=== PATIENT | female | born 1965 | race American Indian/Alaskan Native ===

== ENCOUNTER 2016-06-21 14:03 | Emergency (ER) | payer MEDICARE ==
--- NOTE | 2016-06-21 17:59 | Emergency Department Report ---
Chief Complaint: Medical Clearance Stated Complaint: CHECK POTASSIUM LEVELS/DIALYSIS Time Seen by Provider: 06/21/16 17:54 - HPI History of Present Illness: Patient here reports that she was sent by dialysis clinic today emergency room to have lab work checked because she missed her dialysis yesterday. She said that transport didn't show up. And she didn't have a ride to go. She gets dialysis Tuesdays and Saturdays. She says psychiatric social worker supervisor at dialysis center arranged for her to have transport to have dialysis tomorrow so she will be going tomorrow. She denies any chest pain or shortness of breath. Denies any numbness or tingling to extremities. - ROS Review of Systems: All systems are negative unless stated in HPI above. - Exam Vital Signs: Vital Signs 06/21/16 15:23 Temperature 98.2 F Pulse Rate 102 H Respiratory 18 Rate Blood Pressure 126/69 O2 Sat by Pulse 96 Oximetry Physical Exam: General: This is a 50-year-old female well-nourished well-developed in no acute distress. CV: Tachycardia 102. S1 and S2 and regular rhythm. Dialysis access to left arm with good thrill and bruit. Extremity: No clubbing, cyanosis or edema. +2 pulses MSE screening note: Focused history and physical exam performed. Due to findings the following was ordered:see mdm ED Medical Decision Making - Medical Decision Making Medical decision making: Patient seen by provider in triage area. Appropriate protocol activated and patient to main ED to be seen by physician. ED Disposition for MSE Condition: Stable
[2016-06-21 18:22] LABS: Basophils % (Auto) 0.6 % (0.0-1.8); Eosinophils % (Auto) 2.2 % (0.0-4.3); Hematocrit 27.5 % (30.3-42.9); Hemoglobin 8.8 gm/dl (10.1-14.3); Mean Corpuscular HGB Conc 32 % (30-34); Mean Corpuscular Hemoglobin 29 pg (28-32); Mean Corpuscular Volume 92 fl (79-97); Platelet Count 331 K/mm3 (140-440); Red Cell Distribution Width 16.2 % (13.2-15.2); White Blood Count 16.5 K/mm3 (4.5-11.0)
[2016-06-21 18:34] LABS: Albumin 3.5 g/dL (3.9-5); Albumin/Globulin Ratio 0.9 %; BUN/Creatinine Ratio 3.28; Bilirubin,Total 0.3 mg/dL (0.1-1.2); Calcium 7.3 mg/dL (8.4-10.2); Chloride 93.8 mmol/L (98-107); Magnesium 2.3 mg/dL (1.7-2.3); Total Protein 7.4 g/dL (6.3-8.2)
[2016-06-21 18:42] LABS: Potassium 6.7 mmol/L (3.6-5.0)
[2016-06-21] MEDS ORDERED: SODIUM BICARBONATE IV ONE ×2 (20:58→21:00)
[2016-06-21] MEDS ORDERED: CALCIUM GLUCONATE 1,000 MG in NACL 0.9% 100 ML IV ONE (20:58)
[2016-06-21] MEDS ORDERED: D50W (25GM) IV ONE (20:58)
[2016-06-21] MEDS ORDERED: PROVENTIL IH ONE (21:01)
[2016-06-21] MEDS ORDERED: KAYEXALATE PO ONE (21:13)
--- NOTE | 2016-06-21 21:22 | Emergency Department Report ---
HPI - General Chief Complaint: Medical Clearance Time Seen by Provider: 06/21/16 17:54 - HPI HPI: Room 19 The patient is a 50-year-old female presenting with a chief complaint missed hemodialysis. Patient has a history of end-stage renal disease and usually receives dialysis every Friday and Friday. The patient states she was unable to get to dialysis yesterday. The patient states she feels "okay." Patient denies any complaints. Patient denies shortness of breath, chest pain. Location: [see above] Duration: [see above] Quality: Painless Severity: [see above] Modifying factors: [see above] Context: [see above] Mode of transportation: [not driving] ED Past Medical Hx - Past Medical History Hx Hypertension: Yes (1990 takes Amlodipine,) Hx CVA: Yes (LEFT SIDED WEAKNESS) Hx Congestive Heart Failure: Yes Hx Diabetes: Yes (diet control) Hx Renal Disease: Yes (DIALYSIS / / FRI) Hx Arthritis: Yes (hands) Hx Asthma: Yes (last attack-2014) Hx COPD: Yes Additional medical history: ANEMIA - Surgical History Additional Surgical History: TUBAL LIGATION. LEFT OVARY REMOVED. GRAFT LEFT ARM. PERMACATH RIGHT CHEST - Family History Family history: no significant - Social History Smoking Status: Never Smoker Substance Use Type: None - Medications Home Medications: Home Medications Medication Instructions Recorded Confirmed Last Taken Type Gabapentin 100 mg PO TID #90 capsule 07/30/13 04/26/16 1 Day Ago Rx amLODIPine [Norvasc] 10 mg PO QDAY #30 tablet 05/23/14 04/26/16 1 Day Ago Rx hydrALAZINE [Apresoline TAB] 25 mg PO Q8HR #90 tablet 05/23/14 04/26/16 1 Day Ago Rx hydrOXYzine HCL [Atarax] 25 mg PO Q8H PRN #20 tablet 05/23/14 04/26/16 1 Day Ago Rx Ondansetron [Zofran TAB] 4 mg PO PRN PRN 09/09/14 04/26/16 1 Day Ago History Loratadine [Claritin] 10 mg PO QDAY tablet 10/09/14 04/26/16 1 Day Ago Rx ED Review of Systems ROS: Stated complaint: CHECK POTASSIUM LEVELS/DIALYSIS Other details as noted in HPI Comment: All other systems reviewed and negative Constitutional: denies: chills, fever Eyes: denies: eye pain, eye discharge, vision change ENT: denies: ear pain, throat pain Respiratory: denies: cough, shortness of breath, wheezing Cardiovascular: denies: chest pain, palpitations Endocrine: no symptoms reported Gastrointestinal: denies: abdominal pain, nausea, diarrhea Genitourinary: denies: urgency, dysuria, discharge Musculoskeletal: denies: back pain, joint swelling, arthralgia Skin: denies: rash, lesions Neurological: denies: headache, weakness, paresthesias Psychiatric: denies: anxiety, depression Hematological/Lymphatic: denies: easy bleeding, easy bruising Physical Exam - Physical Exam Vital Signs: Vital Signs 06/21/16 15:23 Temperature 98.2 F Pulse Rate 102 H Respiratory 18 Rate Blood Pressure 126/69 O2 Sat by Pulse 96 Oximetry Physical Exam: GENERAL: The patient is well-developed well-nourished female lying on stretcher not appearing to be in acute distress. [] HEENT: Normocephalic. Atraumatic. Extraocular motions are intact. Patient has moist mucous membranes. NECK: Supple. Trachea midline CHEST/LUNGS: Clear to auscultation. There is no respiratory distress noted. HEART/CARDIOVASCULAR: Regular. There is no tachycardia. There is no gallop rub or murmur. ABDOMEN: Abdomen is soft, nontender. Patient has normal bowel sounds. There is no abdominal distention. SKIN: There is no rash. There is no diaphoresis. NEURO: The patient is awake, alert, and oriented. The patient is cooperative. The patient has normal speech MUSCULOSKELETAL: There is no evidence of acute injury. ED Course Vital Signs 06/21/16 15:23 Temperature 98.2 F Pulse Rate 102 H Respiratory 18 Rate Blood Pressure 126/69 O2 Sat by Pulse 96 Oximetry - Reevaluation(s) Reevaluation #1: 06/21/16 21:23 I discussed with patient at length my concern for her elevated potassium secondary to missing dialysis. I explained the increased risk of due to untreated hyperkalemia. I explained that it makes more sense to stay in the hospital for dialysis as there is severe was a warning in place for tomorrow. The patient states her transportation van already contacted her several minutes ago stating they would pick her up in the morning for dialysis. The patient also states she has a child at home that she cannot live alone. Patient verbalized understanding of increased morbidity and/or mortality should she leave the hospital AGAINST MEDICAL ADVICE. ED Medical Decision Making - Lab Data Result diagrams: 06/21/16 18:08 06/21/16 18:08 Laboratory Tests 06/21/16 06/21/16 18:08 18:08 WBC 16.5 H RBC 3.00 L Hgb 8.8 L Hct 27.5 L MCV 92 MCH 29 MCHC 32 RDW 16.2 H Plt Count 331 Lymph % (Auto) 5.5 L [place] % (Auto) 5.7 Eos % (Auto) 2.2 Baso % (Auto) 0.6 Lymph # 0.9 L [place] # 0.9 H Eos # 0.4 Baso # 0.1 Seg Neutrophils % 86.0 H Seg Neutrophils # 14.2 H Sodium 137 Potassium 6.7 H* Chloride 93.8 L Carbon Dioxide 17 L Anion Gap 33 BUN 64 H Creatinine 19.5 H Estimated GFR 2 BUN/Creatinine Ratio 3.28 Glucose 94 Calcium 7.3 L Magnesium 2.3 Total Bilirubin 0.3 AST 13 ALT 8 Alkaline Phosphatase 73 Total Protein 7.4 Albumin 3.5 L Albumin/Globulin Ratio 0.9 - Differential Diagnosis end-stage renal disease, hyperkalemia Critical care attestation.: If time is entered above; I have spent that time in minutes in the direct care of this critically ill patient, excluding procedure time. ED Disposition Clinical Impression: ESRD needing dialysis, Acute hyperkalemia Disposition: LEFT AGAINST MEDICAL ADVICE Is pt being admited?: No Does the pt Need Aspirin: No Condition: Serious Forms: AMA Form Time of Disposition: 21:23 (patient leaving AMA)
[2016-06-21 21:59] VITALS: BP 120/67
== END 2016-06-21 22:31 | disposition left against medical advice (07) ==
LOC: ED 14:03
DX: I13.2 Hypertensive heart and chronic kidney disease with heart failure and with stage 5 chronic kidney disease, or end stage renal disease (principal); E11.22 Type 2 diabetes mellitus with diabetic chronic kidney disease; E11.65 Type 2 diabetes mellitus with hyperglycemia; N18.6 End stage renal disease; I50.9 Heart failure, unspecified; M19.90 Unspecified osteoarthritis, unspecified site; J45.909 Unspecified asthma, uncomplicated; I63.9 Cerebral infarction, unspecified; D64.9 Anemia, unspecified; J44.9 Chronic obstructive pulmonary disease, unspecified; Z99.2 Dependence on renal dialysis
CPT/HCPCS: 36415; 80053; 82962; 83735; 85025; 94640; 96374; 96375; 99283; J0610; J1815

== ENCOUNTER 2017-02-24 20:05 | Inpatient (IN) | payer MEDICARE ==
[2017-02-24 22:10] LABS: Hematocrit 30.6 % (30.3-42.9); Hemoglobin 9.6 gm/dl (10.1-14.3); Mean Corpuscular HGB Conc 32 % (30-34); Mean Corpuscular Hemoglobin 30 pg (28-32); Mean Corpuscular Volume 97 fl (79-97); Platelet Count 201 K/mm3 (140-440); Red Blood Count 3.17 M/mm3 (3.65-5.03); White Blood Count 7.5 K/mm3 (4.5-11.0)
[2017-02-24 22:21] LABS: INR 1.04 (0.87-1.13)
[2017-02-24 22:33] LABS: Creatine Kinase MB 5.2 ng/mL (0.0-4.0)
[2017-02-24 22:34] LABS: Albumin 4.1 g/dL (3.9-5); Albumin/Globulin Ratio 1.5 %; BUN/Creatinine Ratio 5.6; Bilirubin,Total 0.3 mg/dL (0.1-1.2); Calcium 8.1 mg/dL (8.4-10.2); Chloride 98.4 mmol/L (98-107); Potassium 5.6 mmol/L (3.6-5.0); Total Protein 6.9 g/dL (6.3-8.2)
[2017-02-24 22:52] LABS: Blastocytes % (Manual) 0 %
[2017-02-24 22:53] LABS: Anisocytosis 1+; Diff Status Complete; Platelet Estimate Consistent w Auto
[2017-02-25] MEDS ORDERED: D50W (25GM) Syringe IV ONE (00:43)
[2017-02-25] MEDS ORDERED: SODIUM BICARBONATE IV ONE (00:43)
[2017-02-25] MEDS ORDERED: PROVENTIL IH ONE (00:43)
[2017-02-25] MEDS ORDERED: MORPHINE IV ONE (00:43)
[2017-02-25] MEDS ORDERED: ZOFRAN IV ONE (00:43)
[2017-02-25] MEDS ORDERED: CALCIUM GLUCONATE 1,000 MG in NACL 0.9% 100 ML IV ONE (00:43)
[2017-02-25] MEDS ORDERED: NITRO-BID 2% TP ONE (00:43)
--- NOTE | 2017-02-25 00:46 | Emergency Department Report ---
HPI - General Chief Complaint: Dyspnea/Respdistress Time Seen by Provider: 02/25/17 00:31 - HPI HPI: Room 5 The patient is a 51-year-old female presented with a chief complaint chest pain. Patient states that approximate 16:00 she developed left-sided chest pain or sharp in nature. Patient states her pain associated with nausea/ vomiting, shortness of breath and diaphoresis. The patient currently gets her pain score 5/10. The patient states she's never had a stress test or cardiac catheterization Location: Left chest Duration: Constant since 16:00 Quality: Sharp Severity: 5/10 Modifying factors: [see above] Context: [see above] Mode of transportation: Unknown ED Past Medical Hx - Past Medical History Hx Hypertension: Yes (1990 takes Amlodipine,) Hx CVA: Yes (LEFT SIDED WEAKNESS) Hx Congestive Heart Failure: Yes Hx Diabetes: Yes (diet control) Hx Renal Disease: Yes (DIALYSIS / / FRI) Hx Arthritis: Yes (hands) Hx Asthma: Yes (last attack-2014) Hx COPD: Yes Additional medical history: ANEMIA - Surgical History Past Surgical History?: Yes Additional Surgical History: TUBAL LIGATION. LEFT OVARY REMOVED. GRAFT LEFT ARM. PERMACATH RIGHT CHEST - Family History Family history: no significant - Social History Smoking Status: Never Smoker Substance Use Type: None - Medications Home Medications: Home Medications Medication Instructions Recorded Confirmed Last Taken Type Gabapentin 100 mg PO TID #90 capsule 07/30/13 04/26/16 1 Day Ago Rx amLODIPine [Norvasc] 10 mg PO QDAY #30 tablet 05/23/14 04/26/16 1 Day Ago Rx hydrALAZINE [Apresoline TAB] 25 mg PO Q8HR #90 tablet 05/23/14 04/26/16 1 Day Ago Rx hydrOXYzine HCL [Atarax] 25 mg PO Q8H PRN #20 tablet 05/23/14 04/26/16 1 Day Ago Rx Ondansetron [Zofran TAB] 4 mg PO PRN PRN 09/09/14 04/26/16 1 Day Ago History Loratadine [Claritin] 10 mg PO QDAY tablet 10/09/14 04/26/16 1 Day Ago Rx ED Review of Systems ROS: Stated complaint: DAMIÁN Other details as noted in HPI Comment: All other systems reviewed and negative Constitutional: denies: chills, fever Eyes: denies: eye pain, eye discharge, vision change ENT: denies: ear pain, throat pain Respiratory: shortness of breath Cardiovascular: chest pain Endocrine: no symptoms reported Gastrointestinal: nausea, vomiting Genitourinary: denies: urgency, dysuria, discharge Musculoskeletal: denies: back pain, joint swelling, arthralgia Skin: denies: rash, lesions Neurological: denies: headache, weakness, paresthesias Psychiatric: denies: anxiety, depression Hematological/Lymphatic: denies: easy bleeding, easy bruising Physical Exam - Physical Exam Vital Signs: Vital Signs 02/24/17 02/24/17 02/24/17 20:47 21:01 21:15 Temperature Pulse Rate 101 H 102 H Respiratory 14 11 L Rate Blood Pressure 162/77 162/77 Blood Pressure [Right] O2 Sat by Pulse 100 100 100 Oximetry 02/24/17 02/24/17 02/24/17 21:27 21:31 21:45 Temperature 98.4 F Pulse Rate 101 H 98 H 99 H Respiratory 16 13 12 Rate Blood Pressure 162/77 162/77 162/77 Blood Pressure 162/77 [Right] O2 Sat by Pulse 100 100 100 Oximetry 02/24/17 02/24/17 02/24/17 22:01 22:15 22:31 Temperature Pulse Rate 96 H 97 H 101 H Respiratory 11 L 12 17 Rate Blood Pressure 162/77 162/77 163/77 Blood Pressure [Right] O2 Sat by Pulse 100 100 100 Oximetry 02/24/17 02/24/17 02/24/17 22:45 23:01 23:15 Temperature Pulse Rate 96 H 97 H 95 H Respiratory 12 13 12 Rate Blood Pressure 163/77 163/77 163/77 Blood Pressure [Right] O2 Sat by Pulse 100 100 100 Oximetry 02/24/17 02/24/17 02/25/17 23:31 23:45 00:01 Temperature Pulse Rate 96 H 98 H 95 H Respiratory 12 12 13 Rate Blood Pressure 163/77 163/77 141/58 Blood Pressure [Right] O2 Sat by Pulse 100 100 100 Oximetry Physical Exam: GENERAL: The patient is well-developed well-nourished female sleeping on stretcher not appearing to be in acute distress. Eventually awakens after verbal and tactile stimuli HEENT: Normocephalic. Atraumatic. Extraocular motions are intact. Patient has moist mucous membranes. NECK: Supple. Trachea midline CHEST/LUNGS: Clear to auscultation. There is no respiratory distress noted. HEART/CARDIOVASCULAR: Regular. There is no tachycardia. There is no gallop rub or murmur. ABDOMEN: Abdomen is soft, nontender. Patient has normal bowel sounds. There is no abdominal distention. SKIN: There is no rash. There is no diaphoresis. NEURO: The patient is awake, alert, and oriented. The patient is cooperative. The patient has normal speech MUSCULOSKELETAL: There is no evidence of acute injury. ED Course Vital Signs 02/24/17 02/24/17 02/24/17 20:47 21:01 21:15 Temperature Pulse Rate 101 H 102 H Respiratory 14 11 L Rate Blood Pressure 162/77 162/77 Blood Pressure [Right] O2 Sat by Pulse 100 100 100 Oximetry 02/24/17 02/24/17 02/24/17 21:27 21:31 21:45 Temperature 98.4 F Pulse Rate 101 H 98 H 99 H Respiratory 16 13 12 Rate Blood Pressure 162/77 162/77 162/77 Blood Pressure 162/77 [Right] O2 Sat by Pulse 100 100 100 Oximetry 02/24/17 02/24/17 02/24/17 22:01 22:15 22:31 Temperature Pulse Rate 96 H 97 H 101 H Respiratory 11 L 12 17 Rate Blood Pressure 162/77 162/77 163/77 Blood Pressure [Right] O2 Sat by Pulse 100 100 100 Oximetry 02/24/17 02/24/17 02/24/17 22:45 23:01 23:15 Temperature Pulse Rate 96 H 97 H 95 H Respiratory 12 13 12 Rate Blood Pressure 163/77 163/77 163/77 Blood Pressure [Right] O2 Sat by Pulse 100 100 100 Oximetry 02/24/17 02/24/17 02/25/17 23:31 23:45 00:01 Temperature Pulse Rate 96 H 98 H 95 H Respiratory 12 12 13 Rate Blood Pressure 163/77 163/77 141/58 Blood Pressure [Right] O2 Sat by Pulse 100 100 100 Oximetry ED Medical Decision Making - Lab Data Result diagrams: 02/24/17 21:48 02/24/17 21:48 Laboratory Tests 02/24/17 02/24/17 02/24/17 21:48 21:48 21:48 WBC 7.5 RBC 3.17 L Hgb 9.6 L Hct 30.6 MCV 97 MCH 30 MCHC 32 RDW 17.0 H Plt Count 201 Eos % (Auto) Emergency Dispatch Operator Add Manual Diff Complete Total Counted 100 Seg Neuts % (Manual) 57.0 Band Neutrophils % 4.0 Lymphocytes % (Manual) 19.0 Reactive Lymphs % (Man) 0 Monocytes % (Manual) 3.0 Eosinophils % (Manual) 16.0 H Basophils % (Manual) 1.0 Metamyelocytes % 0 Myelocytes % 0 Promyelocytes % 0 Blast Cells % 0 Nucleated RBC % Not Reportable Seg Neutrophils # Man 4.3 Band Neutrophils # 0.3 Lymphocytes # (Manual) 1.4 Abs React Lymphs (Man) 0.0 Monocytes # (Manual) 0.2 Eosinophils # (Manual) 1.2 H Basophils # (Manual) 0.1 Metamyelocytes # 0.0 Myelocytes # 0.0 Promyelocytes # 0.0 Blast Cells # 0.0 WBC Morphology Not Reportable Hypersegmented Neuts Not Reportable Hyposegmented Neuts Not Reportable Hypogranular Neuts Not Reportable Smudge Cells Not Reportable Toxic Granulation Not Reportable Toxic Vacuolation Not Reportable Dohle Bodies Not Reportable Pelger-Huet Anomaly Not Reportable Toney Rods Not Reportable Platelet Estimate Consistent w auto Clumped Platelets Not Reportable Plt Clumps, EDTA Not Reportable Large Platelets Not Reportable Giant Platelets Not Reportable Platelet Satelliting Not Reportable Plt Morphology Comment Not Reportable RBC Morphology Not Reportable Dimorphic RBCs Not Reportable Polychromasia Not Reportable Hypochromasia Not Reportable Poikilocytosis Not Reportable Anisocytosis 1+ Microcytosis Not Reportable Macrocytosis Not Reportable Spherocytes Not Reportable Pappenheimer Bodies Not Reportable Sickle Cells Not Reportable Target Cells Not Reportable Tear Drop Cells Not Reportable Ovalocytes Not Reportable Helmet Cells Not Reportable Blunt-[place] Bodies Not Reportable [place] Rings Not Reportable [place] Cells Not Reportable Bite Cells Not Reportable Crenated Cell Not Reportable Elliptocytes Not Reportable Acanthocytes (Spur) Not Reportable Rouleaux Not Reportable Hemoglobin C Crystals Not Reportable Schistocytes Not Reportable Malaria parasites Not Reportable Obi Bodies Not Reportable Hem Pathologist Commnt No PT 13.5 INR 1.04 APTT 29.0 D-Dimer 638.24 H Sodium 140 Potassium 5.6 H Chloride 98.4 Carbon Dioxide 21 L Anion Gap 26 BUN 65 H Creatinine 11.6 H Estimated GFR 4 BUN/Creatinine Ratio 5.60 Glucose 131 H Calcium 8.1 L Total Bilirubin 0.30 AST 13 ALT 13 Alkaline Phosphatase 79 Total Creatine Kinase 137 H CK-MB (CK-2) 5.2 H CK-MB (CK-2) Rel Index 3.7 Troponin T 0.143 H* Total Protein 6.9 Albumin 4.1 Albumin/Globulin Ratio 1.5 - EKG Data -: EKG Interpreted by Me EKG shows normal: sinus rhythm Rate: tachycardia (101 bpm) - EKG Data When compared to previous EKG there are: previous EKG unavailable - Radiology Data Radiology results: image reviewed (chest x-ray) interpreted by me: Chest [id number] haziness of the right lung zone. No definite infiltrates , no pneumothorax - Differential Diagnosis ACS, GERD, pericarditis Critical care attestation.: If time is entered above; I have spent that time in minutes in the direct care of this critically ill patient, excluding procedure time. ED Disposition Clinical Impression: Chest pain Disposition: OP ADMIT IP TO THIS HOSP Is pt being admited?: Yes Does the pt Need Aspirin: Yes Condition: Fair Instructions: Chest Pain (ED) Referrals: PRIMARY CARE, [Primary Care Provider] - 3-5 Days Time of Disposition: 00:47 (hospitalist paged)
[2017-02-25] MEDS ORDERED: ASPIRIN PO ONE (00:48)
[2017-02-25] MEDS ORDERED: NACL ONE (01:41)
--- NOTE | 2017-02-25 02:15 | Cat Scan Report ---
FINAL REPORT PROCEDURE: CT ANGIO CHEST TECHNIQUE: Computerized tomographic angiography of the chest was performed after the IV injection of iodinated nonionic contrast including image processing. The image data was postprocessed using 2-dimensional multiplanar reformatted (MPR) and 3-dimensional (MIP and/or volume rendered) techniques. HISTORY: chest pain, shortness of breath COMPARISON: No prior studies are available for comparison. FINDINGS: Heart and pericardium: Normal. Thoracic aorta: Normal. Pulmonary vasculature: Normal. Lymph nodes: No enlarged thoracic lymph nodes. Lungs: Mild atelectasis bilateral lower lungs. Slight pleural thickening. Mild vascular congestion. No acute infiltrate, effusion or pneumothorax. The central airway is patent.. Pleural space: Mild pleural thickening bilateral lower lungs.. Musculoskeletal structures: No significant abnormality. Upper abdominal structures: No significant abnormality. IMPRESSION: There is no evidence of pulmonary arterial emboli. Mild atelectasis bilateral lower lungs. Slight pleural thickening. Mild vascular congestion. No effusion or pneumothorax.
--- NOTE | 2017-02-25 03:30 | History and Physical Report ---
CHIEF COMPLAINT: Chest pain. HISTORY OF PRESENT ILLNESS: A 51-year-old woman with history of hypertension, coronary artery disease, diabetes, end-stage renal disease on dialysis, CVA, comes to the Emergency Room with complaints of chest pain located in the left substernal area which she describes as sharp pain, constant, intensity 8/10, no radiation, she cannot identify exacerbating or relieving factors. She use her albuterol at home without any relief, admits to shortness of breath, no nausea, vomiting, diaphoresis, or palpitations. Last stress test was in 2011. REVIEW OF SYSTEMS: CARDIAC: No palpitations. PULMONARY: No cough, wheezing. GASTROINTESTINAL: No abdominal pain, hematochezia. GENITOURINARY: No urinary frequency, dysuria. SKIN: No rash or pruritus. NEUROLOGICAL: No paraesthesia. Speech is fluent. CONSTITUTIONAL: No fever or chills. EARS: No earache or tinnitus. MUSCULOSKELETAL: No joint pain, myalgia. HEME: No easy bruising, petechia, or ecchymosis. ENDOCRINE: No hot or cold intolerance, polydipsia, or polyuria. PAST MEDICAL HISTORY: End-stage renal disease, on dialysis, hypertension, diabetes, coronary artery disease, and history of CVA. PAST SURGICAL HISTORY: AV fistula. SOCIAL HISTORY: Denies alcohol, tobacco, drugs. MEDICATIONS: Reviewed. FAMILY HISTORY: Significant for hypertension. ALLERGIES TO MEDICINES: Reviewed. PHYSICAL EXAMINATION: VITAL SIGNS: Blood pressure is 170/90, pulse 80, respirations 16, temperature 97. GENERAL APPEARANCE: The patient lying in bed in no acute distress. HEENT: Normocephalic, atraumatic. Pupils equally round and reactive to light. Extraocular movement is intact. No scleral icterus or JVD. No thyromegaly or nodules. NECK: Supple, no carotid bruit. Mucous membranes moist. No exudate or erythema. HEART: S1, S2. Regular rate and rhythm. LUNGS: Clear to auscultation bilaterally, breathing comfortable. ABDOMEN: Soft, bowel sounds nontender, nondistended, no organomegaly. EXTREMITIES: No edema, cyanosis, or clubbing. SKIN: No rash, warm and dry. NEUROLOGICAL: Oriented x3. Cranial nerves 2 through 12 intact. Speech is fluent. DIAGNOSTIC DATA: 1. Labs reviewed 1. EKG reviewed. 2. CAT scan of the chest is pending. ASSESSMENT: 1. Unstable angina. 2. Coronary artery disease. 3. End-stage renal disease, on dialysis. 4. Hypertension. 5. Diabetes. 6. History of cerebrovascular accident. 7. Admit to Medicine. 8. Check cardiac enzymes, consult Cardiology. 9. Followup CAT scan. 10. Start aspirin, IV morphine, consult Renal for dialysis. 11. Check fingersticks, initiate insulin sliding scale. 12. Continue appropriate outpatient medications. 13. Start deep venous thromboses prophylaxis. JOB# [id number] AES/NTS
[2017-02-25] MEDS ORDERED: APRESOLINE IV PRN (08:00)
--- NOTE | 2017-02-25 08:03 | XRay Report ---
AP CHEST: HISTORY: Dyspnea Mild cardiomegaly and central pulmonary venous congestion are unchanged since 04/25/16. The lungs remain generally clear. No consolidation, pleural effusion or pneumothorax. Left axillary/brachial vascular stent is noted. IMPRESSION: Mild cardiomegaly and central pulmonary venous congestion but no CHF.
--- NOTE | 2017-02-25 10:24 | Consultation ---
History of Present Illness - Reason for Consult Consult date: 02/25/17 end stage renal disease, hyperkalemia - History of Present Illness The patient is a 51-year-old AAF with medical history significant for Dm type 2 , Hypertension, Asthma, CHF and ESRD on hemodialysis (TTS) who presented to the ER with complaint of chest pain. Patient reports the pain as sharp in nature, not radiating and fairly constant. Associated symptoms include nausea, vomiting , shortness of breath and wheezing. Patient is followed by and was last dialyzed on 02/22/17. Past History Past Medical History: anemia, dialysis, ESRD, heart failure, hypertension Medications and Allergies Allergies Allergy/AdvReac Type Severity Reaction Status Date / Time No Known Allergies Allergy Verified 06/21/16 15:23 Home Medications Medication Instructions Recorded Confirmed Last Taken Type hydrALAZINE [Apresoline TAB] 25 mg PO Q8HR #90 tablet 05/23/14 02/25/17 1 Day Ago Rx hydrOXYzine HCL [Atarax] 25 mg PO Q8H PRN #20 tablet 05/23/14 02/25/17 1 Day Ago Rx Ondansetron [Zofran TAB] 4 mg PO PRN PRN 09/09/14 02/25/17 1 Day Ago History Gabapentin 300 mg PO TID 02/25/17 02/25/17 Unknown History Loratadine [Claritin] 10 mg PO QDAY PRN 02/25/17 02/25/17 Unknown History amLODIPine [Norvasc] 5 mg PO QDAY 02/25/17 02/25/17 Unknown History Active Meds: Active Medications Aspirin (Baby Aspirin) 81 mg PO QDAY [facility] Hydralazine HCl (Apresoline) 5 mg IV Q6H PRN PRN Reason: Blood Pressure Sodium Chloride (Nacl 0.9%) 100 mls @ 999 mls/hr IV JAYNE PRN PRN Reason: Hypotension Insulin Aspart (Novolog) 0 units SUB-Q ACHS [facility] PRN Reason: Protocol Morphine Sulfate (Morphine) 2 mg IV Q4H PRN PRN Reason: Pain, Moderate (4-6) Review of Systems Constitutional: no weight loss, no weight gain, no fever, no chills, no anorexia , no weakness Ears, nose, mouth and throat: no sinus pressure, no sinus pain, no epistaxis, no headache Breasts: deferred Cardiovascular: chest pain, shortness of breath, dyspnea on exertion, high blood pressure, no orthopnea, no palpitations, no rapid/irregular heart beat, no edema, no syncope, no lightheadedness, no leg edema Respiratory: shortness of breath, dyspnea on exertion, no cough, no hemoptysis Gastrointestinal: nausea, vomiting, no abdominal pain, no diarrhea, no melena Genitourinary Female: no dysuria, no hematuria Rectal: no bleeding Musculoskeletal: no neck stiffness, no neck pain Integumentary: no rash, no wounds, no jaundice Neurological: no paralysis, no weakness, no syncope, no vertigo, no headaches Psychiatric: no disorientation, no confusion Endocrine: no weight change Hematologic/Lymphatic: no easy bleeding Exam - Vital Signs Vital signs: Vital Signs Pulse Ox 100 02/24/17 20:47 - General Appearance General appearance: well-developed, well-nourished, appears stated age, obese, other (no distress) EENT: ATNC, PERRL, mucous membranes moist, hearing intact, vision intact Neck: Present: neck supple, trachea midline Respiratory: Clear to Ascultation Heart: regular, S1S2, no murmurs Gastrointestinal: Present: normoactive bowel sounds, obese. Absent: tenderness , distended Integumentary: no rash Neurologic: no focal deficit, no asterixis, alert and oriented x3, CN 3-12 intact Musculoskeletal: Present: other (no edema, left arm AVF) Psychiatric: mood/affect appropriate, cooperative Results - Lab Results 02/25/17 03:48 02/24/17 21:48 Most recent lab results Calcium 8.1 mg/dL (8.4-10.2) L 02/24/17 21:48 Assessment and Plan - Patient Problems (1) ESRD (end stage renal disease) on dialysis Current Visit: No Status: Chronic Plan to address problem: Continue hemodialysis TTS schedule. (2) Hyperkalemia Current Visit: No Status: Acute Plan to address problem: Hyperkalemia in the setting of ESRD. Hemodialysis today. Low potassium diet. (3) Anemia in chronic kidney disease Current Visit: No Status: Chronic Qualifiers: Chronic kidney disease stage: C Plan to address problem: Epogen. (4) Chest pain Current Visit: Yes Status: Acute Qualifiers: Chest pain type: C Ischemic chest pain type: I
[2017-02-25] MEDS ORDERED: NACL 0.9% 100 ML IV PRN (10:30)
[2017-02-25] MEDS ORDERED: PROCRIT SUB-Q NR (11:00)
--- NOTE | 2017-02-25 11:38 | Admit Criteria Form ---
Admission Criteria Documentation: CARDIOLOGY GRG Clinical Indications for Admission to Inpatient Care ([place]/check or initial the applicable condition/criteria) Hospital admission is needed for appropriate care of the patient because of ANY ONE of the following: [ ] I. Hemodynamic instability as indicated by ALL of the following (1)(2)(3) (4)(5)(6)(7)(8)(9)(10) [ ]a) Vital sign abnormality not readily corrected by appropriate treatment with 12-24 hours for ANY ONE: [ ]i) Hypotension that persists despite appropriate treatment (eg, volume repletion) [ ]ii) Tachycardiathat persists despite appropriate tx ( e.g., analgesia, fluids, sedation as indicated [ ]iii) Orthostatic vital sign changes that persists despite appropriate treatment (eg, volume repletion) [ ]b) Vital sign abnormailty that is severe indicated by ANY ONE of the following: [ ]i) Inadequate perfusion indicated by ANY ONE of the following: [ ] 1) Lactic acidosis (> 2 mmol/L) [ ] 2) New abnormal capillary refill (> 3 seconds) [ ] 3) Reduced urine output [ ] 4) New altered mental status [ ] 5) Myocardial Ischemia [ ] 6) Other metabolic acidosis (arterial pH <7.35 ) not otherwise explained. [ ]ii) Mean arterial pressure[A] less than 60 mm Hg [ ]iii) Mean arterial pressure[A] less than 70 mm Hg after 30 minutes of appropriate treatment (eg, fluid resuscitation) [ ]iv) Sustained heart rate greater than 120 beats per minute in adult or child 6 years or older[B] [ ]v) IV inotropic or vasopressor medication required to maintain adequate blood pressure or perfusion [ ] II. Severe heart failure as indicated by ANY ONE of the following(17)(18) [ ]a) Respiratory distress [ ]b) Hypotension [ ]c) Debilitating anasarca refractory to therapy (eg, tissue breakdown with infection)[C](19) [ ]d) Cardiac arrhythmias of immediate concern [ ]e) Myocardial ischemia [ ] III. Cardiac arrhythmias or findings of immediate concern indicated by ANY ONE of the following (21)(22): [ ] a) Heart rhythms that are inherently dangerous or unstable indicated by ANY ONE of the following (23)(24)(25): [ ] i) Resuscitated ventricular fibrillation or cardiac arrest [ ] ii) Ventricular escape rhythm [ ] iii) Sustained ventricular tachycardia (30 seconds or more of ventricular rhythm at greater than 100 beats per minute) [ ] iv) Nonsustained ventricular tachycardia and ANY ONE of the following: [ ] 1) Suspected cardiac ischemia as cause or consequence of ventricular tachycardia [ ] 2) Acute myocarditis [ ] b) Unstable cardiac conduction defects indicated by ANY ONE of the following(25)(26)(27) [ ] i) Type II second-degree atrioventricular block [ ]ii) Third-degree atrioventricular block [ ]iii) New-onset left bundle branch block with suspected myocardial ischemia [ ]c) Any heart rhythm and ANY ONE of the following (23)(24)(28)(29) (30) [ ] i) Continuous long-term ECG monitoring needed (e.g., initiation of drug requiring monitoring for more than 24 hours) [ ] ii) Patient has automatic implanted cardioverter defibrillator that is repeatedly firing, malfunctioning, or in need of immediate adjustment of settings beyond the scope of ambulatory or observation care [ ]d) Heart rhythms of concern due to ANY ONE of the following: [ ] i) Hypotension [ ] ii) Respiratory distress [ ] iii) Association with other significant symptoms (e.g., bradycardia with syncope or ongoing dizziness, supraventricular tachycardia with chest pain (28)(29)(31) [ ] IV. Monitoring for cardiac contusion beyond the scope of observation care needed [A](32)(33)(34) [ ] V. Surgical or device complication (e.g., valve replacement complication , ICD disfunction or pacemaker dysfunction) (49)(50)(51)(52)(53)(54) [ ] . Inpatient palliative care needed. [F](51)(52) Also use Inpatient Palliative Care Criteria [ ] VII. Nonbacterial thrombotic (marantic) endocarditis(43)(44)(55)(56)(57) [X] VIII. Cardiology condition, symptom, or finding for which emergency and observation care has failed or are not considered appropriate. [ ] IX. Acute valvular disease requiring inpatient as indicated by ANY ONE of the following (40)(41) [ ]a) Acute valvular regurgitation (42) [ ]b) Noninfectious valvulitis (43)(44) [ ]c) Obstructive valve thrombosis (45)(46) [ ]d) Paravalvular leak(47)(48) [ ]e) Other significant valvular disorder remaining after emergency or observation level of care (as appropriate) [ ]X. Pericardial disease requiring inpatient treatment as indicated by ANY ONE of the following (35)(36)(37)(38) [ ]a) Suspected tamponade [ ]b) Hemopericardium [ ]c) Other significant pericardial disorder remaining after emergency or observation level of care (as appropriate)(39) [ ] XI. Cardiac ischemia beyond scope of emergency and observation care. [ ] XII. Cyanotic heart disease requiring inpatient care as indicated by 1 or more of the following(58)(59)(60): [ ]a) Acute onset of hypoxemia [ ]b) Exacerbation [ ] XIII. Hypertension requiring inpatient treatment as indicated by ANYONE of the following(11)(12)(13)(14): [ ]a) Severe hypertension (SBP greater than 180 mm Hg or DBP greater than 110 mm Hg, or greater than the 95th percentile for age, gender, and height in pediatric patients) that cannot be controlled (eg, to SBP less than 160 mm Hg and DBP less than 100 mm Hg) by emergency department or observation care treatment(15) [ ]b) Acute end organ damage secondary to hypertension (SBP greater than 140 mm Hg or DBP greater than 90 mm Hg) as indicated by ANYONE of the following: [ ] i) Hypertensive encephalopathy (eg, Altered mental status)(16) [ ] ii) Cerebral infarction [ ] iii) Intracranial hemorrhage [ ] iv) Myocardial ischemia or infarction [ ] v) Heart failure (eg, pulmonary edema) [ ] vi) Aortic dissection [ ] vii) Increased creatinine (new) with reduction of more than 50% in estimated glomerular filtration rate from baseline [ ] viii) Papilledema [ ] ix) Retinal hemorrhage [ ] x) Microangiopathic hemolytic anemia [ ] xi) Seizure [ ] xii) Other significant finding secondary to hypertension [ ] XIV. Complications of transplanted heart indicated by ANY ONE of the following(61): [ ]a) Acute graft rejection requiring inpatient management (eg, intravenous imunosuppression)(62)(63) [ ]b) Acute graft heart failure indicated by ANY ONE of the following(64): [ ] i) Hemodynamic instability [ ] ii) Cardiac arrhythmias of immediate concern [ ] iii) Pulmonary edema that is very severe (eg, mechanical ventilation needed, imminent or likely, need for 100% oxygen to keep oxygen saturation above 90%) [ ] iv) Pulmonary edema that is persistent as indicated by ALL of the following: [ ] 1) New need for oxygen therapy to keep oxygen saturation above 90 % (or increased FiO2 need from baseline) [ ] 2) Has not improved sufficiently with emergency department or observation care IV diuretics or other heart failure treatments[E]. [ ] iv) Altered mental status that is severe or persistent [ ] iv) Increased creatinine (new on laboratory test) with reduction of more than 50% in estimated glomerular filtration rate from baseline [ ] iv) Progressively (ongoing) rising creatinine (known from past laboratory test) with reduction of more than 25% in estimated glomerular filtration rate from baseline [ ] iv) Acute renal failure [ ] iv) Acute peripheral ischemia (eg, examination shows pulseless, cool, mottled, or cyanotic extremity) [ ] iv) Pulmonary artery catheter monitoring needed [ ] iv) Other sign or symptom of heart failure requiring inpatient treatment (ie, too severe or not responsive to outpatient and observation care treatment) [ ]c) Infection requiring inpatient management (eg, Hemodynamic instability, need for intravenous antimicrobial treatment)(66)(67)(68)(69)(70) [ ]d) Cardiac allograft vasculopathy requiring inpatient management (eg evidence of cardiacischemia)(71) [ ]e) Other complication of transplanted heart (eg, stroke, severe pulmonary hypertension, severe valvular dysfunction) requiring inpatient management(72) The original [employer] content created by [employer] has been revised. The portions of the content which have been revised are identified through the use of italic text or in bold, and [facility] has neither reviewed nor approved the modified material. All other unmodified content is copyright [facility] [facility]. Please see references footnoted in the original [facility] [facility] edition 2017 Admission Criteria Met: Yes
[2017-02-25] MEDS ORDERED: NACL 0.9 (PRIMING MACHINE ONLY DIALYSIS) MC ONE (12:15)
[2017-02-25 13:26] LABS: Hematocrit 27.3 % (30.3-42.9); Hemoglobin 8.6 gm/dl (10.1-14.3); Mean Corpuscular HGB Conc 32 % (30-34); Mean Corpuscular Hemoglobin 31 pg (28-32); Mean Corpuscular Volume 98 fl (79-97); Platelet Count 203 K/mm3 (140-440); Red Blood Count 2.78 M/mm3 (3.65-5.03); Red Cell Distribution Width 17.3 % (13.2-15.2); White Blood Count 8.9 K/mm3 (4.5-11.0)
[2017-02-25 13:27] LABS: Basophils % (Auto) 0.7 % (0.0-1.8); Eosinophils % (Auto) 11.3 % (0.0-4.3)
[2017-02-25] MEDS ORDERED: CLEOCIN PO SCH (14:00)
--- NOTE | 2017-02-25 17:28 | Consultation ---
History of Present Illness Consult date: 02/25/17 Consult reason: chest pain, shortness of breath History of present illness: Patient is a 51-year-old woman with end-stage renal disease on hemodialysis. She presented to the emergency room with complaints of shortness of breath, nausea and vomiting, 2 days duration. There was no report of missed dialysis sessions. On presentation, EKG was mild sinus tachycardia 101, otherwise normal ECG. Laboratory exam shows a mild isolated rise in troponin levels, in the setting of end-stage renal disease. Chest x-ray reported no evidence of heart failure, and a CT scan of the chest reported no evidence of pulmonary embolism She is a poor history and, unable to articulate details of any significant past cardiac history or workup. An echocardiogram in the hospital records from April 2014 reported normal left ventricular systolic function, ejection fraction 60-65%. No cardiac ischemic workup is evident in the prior hospital records. Past History Past Medical History: anemia, dialysis, ESRD, hypertension Medications and Allergies Allergies Allergy/AdvReac Type Severity Reaction Status Date / Time No Known Allergies Allergy Verified 06/21/16 15:23 Home Medications Medication Instructions Recorded Confirmed Last Taken Type hydrALAZINE [Apresoline TAB] 25 mg PO Q8HR #90 tablet 05/23/14 02/25/17 1 Day Ago Rx hydrOXYzine HCL [Atarax] 25 mg PO Q8H PRN #20 tablet 05/23/14 02/25/17 1 Day Ago Rx Ondansetron [Zofran TAB] 4 mg PO PRN PRN 09/09/14 02/25/17 1 Day Ago History Gabapentin 300 mg PO TID 02/25/17 02/25/17 Unknown History Loratadine [Claritin] 10 mg PO QDAY PRN 02/25/17 02/25/17 Unknown History amLODIPine [Norvasc] 5 mg PO QDAY 02/25/17 02/25/17 Unknown History Active Meds: Active Medications Aspirin (Baby Aspirin) 81 mg PO QDAY [facility] Epoetin Sylvain (Procrit) 10,000 unit SUB-Q ONCE NR Stop: 02/25/17 20:00 Hydralazine HCl (Apresoline) 5 mg IV Q6H PRN PRN Reason: Blood Pressure Sodium Chloride (Nacl 0.9%) 100 mls @ 999 mls/hr IV JAYNE PRN PRN Reason: Hypotension Insulin Aspart (Novolog) 0 units SUB-Q ACHS LANDON PRN Reason: Protocol Morphine Sulfate (Morphine) 2 mg IV Q4H PRN PRN Reason: Pain, Moderate (4-6) Review of Systems Cardiovascular: chest pain, shortness of breath, no orthopnea, no palpitations, no rapid/irregular heart beat, no edema, no syncope, no lightheadedness Physical Examination Vital Signs Pulse Ox 100 02/24/17 20:47 General appearance: no acute distress HEENT: Positive: PERRL Neck: Positive: neck supple Cardiac: Positive: Reg Rate and Rhythm Lungs: Positive: Decreased Breath Sounds Neuro: Positive: Grossly Intact Abdomen: Positive: Soft Female genitourinary: deferred Skin: Positive: Clear Extremities: Absent: edema Results 02/25/17 03:48 02/24/17 21:48 Cardiac Enzymes 02/24/17 Range/Units 21:48 AST 13 (5-40) units/L CK-MB (CK-2) 5.2 H (0.0-4.0) ng/mL Coagulation 02/24/17 Range/Units 21:48 PT 13.5 (12.2-14.9) Sec. INR 1.04 (0.87-1.13) APTT 29.0 (24.2-36.6) Sec. Lipids 02/24/17 Range/Units 21:48 Triglycerides 152 H (2-149) mg/dL Cholesterol 179 (50-199) mg/dL HDL Cholesterol 36 L (40-59) mg/dL Cholesterol/HDL Ratio 4.97 % CBC 02/24/17 02/25/17 Range/Units 21:48 03:48 WBC 7.5 8.9 (4.5-11.0) K/mm3 RBC 3.17 L 2.78 L (3.65-5.03) M/mm3 Hgb 9.6 L 8.6 L (10.1-14.3) gm/dl Hct 30.6 27.3 L (30.3-42.9) % Plt Count 201 203 (140-440) K/mm3 Lymph # 1.7 (1.2-5.4) K/mm3 [place] # 0.7 (0.0-0.8) K/mm3 Eos # 1.0 H (0.0-0.4) K/mm3 Baso # 0.1 (0.0-0.1) K/mm3 Comprehensive Metabolic Panel 02/24/17 Range/Units 21:48 Sodium 140 (137-145) mmol/L Potassium 5.6 H (3.6-5.0) mmol/L Chloride 98.4 (98-107) mmol/L Carbon Dioxide 21 L (22-30) mmol/L BUN 65 H (7-17) mg/dL Creatinine 11.6 H (0.7-1.2) mg/dL Glucose 131 H (65-100) mg/dL Calcium 8.1 L (8.4-10.2) mg/dL AST 13 (5-40) units/L ALT 13 (7-56) units/L Alkaline Phosphatase 79 (35-129) units/L Total Protein 6.9 (6.3-8.2) g/dL Albumin 4.1 (3.9-5) g/dL EKG interpretations - Telemetry EKG Rhythm: Sinus Tachycardia Assessment and Plan - Patient Problems (1) Shortness of breath Current Visit: Yes Status: Acute Plan to address problem: Patient presents with shortness of breath and chest pain, essentially normal ECG and nonspecific isolated rise in troponin in the setting of end-stage on disease. We will schedule echocardiogram and Persantine thallium stress test for further cardiac assessment of chest pain and shortness of breath.
[2017-02-25] MEDS: NOVOLOG SUB-Q SCH ×3 (17:39→22:27)
--- NOTE | 2017-02-25 17:43 | Progress Note ---
Assessment and Plan Assessment and plan: Chest pain Shortness of breath Endstage renal disease on hemodialysis Elevated troponin on ESRD Hypertension History of CVA Diabetes mellitus type 2 - Pain control, breathing treatment, oxygen support - Hemodialysis - Sliding scale insulin, Accu-Cheks - Cardiology and nephrology consult noted - Patient will have stress test and echo tomorrow DVT prophylaxis - On heparin Disposition - Continue inpatient care History Interval history: Patient was seen and evaluated while she was on dialysis, patient's chest pain is getting better. Hospitalist Physical - Physical exam Narrative exam: Not in cardiopulmonary distress. The patient is obese. Vital signs as documented. Head exam is unremarkable. No scleral icterus . Neck is without jugular venous distension, thyromegaly, or carotid bruits. Lungs are clear to auscultation. Cardiac exam reveals regular rate and Rhythm. First and second heart sounds normal. No murmurs, rubs or gallops. Abdominal exam reveals normal bowel sounds, no masses, no organomegaly and no aortic enlargement. Extremities are nonedematous and both femoral and pedal pulses are normal. MAP COLORER: Alert and oriented 3. No focal weakness. - Constitutional Vitals: Temp Pulse Resp BP Pulse Ox 96.0 F L 96 H 18 146/70 96 02/25/17 15:15 02/25/17 15:15 02/25/17 15:15 02/25/17 15:15 02/25/17 11:31 General appearance: Present: no acute distress Results - Labs CBC & Chem 7: 02/25/17 03:48 02/24/17 21:48 Labs: Laboratory Last Values WBC 8.9 K/mm3 (4.5-11.0) 02/25/17 03:48 RBC 2.78 M/mm3 (3.65-5.03) L 02/25/17 03:48 Hgb 8.6 gm/dl (10.1-14.3) L 02/25/17 03:48 Hct 27.3 % (30.3-42.9) L 02/25/17 03:48 MCV 98 fl (79-97) H 02/25/17 03:48 MCH 31 pg (28-32) 02/25/17 03:48 MCHC 32 % (30-34) 02/25/17 03:48 RDW 17.3 % (13.2-15.2) H 02/25/17 03:48 Plt Count 203 K/mm3 (140-440) 02/25/17 03:48 Lymph % (Auto) 18.7 % (13.4-35.0) 02/25/17 03:48 [place] % (Auto) 8.3 % (0.0-7.3) H 02/25/17 03:48 Eos % (Auto) 11.3 % (0.0-4.3) H 02/25/17 03:48 Baso % (Auto) 0.7 % (0.0-1.8) 02/25/17 03:48 Lymph # 1.7 K/mm3 (1.2-5.4) 02/25/17 03:48 [place] # 0.7 K/mm3 (0.0-0.8) 02/25/17 03:48 Eos # 1.0 K/mm3 (0.0-0.4) H 02/25/17 03:48 Baso # 0.1 K/mm3 (0.0-0.1) 02/25/17 03:48 Add Manual Diff Complete 02/24/17 21:48 Total Counted 100 02/24/17 21:48 Seg Neutrophils % 61.0 % (40.0-70.0) 02/25/17 03:48 Seg Neuts % (Manual) 57.0 % (40.0-70.0) 02/24/17 21:48 Band Neutrophils % 4.0 % 02/24/17 21:48 Lymphocytes % (Manual) 19.0 % (13.4-35.0) 02/24/17 21:48 Reactive Lymphs % (Man) 0 % 02/24/17 21:48 Monocytes % (Manual) 3.0 % (0.0-7.3) 02/24/17 21:48 Eosinophils % (Manual) 16.0 % (0.0-4.3) H 02/24/17 21:48 Basophils % (Manual) 1.0 % (0.0-1.8) 02/24/17 21:48 Metamyelocytes % 0 % 02/24/17 21:48 Myelocytes % 0 % 02/24/17 21:48 Promyelocytes % 0 % 02/24/17 21:48 Blast Cells % 0 % 02/24/17 21:48 Nucleated RBC % Not Reportable 02/24/17 21:48 Seg Neutrophils # 5.4 K/mm3 (1.8-7.7) 02/25/17 03:48 Seg Neutrophils # Man 4.3 K/mm3 (1.8-7.7) 02/24/17 21:48 Band Neutrophils # 0.3 K/mm3 02/24/17 21:48 Lymphocytes # (Manual) 1.4 K/mm3 (1.2-5.4) 02/24/17 21:48 Abs React Lymphs (Man) 0.0 K/mm3 02/24/17 21:48 Monocytes # (Manual) 0.2 K/mm3 (0.0-0.8) 02/24/17 21:48 Eosinophils # (Manual) 1.2 K/mm3 (0.0-0.4) H 02/24/17 21:48 Basophils # (Manual) 0.1 K/mm3 (0.0-0.1) 02/24/17 21:48 Metamyelocytes # 0.0 K/mm3 02/24/17 21:48 Myelocytes # 0.0 K/mm3 02/24/17 21:48 Promyelocytes # 0.0 K/mm3 02/24/17 21:48 Blast Cells # 0.0 K/mm3 02/24/17 21:48 WBC Morphology Not Reportable 02/24/17 21:48 Hypersegmented Neuts Not Reportable 02/24/17 21:48 Hyposegmented Neuts Not Reportable 02/24/17 21:48 Hypogranular Neuts Not Reportable 02/24/17 21:48 Smudge Cells Not Reportable 02/24/17 21:48 Toxic Granulation Not Reportable 02/24/17 21:48 Toxic Vacuolation Not Reportable 02/24/17 21:48 Dohle Bodies Not Reportable 02/24/17 21:48 Pelger-Huet Anomaly Not Reportable 02/24/17 21:48 Toney Rods Not Reportable 02/24/17 21:48 Platelet Estimate Consistent w auto 02/24/17 21:48 Clumped Platelets Not Reportable 02/24/17 21:48 Plt Clumps, EDTA Not Reportable 02/24/17 21:48 Large Platelets Not Reportable 02/24/17 21:48 Giant Platelets Not Reportable 02/24/17 21:48 Platelet Satelliting Not Reportable 02/24/17 21:48 Plt Morphology Comment Not Reportable 02/24/17 21:48 RBC Morphology Not Reportable 02/24/17 21:48 Dimorphic RBCs Not Reportable 02/24/17 21:48 Polychromasia Not Reportable 02/24/17 21:48 Hypochromasia Not Reportable 02/24/17 21:48 Poikilocytosis Not Reportable 02/24/17 21:48 Anisocytosis 1+ 02/24/17 21:48 Microcytosis Not Reportable 02/24/17 21:48 Macrocytosis Not Reportable 02/24/17 21:48 Spherocytes Not Reportable 02/24/17 21:48 Pappenheimer Bodies Not Reportable 02/24/17 21:48 Sickle Cells Not Reportable 02/24/17 21:48 Target Cells Not Reportable 02/24/17 21:48 Tear Drop Cells Not Reportable 02/24/17 21:48 Ovalocytes Not Reportable 02/24/17 21:48 Helmet Cells Not Reportable 02/24/17 21:48 Blunt[place] Bodies Not Reportable 02/24/17 21:48 [place] Rings Not Reportable 02/24/17 21:48 Kezia Cells Not Reportable 02/24/17 21:48 Bite Cells Not Reportable 02/24/17 21:48 Crenated Cell Not Reportable 02/24/17 21:48 Elliptocytes Not Reportable 02/24/17 21:48 Acanthocytes (Spur) Not Reportable 02/24/17 21:48 Rouleaux Not Reportable 02/24/17 21:48 Hemoglobin C Crystals Not Reportable 02/24/17 21:48 Schistocytes Not Reportable 02/24/17 21:48 Malaria parasites Not Reportable 02/24/17 21:48 Obi Bodies Not Reportable 02/24/17 21:48 Hem Pathologist Commnt No 02/24/17 21:48 PT 13.5 Sec. (12.2-14.9) 02/24/17 21:48 INR 1.04 (0.87-1.13) 02/24/17 21:48 APTT 29.0 Sec. (24.2-36.6) 02/24/17 21:48 D-Dimer 638.24 ng/mlDDU (0-234) H 02/24/17 21:48 Sodium 140 mmol/L (137-145) 02/24/17 21:48 Potassium 5.6 mmol/L (3.6-5.0) H 02/24/17 21:48 Chloride 98.4 mmol/L (98-107) 02/24/17 21:48 Carbon Dioxide 21 mmol/L (22-30) L 02/24/17 21:48 Anion Gap 26 mmol/L 02/24/17 21:48 BUN 65 mg/dL (7-17) H 02/24/17 21:48 Creatinine 11.6 mg/dL (0.7-1.2) H 02/24/17 21:48 Estimated GFR 4 ml/min 02/24/17 21:48 BUN/Creatinine Ratio 5.60 % 02/24/17 21:48 Glucose 131 mg/dL (65-100) H 02/24/17 21:48 POC Glucose 106 (70-105) H 02/25/17 03:00 Calcium 8.1 mg/dL (8.4-10.2) L 02/24/17 21:48 Total Bilirubin 0.30 mg/dL (0.1-1.2) 02/24/17 21:48 AST 13 units/L (5-40) 02/24/17 21:48 ALT 13 units/L (7-56) 02/24/17 21:48 Alkaline Phosphatase 79 units/L (35-129) 02/24/17 21:48 Total Creatine Kinase 137 units/L (30-135) H 02/24/17 21:48 CK-MB (CK-2) 5.2 ng/mL (0.0-4.0) H 02/24/17 21:48 CK-MB (CK-2) Rel Index 3.7 (0-4) 02/24/17 21:48 Troponin T 0.143 ng/mL (0.00-0.029) H* 02/24/17 21:48 Total Protein 6.9 g/dL (6.3-8.2) 02/24/17 21:48 Albumin 4.1 g/dL (3.9-5) 02/24/17 21:48 Albumin/Globulin Ratio 1.5 % 02/24/17 21:48 Triglycerides 152 mg/dL (2-149) H 02/24/17 21:48 Cholesterol 179 mg/dL (50-199) 02/24/17 21:48 LDL Cholesterol Direct 113 mg/dL (50-130) 02/24/17 21:48 HDL Cholesterol 36 mg/dL (40-59) L 02/24/17 21:48 Cholesterol/HDL Ratio 4.97 % 02/24/17 21:48
[2017-02-26 05:45] LABS: Basophils % (Auto) 0.8 % (0.0-1.8); Eosinophils % (Auto) 10.7 % (0.0-4.3); Hematocrit 26.1 % (30.3-42.9); Hemoglobin 8.8 gm/dl (10.1-14.3); Mean Corpuscular HGB Conc 34 % (30-34); Mean Corpuscular Hemoglobin 32 pg (28-32); Mean Corpuscular Volume 95 fl (79-97); Platelet Count 188 K/mm3 (140-440); Red Blood Count 2.74 M/mm3 (3.65-5.03); Red Cell Distribution Width 17.3 % (13.2-15.2); White Blood Count 7.7 K/mm3 (4.5-11.0)
[2017-02-26 05:53] LABS: BUN/Creatinine Ratio 5.26; Calcium 7.9 mg/dL (8.4-10.2); Chloride 98.7 mmol/L (98-107)
[2017-02-26 06:56] LABS: Creatine Kinase MB 4.5 ng/mL (0.0-4.0)
[2017-02-26] MEDS: NOVOLOG SUB-Q SCH ×4 (07:57→22:49)
--- NOTE | 2017-02-26 09:01 | Progress Note ---
Assessment and Plan - Patient Problems (1) ESRD (end stage renal disease) on dialysis Status: Chronic Plan to address problem: Continue hemodialysis TTS schedule. (2) Hyperkalemia Status: Acute Plan to address problem: Hyperkalemia in the setting of ESRD. Kayexalate ordered. Low potassium diet. (3) Anemia in chronic kidney disease Status: Chronic Qualifiers: Chronic kidney disease stage: C Plan to address problem: Epogen. (4) Chest pain Status: Acute Qualifiers: Chest pain type: C Ischemic chest pain type: I Subjective Date of service: 02/26/17 Interval history: Symptoms are better. Objective - Vital Signs Vital signs: Vital Signs - 12hr 02/25/17 02/25/17 02/25/17 22:33 22:41 22:51 Temperature Pulse Rate Respiratory Rate Blood Pressure 149/75 149/68 O2 Sat by Pulse 98 98 100 Oximetry 02/25/17 02/25/17 02/25/17 23:00 23:11 23:21 Temperature Pulse Rate Respiratory Rate Blood Pressure 129/69 129/69 129/69 O2 Sat by Pulse 98 98 99 Oximetry 02/25/17 02/26/17 02/26/17 23:30 01:15 01:43 Temperature 98.5 F Pulse Rate 95 H Respiratory 21 Rate Blood Pressure 128/69 103/48 180/112 O2 Sat by Pulse 97 96 Oximetry 02/26/17 02/26/17 02:25 05:39 Temperature 99.2 F Pulse Rate 95 H Respiratory 20 Rate Blood Pressure 190/101 115/53 O2 Sat by Pulse 100 Oximetry - General Appearance General appearance: well-developed, well-nourished, appears stated age, obese, other (no distress) EENT: ATNC, PERRL, hearing intact, vision intact Neck: no JVD, supple Respiratory: Present: Clear to Ascultation Cardiology: regular, S1S2, no murmurs Gastrointestinal: normoactive bowel sounds Integumentary: no rash Neurologic: no focal deficit, no asterixis, alert and oriented x3, CN 3-12 intact Musculoskeletal: other (no edema) Psychiatric: mood/affect appropriate, cooperative - Lab 02/27/17 05:22 02/27/17 05:22 Most recent lab results Calcium 7.9 mg/dL (8.4-10.2) L 02/26/17 05:22
[2017-02-26] MEDS ORDERED: LEXISCAN IV ONE ×2 (09:35→09:38)
[2017-02-26] MEDS: BABY ASPIRIN PO SCH (10:00)
[2017-02-26] MEDS ORDERED: KIONEX PR NR (10:30)
--- NOTE | 2017-02-26 16:25 | Progress Note ---
Assessment and Plan Assessment and plan: Chest pain Shortness of breath Endstage renal disease on hemodialysis Elevated troponin on ESRD Hypertension History of CVA Diabetes mellitus type 2 - Pain control, breathing treatment, oxygen support - Hemodialysis - Sliding scale insulin, Accu-Cheks - Cardiology and nephrology consult noted - Patient had stress test and echo done this morning pending results DVT prophylaxis - On heparin Disposition - Continue inpatient care, possible discharge tomorrow if the results of negative History Interval history: Patient was seen and evaluated this morning, patient's chest pain is getting better. Hospitalist Physical - Physical exam Narrative exam: Not in cardiopulmonary distress. The patient is obese. Vital signs as documented. Head exam is unremarkable. No scleral icterus . Neck is without jugular venous distension, thyromegaly, or carotid bruits. Lungs are clear to auscultation. Cardiac exam reveals regular rate and Rhythm. First and second heart sounds normal. No murmurs, rubs or gallops. Abdominal exam reveals normal bowel sounds, no masses, no organomegaly and no aortic enlargement. Extremities are nonedematous and both femoral and pedal pulses are normal. 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 No focal weakness. - Constitutional Vitals: Temp Pulse Resp BP Pulse Ox 99.0 F 94 H 18 111/51 98 02/26/17 15:58 02/26/17 15:58 02/26/17 15:58 02/26/17 15:58 02/26/17 15:58 General appearance: Present: no acute distress Results - Labs CBC & Chem 7: 02/26/17 05:22 02/26/17 05:22 Labs: Laboratory Last Values WBC 7.7 K/mm3 (4.5-11.0) 02/26/17 05:22 RBC 2.74 M/mm3 (3.65-5.03) L 02/26/17 05:22 Hgb 8.8 gm/dl (10.1-14.3) L 02/26/17 05:22 Hct 26.1 % (30.3-42.9) L 02/26/17 05:22 MCV 95 fl (79-97) 02/26/17 05:22 MCH 32 pg (28-32) 02/26/17 05:22 MCHC 34 % (30-34) 02/26/17 05:22 RDW 17.3 % (13.2-15.2) H 02/26/17 05:22 Plt Count 188 K/mm3 (140-440) 02/26/17 05:22 Lymph % (Auto) 13.3 % (13.4-35.0) L 02/26/17 05:22 [place] % (Auto) 7.0 % (0.0-7.3) 02/26/17 05:22 Eos % (Auto) 10.7 % (0.0-4.3) H 02/26/17 05:22 Baso % (Auto) 0.8 % (0.0-1.8) 02/26/17 05:22 Lymph # 1.0 K/mm3 (1.2-5.4) L 02/26/17 05:22 [place] # 0.5 K/mm3 (0.0-0.8) 02/26/17 05:22 Eos # 0.8 K/mm3 (0.0-0.4) H 02/26/17 05:22 Baso # 0.1 K/mm3 (0.0-0.1) 02/26/17 05:22 Add Manual Diff Complete 02/24/17 21:48 Total Counted 100 02/24/17 21:48 Seg Neutrophils % 68.2 % (40.0-70.0) 02/26/17 05:22 Seg Neuts % (Manual) 57.0 % (40.0-70.0) 02/24/17 21:48 Band Neutrophils % 4.0 % 02/24/17 21:48 Lymphocytes % (Manual) 19.0 % (13.4-35.0) 02/24/17 21:48 Reactive Lymphs % (Man) 0 % 02/24/17 21:48 Monocytes % (Manual) 3.0 % (0.0-7.3) 02/24/17 21:48 Eosinophils % (Manual) 16.0 % (0.0-4.3) H 02/24/17 21:48 Basophils % (Manual) 1.0 % (0.0-1.8) 02/24/17 21:48 Metamyelocytes % 0 % 02/24/17 21:48 Myelocytes % 0 % 02/24/17 21:48 Promyelocytes % 0 % 02/24/17 21:48 Blast Cells % 0 % 02/24/17 21:48 Nucleated RBC % Not Reportable 02/24/17 21:48 Seg Neutrophils # 5.3 K/mm3 (1.8-7.7) 02/26/17 05:22 Seg Neutrophils # Man 4.3 K/mm3 (1.8-7.7) 02/24/17 21:48 Band Neutrophils # 0.3 K/mm3 02/24/17 21:48 Lymphocytes # (Manual) 1.4 K/mm3 (1.2-5.4) 02/24/17 21:48 Abs React Lymphs (Man) 0.0 K/mm3 02/24/17 21:48 Monocytes # (Manual) 0.2 K/mm3 (0.0-0.8) 02/24/17 21:48 Eosinophils # (Manual) 1.2 K/mm3 (0.0-0.4) H 02/24/17 21:48 Basophils # (Manual) 0.1 K/mm3 (0.0-0.1) 02/24/17 21:48 Metamyelocytes # 0.0 K/mm3 02/24/17 21:48 Myelocytes # 0.0 K/mm3 02/24/17 21:48 Promyelocytes # 0.0 K/mm3 02/24/17 21:48 Blast Cells # 0.0 K/mm3 02/24/17 21:48 WBC Morphology Not Reportable 02/24/17 21:48 Hypersegmented Neuts Not Reportable 02/24/17 21:48 Hyposegmented Neuts Not Reportable 02/24/17 21:48 Hypogranular Neuts Not Reportable 02/24/17 21:48 Smudge Cells Not Reportable 02/24/17 21:48 Toxic Granulation Not Reportable 02/24/17 21:48 Toxic Vacuolation Not Reportable 02/24/17 21:48 Dohle Bodies Not Reportable 02/24/17 21:48 Pelger-Huet Anomaly Not Reportable 02/24/17 21:48 Toney Rods Not Reportable 02/24/17 21:48 Platelet Estimate Consistent w auto 02/24/17 21:48 Clumped Platelets Not Reportable 02/24/17 21:48 Plt Clumps, EDTA Not Reportable 02/24/17 21:48 Large Platelets Not Reportable 02/24/17 21:48 Giant Platelets Not Reportable 02/24/17 21:48 Platelet Satelliting Not Reportable 02/24/17 21:48 Plt Morphology Comment Not Reportable 02/24/17 21:48 RBC Morphology Not Reportable 02/24/17 21:48 Dimorphic RBCs Not Reportable 02/24/17 21:48 Polychromasia Not Reportable 02/24/17 21:48 Hypochromasia Not Reportable 02/24/17 21:48 Poikilocytosis Not Reportable 02/24/17 21:48 Anisocytosis 1+ 02/24/17 21:48 Microcytosis Not Reportable 02/24/17 21:48 Macrocytosis Not Reportable 02/24/17 21:48 Spherocytes Not Reportable 02/24/17 21:48 Pappenheimer Bodies Not Reportable 02/24/17 21:48 Sickle Cells Not Reportable 02/24/17 21:48 Target Cells Not Reportable 02/24/17 21:48 Tear Drop Cells Not Reportable 02/24/17 21:48 Ovalocytes Not Reportable 02/24/17 21:48 Helmet Cells Not Reportable 02/24/17 21:48 Blunt-Kountze Bodies Not Reportable 02/24/17 21:48 [place] Rings Not Reportable 02/24/17 21:48 Kezia Cells Not Reportable 02/24/17 21:48 Bite Cells Not Reportable 02/24/17 21:48 Crenated Cell Not Reportable 02/24/17 21:48 Elliptocytes Not Reportable 02/24/17 21:48 Acanthocytes (Spur) Not Reportable 02/24/17 21:48 Rouleaux Not Reportable 02/24/17 21:48 Hemoglobin C Crystals Not Reportable 02/24/17 21:48 Schistocytes Not Reportable 02/24/17 21:48 Malaria parasites Not Reportable 02/24/17 21:48 Obi Bodies Not Reportable 02/24/17 21:48 Hem Pathologist Commnt No 02/24/17 21:48 PT 13.5 Sec. (12.2-14.9) 02/24/17 21:48 INR 1.04 (0.87-1.13) 02/24/17 21:48 APTT 29.0 Sec. (24.2-36.6) 02/24/17 21:48 D-Dimer 638.24 ng/mlDDU (0-234) H 02/24/17 21:48 Sodium 141 mmol/L (137-145) 02/26/17 05:22 Potassium 5.0 mmol/L (3.6-5.0) 02/26/17 05:22 Chloride 98.7 mmol/L (98-107) 02/26/17 05:22 Carbon Dioxide 28 mmol/L (22-30) D 02/26/17 05:22 Anion Gap 19 mmol/L 02/26/17 05:22 BUN 40 mg/dL (7-17) H 02/26/17 05:22 Creatinine 7.6 mg/dL (0.7-1.2) H 02/26/17 05:22 Estimated GFR 7 ml/min 02/26/17 05:22 BUN/Creatinine Ratio 5.26 % 02/26/17 05:22 Glucose 101 mg/dL (65-100) H 02/26/17 05:22 POC Glucose 138 (70-105) H 02/25/17 21:11 Calcium 7.9 mg/dL (8.4-10.2) L 02/26/17 05:22 Total Bilirubin 0.30 mg/dL (0.1-1.2) 02/24/17 21:48 AST 13 units/L (5-40) 02/24/17 21:48 ALT 13 units/L (7-56) 02/24/17 21:48 Alkaline Phosphatase 79 units/L (35-129) 02/24/17 21:48 Total Creatine Kinase 210 units/L (30-135) H 02/26/17 05:22 CK-MB (CK-2) 4.5 ng/mL (0.0-4.0) H 02/26/17 05:22 CK-MB (CK-2) Rel Index 2.1 (0-4) 02/26/17 05:22 Troponin T 0.184 ng/mL (0.00-0.029) H* D 02/26/17 05:22 Total Protein 6.9 g/dL (6.3-8.2) 02/24/17 21:48 Albumin 4.1 g/dL (3.9-5) 02/24/17 21:48 Albumin/Globulin Ratio 1.5 % 02/24/17 21:48 Triglycerides 152 mg/dL (2-149) H 02/24/17 21:48 Cholesterol 179 mg/dL (50-199) 02/24/17 21:48 LDL Cholesterol Direct 113 mg/dL (50-130) 02/24/17 21:48 HDL Cholesterol 36 mg/dL (40-59) L 02/24/17 21:48 Cholesterol/HDL Ratio 4.97 % 02/24/17 21:48
--- NOTE | 2017-02-26 21:08 | Progress Note ---
Assessment and Plan Shortness of breath Non-specific troponin abnormality No ischemia by MPI ESRD on HD Poor historian Recommendations: Echo is still pending If normal, may go home from a cardiac standpoint Subjective Date of service: 02/26/17 Principal diagnosis: Shortness of breath Interval history: Patient had a lexiscan stress test today - no complications Objective Vital Signs Temp Pulse Resp BP BP Pulse Ox 02/26/17 20:20 98.9 F 94 H 22 110/52 98 02/26/17 17:00 99.0 F 94 H 18 111/51 98 02/26/17 15:58 99.0 F 94 H 18 111/51 98 02/26/17 11:51 98.5 F 94 H 18 117/60 100 02/26/17 10:14 98 H 109/59 02/26/17 10:13 98 H 112/57 02/26/17 10:12 99 H 104/57 02/26/17 10:11 99 H 102/53 02/26/17 10:10 90 141/73 02/26/17 09:47 90 141/74 02/26/17 05:39 99.2 F 95 H 20 115/53 100 02/26/17 02:25 190/101 02/26/17 01:43 180/112 02/26/17 01:15 98.5 F 95 H 21 103/48 96 02/25/17 23:30 128/69 97 02/25/17 23:21 129/69 99 02/25/17 23:11 129/69 98 02/25/17 23:00 129/69 98 02/25/17 22:51 149/68 100 02/25/17 22:41 149/75 98 02/25/17 22:33 98 - Physical Examination HEENT: Positive: PERRL Neck: Positive: neck supple Cardiac: Positive: Reg Rate and Rhythm Lungs: Positive: Decreased Breath Sounds Neuro: Positive: Grossly Intact Abdomen: Positive: Soft Skin: Positive: Clear Extremities: Absent: edema - Labs and Meds Cardiac Enzymes 02/26/17 Range/Units 05:22 CK-MB (CK-2) 4.5 H (0.0-4.0) ng/mL CBC 02/26/17 Range/Units 05:22 WBC 7.7 (4.5-11.0) K/mm3 RBC 2.74 L (3.65-5.03) M/mm3 Hgb 8.8 L (10.1-14.3) gm/dl Hct 26.1 L (30.3-42.9) % Plt Count 188 (140-440) K/mm3 Lymph # 1.0 L (1.2-5.4) K/mm3 [place] # 0.5 (0.0-0.8) K/mm3 Eos # 0.8 H (0.0-0.4) K/mm3 Baso # 0.1 (0.0-0.1) K/mm3 Comprehensive Metabolic Panel 02/26/17 Range/Units 05:22 Sodium 141 (137-145) mmol/L Potassium 5.0 (3.6-5.0) mmol/L Chloride 98.7 (98-107) mmol/L Carbon Dioxide 28 D (22-30) mmol/L BUN 40 H (7-17) mg/dL Creatinine 7.6 H (0.7-1.2) mg/dL Glucose 101 H (65-100) mg/dL Calcium 7.9 L (8.4-10.2) mg/dL
[2017-02-26] MEDS: PROVENTIL IH SCH (22:35)
[2017-02-26] MEDS: MORPHINE IV PRN (23:31)
--- NOTE | 2017-02-27 01:39 | Treadmill Report ---
INDICATION: Shortness of breath. ORDERING PHYSICIAN: Brittny Joseph MD FINDINGS: There is no scintigraphic evidence of myocardial ischemia. There is evidence of a moderate size predominately fixed apical wall defect. The left ventricle is normal in size. The left ventricular ejection fraction is measured at 49% with normal wall motion and wall thickening observed. CONCLUSION: 1. No scintigraphic evidence of myocardial ischemia. 2. Moderate-sized fixed apical wall defect. 3. Normal left ventricular size and systolic function, ejection fraction measured at 49%. JOB# [id number] DENNISE/PARTH
[2017-02-27 06:10] LABS: Basophils % (Auto) 0.9 % (0.0-1.8); Eosinophils % (Auto) 13.3 % (0.0-4.3); Hematocrit 26.9 % (30.3-42.9); Hemoglobin 8.9 gm/dl (10.1-14.3); Mean Corpuscular HGB Conc 33 % (30-34); Mean Corpuscular Hemoglobin 32 pg (28-32); Mean Corpuscular Volume 97 fl (79-97); Platelet Count 210 K/mm3 (140-440); Red Blood Count 2.78 M/mm3 (3.65-5.03); Red Cell Distribution Width 17.2 % (13.2-15.2); White Blood Count 6.7 K/mm3 (4.5-11.0)
[2017-02-27 06:26] LABS: BUN/Creatinine Ratio 4.7; Calcium 7.6 mg/dL (8.4-10.2); Chloride 99.8 mmol/L (98-107); Potassium 5.1 mmol/L (3.6-5.0)
[2017-02-27] MEDS: PROVENTIL IH SCH ×4 (07:52→15:46)
--- NOTE | 2017-02-27 08:47 | Query- Chest Pain ---
Dee Jung____Paras Date: 02/27/17 Propagation Worker/CDS:___[employer] Phone#:____[phone] Exercise your independent professional judgment when responding to query. Questions asked do not imply a particular answer is desired or expected. We greatly appreciate your clarification on this issue. Clinical Documentation States: 51 year old female was admitted on 02/24/17. The hospiatlist progress note (Dr. Crain 02/26/17) states " Assessment and plan: Chest pain Shortness of breath Patient was seen and evaluated this morning, patient's chest pain is getting better. " The Cardiology progress note (Dr. Rodríguez 02/26/17) states " Assessment and Plan Shortness of breath Non-specific troponin abnormality No ischemia by MPI Patient had a lexiscan stress test today - no complications " Clinical Findings Show: Exercise stress test: No scintigraphic evidence of myocardial ischemia, Normal left ventricular size, and systolic function, ejection fraction measured at 49% Please document the etiology of Chest Pain: [ ] Myocardial Infarction [ ] Pneumonia [ ] Mediastinitis [ ] Costochondritis [ ] Pulmonary Embolism [ x] Coronary Artery Disease [ ] GERD [ ] Other: [ ] Comment/Explanation: Present on Admission: [x] Yes (Y) [ ] Clinically undeterminable (W) [ ] No(N) Please document response in your Progress Notes and/or Discharge Summary and indicate if the condition was present on admission. NATALIED
--- NOTE | 2017-02-27 10:17 | Progress Note ---
Assessment and Plan - Patient Problems (1) ESRD (end stage renal disease) on dialysis Status: Chronic Plan to address problem: Continue hemodialysis TTS schedule. (2) Hyperkalemia Status: Acute Plan to address problem: Hyperkalemia in the setting of ESRD. Hemodialysis today. Low potassium diet. (3) Anemia in chronic kidney disease Status: Chronic Qualifiers: Chronic kidney disease stage: C Plan to address problem: Epogen. (4) Chest pain Status: Acute Qualifiers: Chest pain type: C Ischemic chest pain type: I Subjective Date of service: 02/27/17 Principal diagnosis: Shortness of breath Interval history: Patient is feeling better. Objective - Vital Signs Vital signs: Vital Signs - 12hr 02/26/17 02/26/17 02/27/17 22:27 22:37 00:53 Temperature 98.1 F Pulse Rate 89 Pulse Rate [ 88 87 Anterior Bilateral Throughout] Respiratory 20 Rate Respiratory 20 20 Rate [Anterior Bilateral Throughout] Blood Pressure 101/49 O2 Sat by Pulse 98 Oximetry 02/27/17 02/27/17 02/27/17 04:42 06:25 07:52 Temperature 98.4 F Pulse Rate 86 95 H Pulse Rate [ 85 Anterior Bilateral Throughout] Respiratory 20 Rate Respiratory 18 Rate [Anterior Bilateral Throughout] Blood Pressure 121/58 O2 Sat by Pulse 99 Oximetry 02/27/17 02/27/17 02/27/17 08:10 08:12 08:28 Temperature 98.6 F Pulse Rate Pulse Rate [ 82 Anterior Bilateral Throughout] Respiratory 22 Rate Respiratory 18 Rate [Anterior Bilateral Throughout] Blood Pressure 157/84 O2 Sat by Pulse 99 Oximetry - General Appearance General appearance: well-developed, well-nourished, appears stated age, obese, other (no distress) EENT: ATNC, PERRL, mucous membranes moist, hearing intact, vision intact Neck: supple Respiratory: Present: Clear to Ascultation Cardiology: regular, S1S2, no murmurs Gastrointestinal: normoactive bowel sounds Integumentary: no rash Neurologic: no focal deficit, no asterixis, alert and oriented x3 Musculoskeletal: other (no edema) Psychiatric: mood/affect appropriate, cooperative - Lab 02/27/17 05:22 02/27/17 05:22 Most recent lab results Calcium 7.6 mg/dL (8.4-10.2) L 02/27/17 05:22
--- NOTE | 2017-02-27 10:19 | Discharge Summary ---
Providers - Providers Date of Admission: 02/24/17 20:06 Date of discharge: 02/27/17 Attending physician: AIYANA EDMOND MD 02/25/17 02:29 Consult to Physician [CONS] Urgent Consulting Provider: TAVO GARAY I Reason For Exam: end-stage renal disease, hyperkalemia Place consult to:: Dr. Garay Notified:: Answering Service Phone number called:: [phone] Was contact made?: Yes If yes, spoke with:: Dr. Garay Time called:: 01:29 Comment:: Dr. St (er dr) spoke with Dr. Garay 02/25/17 04:01 Consult to Physician [CONS] Routine Consulting Provider: ANGEL CLEMENT Reason For Exam: unstable angina Place consult to:: answering service Notified:: yes Phone number called:: [phone] Was contact made?: Yes If yes, spoke with:: Martha Time called:: 08:13 Primary care physician: CIRCUS PERFORMER Hospitalization Reason for admission: Chest pain Condition: Fair Pertinent studies: Stress test ECHO Disposition: TO HOME OR SELFCARE Time spent for discharge: 31 minutes - Discharge Diagnoses (1) Chest pain Status: Acute Qualifiers: Chest pain type: C Ischemic chest pain type: I (2) Shortness of breath Status: Acute (3) ESRD (end stage renal disease) on dialysis Status: Chronic (4) Essential hypertension Status: Chronic (5) Type II diabetes mellitus Status: Chronic Qualifiers: Diabetes mellitus complication status: D Diabetes mellitus complication detail: D Diabetic retinopathy severity: D Proliferative retinopathy type: P Diabetes mellitus macular edema: D Diabetes mellitus senior care insulin use : D Laterality: L Chronic kidney disease stage: C Core Measure Documentation - Palliative Care Palliative Care/ Comfort Measures: Not Applicable Exam - Physical Exam Narrative exam: Not in cardiopulmonary distress. The patient is obese. Vital signs as documented. Head exam is unremarkable. No scleral icterus . Neck is without jugular venous distension, thyromegaly, or carotid bruits. Lungs are clear to auscultation. Cardiac exam reveals regular rate and Rhythm. First and second heart sounds normal. No murmurs, rubs or gallops. Abdominal exam reveals normal bowel sounds, no masses, no organomegaly and no aortic enlargement. Extremities are nonedematous and both femoral and pedal pulses are normal. 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 No focal weakness. - Constitutional Vitals: Temp Pulse Resp BP Pulse Ox 98.6 F 82 22 157/84 99 02/27/17 08:28 02/27/17 08:10 02/27/17 08:28 02/27/17 08:28 02/27/17 08:12 Plan Activity: no restrictions Weight Bearing Status: Full Weight Bearing Diet: low cholesterol, low salt, diabetic Follow up with: PRIMARY CARE, [Primary Care Provider] - 3-5 Days Prescriptions: amLODIPine [Norvasc] 5 mg PO QDAY #30 tablet Aspirin [Aspirin BABY CHEW TAB] 81 mg PO QDAY #30 tab.chew hydrALAZINE [Apresoline TAB] 25 mg PO Q8HR #90 tablet hydrOXYzine HCL [Atarax] 25 mg PO Q8H PRN #20 tablet PRN Reason: Itching ALBUTEROL NEB's [Proventil 0.083% NEBS] 2.5 mg IH QIDRT #60 nebu
[2017-02-27] MEDS ORDERED: NACL 0.9% 100 ML IV PRN (10:30)
[2017-02-27] MEDS: BABY ASPIRIN PO SCH (10:48)
[2017-02-27] MEDS: NOVOLOG SUB-Q SCH ×2 (10:48→16:00)
[2017-02-27] MEDS ORDERED: HYDROCORTISONE CR TP PRN (11:00)
--- NOTE | 2017-02-27 12:09 | Progress Note ---
Assessment and Plan Shortness of breath Non-specific troponin abnormality No ischemia by MPI ESRD on HD Hypertension Echo reports pending. Subjective Date of service: 02/27/17 Principal diagnosis: Shortness of breath Interval history: No cardiac events overnight. Objective Vital Signs Temp Pulse Pulse Resp Resp BP BP 02/27/17 08:28 98.6 F 22 157/84 02/27/17 08:12 02/27/17 08:10 82 18 02/27/17 07:52 85 18 02/27/17 06:25 95 H 02/27/17 04:42 98.4 F 86 20 121/58 02/27/17 00:53 98.1 F 89 20 101/49 02/26/17 22:37 87 20 02/26/17 22:27 88 20 02/26/17 22:00 18 02/26/17 20:20 98.9 F 94 H 22 110/52 02/26/17 17:00 99.0 F 94 H 18 111/51 02/26/17 15:58 99.0 F 94 H 18 111/51 Pulse Ox 02/27/17 08:28 02/27/17 08:12 99 02/27/17 08:10 02/27/17 07:52 02/27/17 06:25 02/27/17 04:42 99 02/27/17 00:53 98 02/26/17 22:37 02/26/17 22:27 02/26/17 22:00 02/26/17 20:20 98 02/26/17 17:00 98 02/26/17 15:58 98 - Physical Examination General: No Apparent Distress HEENT: Positive: PERRL Cardiac: Positive: Reg Rate and Rhythm Extremities: Absent: edema - Labs and Meds CBC 02/27/17 Range/Units 05:22 WBC 6.7 (4.5-11.0) K/mm3 RBC 2.78 L (3.65-5.03) M/mm3 Hgb 8.9 L (10.1-14.3) gm/dl Hct 26.9 L (30.3-42.9) % Plt Count 210 (140-440) K/mm3 Lymph # 1.5 (1.2-5.4) K/mm3 [place] # 0.5 (0.0-0.8) K/mm3 Eos # 0.9 H (0.0-0.4) K/mm3 Baso # 0.1 (0.0-0.1) K/mm3 Comprehensive Metabolic Panel 02/27/17 Range/Units 05:22 Sodium 143 (137-145) mmol/L Potassium 5.1 H (3.6-5.0) mmol/L Chloride 99.8 (98-107) mmol/L Carbon Dioxide 24 (22-30) mmol/L BUN 48 H (7-17) mg/dL Creatinine 10.2 H (0.7-1.2) mg/dL Glucose 117 H (65-100) mg/dL Calcium 7.6 L (8.4-10.2) mg/dL
[2017-02-27] MEDS ORDERED: NACL 0.9 (PRIMING MACHINE ONLY DIALYSIS) MC ONE (14:03)
[2017-02-27] MEDS: MORPHINE IV PRN (15:58)
[2017-02-27 16:26] VITALS: BP 140/80
== END 2017-02-27 18:47 | disposition home or self-care (01) | DRG 302 ==
LOC: ED 20:05 → 4A 20:06
PROVIDERS: ADMIT Internal Medicine; ATTEND Internal Medicine
PROC: 5A1D60Z (ICD-10-PCS; principal; 2017-02-25)
DX: I25.110 Atherosclerotic heart disease of native coronary artery with unstable angina pectoris (principal); N18.6 End stage renal disease; I13.2 Hypertensive heart and chronic kidney disease with heart failure and with stage 5 chronic kidney disease, or end stage renal disease; E11.22 Type 2 diabetes mellitus with diabetic chronic kidney disease; E87.5 Hyperkalemia; I50.9 Heart failure, unspecified; D63.1 Anemia in chronic kidney disease; M19.90 Unspecified osteoarthritis, unspecified site; J44.9 Chronic obstructive pulmonary disease, unspecified; Z98.51 Tubal ligation status; Z79.899 Other long term (current) drug therapy; Z86.73 Personal history of transient ischemic attack (TIA), and cerebral infarction without residual deficits; Z82.49 Family history of ischemic heart disease and other diseases of the circulatory system
CPT/HCPCS: 36415; 71010; 71275; 78452; 80048; 80053; 80061; 82550; 82553; 82962; 84484; 85007; 85025; 85379; 85610; 85730; 93005; 93010; 93017; 93306; 94640; 94644; A6250; A9502; J0610; J0885; J1815; J2270; J2405; J2785; J7030; Q9967

== ENCOUNTER 2018-12-19 12:13 | Emergency (ER) | payer MEDICARE ==
--- NOTE | 2018-12-19 12:48 | Emergency Department Report ---
ED General Adult HPI - General Chief complaint: Medical Clearance Stated complaint: NEEDS DIALYSIS Time Seen by Provider: 12/19/18 12:20 Source: patient, EMS (ems notes not available at time of chart dictation), RN notes reviewed, old records reviewed Mode of arrival: Stretcher Limitations: No Limitations - History of Present Illness Initial comments: This is a pleasant 53-year-old female. The patient is not known to this provider previously. Her past medical history includes end-stage renal disease, on dialysis, Friday, , Friday, hypertension, type 2 diabetes. Nephrology doctor is Dr. Pedersen Patient sent to the ER for medical clearance. The patient missed 3 dialysis sessions, because of family and personal obligations. The patient has no complaints at this time. The patient denies all complaints at this time. She is sleeping comfortably in a stretcher. Improves with: none Worsens with: none Associated Symptoms: denies other symptoms - Related Data Home Medications Medication Instructions Recorded Confirmed Last Taken Ondansetron [Zofran TAB] 4 mg PO PRN PRN 09/09/14 02/25/17 1 Day Ago ~04/25/16 Gabapentin 300 mg PO TID 02/25/17 02/25/17 Unknown Loratadine [Claritin] 10 mg PO QDAY PRN 02/25/17 02/25/17 Unknown Previous Rx's Medication Instructions Recorded Last Taken Type ALBUTEROL NEB's [Proventil 0.083% 2.5 mg IH QIDRT #60 nebu 02/27/17 Unknown Rx NEBS] Aspirin [Aspirin BABY CHEW TAB] 81 mg PO QDAY #30 tab.chew 02/27/17 Unknown Rx amLODIPine [Norvasc] 5 mg PO QDAY #30 tablet 02/27/17 Unknown Rx hydrALAZINE [Apresoline TAB] 25 mg PO Q8HR #90 tablet 02/27/17 Unknown Rx hydrOXYzine HCL [Atarax] 25 mg PO Q8H PRN #20 tablet 02/27/17 Unknown Rx Allergies Allergy/AdvReac Type Severity Reaction Status Date / Time No Known Allergies Allergy Verified 06/21/16 15:23 ED Review of Systems ROS: Stated complaint: NEEDS DIALYSIS Other details as noted in HPI Comment: All other systems reviewed and negative ED Past Medical Hx - Past Medical History Hx Hypertension: Yes Hx CVA: Yes (LEFT SIDED WEAKNESS) Hx Congestive Heart Failure: Yes Hx Diabetes: Yes Hx Renal Disease: Yes (DIALYSIS / / FRI) Hx Arthritis: Yes (hands) Hx Asthma: Yes Hx COPD: Yes Additional medical history: ANEMIA - Surgical History Additional Surgical History: TUBAL LIGATION. LEFT OVARY REMOVED. GRAFT LEFT ARM. PERMACATH RIGHT CHEST - Social History Smoking Status: Never Smoker - Medications Home Medications: Home Medications Medication Instructions Recorded Confirmed Last Taken Type Ondansetron [Zofran TAB] 4 mg PO PRN PRN 09/09/14 02/25/17 1 Day Ago History ~04/25/16 Gabapentin 300 mg PO TID 02/25/17 02/25/17 Unknown History Loratadine [Claritin] 10 mg PO QDAY PRN 02/25/17 02/25/17 Unknown History ALBUTEROL NEB's [Proventil 0.083% 2.5 mg IH QIDRT #60 nebu 02/27/17 Unknown Rx NEBS] Aspirin [Aspirin BABY CHEW TAB] 81 mg PO QDAY #30 tab.chew 02/27/17 Unknown Rx amLODIPine [Norvasc] 5 mg PO QDAY #30 tablet 02/27/17 Unknown Rx hydrALAZINE [Apresoline TAB] 25 mg PO Q8HR #90 tablet 02/27/17 Unknown Rx hydrOXYzine HCL [Atarax] 25 mg PO Q8H PRN #20 tablet 02/27/17 Unknown Rx ED Physical Exam - General Limitations: No Limitations General appearance: alert, in no apparent distress - Head Head exam: Present: atraumatic, normocephalic - Eye Eye exam: Present: normal appearance, EOMI. Absent: nystagmus - ENT ENT exam: Present: normal exam, normal orophraynx, mucous membranes moist, normal external ear exam - Neck Neck exam: Present: normal inspection, full ROM. Absent: tenderness, meningismus - Respiratory Respiratory exam: Present: normal lung sounds bilaterally. Absent: respiratory distress - Cardiovascular Cardiovascular Exam: Present: regular rate, normal rhythm, normal heart sounds. Absent: bradycardia, tachycardia, irregular rhythm, systolic murmur, diastolic murmur, rubs, gallop - GI/Abdominal GI/Abdominal exam: Present: soft. Absent: distended, tenderness, guarding, rebound, rigid, pulsatile mass - Extremities Exam Extremities exam: Present: normal inspection (there is a left upper extremity fistula, with no redness, pus or streaking), full ROM, pedal edema, other (2+ pulses noted in the bilateral upper, lower extremities. Compartments soft. No long bony tenderness. The pelvis is stable.). Absent: calf tenderness - Back Exam Back exam: Present: normal inspection, full ROM. Absent: tenderness, CVA tenderness (R), CVA tenderness (L), paraspinal tenderness, vertebral tenderness - Neurological Exam Neurological exam: Present: alert, oriented X3, normal gait, other (Extraocular movements intact. Tongue midline. No facial droop. Facial sensation intact to light touch in the V1, V2, V3 distribution bilaterally. 5 and 5 strength in 4 extremities.. Sensation is intact to light touch in 4 extremities.). Absent: motor sensory deficit - Psychiatric Psychiatric exam: Present: normal affect, normal mood - Skin Skin exam: Present: warm ED Course Vital Signs 12/19/18 12/19/18 12/19/18 12:25 13:10 13:27 Temperature 98.1 F Pulse Rate 98 H 100 H Respiratory 20 Rate Blood Pressure 144/67 134/65 [Right] O2 Sat by Pulse 98 Oximetry - Reevaluation(s) Reevaluation #1: 12/19/18 14:04 Differential diagnosis, including not limited to: Hyperkalemia, azotemia, uremia, medical clearance Assessment and plan: 53-year-old female with no complaints sent to the ER for medical clearance after missing dialysis sessions for 3 episodes in a row. The patient is afebrile with reassuring vital signs. She is not especially hypertensive. She does not have crackles or rales. The patient is sleeping comfortably, in no acute distress, potassium not elevated, she is not nauseous, she is not vomiting, and she is not clinically encephalopathic. Discussed with nephrology on-call, Dr. Rossana Valdez At this point in time, based off of the history and physical, the patient does not meet criteria for emergency dialysis. She has no additional complaints at this time. The patient will be instructed to return tomorrow for repeat checkup/evaluation. Dr. Valdez agrees with this plan. 12/19/18 14:07 ED Medical Decision Making - Lab Data Result diagrams: 12/19/18 12:52 12/19/18 12:52 Vital Signs 12/19/18 12/19/18 12/19/18 12:25 13:10 13:27 Temperature 98.1 F Pulse Rate 98 H 100 H Respiratory 20 Rate Blood Pressure 144/67 134/65 [Right] O2 Sat by Pulse 98 Oximetry Lab Results 12/19/18 12/19/18 Range/Units 12:52 12:52 WBC 8.7 (4.5-11.0) K/mm3 RBC 3.48 L (3.65-5.03) M/mm3 Hgb 10.7 (10.1-14.3) gm/dl Hct 32.1 (30.3-42.9) % MCV 92 (79-97) fl MCH 31 (28-32) pg MCHC 34 (30-34) % RDW 16.6 H (13.2-15.2) % Plt Count 241 (140-440) K/mm3 Sodium 144 (137-145) mmol/L Potassium 4.2 (3.6-5.0) mmol/L Chloride 96.1 L (98-107) mmol/L Carbon Dioxide 20 L (22-30) mmol/L Anion Gap 32 mmol/L BUN 88 H (7-17) mg/dL Creatinine 21.4 H (0.7-1.2) mg/dL Estimated GFR 2 ml/min BUN/Creatinine Ratio 4 % Glucose 88 (65-100) mg/dL Calcium 8.8 (8.4-10.2) mg/dL - EKG Data -: EKG Interpreted by Fl EKG shows normal: sinus rhythm Rate: normal - EKG Data 12/19/18 14:18 This is a normal sinus rhythm, 97 bpm, normal axis, QTC prolonged, low voltage, poor R wave progression, abnormal EKG, no endorsement of chest pain, not consistent with ST elevation myocardial infarction. - Radiology Data Radiology results: report reviewed, image reviewed X-ray of the chest is negative for acute disease. Critical care attestation.: If time is entered above; I have spent that time in minutes in the direct care of this critically ill patient, excluding procedure time. ED Disposition Clinical Impression: ESRD (end stage renal disease) on dialysis, Noncompliance Disposition: - TO HOME OR SELFCARE Is pt being admited?: No Does the pt Need Aspirin: No Condition: Stable Additional Instructions: Please continue current outpatient medications. Please follow up tomorrow for repeat checkup/evaluation, and to have basic metabolic panel repeated. Return to the emergency room right away or projectile vomiting, change in mental status, confusion, inability to tolerate liquid feeds, new, worsening or di fferent symptoms not present on the initial emergency room evaluation. It is very important that the patient remain compliant with outpatient dialysis therapy, as noncompliance with dialysis therapy may results and high potassium levels, which can cause , disability, paralysis, loss of quality of life. Follow up with your primary care doctor or it project coordinator within the next 3-5 days for repeat checkup/evaluation. Referrals: PRIMARY CARE, [Primary Care Provider] - 3-5 Days CARLINE VALDEZ DO [Staff Physician] - 3-5 Days GUZMAN HAYES MD [Staff Physician] - 3-5 Days
[2018-12-19 13:26] LABS: Hematocrit 32.1 % (30.3-42.9); Hemoglobin 10.7 gm/dl (10.1-14.3); Mean Corpuscular HGB Conc 34 % (30-34); Mean Corpuscular Volume 92 fl (79-97); Platelet Count 241 K/mm3 (140-440); Red Blood Count 3.48 M/mm3 (3.65-5.03); Red Cell Distribution Width 16.6 % (13.2-15.2)
[2018-12-19 13:45] LABS: Calcium 8.8 mg/dL (8.4-10.2)
--- NOTE | 2018-12-19 13:46 | XRay Report ---
CHEST 1 VIEW 1:18 PM INDICATION / CLINICAL INFORMATION: Hypertension and end-stage renal disease. COMPARISON: 02/24/2017. FINDINGS: SUPPORT DEVICES: None. HEART / MEDIASTINUM: The heart size and pulmonary vasculature are normal. The aorta is normal in mar[place]. LUNGS / PLEURA: No significant pulmonary or pleural abnormality. Mild congestive heart failure has re solved since the prior study. No pneumothorax. ADDITIONAL FINDINGS: There is a vascular stent in the left axilla. IMPRESSION: No acute findings. Signer Name: Kaushal Alva MD Signed: 12/19/2018 1:42 PM Workstation Name: [id number]
[2018-12-19 15:02] VITALS: BP 136/75
== END 2018-12-19 15:03 | disposition home or self-care (01) ==
LOC: ED 12:13
DX: I13.2 Hypertensive heart and chronic kidney disease with heart failure and with stage 5 chronic kidney disease, or end stage renal disease (principal); E11.22 Type 2 diabetes mellitus with diabetic chronic kidney disease; N18.6 End stage renal disease; I50.9 Heart failure, unspecified; M19.90 Unspecified osteoarthritis, unspecified site; J44.9 Chronic obstructive pulmonary disease, unspecified; Z99.2 Dependence on renal dialysis; Z91.15 Patient's noncompliance with renal dialysis; Z79.4 Long term (current) use of insulin; Z86.73 Personal history of transient ischemic attack (TIA), and cerebral infarction without residual deficits; Z98.51 Tubal ligation status; Z90.710 Acquired absence of both cervix and uterus; Z79.82 Long term (current) use of aspirin; Z79.899 Other long term (current) drug therapy
CPT/HCPCS: 36415; 71046; 80048; 85027; 93005; 93010; 99284

== ENCOUNTER 2019-03-02 11:22 | Emergency (ER) | payer MEDICARE ==
--- NOTE | 2019-03-02 12:19 | Emergency Department Report ---
ED General Adult HPI - General Chief complaint: Recheck/Abnormal Lab/Rx Stated complaint: DIALYSIS Time Seen by Provider: 03/02/19 11:44 Source: patient, EMS (ems notes not available at time of chart dictation), RN notes reviewed, old records reviewed Mode of arrival: Stretcher Limitations: No Limitations - History of Present Illness Initial comments: This is a 53-year-old female. I have evaluated this patient in the past. Past medical history includes end-stage renal disease, on dialysis, Friday, , Friday, hypertension, type 2 diabetes, noncompliance. 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 The patient presents to the ER today with a request for medical clearance. Apparently, she was found to have low hemoglobin through outpatient laboratory studies, and missed her last 2 dialysis sessions. The patient to me also complains of nontraumatic left-sided toe pain, present for the past 2-3 days. She denies hematemesis, bright red blood per rectum, chest pain, abdominal pain, new or different shortness of breath, denies other new or different symptoms. Left toe pain and throbbing and aching, does not radiate anywhere, and apparently does not have exacerbating or relieving factors. -: Gradual, days(s) Location: left, lower extremity Severity scale (0 -10): 9 Quality: aching Consistency: other Improves with: other Worsens with: other - Related Data Home Medications Medication Instructions Recorded Confirmed Last Taken Ondansetron [Zofran TAB] 4 mg PO PRN PRN 09/09/14 02/25/17 1 Day Ago ~04/25/16 Gabapentin 300 mg PO TID 02/25/17 02/25/17 Unknown Loratadine [Claritin] 10 mg PO QDAY PRN 02/25/17 02/25/17 Unknown Previous Rx's Medication Instructions Recorded Last Taken Type ALBUTEROL NEB's [Proventil 0.083% 2.5 mg IH QIDRT #60 nebu 02/27/17 Unknown Rx NEBS] Aspirin [Aspirin BABY CHEW TAB] 81 mg PO QDAY #30 tab.chew 02/27/17 Unknown Rx amLODIPine [Norvasc] 5 mg PO QDAY #30 tablet 02/27/17 Unknown Rx hydrALAZINE [Apresoline TAB] 25 mg PO Q8HR #90 tablet 02/27/17 Unknown Rx hydrOXYzine HCL [Atarax] 25 mg PO Q8H PRN #20 tablet 02/27/17 Unknown Rx Clindamycin [Clindamycin CAP] 300 mg PO Q6H #40 capsule 03/02/19 Unknown Rx Allergies Allergy/AdvReac Type Severity Reaction Status Date / Time No Known Allergies Allergy Verified 06/21/16 15:23 ED Review of Systems ROS: Stated complaint: DIALYSIS Other details as noted in HPI Constitutional: denies: fever Eyes: denies: eye discharge ENT: denies: epistaxis Respiratory: denies: cough, shortness of breath Cardiovascular: denies: chest pain Gastrointestinal: denies: abdominal pain, nausea, vomiting, hematemesis, melena, hematochezia Genitourinary: other (patient reports she does not make urine). denies: urgency, dysuria Musculoskeletal: arthralgia, myalgia Skin: change in color Neurological: denies: weakness, paresthesias, confusion ED Past Medical Hx - Past Medical History Previous Medical History?: Yes Hx Hypertension: Yes Hx CVA: Yes (LEFT SIDED WEAKNESS) Hx Congestive Heart Failure: Yes Hx Diabetes: Yes Hx Renal Disease: Yes (DIALYSIS / / FRI) Hx Arthritis: Yes (hands) Hx Asthma: Yes Hx COPD: Yes Additional medical history: ANEMIA - Surgical History Past Surgical History?: Yes Additional Surgical History: TUBAL LIGATION. LEFT OVARY REMOVED. GRAFT LEFT ARM. PERMACATH RIGHT CHEST - Social History Smoking Status: Never Smoker Substance Use Type: None - Medications Home Medications: Home Medications Medication Instructions Recorded Confirmed Last Taken Type Ondansetron [Zofran TAB] 4 mg PO PRN PRN 09/09/14 02/25/17 1 Day Ago History ~04/25/16 Gabapentin 300 mg PO TID 02/25/17 02/25/17 Unknown History Loratadine [Claritin] 10 mg PO QDAY PRN 02/25/17 02/25/17 Unknown History ALBUTEROL NEB's [Proventil 0.083% 2.5 mg IH QIDRT #60 nebu 02/27/17 Unknown Rx NEBS] Aspirin [Aspirin BABY CHEW TAB] 81 mg PO QDAY #30 tab.chew 02/27/17 Unknown Rx amLODIPine [Norvasc] 5 mg PO QDAY #30 tablet 02/27/17 Unknown Rx hydrALAZINE [Apresoline TAB] 25 mg PO Q8HR #90 tablet 02/27/17 Unknown Rx hydrOXYzine HCL [Atarax] 25 mg PO Q8H PRN #20 tablet 02/27/17 Unknown Rx Clindamycin [Clindamycin CAP] 300 mg PO Q6H #40 capsule 03/02/19 Unknown Rx ED Physical Exam - General Limitations: No Limitations General appearance: alert, in no apparent distress - Head Head exam: Present: atraumatic, normocephalic - Eye Eye exam: Present: normal appearance, EOMI. Absent: nystagmus - ENT ENT exam: Present: normal exam, normal orophraynx, mucous membranes moist, normal external ear exam - Neck Neck exam: Present: normal inspection, full ROM. Absent: tenderness, meningismus - Respiratory Respiratory exam: Present: normal lung sounds bilaterally. Absent: respiratory distress - Cardiovascular Cardiovascular Exam: Present: regular rate, normal rhythm, systolic murmur (2/6 systolic murmur, heard best at the right and left second intercostal spaces). Absent: bradycardia, irregular rhythm, diastolic murmur, rubs, gallop - GI/Abdominal GI/Abdominal exam: Present: soft. Absent: distended, tenderness, guarding, rebound, rigid, pulsatile mass - Extremities Exam Extremities exam: Present: full ROM (there is a left upper extremity graft, with no redness, pus or streaking), other (2+ pulses noted in the bilateral upper, lo wer extremities. Compartments soft. No long bony tenderness. The pelvis is stable.). Absent: normal inspection (left great toe is swollen, discolored, and has a large-sized ulcer, with purulent discharge. Crepitus is appreciated.), calf tenderness - Back Exam Back exam: Present: normal inspection, full ROM. Absent: tenderness, CVA tenderness (R), CVA tenderness (L), paraspinal tenderness, vertebral tenderness - Neurological Exam Neurological exam: Present: alert, oriented X3, other (Extraocular movements intact. Tongue midline. No facial droop. Facial sensation intact to light touch in the V1, V2, V3 distribution bilaterally. 5 and 5 strength in 4 extremities.. Sensation is intact to light touch in 4 extremities.). Absent: motor sensory deficit - Psychiatric Psychiatric exam: Present: normal affect, normal mood - Skin Skin exam: Present: warm ED Course Vital Signs 03/02/19 03/02/19 11:29 11:55 Temperature 99.2 F Pulse Rate 90 91 H Respiratory 14 12 Rate Blood Pressure 141/64 [Left] O2 Sat by Pulse 100 Oximetry - Reevaluation(s) Reevaluation #1: 03/02/19 14:12 Differential diagnosis, including not limited to: Left great toe cellulitis, vasculitis, myositis, dialysis noncompliance, laboratory error, electrolyte derangement Assessment and plan: 53-year-old female sent to the ER for asymptomatic abnormal outpatient laboratory studies, found to have evidence of left great toe infection. Recommended admission to the medical service for IV antibiotics, debridement, and nephrology consultation. Patient is declining these interventions at this time. The patient states that she wants to go home. The patient is going to sign out AGAINST MEDICAL ADVICE. The patient is alert and oriented 3, clinically sober, and free from distracting injury. The risks of leaving AGAINST MEDICAL ADVICE discussed with the patient, including , disability, paralysis, permanent loss of quality of life. Patient able to discuss this in her own words. This conversation was witnessed by nurse Joseph Maynard Patient will be started on antibiotics, referred to outpatient surgery/wound care clinic, and she is counseled that she may return to the emergency room right away if and when she changes her mind. Does not require packed red blood cell transfusion at this time ED Medical Decision Making - Lab Data Result diagrams: 03/02/19 12:31 03/02/19 11:49 Vital Signs 03/02/19 03/02/19 11:29 11:55 Temperature 99.2 F Pulse Rate 90 91 H Respiratory 14 12 Rate Blood Pressure 141/64 [Left] O2 Sat by Pulse 100 Oximetry Lab Results 03/02/19 03/02/19 03/02/19 Range/Units 11:49 12:31 12:31 WBC 13.6 H (4.5-11.0) K/mm3 RBC 2.42 L (3.65-5.03) M/mm3 Hgb 7.0 L (10.1-14.3) gm/dl Hct 21.4 L (30.3-42.9) % MCV 89 (79-97) fl MCH 29 (28-32) pg MCHC 33 (30-34) % RDW 17.6 H (13.2-15.2) % Plt Count 415 (140-440) K/mm3 Lymph % (Auto) Calender Inspector Osborne % (Auto) Calender Inspector Eos % (Auto) Calender Inspector Baso % (Auto) Calender Inspector Lymph # Calender Inspector Osborne # Calender Inspector Eos # Calender Inspector Baso # Calender Inspector Seg Neutrophils % Calender Inspector Seg Neutrophils # Calender Inspector ESR > 140.0 (0-20) mm/Hr Sodium 140 (137-145) mmol/L Potassium 4.9 (3.6-5.0) mmol/L Chloride 97.7 L (98-107) mmol/L Carbon Dioxide 20 L (22-30) mmol/L Anion Gap 27 mmol/L BUN 76 H (7-17) mg/dL Creatinine 15.5 H (0.7-1.2) mg/dL Estimated GFR 3 ml/min BUN/Creatinine Ratio 5 % Glucose 185 H (65-100) mg/dL Calcium 8.4 (8.4-10.2) mg/dL Magnesium (1.7-2.3) mg/dL Total Creatine Kinase (30-135) units/L C-Reactive Protein (0.00-1.30) mg/dL Blood Type Antibody Screen 03/02/19 03/02/19 Range/Units 12:31 12:42 WBC (4.5-11.0) K/mm3 RBC (3.65-5.03) M/mm3 Hgb (10.1-14.3) gm/dl Hct (30.3-42.9) % MCV (79-97) fl MCH (28-32) pg MCHC (30-34) % RDW (13.2-15.2) % Plt Count (140-440) K/mm3 Lymph % (Auto) Osborne % (Auto) Eos % (Auto) Baso % (Auto) Lymph # Osborne # Eos # Baso # Seg Neutrophils % Seg Neutrophils # ESR (0-20) mm/Hr Sodium (137-145) mmol/L Potassium (3.6-5.0) mmol/L Chloride (98-107) mmol/L Carbon Dioxide (22-30) mmol/L Anion Gap mmol/L BUN (7-17) mg/dL Creatinine (0.7-1.2) mg/dL Estimated GFR ml/min BUN/Creatinine Ratio % Glucose (65-100) mg/dL Calcium (8.4-10.2) mg/dL Magnesium 2.40 H (1.7-2.3) mg/dL Total Creatine Kinase 43 (30-135) units/L C-Reactive Protein 11.10 H (0.00-1.30) mg/dL Blood Type B POSITIVE Antibody Screen Negative - EKG Data 03/02/19 14:14 This EKG has motion artifact but is in normal sinus rhythm, 87 bpm, normal axis, QTC is prolonged, there is low voltage in the inferior leads, there is motion artifact, there is no endorsement of chest pain, the EKG is abnormal, the EKG is not consistent with ST elevation myocardial infarction. - Radiology Data Radiology results: report reviewed, image reviewed Print Report Referring Physician: DARIO LOPEZ Patient Name: CANDIDA FRIEND Date of : 1965 Sex: Female Report Date: 2019-03-02 Report Status: Finalized Findings [address] [address] XRay Report Signed Patient: CANDIDA FRIEND MR#: [id number] : 1965 Acct:[id number] Age/Sex: 53 / F ADM Date: 03/02/19 Loc: ED Attending Dr: Ordering Physician: DARIO LOPEZ MD Date of Service: 03/02/19 Procedure(s): XR foot 3+V LT Accession Number(s): [id number] cc: DARIO LOPEZ MD Fluoro Time In Minutes: LEFT FOOT 3 VIEWS INDICATION / CLINICAL INFORMATION: left foot pain ulcer swelling crepitus. COMPARISON: None available. FINDINGS: Destruction of the distal phalanx of the great toe. Diffuse vascular calcification is present. No other significant abnormality. Signer Name: Carlos Manuel Hernandez MD FACR Signed: 03/02/2019 12:56 PM Workstation Name: [id number] Transcribed By: MS Dictated By: Carlos Manuel Hernandez MD Electronically Authenticated By: Carlos Manuel Hernandez MD Signed Date/Time: 03/02/19 1256 DD/ 1255 TD/TT: Critical care attestation.: If time is entered above; I have spent that time in minutes in the direct care o f this critically ill patient, excluding procedure time. ED Disposition Clinical Impression: ESRD (end stage renal disease) on dialysis, Open wound of left great toe, Noncompliance Disposition: [id number] LEFT AGAINST MED ADVICE Is pt being admited?: No Does the pt Need Aspirin: No Condition: Undetermined Additional Instructions: As we discussed, you have left the hospital/emergency room AGAINST MEDICAL ADVICE. By leaving, you risked , disability, paralysis, permanent loss of quality of life. The ER is open 24 hours a day, 7 days a week. It never closes. Please return to the emergency room right away if and when you change your mind. If you decide not to return to the emergency room, please follow-up with the listed physician referrals as soon as possible. Referrals: [facility] [Provider Group] - 3-5 Days (primary care) KASIA VELASCO MD [Staff Physician] - 3-5 Days (primary care) [facility] [Outside] - 3-5 Days (wound clinic for left foot wound) ISAAC LADD MD [Staff Physician] - 3-5 Days (left foot wound)
[2019-03-02 12:50] LABS: Calcium 8.4 mg/dL (8.4-10.2)
--- NOTE | 2019-03-02 13:01 | XRay Report ---
LEFT FOOT 3 VIEWS INDICATION / CLINICAL INFORMATION: left foot pain ulcer swelling crepitus. COMPARISON: None available. FINDINGS: Destruction of the distal phalanx of the great toe. Diffuse vascular calcification is present. No oth er significant abnormality. Signer Name: Carlos Manuel Hernandez MD FACYossi Signed: 03/02/2019 12:56 PM Workstation Name: [id number]
[2019-03-02 13:16] LABS: Hematocrit 21.4 % (30.3-42.9); Mean Corpuscular HGB Conc 33 % (30-34); Mean Corpuscular Volume 89 fl (79-97); Platelet Count 415 K/mm3 (140-440); Red Blood Count 2.42 M/mm3 (3.65-5.03); Red Cell Distribution Width 17.6 % (13.2-15.2)
[2019-03-02 13:33] LABS: C-Reactive Protein 11.1 mg/dL (0.00-1.30)
[2019-03-02] MEDS ORDERED: CLEOCIN PO ONE (14:07)
[2019-03-02 15:03] VITALS: BP 145/68
== END 2019-03-02 15:05 | disposition left against medical advice (07) ==
LOC: ED 11:22
DX: S91.102A Unspecified open wound of left great toe without damage to nail, initial encounter (principal); M19.90 Unspecified osteoarthritis, unspecified site; J44.9 Chronic obstructive pulmonary disease, unspecified; D64.9 Anemia, unspecified; I12.0 Hypertensive chronic kidney disease with stage 5 chronic kidney disease or end stage renal disease; E11.22 Type 2 diabetes mellitus with diabetic chronic kidney disease; N18.6 End stage renal disease; Z99.2 Dependence on renal dialysis; Z86.73 Personal history of transient ischemic attack (TIA), and cerebral infarction without residual deficits; Z91.14 Patient's other noncompliance with medication regimen; Z98.51 Tubal ligation status; Z98.890 Other specified postprocedural states; Z79.899 Other long term (current) drug therapy; Z90.89 Acquired absence of other organs; X58.XXXA Exposure to other specified factors, initial encounter; Y93.89 Activity, other specified; Y92.89 Other specified places as the place of occurrence of the external cause; Y99.8 Other external cause status
CPT/HCPCS: 36415; 80048; 82550; 83735; 85025; 85652; 86140; 86850; 86900; 86901; 87076; 87116; 87186; 93005; 93010

== ENCOUNTER 2019-03-20 13:11 | Emergency (ER) | payer MEDICARE ==
--- NOTE | 2019-03-20 14:58 | Emergency Department Report ---
ED General Adult HPI - General Chief complaint: Medical Clearance Stated complaint: MISSED DIALYSIS Time Seen by Provider: 03/20/19 14:48 Source: patient, EMS Mode of arrival: Stretcher Limitations: No Limitations - History of Present Illness Initial comments: Patient is 53 years old female with history of end-stage renal disease on hemodialysis. Patient presented to the ER today stating that she went to [facility] today and asked To come to the ER. Patient stated that she missed 2 dialysis and so far. Patient is currently denying any shortness of breath, chest pain, abdominal pain, weakness numbness or tingling sensation. - Related Data Home Medications Medication Instructions Recorded Confirmed Last Taken Ondansetron [Zofran TAB] 4 mg PO PRN PRN 09/09/14 02/25/17 1 Day Ago ~04/25/16 Gabapentin 300 mg PO TID 02/25/17 02/25/17 Unknown Loratadine [Claritin] 10 mg PO QDAY PRN 02/25/17 02/25/17 Unknown Previous Rx's Medication Instructions Recorded Last Taken Type ALBUTEROL NEB's [Proventil 0.083% 2.5 mg IH QIDRT #60 nebu 02/27/17 Unknown Rx NEBS] Aspirin [Aspirin BABY CHEW TAB] 81 mg PO QDAY #30 tab.chew 02/27/17 Unknown Rx amLODIPine [Norvasc] 5 mg PO QDAY #30 tablet 02/27/17 Unknown Rx hydrALAZINE [Apresoline TAB] 25 mg PO Q8HR #90 tablet 02/27/17 Unknown Rx hydrOXYzine HCL [Atarax] 25 mg PO Q8H PRN #20 tablet 02/27/17 Unknown Rx Clindamycin [Clindamycin CAP] 300 mg PO Q6H #40 capsule 03/02/19 Unknown Rx Allergies Allergy/AdvReac Type Severity Reaction Status Date / Time No Known Allergies Allergy Verified 06/21/16 15:23 ED Review of Systems ROS: Stated complaint: MISSED DIALYSIS Other details as noted in HPI Comment: All other systems reviewed and negative Constitutional: denies: chills, fever Respiratory: denies: cough, shortness of breath, SOB with exertion Cardiovascular: denies: chest pain, palpitations Gastrointestinal: denies: abdominal pain, nausea, vomiting Musculoskeletal: denies: back pain Neurological: denies: headache, weakness ED Past Medical Hx - Past Medical History Previous Medical History?: Yes Hx Hypertension: Yes Hx CVA: Yes (right weakness) Hx Congestive Heart Failure: Yes Hx Diabetes: Yes Hx Renal Disease: Yes (DIALYSIS / / FRI) Hx Arthritis: Yes (hands) Hx Asthma: Yes Hx COPD: Yes Additional medical history: ANEMIA - Surgical History Additional Surgical History: TUBAL LIGATION. LEFT OVARY REMOVED. GRAFT LEFT ARM. PERMACATH RIGHT CHEST - Social History Smoking Status: Never Smoker Substance Use Type: None - Medications Home Medications: Home Medications Medication Instructions Recorded Confirmed Last Taken Type Ondansetron [Zofran TAB] 4 mg PO PRN PRN 09/09/14 02/25/17 1 Day Ago History ~04/25/16 Gabapentin 300 mg PO TID 02/25/17 02/25/17 Unknown History Loratadine [Claritin] 10 mg PO QDAY PRN 02/25/17 02/25/17 Unknown History ALBUTEROL NEB's [Proventil 0.083% 2.5 mg IH QIDRT #60 nebu 02/27/17 Unknown Rx NEBS] Aspirin [Aspirin BABY CHEW TAB] 81 mg PO QDAY #30 tab.chew 02/27/17 Unknown Rx amLODIPine [Norvasc] 5 mg PO QDAY #30 tablet 02/27/17 Unknown Rx hydrALAZINE [Apresoline TAB] 25 mg PO Q8HR #90 tablet 02/27/17 Unknown Rx hydrOXYzine HCL [Atarax] 25 mg PO Q8H PRN #20 tablet 02/27/17 Unknown Rx Clindamycin [Clindamycin CAP] 300 mg PO Q6H #40 capsule 03/02/19 Unknown Rx ED Physical Exam - General Limitations: No Limitations General appearance: alert, in no apparent distress - Head Head exam: Present: atraumatic, normocephalic, normal inspection - Eye Eye exam: Present: normal appearance, PERRL - ENT ENT exam: Present: normal exam, normal orophraynx, mucous membranes moist - Neck Neck exam: Present: normal inspection, full ROM. Absent: tenderness, meningismus, lymphadenopathy, thyromegaly - Respiratory Respiratory exam: Present: normal lung sounds bilaterally - Cardiovascular Cardiovascular Exam: Present: regular rate, normal rhythm, normal heart sounds - GI/Abdominal GI/Abdominal exam: Present: soft, normal bowel sounds. Absent: distended, tenderness, guarding, rebound, rigid, organomegaly, mass, bruit, pulsatile mass, hernia - Extremities Exam Extremities exam: Present: full ROM, normal capillary refill - Back Exam Back exam: Present: normal inspection, full ROM. Absent: CVA tenderness (R), CVA tenderness (L), muscle spasm, paraspinal tenderness, vertebral tenderness, rash noted - Neurological Exam Neurological exam: Present: alert, oriented X3, CN II-XII intact, normal gait, reflexes normal - Psychiatric Psychiatric exam: Present: normal mood - Skin Skin exam: Present: warm ED Course Vital Signs 03/20/19 03/20/19 03/20/19 13:47 15:40 16:09 Temperature 99.0 F Pulse Rate 99 H 95 H 92 H Respiratory 20 20 19 Rate Blood Pressure 192/92 Blood Pressure 183/92 162/81 [Right] O2 Sat by Pulse 95 96 100 Oximetry O2 Sat by Pulse Oximetry [ Anterior Bilateral] 03/20/19 03/20/19 03/20/19 19:15 19:45 19:49 Temperature 97.9 F Pulse Rate 95 H 102 H 100 H Respiratory 20 17 Rate Blood Pressure 206/98 206/98 Blood Pressure 183/92 [Right] O2 Sat by Pulse 100 96 Oximetry O2 Sat by Pulse Oximetry [ Anterior Bilateral] 03/20/19 03/20/19 03/20/19 20:00 20:01 20:15 Temperature 97.9 F Pulse Rate 94 H 100 H 91 H Respiratory 18 18 12 Rate Blood Pressure 190/90 138/106 152/77 Blood Pressure [Right] O2 Sat by Pulse 95 100 Oximetry O2 Sat by Pulse 99 Oximetry [ Anterior Bilateral] 03/20/19 03/20/19 03/20/19 20:30 20:45 21:00 Temperature Pulse Rate 93 H 94 H 96 H Respiratory Rate Blood Pressure 146/80 139/74 148/80 Blood Pressure [Right] O2 Sat by Pulse Oximetry O2 Sat by Pulse Oximetry [ Anterior Bilateral] 03/20/19 03/20/19 03/20/19 21:15 21:30 21:45 Temperature Pulse Rate 95 H 94 H 93 H Respiratory Rate Blood Pressure 140/76 135/72 124/65 Blood Pressure [Right] O2 Sat by Pulse Oximetry O2 Sat by Pulse Oximetry [ Anterior Bilateral] 10/11/0103/20/19 03/20/19 22:00 22:15 22:30 Temperature Pulse Rate 92 H 92 H 97 H Respiratory Rate Blood Pressure 124/72 115/63 105/66 Blood Pressure [Right] O2 Sat by Pulse Oximetry O2 Sat by Pulse Oximetry [ Anterior Bilateral] 03/20/19 03/20/19 03/20/19 22:45 23:00 23:15 Temperature Pulse Rate 98 H 96 H 94 H Respiratory Rate Blood Pressure 126/63 136/79 152/78 Blood Pressure [Right] O2 Sat by Pulse Oximetry O2 Sat by Pulse Oximetry [ Anterior Bilateral] 03/20/19 23:30 Temperature 97.9 F Pulse Rate 94 H Respiratory 18 Rate Blood Pressure 152/75 Blood Pressure [Right] O2 Sat by Pulse Oximetry O2 Sat by Pulse 99 Oximetry [ Anterior Bilateral] ED Medical Decision Making - Lab Data Result diagrams: 03/20/19 15:05 03/20/19 15:05 - EKG Data -: EKG Interpreted by Tn EKG shows normal: sinus rhythm Rate: normal - EKG Data Interpretation: no acute changes - Radiology Data Radiology results: report reviewed - Medical Decision Making Patient is 53 years old female with history of end-stage renal disease on hemodialysis. Patient presented to the ER today stating that [facility] and asked To come to the ER. Patient stated that she missed 2 dialysis and so far. Patient is currently denying any shortness of breath, chest pain, abdominal pain, weakness numbness or tingling sensation. I discussed the patient was Dr. Murphy, medical researcher. He advised that patient can be dialyzed and discharged home. After patient started dialysis, learnt from the dialysis nurse that patient needed to be admitted to the hospital for dialysis. I spoke to again and he agreed to admit the patient for dialysis. Critical care attestation.: If time is entered above; I have spent that time in minutes in the direct care of this critically ill patient, excluding procedure time. ED Disposition Clinical Impression: ESRD (end stage renal disease) on dialysis, Volume overload Disposition: DC-07 LEFT AGAINST MED ADVICE Is pt being admited?: Yes Condition: Stable Referrals: SHAKEEL ALMANZA MD [Primary Care Provider] - 3-5 Days Forms: AMA Form
--- NOTE | 2019-03-20 15:37 | XRay Report ---
CHEST 1 VIEW INDICATION / CLINICAL INFORMATION: missed dialysis, sob. COMPARISON: 12/19/2018 FINDINGS: SUPPORT DEVICES: Dual lumen right central venous catheter is in appropriate position. HEART / MEDIASTINUM: Cardiac size is borderline enlarged. LUNGS / PLEURA: Both lungs are well-expanded and are clear. No interstitial pulmonary edema or visibl e pleural effusion. No pneumothorax. ADDITIONAL FINDINGS: No significant additional findings. IMPRESSION: 1. No evidence for pulmonary edema or pleural effusion. No acute finding. Signer Name: Vivian Mondragon MD Signed: 03/20/2019 3:32 PM Workstation Name: [id number]
[2019-03-20 15:43] LABS: Mean Corpuscular HGB Conc 32 % (30-34); Mean Corpuscular Volume 94 fl (79-97); Platelet Count 340 K/mm3 (140-440); Red Blood Count 2.34 M/mm3 (3.65-5.03)
[2019-03-20 15:44] LABS: Red Cell Distribution Width 21.4 % (13.2-15.2)
[2019-03-20 15:49] LABS: Calcium 8.2 mg/dL (8.4-10.2)
[2019-03-20 16:46] LABS: Anisocytosis 1+; Hypochromasia 1+; Total Cells Counted 100
[2019-03-20 16:47] LABS: Platelet Estimate Consistent w Auto
[2019-03-20] MEDS ORDERED: SODIUM CHLORIDE 0.9% 100 ML IV PRN (18:28)
[2019-03-20] MEDS ORDERED: EPOETIN ALFA 20,000 UNIT/1 ML INJ SUB-Q PRN (18:28)
[2019-03-20] MEDS ORDERED: cloNIDine 0.1 MG TAB PO ONE (19:46)
[2019-03-20 20:00] LABS: Hepatitis C Virus Antibody Non-Reactive (NonReactive)
[2019-03-20 20:14] LABS: Hepatitis B Surface Antigen Non-Reactive (Negative)
[2019-03-20 23:41] VITALS: BP 152/75
== END 2019-03-20 23:30 | disposition left against medical advice (07) ==
LOC: ED 13:11 → UNDOADMIN 23:42 → 4A 23:42
DX: E87.70 Fluid overload, unspecified (principal); N18.6 End stage renal disease; E11.22 Type 2 diabetes mellitus with diabetic chronic kidney disease; I13.2 Hypertensive heart and chronic kidney disease with heart failure and with stage 5 chronic kidney disease, or end stage renal disease; I50.9 Heart failure, unspecified; Z99.2 Dependence on renal dialysis; M19.90 Unspecified osteoarthritis, unspecified site; J44.9 Chronic obstructive pulmonary disease, unspecified; Z98.51 Tubal ligation status
CPT/HCPCS: 36415; 71045; 80048; 80074; 85007; 85025; 93005; 93010; 96372; 99284; J0885; G0257

== ENCOUNTER 2019-04-24 01:07 | Inpatient (IN) | payer MEDICARE ==
--- NOTE | 2019-04-24 01:57 | Emergency Department Report ---
ED General Adult HPI - General Chief complaint: Extremity Injury, Lower Stated complaint: NEEDS IALYSIS Time Seen by Provider: 04/24/19 01:31 Source: patient, family, EMS ( EMS documentation not available at time of chart dictation ), RN notes reviewed Mode of arrival: Stretcher Limitations: Physical Limitation - History of Present Illness Initial comments: This is a 53-year-old female. I have evaluated this patient in the past. 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 Bryant Pedersen, And in the past, she has followed at [facility] hemodialysis. She has a history of medication noncompliance, hypertension, obesity, stroke. She also has known chronic wound in her left great toe. She is brought to the hospital by emergency medical service today. Her family member/daughter is at the bedside, and she reportedly contacted 911. Apparently, the patient has not had dialysis since April 01. She has a complaint of generalized weakness, nausea, vomiting, malaise and fatigue. She denies physical pain, and endorses a chronic wound in her left great toe. Ap parently, the patient had outpatient blood work done, which maybe indicated anemia and/or low blood counts, and reportedly, the nurse who conveyed these abnormal results to the family was concerned about the possible need for blood transfusion. The patient makes no complaint of chest pain, headache, neck pain, hematemesis, or bright red blood per rectum. -: Gradual, week(s), month(s) Location: right, lower extremity Severity scale (0 -10): 0 Consistency: constant Improves with: none Worsens with: none - Related Data Home Medications Medication Instructions Recorded Confirmed Last Taken Ondansetron [Zofran TAB] 4 mg PO PRN PRN 09/09/14 02/25/17 1 Day Ago ~04/25/16 Gabapentin 300 mg PO TID 02/25/17 02/25/17 Unknown Loratadine [Claritin] 10 mg PO QDAY PRN 02/25/17 02/25/17 Unknown Previous Rx's Medication Instructions Recorded Last Taken Type ALBUTEROL NEB's [Proventil 0.083% 2.5 mg IH QIDRT #60 nebu 02/27/17 Unknown Rx NEBS] Aspirin [Aspirin BABY CHEW TAB] 81 mg PO QDAY #30 tab.chew 02/27/17 Unknown Rx amLODIPine 5 mg PO QDAY #30 tablet 02/27/17 Unknown Rx hydrALAZINE [Apresoline TAB] 25 mg PO Q8HR #90 tablet 02/27/17 Unknown Rx hydrOXYzine HCL [Atarax] 25 mg PO Q8H PRN #20 tablet 02/27/17 Unknown Rx Clindamycin [Clindamycin CAP] 300 mg PO Q6H #40 capsule 03/02/19 Unknown Rx Allergies Allergy/AdvReac Type Severity Reaction Status Date / Time No Known Allergies Allergy Verified 06/21/16 15:23 ED Review of Systems ROS: Stated complaint: NEEDS IALYSIS Other details as noted in HPI Constitutional: malaise, weakness Eyes: denies: eye discharge Respiratory: denies: wheezing Cardiovascular: denies: syncope Gastrointestinal: nausea, vomiting. denies: abdominal pain Genitourinary: denies: dysuria Musculoskeletal: arthralgia, myalgia Skin: lesions Neurological: weakness Hematological/Lymphatic: denies: easy bleeding ED Past Medical Hx - Past Medical History Previous Medical History?: Yes Hx Hypertension: Yes Hx CVA: Yes (right weakness) Hx Congestive Heart Failure: Yes Hx Diabetes: Yes Hx Renal Disease: Yes (DIALYSIS TU/ TH/ SAT) Hx Arthritis: Yes (hands) Hx Asthma: Yes Hx COPD: Yes Additional medical history: ANEMIA - Surgical History Past Surgical History?: Yes Additional Surgical History: TUBAL LIGATION. LEFT OVARY REMOVED. GRAFT LEFT ARM. PERMACATH RIGHT CHEST - Social History Smoking Status: Current Every Day Smoker - Medications Home Medications: Home Medications Medication Instructions Recorded Confirmed Last Taken Type Ondansetron [Zofran TAB] 4 mg PO PRN PRN 09/09/14 02/25/17 1 Day Ago History ~04/25/16 Gabapentin 300 mg PO TID 02/25/17 02/25/17 Unknown History Loratadine [Claritin] 10 mg PO QDAY PRN 02/25/17 02/25/17 Unknown History ALBUTEROL NEB's [Proventil 0.083% 2.5 mg IH QIDRT #60 nebu 02/27/17 Unknown Rx NEBS] Aspirin [Aspirin BABY CHEW TAB] 81 mg PO QDAY #30 tab.chew 02/27/17 Unknown Rx amLODIPine 5 mg PO QDAY #30 tablet 02/27/17 Unknown Rx hydrALAZINE [Apresoline TAB] 25 mg PO Q8HR #90 tablet 02/27/17 Unknown Rx hydrOXYzine HCL [Atarax] 25 mg PO Q8H PRN #20 tablet 02/27/17 Unknown Rx Clindamycin [Clindamycin CAP] 300 mg PO Q6H #40 capsule 03/02/19 Unknown Rx ED Physical Exam - General Limitations: Physical Limitation General appearance: alert, in no apparent distress, other (the patient is listless, but arousable.) - Head Head exam: Present: atraumatic, normocephalic - Eye Eye exam: Present: normal appearance, EOMI. Absent: nystagmus - ENT ENT exam: Present: normal exam, normal orophraynx, mucous membranes moist, normal external ear exam - Neck Neck exam: Present: normal inspection, full ROM. Absent: tenderness, meningismus - Respiratory Respiratory exam: Present: normal lung sounds bilaterally, other (there is a right-sided vas cath noted in the anterior thoracic wall, with no redness, pus or streaking.). Absent: respiratory distress, chest wall tenderness - Cardiovascular Cardiovascular Exam: Present: regular rate, normal rhythm, normal heart sounds. Absent: bradycardia, tachycardia, irregular rhythm, systolic murmur, diastolic murmur, rubs, gallop - GI/Abdominal GI/Abdominal exam: Present: soft. Absent: distended, tenderness, guarding, rebound, rigid, pulsatile mass - Extremities Exam Extremities exam: Present: full ROM, other (2+ pulses noted in the bilateral upper, lower extremities. There is no long bone tenderness. Musculoskeletal compartments are soft. The pelvis is stable.). Absent: normal inspection (patient has necrotic tissue with some purulent discharge noted to the left medial great toe. There is chronic venous stasis hyperpigmentation noted in the bilateral lower extremities. There is a nonfunctioning left upper extremity hemodialysis graft.), tenderness - Back Exam Back exam: Present: normal inspection. Absent: CVA tenderness (R), CVA tenderness (L) - Neurological Exam Neurological exam: Present: alert, oriented X3, other (there is no facial droop. The tongue is midline. Extraocular movements are intact bilaterally. Patient speaking in full complete sentences. Shoulder shrug is intact bilaterally. Hearing is grossly intact bilaterally. Visual acuity intact to finger counting and color perception at a close distance. 5/5 strength 4 extremities. Sensation intact to light touch in 4 extremities.) - Psychiatric Psychiatric exam: Present: flat affect - Skin Skin exam: Present: warm ED Course Vital Signs 04/24/19 04/24/19 01:16 01:31 Temperature 98.2 F 97.6 F Pulse Rate 78 91 H Respiratory 18 12 Rate Blood Pressure 126/79 Blood Pressure 150/76 [Right] O2 Sat by Pulse 98 96 Oximetry - Reevaluation(s) Reevaluation #1: 04/24/19 01:56 Differential diagnosis, including but not limited to: Noncompliance, anemia of chronic disease, left great toe infection, azotemia, uremia, electrolyte derangement Assessment and plan: 53-year-old female with multiple complaints Complaints #1, left great toe wound. There appears to be some localized necrotic tissue, and the patient has some discharge. She does not appear to be systemically infected. This wound has been present for months. We will check x-ray, screening laboratory studies, including sedimentation rate, and CRP. Complaint #2, nausea, vomiting, hemodialysis noncompliance. We will treat the patient's nausea, obtain EKG, x-ray the chest, appropriate screening laboratory studies. We will reassess after her data points have resulted. Of note, during the history and physical, a crawling winged insect was noted to be moving on the patient and her linens, therefore, our insect contact isolation protocol has been ordered, and this is discussed with the nursing team. Reevaluation #2: 04/24/19 03:42 X-ray of the left great toe suggests osteomyelitis. Laboratory studies suggest anemia ( likely of chronic disease related to esrd), hyperkalemia, azotemia, uremia, and metabolic acidosis. Antibiotics ordered, wound cultures ordered, blood cultures ordered, although do not suspect bacteremia at this time. Packed red blood cells ordered, hyperkalemia cocktail ordered. Hospital physician, Dr. Casiano, has accepted the patient to the medical service. Nephrology on- call is paged to arrange for dialysis. 04/24/19 03:43 - Consultations Consultation #1: 04/24/19 03:52 Discussed with nephrology, Dr. Sanders, who will arrange for emergent dialysis. ED Medical Decision Making - Lab Data Result diagrams: 04/24/19 02:47 04/24/19 02:47 Vital Signs 04/24/19 04/24/19 01:16 01:31 Temperature 98.2 F 97.6 F Pulse Rate 78 91 H Respiratory 18 12 Rate Blood Pressure 126/79 Blood Pressure 150/76 [Right] O2 Sat by Pulse 98 96 Oximetry - EKG Data -: EKG Interpreted by Sd EKG shows normal: sinus rhythm Rate: normal - EKG Data 04/24/19 02:40 The EKG today shows a sinus rhythm, 94 beats for minute, normal axis, the SD intervals prolonged, the QTC is prolonged, rates 94 beats for minute, there is nonspecific intraventricular conduction delay, there is low voltage in the lateral leads, the EKG is abnormal, it is grossly unchanged from prior EKG from March 2019. The EKG is not consistent with ST elevation myocardial infarction. - Radiology Data Radiology results: pending, report reviewed, image reviewed Print Report Referring Physician: DARIO LOPEZ Patient Name: CANDIDA FRIEND Date of : 1965 Sex: Female Report Date: 2019-04-24 Report Status: [place] [address] XRay Report Signed Patient: CANDIDA FRIEND MR#: [id number] : 1965 Acct:[id number] Age/Sex: 53 / F ADM Date: 04/24/19 Loc: ED Attending Dr: Ordering Physician: DARIO LOPEZ MD Date of Service: 04/24/19 Procedure(s): XR chest 1V ap Accession Number(s): [id number] cc: DARIO LOPEZ MD Fluoro Time In Minutes: CHEST 1 VIEW INDICATION / CLINICAL INFORMATION: INFECTION. COMPARISON: 03/20/2019 FINDINGS: SUPPORT DEVICES: Dual lumen central venous catheter is stable in position. HEART / MEDIASTINUM: Cardiac silhouette is mildly enlarged but stable. LUNGS / PLEURA: There is borderline interstitial pulmonary edema. The lungs are otherwise grossly clear. No pleural effusion.. No pneumothorax. ADDITIONAL FINDINGS: No significant additional findings. IMPRESSION: 1. Borderline interstitial pulmonary edema. Mild cardiomegaly. Signer Name: Vivian Mondragon MD Signed: 04/24/2019 2:57 AM Workstation Name: [id number] Transcribed By: JR Dictated By: Vivian Mondragon MD Electronically Authenticated By: Vivian Mondragon MD Signed Date/Time: 04/24/19256 DD/ 5 TD/TT: Print Report Referring Physician: DARIO LOPEZ Patient Name: CANDIDA FRIEND Date of : 1965 Sex: Female Report Date: 2019-04-24 Report Status: Finalized Findings [facility] [address] [place] [address] XRay Report Signed Patient: CANDIDA FRIEND MR#: [id number] : 1965 Acct:[id number] Age/Sex: 53 / F ADM Date: 04/24/19 Loc: ED Attending Dr: Ordering Physician: DARIO LOPEZ MD Date of Service: 04/24/19 Procedure(s): XR toe(s) 2+V LT Accession Number(s): [id number] cc: DARIO LOPEZ MD Fluoro Time In Minutes: LEFT TOES, 3 VIEWS INDICATION / CLINICAL INFORMATION: left great toe wound. COMPARISON: 03/02/2019 FINDINGS: There continues to be abnormal appearance of the great. There is marked modeling/lucency throughout the proximal phalanx of the great toe. There is diffuse cortical irregularity. The appearance is certainly very worrisome for osteomyelitis. Additionally there has been fracture through the distal medial portion of the proximal phalanx which is a new finding compared to the prior exam. The area fracture corresponds to an obvious soft tissue ulceration along the medial aspect of the great 10 oh. There continues to be some diffuse soft tissue edema. IMPRESSION: 1.Markedly abnormal appearance of the great toe, primarily affecting the proximal phalanx. The appearance is certainly very suggestive for osteomyelitis. 2. Additionally there has been interval avulsion fracture from the distal medial portion of the proximal phalanx of the great toe. 3. Diffuse soft tissue edema and obvious soft tissue ulceration affecting the great toe, as described above. Signer Name: Vivian Mondragon MD Signed: 04/24/2019 3:10 AM Workstation Name: [email or web address] Transcribed By: JR Dictated By: Vivian Mondragon MD Electronically Authentic ated By: Vivian Mondragon MD Signed Date/Time: 04/24/19309 DD/ 0302 Critical Care Time: Yes Critical care time in (mins) excluding proc time.: 35 Critical care attestation.: If time is entered above; I have spent that time in minutes in the direct care of this critically ill patient, excluding procedure time. ED Disposition Clinical Impression: ESRD (end stage renal disease) on dialysis, Noncompliance, Hyperkalemia, diminished renal excretion, Azotemia, Uremia Anemia Qualifiers: Anemia type: due to chronic kidney disease Chronic kidney disease stage: on chronic dialysis Qualified Code(s): N18.6 - End stage renal disease Osteomyelitis Qualifiers: Osteomyelitis type: unspecified type Osteomyelitis location: foot Laterality: left Qualified Code(s): M86.9 - Osteomyelitis, unspecified Disposition: OP ADMIT IP TO THIS HOSP Is pt being admited?: Yes Condition: Fair Referrals: PRIMARY CARE, [Primary Care Provider] - 3-5 Days
--- NOTE | 2019-04-24 03:02 | XRay Report ---
CHEST 1 VIEW INDICATION / CLINICAL INFORMATION: INFECTION. COMPARISON: 03/20/2019 FINDINGS: SUPPORT DEVICES: Dual lumen central venous catheter is stable in position. HEART / MEDIASTINUM: Cardiac silhouette is mildly enlarged but stable. LUNGS / PLEURA: There is borderline interstitial pulmonary edema. The lungs are otherwise grossly ofelia ar. No pleural effusion.. No pneumothorax. ADDITIONAL FINDINGS: No significant additional findings. IMPRESSION: 1. Borderline interstitial pulmonary edema. Mild cardiomegaly. Signer Name: Vivian Mondragon MD Signed: 04/24/2019 2:57 AM Workstation Name: [email or web address]
[2019-04-24 03:12] LABS: Mean Corpuscular HGB Conc 31 % (30-34); Mean Corpuscular Volume 92 fl (79-97); Platelet Count 481 K/mm3 (140-440); Red Blood Count 1.92 M/mm3 (3.65-5.03); Red Cell Distribution Width 19.8 % (13.2-15.2)
--- NOTE | 2019-04-24 03:14 | XRay Report ---
LEFT TOES, 3 VIEWS INDICATION / CLINICAL INFORMATION: left great toe wound. COMPARISON: 03/02/2019 FINDINGS: There continues to be abnormal appearance of the great. There is marked modeling/lucency throughout t he proximal phalanx of the great toe. There is diffuse cortical irregularity. The appearance is certa inly very worrisome for osteomyelitis. Additionally there has been fracture through the distal medial portion of the proximal phalanx which is a new finding compared to the prior exam. The area fracture corresponds to an obvious soft tissue ulceration along the medial aspect of the great 10 oh. There c ontinues to be some diffuse soft tissue edema. IMPRESSION: 1.Markedly abnormal appearance of the great toe, primarily affecting the proximal phalanx. The appear ance is certainly very suggestive for osteomyelitis. 2. Additionally there has been interval avulsion fracture from the distal medial portion of the proxi mal phalanx of the great toe. 3. Diffuse soft tissue edema and obvious soft tissue ulceration affecting the great toe, as described above. Signer Name: Vivian Mondragon MD Signed: 04/24/2019 3:10 AM Workstation Name: [email or web address]
[2019-04-24 03:19] LABS: INR 1.67 (0.87-1.13)
[2019-04-24 03:25] LABS: Hematocrit 17.6 % (30.3-42.9); Hemoglobin 5.5 gm/dl (10.1-14.3)
[2019-04-24 03:26] LABS: Calcium 7.4 mg/dL (8.4-10.2)
[2019-04-24] MEDS ORDERED: SODIUM CHLORIDE 0.9% 500 ML 500 ML IV ONE (03:31)
[2019-04-24] MEDS ORDERED: cefTRIAXone/NS 1 GM/50 ML 1 GM/50 ML BAG IV STA (03:34)
[2019-04-24] MEDS ORDERED: VANCOMYCIN 2,000 MG in SODIUM CHLORIDE 0.9% 500 ML 500 ML IV ONE (03:34)
[2019-04-24 03:35] LABS: Erythrocyte Sedimentation Rate > 140.0 mm/Hr (0-20)
[2019-04-24] MEDS ORDERED: CALCIUM GLUCONATE 1,000 MG in SODIUM CHLORIDE 0.9% 100 ML IV ONE (03:39)
[2019-04-24] MEDS ORDERED: DEXTROSE 50% IN WATER (25GM) 50 ML SYRINGE IV ONE (03:39)
[2019-04-24] MEDS ORDERED: SODIUM BICARB 8.4% 50 MEQ/50 ML SYRINGE IV ONE (03:39)
[2019-04-24] MEDS ORDERED: ALBUTEROL 2.5 MG/3 ML NEBU IH ONE (03:39)
[2019-04-24] MEDS ORDERED: INSULIN REGULAR, HUMAN 100 UNITS/1 ML IV ONE (03:42)
[2019-04-24] MEDS ORDERED: SODIUM POLYSTYRENE 15 GM/60 ML ORAL LIQD PO ONE (03:51)
[2019-04-24 04:07] LABS: C-Reactive Protein 11.5 mg/dL (0.00-1.30)
--- NOTE | 2019-04-24 04:26 | History and Physical Report ---
<MANOLO BRYANT - Last Filed: 04/24/19 06:32> History of Present Illness Date of examination: 04/24/19 Date of admission: 04/24/19 Chief complaint: Weakness History of present illness: Patient is a 53-year-old AA female presents to the ED after family called an ambulance. Family says she's been nauseous and vomiting today, and incoherent over past few days. Patient also exhibiting weakness and fatigue. Patient has a history of hypertension, diabetes, ESRD with, obesity, CVA. Patient has history of medical noncompliance with dialysis. Has been seen several times this year for missed dialysis appointments. On friday, , friday schedule. Reports having last dialysis on . Daughter at bedside unsure if patient has been taking medications. Says patient lives with her sister. Patient currently lethargic and unable to provide much information. Responds to questions but immediately falls back asleep. Patient has small, dime-sized wound on left greater toe, draining purulent fluid. Says it's been there several weeks and does report drainage at home. She also has a soiled dialysis access site in right chest. Daughter says it was placed several weeks ago outpatient because patient's AV fistula was clotted. Provider had attempted to unclot it in the office but was unable to after several attempts. Patient was supposed to follow up to have it declotted inpatient but did not follow up with appointment. P atient had outpatient blood work done showing anemia. Nurse expressed concern that patient may need blood transfusion to family so they called EMS. Past History Past Medical History: anemia, arthritis, CAD, COPD, diabetes, dialysis, ESRD, heart failure (tubal ligation, left ovary removed, left AV graft, right chest permcath ), hypertension, renal failure, stroke, other (asthma ) Medications and Allergies Allergies Allergy/AdvReac Type Severity Reaction Status Date / Time No Known Allergies Allergy Verified 06/21/16 15:23 Home Medications Medication Instructions Recorded Confirmed Last Taken Type Ondansetron [Zofran TAB] 4 mg PO PRN PRN 09/09/14 02/25/17 1 Day Ago History ~04/25/16 Gabapentin 300 mg PO TID 02/25/17 02/25/17 Unknown History Loratadine [Claritin] 10 mg PO QDAY PRN 02/25/17 02/25/17 Unknown History ALBUTEROL NEB's [Proventil 0.083% 2.5 mg IH QIDRT #60 nebu 02/27/17 Unknown Rx NEBS] Aspirin [Aspirin BABY CHEW TAB] 81 mg PO QDAY #30 tab.chew 02/27/17 Unknown Rx amLODIPine 5 mg PO QDAY #30 tablet 02/27/17 Unknown Rx hydrALAZINE [Apresoline TAB] 25 mg PO Q8HR #90 tablet 02/27/17 Unknown Rx hydrOXYzine HCL [Atarax] 25 mg PO Q8H PRN #20 tablet 02/27/17 Unknown Rx Clindamycin [Clindamycin CAP] 300 mg PO Q6H #40 capsule 03/02/19 Unknown Rx Active Meds: Active Medications Vancomycin HCl 2,000 mg/ (Sodium Chloride) 540 mls @ 333 mls/hr IV ONCE ONE; Protocol Stop: 04/24/19 05:11 Last Admin: 04/24/19 04:23 Dose: 333 mls/hr Documented by: Ondansetron HCl (Zofran Odt) 4 mg PO Q6HR PRN PRN Reason: Nausea Review of Systems Constitutional: fatigue, weakness, lethargy, no fever, no chills Cardiovascular: shortness of breath, no chest pain Respiratory: no shortness of breath Gastrointestinal: nausea, vomiting Rectal: no bleeding Musculoskeletal: muscle weakness Integumentary: wounds (small wound on left great toe, necrotic area with small amount of yellow purulent drainage ), dryness Neurological: weakness Exam - Constitutional Vitals: Temp Pulse Resp BP Pulse Ox 97.6 F 89 13 148/75 100 04/24/19 01:31 04/24/19 04:00 04/24/19 04:00 04/24/19 04:00 04/24/19 04:00 General appearance: Present: no acute distress, obese, disheveled - EENT Eyes: Present: EOM intact - Respiratory Respiratory effort: normal Respiratory: bilateral: diminished - Cardiovascular Rhythm: regular Heart Sounds: Present: S1 & S2 - Extremities Extremity abnormal: edema (pedal ), pulses diminished (BLE pedal) - Peripheral pulses dorsalis pedis Pulse Strength: 1+ (Doppler) - Abdominal General gastrointestinal: Present: soft, non-tender - Integumentary Integumentary: Present: warm, dry - Musculoskeletal Musculoskeletal: generalized weakness - Neurologic Neurologic: other (lethargic, oriented x4) Results - Labs CBC & Chem 7: 04/24/19 02:47 04/24/19 02:47 Labs: Laboratory Last Values WBC 13.4 K/mm3 (4.5-11.0) H 04/24/19 02:47 RBC 1.92 M/mm3 (3.65-5.03) L 04/24/19 02:47 Hgb 5.5 gm/dl (10.1-14.3) L* 04/24/19 02:47 Hct 17.6 % (30.3-42.9) L* 04/24/19 02:47 MCV 92 fl (79-97) 04/24/19 02:47 MCH 29 pg (28-32) 04/24/19 02:47 MCHC 31 % (30-34) 04/24/19 02:47 RDW 19.8 % (13.2-15.2) H 04/24/19 02:47 Plt Count 481 K/mm3 (140-440) H 04/24/19 02:47 ESR > 140.0 mm/Hr (0-20) 04/24/19 02:47 PT 19.4 Sec. (12.2-14.9) H 04/24/19 02:47 INR 1.67 (0.87-1.13) H 04/24/19 02:47 Sodium 136 mmol/L (137-145) L 04/24/19 02:47 Potassium 7.9 mmol/L (3.6-5.0) H* 04/24/19 02:47 Chloride 86.9 mmol/L (98-107) L 04/24/19 02:47 Carbon Dioxide 10 mmol/L (22-30) L 04/24/19 02:47 Anion Gap 47 mmol/L 04/24/19 02:47 BUN 190 mg/dL (7-17) H 04/24/19 02:47 Creatinine 30.6 mg/dL (0.7-1.2) H 04/24/19 02:47 Estimated GFR 1 ml/min 04/24/19 02:47 BUN/Creatinine Ratio 6 % 04/24/19 02:47 Glucose 143 mg/dL (65-100) H 04/24/19 02:47 Calcium 7.4 mg/dL (8.4-10.2) L 04/24/19 02:47 Magnesium 3.40 mg/dL (1.7-2.3) H 04/24/19 02:47 Total Creatine Kinase 450 units/L (30-135) H 04/24/19 02:47 C-Reactive Protein 11.50 mg/dL (0.00-1.30) H 04/24/19 02:47 Blood Type B POSITIVE 04/24/19 02:47 Antibody Screen Negative 04/24/19 02:47 Crossmatch See Detail 04/24/19 02:47 Assessment and Plan Assessment and plan: ESRD -creatinine 30.6 -BUN 190 -last dialysis on 04/01 -nephrology consulted for HD Anemia -HGB 5.5 -1 unit PRBC ordered in ED - will recheck CBC Hyperkalemia -K+ 7.9 -8 units regular insulin given with 1 amp D50 -will recheck level Leukocytosis -WBC 13.4 -blood cultures ordered -given ceftriaxone and vancomycin in ED - will continue vanc and start on cefepime left great toe Wound infection -dime sized wound on tissue with necrotic tissue, draining small amount yellow purulent drainage -consult wound nurse -wound culture ordered HTN -will restart home meds -currently SBP in 140's, will continue to monitor DM -A1c ordered -ACHS accucheck -humalog sliding scale bug infestation -ER team noticed small bug crawling on patient -washed down and disinfected in ED, will place on contact precautions DVT prophylaxis -heparin subQ <CLINTON BEARD - Last Filed: 04/24/19 06:52> Medications and Allergies Active Meds: Active Medications Acetaminophen (Tylenol) 650 mg PO Q4H PRN PRN Reason: Pain, Mild (1-3); fever>100.5 Albuterol (Proventil) 2.5 mg IH Q4HRT PRN PRN Reason: Shortness Of Breath Amlodipine Besylate (Amlodipine) 5 mg PO QDAY [facility] Aspirin (Baby Aspirin) 81 mg PO QDAY [facility] Dextrose (D50w (25gm) Syringe) 50 ml IV Q30MIN PRN; Protocol PRN Reason: Hypoglycemia Diphenhydramine HCl (Benadryl) 25 mg IV Q6H PRN PRN Reason: Itching Docusate Sodium (Colace) 100 mg PO BID [facility] Gabapentin (Gabapentin) 300 mg PO TID [facility] Heparin Sodium (Porcine) (Heparin) 5,000 unit SUB-Q Q12HR [facility] Hydralazine HCl (Apresoline) 25 mg PO Q8HR [facility] Cefepime HCl (Cefepime/Ns 1 Gm/100 Ml) 1 gm in 100 mls @ 200 mls/hr IV Q24H [facility]; Protocol Insulin Human Lispro (Humalog) 0 unit SUB-Q ACHS [facility]; Protocol Nicotine (Habitrol) 14 mg TD QDAY [facility] Ondansetron HCl (Zofran Odt) 4 mg PO Q6HR PRN PRN Reason: Nausea Sodium Chloride (Sodium Chloride Flush Syringe 10 Ml) 10 ml IV BID [facility] Sodium Chloride (Sodium Chloride Flush Syringe 10 Ml) 10 ml IV PRN PRN PRN Reason: LINE FLUSH Exam - Constitutional Vitals: Temp Pulse Resp BP Pulse Ox 97.6 F 98 H 17 150/76 100 04/24/19 01:31 04/24/19 05:06 04/24/19 05:06 04/24/19 05:06 04/24/19 05:06 Results - Labs CBC & Chem 7: 04/24/19 02:47 04/24/19 02:47 Labs: Laboratory Last Values WBC 13.4 K/mm3 (4.5-11.0) H 04/24/19 02:47 RBC 1.92 M/mm3 (3.65-5.03) L 04/24/19 02:47 Hgb 5.5 gm/dl (10.1-14.3) L* 04/24/19 02:47 Hct 17.6 % (30.3-42.9) L* 04/24/19 02:47 MCV 92 fl (79-97) 04/24/19 02:47 MCH 29 pg (28-32) 04/24/19 02:47 MCHC 31 % (30-34) 04/24/19 02:47 RDW 19.8 % (13.2-15.2) H 04/24/19 02:47 Plt Count 481 K/mm3 (140-440) H 04/24/19 02:47 ESR > 140.0 mm/Hr (0-20) 04/24/19 02:47 PT 19.4 Sec. (12.2-14.9) H 04/24/19 02:47 INR 1.67 (0.87-1.13) H 04/24/19 02:47 Sodium 136 mmol/L (137-145) L 04/24/19 02:47 Potassium 7.9 mmol/L (3.6-5.0) H* 04/24/19 02:47 Chloride 86.9 mmol/L (98-107) L 04/24/19 02:47 Carbon Dioxide 10 mmol/L (22-30) L 04/24/19 02:47 Anion Gap 47 mmol/L 04/24/19 02:47 BUN 190 mg/dL (7-17) H 04/24/19 02:47 Creatinine 30.6 mg/dL (0.7-1.2) H 04/24/19 02:47 Estimated GFR 1 ml/min 04/24/19 02:47 BUN/Creatinine Ratio 6 % 04/24/19 02:47 Glucose 143 mg/dL (65-100) H 04/24/19 02:47 Calcium 7.4 mg/dL (8.4-10.2) L 04/24/19 02:47 Magnesium 3.40 mg/dL (1.7-2.3) H 04/24/19 02:47 Total Creatine Kinase 450 units/L (30-135) H 04/24/19 02:47 C-Reactive Protein 11.50 mg/dL (0.00-1.30) H 04/24/19 02:47 Blood Type B POSITIVE 04/24/19 02:47 Antibody Screen Negative 04/24/19 02:47 Crossmatch See Detail 04/24/19 02:47 Assessment and Plan Assessment and plan: Left great toe osteomyelitis -on IV antibiotic -ID consulted Acute on chronic anemia -for blood transf -will monitor H/H DM2 -stable -on SSI I personally discussed the pt with the [employer]ODUCTION [facility]. I agree with the above documentations by the PRODUCTION [facility]
[2019-04-24] MEDS ORDERED: ALBUTEROL 2.5 MG/3 ML NEBU IH PRN (04:38)
[2019-04-24] MEDS ORDERED: diphenhydrAMINE 50 MG/ML VIAL IV PRN (04:40)
[2019-04-24] MEDS ORDERED: DEXTROSE 50% IN WATER (25GM) 50 ML SYRINGE IV PRN (04:42)
[2019-04-24] MEDS ORDERED: VANCOMYCIN PHARMACY TO DOSE IV SCH (05:00)
[2019-04-24] MEDS ORDERED: AMPICILLIN/SULBACTA 1.5GM/50ML 1.5 GM/50 ML BAG IV SCH (06:00)
[2019-04-24] MEDS ORDERED: CEFEPIME/NS 1 GM/100 ML 1 GM/100 ML BAG IV SCH (06:00)
[2019-04-24 07:13] LABS: Hepatitis C Virus Antibody Non-Reactive (NonReactive)
[2019-04-24] MEDS: INSULIN LISPRO 100 UNIT/ML SUB-Q SCH ×4 (07:30→22:00)
[2019-04-24 12:59] LABS: Hepatitis B Surface Antigen Non-Reactive (Negative)
[2019-04-24] MEDS: amLODIPine 10 MG TAB PO SCH (14:18)
[2019-04-24] MEDS: ASPIRIN 81 MG TAB CHEW PO SCH (14:18)
[2019-04-24] MEDS: DOCUSATE SODIUM 100 MG CAP PO SCH ×2 (14:27→22:00)
[2019-04-24] MEDS: HEPARIN 5,000 UNIT/1 ML VIAL SUB-Q SCH ×2 (14:27→21:48)
[2019-04-24] MEDS: GABAPENTIN 300 MG CAP PO SCH ×2 (14:29→20:10)
[2019-04-24] MEDS: hydrALAZINE 25 MG TAB PO SCH ×3 (14:30→21:40)
[2019-04-24] MEDS: NICOTINE 14 MG/24 HR PATCH TD SCH (14:32)
--- NOTE | 2019-04-24 15:32 | Consultation ---
History of Present Illness - Reason for Consult Consult date: 04/24/19 end stage renal disease, hyperkalemia - History of Present Illness History of obtained from medical records and daughter. Patient w/ AMS Patient was brought to the ED via EMS today due to change in mental status. Daughter reports that her last dialysis treatment was on Apr 01. Past History Past Medical History: anemia, arthritis, CAD, COPD, diabetes, dialysis, ESRD, heart failure (tubal ligation, left ovary removed, left AV graft, right chest permcath ), hypertension, renal failure, stroke, other (asthma ) Medications and Allergies Allergies Allergy/AdvReac Type Severity Reaction Status Date / Time No Known Allergies Allergy Verified 06/21/16 15:23 Home Medications Medication Instructions Recorded Confirmed Last Taken Type Ondansetron [Zofran TAB] 4 mg PO PRN PRN 09/09/14 02/25/17 1 Day Ago History ~04/25/16 Gabapentin 300 mg PO TID 02/25/17 02/25/17 Unknown History Loratadine [Claritin] 10 mg PO QDAY PRN 02/25/17 02/25/17 Unknown History ALBUTEROL NEB's [Proventil 0.083% 2.5 mg IH QIDRT #60 nebu 02/27/17 Unknown Rx NEBS] Aspirin [Aspirin BABY CHEW TAB] 81 mg PO QDAY #30 tab.chew 02/27/17 Unknown Rx amLODIPine 5 mg PO QDAY #30 tablet 02/27/17 Unknown Rx hydrALAZINE [Apresoline TAB] 25 mg PO Q8HR #90 tablet 02/27/17 Unknown Rx hydrOXYzine HCL [Atarax] 25 mg PO Q8H PRN #20 tablet 02/27/17 Unknown Rx Clindamycin [Clindamycin CAP] 300 mg PO Q6H #40 capsule 03/02/19 Unknown Rx Active Meds: Active Medications Acetaminophen (Tylenol) 650 mg PO Q4H PRN PRN Reason: Pain, Mild (1-3); fever>100.5 Albuterol (Proventil) 2.5 mg IH Q4HRT PRN PRN Reason: Shortness Of Breath Amlodipine Besylate (Amlodipine) 5 mg PO QDAY [facility] Last Admin: 04/24/19 14:18 Dose: 5 mg Documented by: Aspirin (Baby Aspirin) 81 mg PO QDAY [facility] Last Admin: 04/24/19 14:18 Dose: 81 mg Documented by: Dextrose (D50w (25gm) Syringe) 50 ml IV Q30MIN PRN; Protocol PRN Reason: Hypoglycemia Diphenhydramine HCl (Benadryl) 25 mg IV Q6H PRN PRN Reason: Itching Docusate Sodium (Colace) 100 mg PO BID [facility] Last Admin: 04/24/19 14:27 Dose: Not Given Documented by: Gabapentin (Gabapentin) 300 mg PO TID [facility] Last Admin: 04/24/19 14:29 Dose: Not Given Documented by: Heparin Sodium (Porcine) (Heparin) 5,000 unit SUB-Q Q12HR [facility] Last Admin: 04/24/19 14:27 Dose: 5,000 unit Documented by: Hydralazine HCl (Apresoline) 25 mg PO Q8HR [facility] Last Admin: 04/24/19 14:31 Dose: 25 mg Documented by: Cefepime HCl (Cefepime/Ns 1 Gm/100 Ml) 1 gm in 100 mls @ 200 mls/hr IV Q24H [facility]; Protocol Insulin Human Lispro (Humalog) 0 unit SUB-Q ACHS [facility]; Protocol Last Admin: 04/24/19 12:00 Dose: Not Given Documented by: Nicotine (Habitrol) 14 mg TD QDAY [facility] Last Admin: 04/24/19 14:32 Dose: Not Given Documented by: Ondansetron HCl (Zofran Odt) 4 mg PO Q6HR PRN PRN Reason: Nausea Sodium Chloride (Sodium Chloride Flush Syringe 10 Ml) 10 ml IV BID [facility] Last Admin: 04/24/19 14:27 Dose: 10 ml Documented by: Sodium Chloride (Sodium Chloride Flush Syringe 10 Ml) 10 ml IV PRN PRN PRN Reason: LINE FLUSH Review of Systems ROS unobtainable: due to mental status Exam - Vital Signs Vital signs: Vital Signs Temp Pulse Resp BP Pulse Ox 98.2 F 78 18 126/79 98 04/24/19 01:16 04/24/19 01:16 04/24/19 01:16 04/24/19 01:16 04/24/19 01:16 - General Appearance General appearance: well-developed, well-nourished EENT: ATNC Respiratory: Clear to Ascultation Heart: regular, S1S2 Gastrointestinal: Absent: tenderness, distended Neurologic: confused Psychiatric: cooperative Results - Lab Results 04/24/19 02:47 04/24/19 04:50 Most recent lab results Calcium 7.4 mg/dL (8.4-10.2) L 04/24/19 02:47 Magnesium 3.40 mg/dL (1.7-2.3) H 04/24/19 02:47 Assessment and Plan Impression: * End stage renal disease on hemodialysis via RIJ permcath * Hyperkalemia, severe * Uremia - BUN 190 at admission --Last HD treatment on Apr 01 * Left great toe wound w/?osteomyelitis * Metabolic acidosis * Anemia secondary to ESRD vs other * Secondary hyperparathyroidism * Medical noncomplaince Plan: * STAT HD ordered; patient is s/p treatment * Will plan for daily HD x 3 days - HD tomorrow * Transfusion pRBC per primary team * Abx per primary team - blood cx pending * Dose medications for renal function * Epogen TIW prn
[2019-04-24] MEDS ORDERED: SODIUM CHLORIDE 0.9% 100 ML IV PRN (15:57)
[2019-04-24] MEDS: ACETAMINOPHEN 325 MG TAB PO PRN (15:58)
--- NOTE | 2019-04-24 16:22 | Consultation ---
History of Present Illness - Reason for Consult Consult date: 04/24/19 - History of Present Illness 53 yo F PMHxESRD on HD, Dm2, HTN, obesity who was admitted with complaints of N/V and confusion. her family also notes associated weakness and fatigue. She is frequently non-compliant with dialysis. he notes a wound on her L great toe which began a couple of weeks ago and drains pus at home. She was previously getting HD through an AV fistula, however that clotted and she received a tunnelled line instead, however that appeared soiled on admission. Outpatient blood work showed significant anemia, and as such it was recommended she present to hospital. Afebrile with a Tmax of 100.3. Tachycardia and leukocytosis. Blood cultures negative thus far. Currently receiving vancomycin and cefepime. . Imaging personally reviewed: CXR: interstitial pulmonary edema L toe XR: Probably osteomyelitis of the distal phalanx. Review of Systems: Bold if positive, otherwise negative General: fevers, chills, rigors HEENT: visual disturbance, diplopia, eye pain Respiratory: cough, sputum, hemoptysis, shortness of breath Cardiovascular: chest pain, syncope Gastrointestinal: nausea, vomiting, diarrhea, abdominal pain Genitourinary: dysuria, hematuria, flank pain Musculoskeletal: neck pain, back pain, joint pain, edema Neurologic: headaches, seizures Hematologic: easy bruising or bleeding Endocrine: night sweats, acute weight loss Skin: rash, jaundice, redness Psychiatric: suicidal, homicidal ideation Past History Past Medical History: anemia, arthritis, CAD, COPD, diabetes, dialysis, ESRD, heart failure (tubal ligation, left ovary removed, left AV graft, right chest permcath ), hypertension, renal failure, stroke, other (asthma ) Past Surgical History: Other (AV fistula placement.) Social history: lives with family Family history: diabetes Medications and Allergies Allergies Allergy/AdvReac Type Severity Reaction Status Date / Time No Known Allergies Allergy Verified 06/21/16 15:23 Home Medications Medication Instructions Recorded Confirmed Last Taken Type Ondansetron [Zofran TAB] 4 mg PO PRN PRN 09/09/14 02/25/17 1 Day Ago History ~04/25/16 Gabapentin 300 mg PO TID 02/25/17 02/25/17 Unknown History Loratadine [Claritin] 10 mg PO QDAY PRN 02/25/17 02/25/17 Unknown History ALBUTEROL NEB's [Proventil 0.083% 2.5 mg IH QIDRT #60 nebu 02/27/17 Unknown Rx NEBS] Aspirin [Aspirin BABY CHEW TAB] 81 mg PO QDAY #30 tab.chew 02/27/17 Unknown Rx amLODIPine 5 mg PO QDAY #30 tablet 02/27/17 Unknown Rx hydrALAZINE [Apresoline TAB] 25 mg PO Q8HR #90 tablet 02/27/17 Unknown Rx hydrOXYzine HCL [Atarax] 25 mg PO Q8H PRN #20 tablet 02/27/17 Unknown Rx Clindamycin [Clindamycin CAP] 300 mg PO Q6H #40 capsule 03/02/19 Unknown Rx Active Meds: Active Medications Acetaminophen (Tylenol) 650 mg PO Q4H PRN PRN Reason: Pain, Mild (1-3); fever>100.5 Last Admin: 04/24/19 15:58 Dose: 650 mg Documented by: Albuterol (Proventil) 2.5 mg IH Q4HRT PRN PRN Reason: Shortness Of Breath Amlodipine Besylate (Amlodipine) 5 mg PO QDAY [facility] Last Admin: 04/24/19 14:18 Dose: 5 mg Documented by: Aspirin (Baby Aspirin) 81 mg PO QDAY [facility] Last Admin: 04/24/19 14:18 Dose: 81 mg Documented by: Dextrose (D50w (25gm) Syringe) 50 ml IV Q30MIN PRN; Protocol PRN Reason: Hypoglycemia Diphenhydramine HCl (Benadryl) 25 mg IV Q6H PRN PRN Reason: Itching Docusate Sodium (Colace) 100 mg PO BID [facility] Last Admin: 04/24/19 14:27 Dose: Not Given Documented by: Gabapentin (Gabapentin) 300 mg PO TID [facility] Last Admin: 04/24/19 14:29 Dose: Not Given Documented by: Heparin Sodium (Porcine) (Heparin) 5,000 unit SUB-Q Q12HR [facility] Last Admin: 04/24/19 14:27 Dose: 5,000 unit Documented by: Hydralazine HCl (Apresoline) 25 mg PO Q8HR [facility] Last Admin: 04/24/19 14:31 Dose: 25 mg Documented by: Cefepime HCl (Cefepime/Ns 1 Gm/100 Ml) 1 gm in 100 mls @ 200 mls/hr IV Q24H [facility]; Protocol Sodium Chloride (Nacl 0.9%) 100 mls @ 999 mls/hr IV [facility] PRN PRN Reason: Hypotension Insulin Human Lispro (Humalog) 0 unit SUB-Q ACHS [facility]; Protocol Last Admin: 04/24/19 12:00 Dose: Not Given Documented by: Nicotine (Habitrol) 14 mg TD QDAY [facility] Last Admin: 04/24/19 14:32 Dose: Not Given Documented by: Ondansetron HCl (Zofran Odt) 4 mg PO Q6HR PRN PRN Reason: Nausea Sodium Chloride (Sodium Chloride Flush Syringe 10 Ml) 10 ml IV BID [facility] Last Admin: 04/24/19 14:27 Dose: 10 ml Documented by: Sodium Chloride (Sodium Chloride Flush Syringe 10 Ml) 10 ml IV PRN PRN PRN Reason: LINE FLUSH Physical Examination - Physical Exam Narrative exam: Constitutional: Drowsy, co-operative Head, Ears, Nose: Normocephalic, atraumatic. External ears, nose normal Eyes: Conjunctivae/corneas clear. No icterus. No ptosis. Neck: Supple, no meningeal signs Oral: dentition fair, no thrush Cardiovascular: S1, S2 normal. Respiratory: Good air entry, clear to auscultation bilaterally GI: Soft, non-tender; bowel sounds normal. No peritoneal signs. Musculoskeletal: No pedal edema, no cyanosis. L great toe wound, small, dry. Surrounding black skin Skin: No rash or abscess Hem/Lymphatic: No palpable cervical or supraclavicular nodes. No lymphangitis Psych: Mood ok. Affect normal Neurological: Awake, alert, oriented. No gross abnormality - Constitutional Vitals: Vital Signs Temp Pulse Resp BP Pulse Ox 100.3 F H 110 H 18 148/70 99 04/24/19 16:00 04/24/19 16:00 04/24/19 16:00 04/24/19 16:00 04/24/19 16:00 Temperature -Last 24 Hours Temperature 100.3 F Temperature 98.5 F Temperature 98.7 F Temperature 97.5 F Temperature 97.6 F Temperature 98.2 F Results - Labs CBC & Chem 7: 04/24/19 02:47 04/24/19 04:50 Labs: Abnormal lab results 04/24/19 04/24/19 04/24/19 Range/Units 02:47 02:47 02:47 WBC 13.4 H (4.5-11.0) K/mm3 RBC 1.92 L (3.65-5.03) M/mm3 Hgb 5.5 L* (10.1-14.3) gm/dl Hct 17.6 L* (30.3-42.9) % RDW 19.8 H (13.2-15.2) % Plt Count 481 H (140-440) K/mm3 PT 19.4 H (12.2-14.9) Sec. INR 1.67 H (0.87-1.13) Sodium 136 L (137-145) mmol/L Potassium 7.9 H* (3.6-5.0) mmol/L Chloride 86.9 L (98-107) mmol/L Carbon Dioxide 10 L (22-30) mmol/L BUN 190 H (7-17) mg/dL Creatinine 30.6 H (0.7-1.2) mg/dL Glucose 143 H (65-100) mg/dL POC Glucose (70-105) Hemoglobin A1c (4-6) % Calcium 7.4 L (8.4-10.2) mg/dL Magnesium 3.40 H (1.7-2.3) mg/dL Total Creatine Kinase 450 H (30-135) units/L C-Reactive Protein 11.50 H (0.00-1.30) mg/dL Crossmatch 04/24/19 04/24/19 04/24/19 Range/Units 02:47 04:50 06:45 WBC (4.5-11.0) K/mm3 RBC (3.65-5.03) M/mm3 Hgb (10.1-14.3) gm/dl Hct (30.3-42.9) % RDW (13.2-15.2) % Plt Count (140-440) K/mm3 PT (12.2-14.9) Sec. INR (0.87-1.13) Sodium (137-145) mmol/L Potassium 6.9 H* (3.6-5.0) mmol/L Chloride (98-107) mmol/L Carbon Dioxide (22-30) mmol/L BUN (7-17) mg/dL Creatinine (0.7-1.2) mg/dL Glucose (65-100) mg/dL POC Glucose (70-105) Hemoglobin A1c < 4.0 L (4-6) % Calcium (8.4-10.2) mg/dL Magnesium (1.7-2.3) mg/dL Total Creatine Kinase (30-135) units/L C-Reactive Protein (0.00-1.30) mg/dL Crossmatch See Detail 04/24/19 Range/Units 10:32 WBC (4.5-11.0) K/mm3 RBC (3.65-5.03) M/mm3 Hgb (10.1-14.3) gm/dl Hct (30.3-42.9) % RDW (13.2-15.2) % Plt Count (140-440) K/mm3 PT (12.2-14.9) Sec. INR (0.87-1.13) Sodium (137-145) mmol/L Potassium (3.6-5.0) mmol/L Chloride (98-107) mmol/L Carbon Dioxide (22-30) mmol/L BUN (7-17) mg/dL Creatinine (0.7-1.2) mg/dL Glucose (65-100) mg/dL POC Glucose 123 H (70-105) Hemoglobin A1c (4-6) % Calcium (8.4-10.2) mg/dL Magnesium (1.7-2.3) mg/dL Total Creatine Kinase (30-135) units/L C-Reactive Protein (0.00-1.30) mg/dL Crossmatch Assessment and Plan Cultures: 04/24 blood culture - NGTD A/P: 53 yo F PMHxESRD on HD, Dm2, HTN, obesity admitted with altered mental status secondary to dialysis noncompliance and found to be septic with toe osteomyelitis. 1. Acute sepsis - present with tachycardia and leukocytosis. Secondary to toe osteomyelitis. Follow up blood cultures 2. L great toe osteomyelitis - risk of limb loss. Follow up surgical recs. Continue vancomycin and cefepime for now. If surgery performed please obtain cultures as well as proximal margin for pathology in order to assess for surgical cure. Wound was dry on my examination as such I was unable to obtain a drainage culture. Surround necrotic tissue of wound, expect non-viable. 3. DM2 - tight glycemic control for improved wound healing 4. ESRD on HD - renally dose antibiotics as appropriate. Recs: - continue vancomycin dosed per pharmacy, goal trough 15-20 - continue cefepime 2g q24h - follow up blood cultures - follow up surgical recs - if surgery performed please obtain cultures as well as proximal margin pathology. Thank you for the consult, we will continue to follow. Rosie Cortez MD [facility] ([facility] M: [phone] O: [phone] F: [phone]
[2019-04-24 17:29] LABS: Calcium 7.4 mg/dL (8.4-10.2)
[2019-04-24] MEDS: CEFEPIME/NS 1 GM/100 ML 1 GM/100 ML BAG IV SCH (20:09)
--- NOTE | 2019-04-24 21:15 | Event Note ---
Date: 04/24/19 Patient with ESRD on HD, T2 DM, admitted for post MRI disease of the left great toe and severe anemia with hemoglobin of 5.5. Was dialyzed today. Heart blood transfusion during hemodialysis. Follow-up with transfusion H&H and trend BUN and creatinine. More a lot. On IV antibiotics for osteomyelitis. ID consulted and following.
[2019-04-24] MEDS ORDERED: hydrOXYzine HCL 25 MG TAB PO PRN (21:27)
[2019-04-25] MEDS: ONDANSETRON 4 MG ODT TAB PO PRN (01:17)
[2019-04-25] MEDS: ACETAMINOPHEN 325 MG TAB PO PRN (01:17)
[2019-04-25] MEDS: hydrALAZINE 25 MG TAB PO SCH ×3 (05:02→21:07)
[2019-04-25] MEDS: CEFEPIME/NS 1 GM/100 ML 1 GM/100 ML BAG IV SCH (05:02)
[2019-04-25 07:45] LABS: Basophils % (Auto) 0.3 % (0.0-1.8); Eosinophils # (Auto) 0.3 K/mm3 (0.0-0.4); Eosinophils % (Auto) 2.7 % (0.0-4.3); Hemoglobin 6.6 gm/dl (10.1-14.3); Lymphocytes # (Auto) 0.8 K/mm3 (1.2-5.4); Lymphocytes % (Auto) 6.5 % (13.4-35.0); Mean Corpuscular HGB Conc 33 % (30-34); Mean Corpuscular Volume 89 fl (79-97); Monocytes % (Auto) 7.7 % (0.0-7.3); Platelet Count 299 K/mm3 (140-440); Red Blood Count 2.25 M/mm3 (3.65-5.03); Red Cell Distribution Width 18.1 % (13.2-15.2)
[2019-04-25 08:09] LABS: Albumin 2.9 g/dL (3.9-5); Calcium 6.8 mg/dL (8.4-10.2)
[2019-04-25] MEDS: INSULIN LISPRO 100 UNIT/ML SUB-Q SCH ×4 (08:12→21:09)
[2019-04-25] MEDS ORDERED: SODIUM CHLORIDE 0.9% 500 ML 500 ML IV ONE (09:03)
[2019-04-25] MEDS: ALBUTEROL 2.5 MG/3 ML NEBU IH SCH ×4 (09:11→21:19)
[2019-04-25] MEDS: HEPARIN 5,000 UNIT/1 ML VIAL SUB-Q SCH ×2 (10:00→21:07)
[2019-04-25] MEDS: ASPIRIN 81 MG TAB CHEW PO SCH (10:00)
[2019-04-25] MEDS: amLODIPine 10 MG TAB PO SCH (10:00)
[2019-04-25] MEDS: DOCUSATE SODIUM 100 MG CAP PO SCH ×2 (10:00→21:07)
[2019-04-25] MEDS ORDERED: SODIUM CHLORIDE*PRIMING MACHINE ONLY FOR DIALYSIS MC ONE (11:23)
[2019-04-25 15:09] LABS: Hematocrit 25.1 % (30.3-42.9); Hemoglobin 8.3 gm/dl (10.1-14.3)
--- NOTE | 2019-04-25 15:41 | Progress Note ---
Assessment and Plan Impression: * End stage renal disease on hemodialysis via [facility] permcat * Hyperkalemia, severe * Uremia - BUN 190 at admission --Last HD treatment on Apr 01 * Left great toe wound w/osteomyelitis * Acute encephalopathy secondary to uremia * Metabolic acidosis * Anemia secondary to ESRD vs other * Secondary hyperparathyroidism * Medical noncomplaince Plan: * Patient is s/p STAT HD yesterday * Continue daily HD - treatment 2 of 3 today * Hemodialysis tomorrow and continue MWF schedule thereafter * Transfusion pRBC per primary team - she is s/p 1 unit yesterday and received an additional unit today during HD * Abx per ID - blood cx NGTD (Apr 24) * Surgery consult pending * Continue to hold Gabapentin * Dose medications for renal function * Epogen TIW prn Subjective Date of service: 04/25/19 Interval history: No acute events overnight Objective - Vital Signs Vital signs: Vital Signs - 12hr 04/25/19 04/25/19 04/25/19 04:20 05:02 08:26 Temperature 98.5 F 98.4 F Pulse Rate 98 H 98 H 107 H Pulse Rate [ Anterior Bilateral] Respiratory 18 18 Rate Respiratory Rate [Anterior Bilateral] Blood Pressure 138/71 138/71 149/80 O2 Sat by Pulse 100 100 Oximetry 04/25/19 04/25/19 04/25/19 09:15 09:55 10:00 Temperature 97.2 F L Pulse Rate 110 H 108 H Pulse Rate [ 106 H Anterior Bilateral] Respiratory 18 Rate Respiratory 18 Rate [Anterior Bilateral] Blood Pressure 143/77 142/78 O2 Sat by Pulse Oximetry 04/25/19 04/25/19 04/25/19 10:15 10:30 10:45 Temperature Pulse Rate 107 H 108 H 105 H Pulse Rate [ Anterior Bilateral] Respiratory Rate Respiratory Rate [Anterior Bilateral] Blood Pressure 143/79 152/74 155/84 O2 Sat by Pulse Oximetry 04/25/19 04/25/19 04/25/19 11:00 11:15 11:30 Temperature Pulse Rate 102 H 104 H 100 H Pulse Rate [ Anterior Bilateral] Respiratory Rate Respiratory Rate [Anterior Bilateral] Blood Pressure 151/75 136/71 123/62 O2 Sat by Pulse Oximetry 04/25/19 04/25/19 11:45 12:00 Temperature Pulse Rate 98 H 100 H Pulse Rate [ Anterior Bilateral] Respiratory Rate Respiratory Rate [Anterior Bilateral] Blood Pressure 128/55 129/64 O2 Sat by Pulse Oximetry - General Appearance General appearance: well-developed, well-nourished EENT: ATNC Respiratory: Present: Clear to Ascultation Cardiology: regular, S1S2 Gastrointestinal: normal, no tenderness, no distended Neurologic: other (more alert today but slow to respond to questions, involun tary movements/tremor improved but not resolved) Psychiatric: cooperative - Lab 04/25/19 14:25 04/25/19 06:32 Most recent lab results Calcium 6.8 mg/dL (8.4-10.2) L 04/25/19 06:32 Magnesium 3.40 mg/dL (1.7-2.3) H 04/24/19 02:47 Medications & Allergies - Medications Allergies/Adverse Reactions: Allergies No Known Allergies Allergy (Verified 06/21/16 15:23) Home Medications: Home Medications Medication Instructions Recorded Confirmed Last Taken Type Ondansetron [Zofran TAB] 4 mg PO PRN PRN 09/09/14 02/25/17 1 Day Ago History ~04/25/16 Gabapentin 300 mg PO TID 02/25/17 02/25/17 Unknown History Loratadine [Claritin] 10 mg PO QDAY PRN 02/25/17 02/25/17 Unknown History ALBUTEROL NEB's [Proventil 0.083% 2.5 mg IH QIDRT #60 nebu 02/27/17 Unknown Rx NEBS] Aspirin [Aspirin BABY CHEW TAB] 81 mg PO QDAY #30 tab.chew 02/27/17 Unknown Rx amLODIPine 5 mg PO QDAY #30 tablet 02/27/17 Unknown Rx hydrALAZINE [Apresoline TAB] 25 mg PO Q8HR #90 tablet 02/27/17 Unknown Rx hydrOXYzine HCL [Atarax] 25 mg PO Q8H PRN #20 tablet 02/27/17 Unknown Rx Clindamycin [Clindamycin CAP] 300 mg PO Q6H #40 capsule 03/02/19 Unknown Rx Active Medications: Generic Name Dose Route Start Last Admin Trade Name Freq PRN Reason Stop Dose Admin Acetaminophen 650 mg 04/24/19 04:41 04/25/19 01:17 Tylenol PO 650 mg Q4H PRN Administration Pain, Mild (1-3); fever>100.5 Albuterol 2.5 mg 04/24/19 04:38 Proventil IH Q4HRT PRN Shortness Of Breath Albuterol 2.5 mg 04/25/19 08:00 04/25/19 09:11 Proventil IH 2.5 mg QIDRT LANDON Administration Amlodipine Besylate 5 mg 04/24/19 10:00 04/24/19 14:18 Amlodipine PO 5 mg QDAY LANDON Administration Aspirin 81 mg 04/24/19 10:00 04/24/19 14:18 Baby Aspirin PO 81 mg QDAY LANDON Administration Dextrose 50 ml 04/24/19 04:42 D50w (25gm) Syringe IV Q30MIN PRN Hypoglycemia Protocol Diphenhydramine HCl 25 mg 04/24/19 04:40 Benadryl IV Q6H PRN Itching Docusate Sodium 100 mg 04/24/19 10:00 04/24/19 22:00 Colace PO Not Given BID LANDON Heparin Sodium (Porcine) 5,000 unit 04/24/19 10:00 04/24/19 21:48 Heparin SUB-Q 5,000 unit Q12HR LANDON Administration Hydralazine HCl 25 mg 04/24/19 06:00 04/25/19 05:02 Apresoline PO 25 mg Q8HR LANDON Administration Hydroxyzine HCl 25 mg 04/24/19 21:27 Atarax PO Q8H PRN Itching Cefepime HCl 1 gm in 100 mls @ 200 mls/hr 04/24/19 06:00 04/25/19 05:02 Cefepime/Ns 1 Gm/100 Ml IV 200 mls/hr Q24H LANDON Administration Protocol Sodium Chloride 100 mls @ 999 mls/hr 04/24/19 15:57 Nacl 0.9% IV JAYNE PRN Hypotension Insulin Human Lispro 0 unit 04/24/19 07:30 04/25/19 08:12 Humalog SUB-Q Not Given ACHS [facility] Protocol Nicotine 14 mg 04/24/19 10:00 04/24/19 14:32 Habitrol TD Not Given QDAY LANDON Ondansetron HCl 4 mg 04/24/19 01:43 04/25/19 01:17 Zofran Odt PO 4 mg Q6HR PRN Administration Nausea Oxycodone/Acetaminophen 1 tab 04/25/19 06:13 Percocet 5/325 PO Q6H PRN Pain, Moderate (4-6) Sodium Chloride 10 ml 04/24/19 10:00 04/24/19 21:41 Sodium Chloride Flush Syringe 10 Ml IV 10 ml BID LANDON Administration Sodium Chloride 10 ml 04/24/19 04:42 Sodium Chloride Flush Syringe 10 Ml IV PRN PRN LINE FLUSH
[2019-04-25] MEDS: NICOTINE 14 MG/24 HR PATCH TD SCH (15:53)
[2019-04-25] MEDS ORDERED: SODIUM CHLORIDE 0.9% 1000 ML 1,000 ML IV PRN (16:44)
[2019-04-25] MEDS ORDERED: SODIUM CHLORIDE 0.9% 100 ML IV PRN (16:44)
--- NOTE | 2019-04-25 18:56 | Progress Note ---
Assessment and Plan Patient is a 53-year-old AA female presents to the ED after family called an ambulance. Family says she's been nauseous and vomiting today, and incoherent over past few days. Patient also exhibiting weakness and fatigue. Patient has a history of hypertension, diabetes, ESRD with, obesity, CVA. Patient has history of medical noncompliance with dialysis. Has been seen several times this year for missed dialysis appointments. On friday, , friday schedule. Reports having last dialysis on . Daughter at bedside unsure if patient has been taking medications. Says patient lives with her sister. Patient currently lethargic and unable to provide much information. Responds to questions but immediately falls back asleep. Patient has small, dime-sized wound on left greater toe, draining purulent fluid. Says it's been there several weeks and does report drainage at home. She also has a soiled dialysis access site in right chest. Daughter says it was placed several weeks ago outpatient because patient's AV fistula was clotted. Provider had attempted to unclot it in the office but was unable to after several attempts. Patient was supposed to follow up to have it declotted inpatient but did not follow up with appointment. Patient had outpatient blood work done showing anemia. Nurse expressed concern that patient may need blood transfusion to family so they called EMS. - Acute sepsis - POA Had tachycardia and leukocytosis on admission. Secondary to toe osteomyelitis. Blood culture yielded no growth so far Continue with IV cefepime and vancomycin per infectious disease specialist - L great toe osteomyelitis - risk of limb loss. Follow up surgical recs. Continue vancomycin and cefepime for now. Surgical consult - DM2 Sliding-scale insulin Obtain A1c Consistent carbohydrate diet - ESRD on HD Continue with hemodialysis on Tuesdays positive and Saturdays Motorcycle Assembler consulted on following Nephrotoxic medications renally dose antibiotics - Severe anemia with hemoglobin of 5.5 on admission Blood transfusion with hemodialysis ordered. Hemoglobin improved to 8.3 after 2 units - None compliance Insulin noncompliance was done - Developed prophylaxis with heparin GI Pepcid - CODE STATUS: Patient is ". Subjective Date of service: 04/25/19 Principal diagnosis: osteomyelitis left big toe, ESRD on HD, T2 DM, severe a nemia Interval history: Denies any chest pain or shortness of breath. Scheduled for dialysis Objective - Exam Narrative Exam: Constitutional: Well-nourished well-developed. In no distress Head: Normocephalic atraumatic Eyes: Pupils are equal round and reactive to light Nose: No enlarged turbinates, no septal deviation. Mouth: Moist mucous membranes. Neck: Supple no thyromegaly. No bruit. No JVD Heart: Regular rate and rhythm, S1-S2 normal. No rubs murmurs or gallop Lungs: Clear to auscultation bilaterally. no rales or rhonchi Abdomen: Soft, nontender. Bowel sound are present. Extremities: No edema, no cyanosis, no clubbing. Neuro: Alert oriented Oriented x3. No focal sensory or motor deficit. Skin: Left big toe wound Musculoskeletal system: No joint pain or swelling Hematological: No petechia or subcutanous hemorrhages. Immunological: No multiple septic spots on the skin Lymphatic: No generalized lymphadenopathy Psychiatry: Euthymic. Calm. - Constitutional Vitals: Vital Signs - 12hr 04/25/19 04/25/19 04/25/19 08:26 09:15 09:55 Temperature 98.4 F 97.2 F L Pulse Rate 107 H 110 H Pulse Rate [ 106 H Anterior Bilateral] Pulse Rate [ From Monitor] Respiratory 18 18 Rate Respiratory 18 Rate [Anterior Bilateral] Blood Pressure 149/80 143/77 O2 Sat by Pulse 100 Oximetry 04/25/19 04/25/19 04/25/19 10:00 10:15 10:30 Temperature Pulse Rate 108 H 107 H 108 H Pulse Rate [ Anterior Bilateral] Pulse Rate [ 107 H From Monitor] Respiratory 18 Rate Respiratory Rate [Anterior Bilateral] Blood Pressure 142/78 143/79 152/74 O2 Sat by Pulse 95 Oximetry 04/25/19 04/25/19 04/25/19 10:45 11:00 11:15 Temperature Pulse Rate 105 H 102 H 104 H Pulse Rate [ Anterior Bilateral] Pulse Rate [ From Monitor] Respiratory Rate Respiratory Rate [Anterior Bilateral] Blood Pressure 155/84 151/75 136/71 O2 Sat by Pulse Oximetry 04/25/19 04/25/19 04/25/19 11:30 11:45 12:00 Temperature Pulse Rate 100 H 98 H 100 H Pulse Rate [ Anterior Bilateral] Pulse Rate [ From Monitor] Respiratory Rate Respiratory Rate [Anterior Bilateral] Blood Pressure 123/62 128/55 129/64 O2 Sat by Pulse Oximetry 04/25/19 04/25/19 04/25/19 12:15 12:30 12:45 Temperature Pulse Rate 101 H 106 H 100 H Pulse Rate [ Anterior Bilateral] Pulse Rate [ From Monitor] Respiratory Rate Respiratory Rate [Anterior Bilateral] Blood Pressure 146/72 168/85 141/70 O2 Sat by Pulse Oximetry 04/25/19 04/25/19 04/25/19 13:00 13:15 13:30 Temperature Pulse Rate 103 H 100 H 102 H Pulse Rate [ Anterior Bilateral] Pulse Rate [ From Monitor] Respiratory Rate Respiratory Rate [Anterior Bilateral] Blood Pressure 133/70 134/67 151/60 O2 Sat by Pulse Oximetry 04/25/19 04/25/19 13:45 16:57 Temperature 98.8 F 99.0 F Pulse Rate 104 H 107 H Pulse Rate [ Anterior Bilateral] Pulse Rate [ From Monitor] Respiratory 18 18 Rate Respiratory Rate [Anterior Bilateral] Blood Pressure 146/80 151/70 O2 Sat by Pulse 95 Oximetry - Labs CBC & Chem 7: 04/25/19 14:25 04/25/19 06:32 Labs: Abnormal lab results 04/24/19 04/24/19 04/25/19 Range/Units 02:47 21:14 06:32 WBC 12.6 H (4.5-11.0) K/mm3 RBC 2.25 L (3.65-5.03) M/mm3 Hgb 6.6 L (10.1-14.3) gm/dl Hct 20.0 L (30.3-42.9) % RDW 18.1 H (13.2-15.2) % Lymph % (Auto) 6.5 L (13.4-35.0) % Forest % (Auto) 7.7 H (0.0-7.3) % Lymph # 0.8 L (1.2-5.4) K/mm3 Forest # 1.0 H (0.0-0.8) K/mm3 Seg Neutrophils % 82.8 H (40.0-70.0) % Seg Neutrophils # 10.5 H (1.8-7.7) K/mm3 Chloride (98-107) mmol/L Carbon Dioxide (22-30) mmol/L BUN (7-17) mg/dL Creatinine (0.7-1.2) mg/dL Glucose (65-100) mg/dL POC Glucose 131 H (70-105) Calcium (8.4-10.2) mg/dL Albumin (3.9-5) g/dL Crossmatch See Detail 04/25/19 04/25/19 04/25/19 Range/Units 06:32 14:25 16:35 WBC (4.5-11.0) K/mm3 RBC (3.65-5.03) M/mm3 Hgb 8.3 L (10.1-14.3) gm/dl Hct 25.1 L (30.3-42.9) % RDW (13.2-15.2) % Lymph % (Auto) (13.4-35.0) % Forest % (Auto) (0.0-7.3) % Lymph # (1.2-5.4) K/mm3 [place] # (0.0-0.8) K/mm3 Seg Neutrophils % (40.0-70.0) % Seg Neutrophils # (1.8-7.7) K/mm3 Chloride 97.5 L (98-107) mmol/L Carbon Dioxide 19 L (22-30) mmol/L BUN 73 H (7-17) mg/dL Creatinine 13.4 H (0.7-1.2) mg/dL Glucose 143 H (65-100) mg/dL POC Glucose 116 H (70-105) Calcium 6.8 L (8.4-10.2) mg/dL Albumin 2.9 L (3.9-5) g/dL Crossmatch
[2019-04-26] MEDS: ONDANSETRON 4 MG ODT TAB PO PRN (02:48)
[2019-04-26] MEDS: CEFEPIME/NS 1 GM/100 ML 1 GM/100 ML BAG IV SCH (06:38)
[2019-04-26] MEDS: hydrALAZINE 25 MG TAB PO SCH ×3 (06:38→22:05)
[2019-04-26 07:41] LABS: Hematocrit 28.9 % (30.3-42.9); Hemoglobin 9.5 gm/dl (10.1-14.3); Mean Corpuscular HGB Conc 33 % (30-34); Mean Corpuscular Volume 89 fl (79-97); Platelet Count 329 K/mm3 (140-440); Red Blood Count 3.24 M/mm3 (3.65-5.03)
[2019-04-26 08:09] LABS: Albumin 3.2 g/dL (3.9-5); Calcium 7.8 mg/dL (8.4-10.2)
[2019-04-26] MEDS: INSULIN LISPRO 100 UNIT/ML SUB-Q SCH ×4 (08:22→22:41)
[2019-04-26] MEDS: DOCUSATE SODIUM 100 MG CAP PO SCH ×2 (09:49→22:06)
[2019-04-26] MEDS ORDERED: VANCOMYCIN/NS 1 GM/250 ML 1 GM/250 ML BAG IV ONE (10:00)
--- NOTE | 2019-04-26 10:06 | Progress Note ---
Assessment and Plan Impression: * End stage renal disease on hemodialysis via [facility] permcath * Hyperkalemia, severe- resolved * Uremia - BUN 190 at admission, improved --Last HD treatment on Apr 01 * Left great toe wound w/osteomyelitis * Acute encephalopathy possibly secondary to uremia, improved but remains altered * Metabolic acidosis * Anemia secondary to ESRD vs other * Secondary hyperparathyroidism * Medical noncompliance Plan: * Patient is s/p STAT HD on 04/23/19 and 04/24/19 * Continue MWF schedule for HD, due today * Abx per ID - blood cx NGTD (Apr 24); appreciate recommendations * Surgery consult pending * Continue to hold Gabapentin * Dose medications for renal function * Epogen TIW prn Thank you for this consult; we will continue to follow closely. Subjective Date of service: 04/26/19 Principal diagnosis: osteomyelitis left big toe, ESRD on HD, T2 DM, severe anemia Interval history: No acute events noted overnight. Patient without new concerns this AM. Objective - Exam Narrative Exam: General appearance: well-developed, well-nourished EENT: ATNC Respiratory: Clear to Auscultation Cardiology: regular, S1S2 Gastrointestinal: normal, no tenderness, not distended Neurologic: alert this AM; drowsy but arousable Psychiatric: cooperative - Vital Signs Vital signs: Vital Signs - 12hr 04/26/19 04/26/19 04/26/19 00:25 03:24 06:38 Temperature 99.7 F H 97.5 F L Pulse Rate 118 H 112 H 112 H Pulse Rate [ Apical] Respiratory 20 20 Rate Blood Pressure 146/73 149/73 149/73 O2 Sat by Pulse 98 95 Oximetry 04/26/19 04/26/19 08:06 08:16 Temperature 98.9 F Pulse Rate 112 H Pulse Rate [ 106 H Apical] Respiratory 18 18 Rate Blood Pressure 137/72 O2 Sat by Pulse 96 96 Oximetry - Lab 04/26/19 06:37 04/26/19 06:37 Most recent lab results Calcium 7.8 mg/dL (8.4-10.2) L 04/26/19 06:37 Magnesium 3.40 mg/dL (1.7-2.3) H 04/24/19 02:47 Medications & Allergies - Medications Allergies/Adverse Reactions: Allergies No Known Allergies Allergy (Verified 06/21/16 15:23) Home Medications: Home Medications Medication Instructions Recorded Confirmed Last Taken Type Ondansetron [Zofran TAB] 4 mg PO PRN PRN 09/09/14 02/25/17 1 Day Ago History ~04/25/16 Gabapentin 300 mg PO TID 02/25/17 02/25/17 Unknown History Loratadine [Claritin] 10 mg PO QDAY PRN 02/25/17 02/25/17 Unknown History ALBUTEROL NEB's [Proventil 0.083% 2.5 mg IH QIDRT #60 nebu 02/27/17 Unknown Rx NEBS] Aspirin [Aspirin BABY CHEW TAB] 81 mg PO QDAY #30 tab.chew 02/27/17 Unknown Rx amLODIPine 5 mg PO QDAY #30 tablet 02/27/17 Unknown Rx hydrALAZINE [Apresoline TAB] 25 mg PO Q8HR #90 tablet 02/27/17 Unknown Rx hydrOXYzine HCL [Atarax] 25 mg PO Q8H PRN #20 tablet 02/27/17 Unknown Rx Clindamycin [Clindamycin CAP] 300 mg PO Q6H #40 capsule 03/02/19 Unknown Rx Active Medications: Generic Name Dose Route Start Last Admin Trade Name Freq PRN Reason Stop Dose Admin Acetaminophen 650 mg 04/24/19 04:41 04/25/19 01:17 Tylenol PO 650 mg Q4H PRN Administration Pain, Mild (1-3); fever>100.5 Albuterol 2.5 mg 04/24/19 04:38 Proventil IH Q4HRT PRN Shortness Of Breath Albuterol 2.5 mg 04/25/19 08:00 04/25/19 21:19 Proventil IH 2.5 mg QIDRT LANDON Administration Amlodipine Besylate 5 mg 04/24/19 10:00 04/25/19 10:00 Amlodipine PO Not Given QDAY L[facility]ON Aspirin 81 mg 04/24/19 10:00 04/25/19 10:00 Baby Aspirin PO Not Given QDAY LANDON Dextrose 50 ml 04/24/19 04:42 D50w (25gm) Syringe IV Q30MIN PRN Hypoglycemia Protocol Diphenhydramine HCl 25 mg 04/24/19 04:40 Benadryl IV Q6H PRN Itching Docusate Sodium 100 mg 04/24/19 10:00 04/26/19 09:49 Colace PO Not Given BID [facility] Epoetin Sylvain 20,000 unit 04/25/19 16:44 Procrit IV JAYNE PRN hemodialysis Heparin Sodium (Porcine) 5,000 unit 04/24/19 10:00 04/25/19 21:07 Heparin SUB-Q 5,000 unit Q12HR LANDON Administration Heparin Sodium (Porcine) 5,000 unit 04/25/19 16:44 Heparin IV JAYNE PRN hemodialysis Hydralazine HCl 25 mg 04/24/19 06:00 04/26/19 06:38 Apresoline PO 25 mg Q8HR L[facility]ON Administration Hydroxyzine HCl 25 mg 04/24/19 21:27 04/26/19 02:48 Atarax PO 25 mg Q8H PRN Administration Itching Cefepime HCl 1 gm in 100 mls @ 200 mls/hr 04/24/19 06:00 04/26/19 06:38 Cefepime/Ns 1 Gm/100 Ml IV 200 mls/hr Q24H [facility] Administration Protocol Sodium Chloride 100 mls @ 999 mls/hr 04/25/19 16:44 Nacl 0.9% IV JAYNE PRN Hypotension Sodium Chloride 1,000 mls @ 100 mls/hr 04/25/19 16:44 Nacl 0.9% 1000 Ml IV JAYNE PRN FOR MUSCLE CRAMPS DURING HEMO Vancomycin HCl 1 gm in 250 mls @ 167.007 mls/hr 04/26/19 10:00 Vancomycin/Ns 1 Gm/250 Ml IV 04/26/19 11:29 ONCE ONE Insulin Human Lispro 0 unit 04/24/19 07:30 04/26/19 08:22 Humalog SUB-Q Not Given ACHS [facility] Protocol Nicotine 14 mg 04/24/19 10:00 04/25/19 15:53 Habitrol TD Not Given QDAY [facility] Ondansetron HCl 4 mg 04/24/19 01:43 04/26/19 02:48 Zofran Odt PO 4 mg Q6HR PRN Administration Nausea Oxycodone/Acetaminophen 1 tab 04/25/19 06:13 Percocet 5/325 PO Q6H PRN Pain, Moderate (4-6) Sodium Chloride 10 ml 04/24/19 10:00 04/25/19 21:07 Sodium Chloride Flush Syringe 10 Ml IV 10 ml BID LANDON Administration Sodium Chloride 10 ml 04/24/19 04:42 Sodium Chloride Flush Syringe 10 Ml IV PRN PRN LINE FLUSH
[2019-04-26] MEDS: HEPARIN 5,000 UNIT/1 ML VIAL SUB-Q SCH ×2 (10:44→22:05)
[2019-04-26] MEDS: ASPIRIN 81 MG TAB CHEW PO SCH ×2 (10:44→10:54)
[2019-04-26] MEDS: amLODIPine 10 MG TAB PO SCH ×2 (10:44→10:55)
[2019-04-26] MEDS: NICOTINE 14 MG/24 HR PATCH TD SCH (10:44)
[2019-04-26] MEDS: ALBUTEROL 2.5 MG/3 ML NEBU IH SCH ×4 (10:59→20:52)
--- NOTE | 2019-04-26 13:02 | Progress Note ---
Assessment and Plan Patient is a 53-year-old AA female presents to the ED after family called an ambulance. Family says she's been nauseous and vomiting today, and incoherent over past few days. Patient also exhibiting weakness and fatigue. Patient has a history of hypertension, diabetes, ESRD with, obesity, CVA. Patient has history of medical noncompliance with dialysis. Has been seen several times this year for missed dialysis appointments. On friday, , friday schedule. Reports having last dialysis on . Daughter at bedside unsure if patient has been taking medications. Says patient lives with her sister. Patient currently lethargic and unable to provide much information. Responds to questions but immediately falls back asleep. Patient has small, dime-sized wound on left greater toe, draining purulent fluid. Says it's been there several weeks and does report drainage at home. She also has a soiled dialysis access site in right chest. Daughter says it was placed several weeks ago outpatient because patient's AV fistula was clotted. Provider had attempted to unclot it in the office but was unable to after several attempts. Patient was supposed to follow up to have it declotted inpatient but did not follow up with appointment. Patient had outpatient blood work done showing anemia. Nurse expressed concern that patient may need blood transfusion to family so they called EMS. - Acute sepsis - POA Had tachycardia and leukocytosis on admission. Secondary to toe osteomyelitis. Blood culture yielded no growth so far Continue with IV cefepime and vancomycin per infectious disease specialist - L great toe osteomyelitis - risk of limb loss. wound cx . Continue vancomycin and cefepime for now. Surgery consulted, - DM2 Sliding-scale insulin Obtain A1c Consistent carbohydrate diet - ESRD on HD on MWF Continue with hemodialysis on Tuesdays positive and Saturdays [employer] Clerk consulted on following Nephrotoxic medications renally dose antibiotics - Severe anemia with hemoglobin of 5.5 on admission Blood transfusion with hemodialysis ordered. Hemoglobin improved to 8.3 after 2 units - None compliance Insulin noncompliance was done - Developed prophylaxis with heparin GI Pepcid - CODE STATUS: Patient is ". Subjective Date of service: 04/26/19 Principal diagnosis: osteomyelitis left big toe, ESRD on HD, T2 DM, severe anemia Interval history: Denies any chest pain or shortness of breath. No fever. Objective - Exam Narrative Exam: Constitutional: Well-nourished well-developed. In no distress Head: Normocephalic atraumatic Eyes: Pupils are equal round and reactive to light Nose: No enlarged turbinates, no septal deviation. Mouth: Moist mucous membranes. Neck: Supple no thyromegaly. No bruit. No JVD Heart: Regular rate and rhythm, S1-S2 normal. No rubs murmurs or gallop Lungs: Clear to auscultation bilaterally. no rales or rhonchi Abdomen: Soft, nontender. Bowel sound are present. Extremities: No edema, no cyanosis, no clubbing. Neuro: Alert oriented Oriented x3. No focal sensory or motor deficit. Skin: Left big toe wound Musculoskeletal system: No joint pain or swelling Hematological: No petechia or subcutanous hemorrhages. Immunological: No multiple septic spots on the skin Lymphatic: No generalized lymphadenopathy Psychiatry: Euthymic. Calm. - Constitutional Vitals: Vital Signs - 12hr 04/26/19 04/26/19 04/26/19 03:24 06:38 08:06 Temperature 97.5 F L Pulse Rate 112 H 112 H Pulse Rate [ 106 H Apical] Respiratory 20 18 Rate Blood Pressure 149/73 149/73 O2 Sat by Pulse 95 96 Oximetry 04/26/19 04/26/19 08:16 11:43 Temperature 98.9 F 99.0 F Pulse Rate 112 H 107 H Pulse Rate [ Apical] Respiratory 18 18 Rate Blood Pressure 137/72 141/71 O2 Sat by Pulse 96 96 Oximetry - Labs CBC & Chem 7: 04/26/19 06:37 04/26/19 06:37 Labs: Abnormal lab results 04/25/19 04/25/19 04/25/19 Range/Units 14:25 16:35 21:18 WBC (4.5-11.0) K/mm3 RBC (3.65-5.03) M/mm3 Hgb 8.3 L (10.1-14.3) gm/dl Hct 25.1 L (30.3-42.9) % RDW (13.2-15.2) % BUN (7-17) mg/dL Creatinine (0.7-1.2) mg/dL Glucose (65-100) mg/dL POC Glucose 116 H 128 H (70-105) Calcium (8.4-10.2) mg/dL Albumin (3.9-5) g/dL 04/26/19 04/26/19 04/26/19 Range/Units 06:37 06:37 08:23 WBC 12.7 H (4.5-11.0) K/mm3 RBC 3.24 L (3.65-5.03) M/mm3 Hgb 9.5 L (10.1-14.3) gm/dl Hct 28.9 L (30.3-42.9) % RDW 18.0 H (13.2-15.2) % BUN 36 H (7-17) mg/dL Creatinine 8.5 H (0.7-1.2) mg/dL Glucose 118 H (65-100) mg/dL POC Glucose 120 H (70-105) Calcium 7.8 L (8.4-10.2) mg/dL Albumin 3.2 L (3.9-5) g/dL 04/26/19 Range/Units 12:35 WBC (4.5-11.0) K/mm3 RBC (3.65-5.03) M/mm3 Hgb (10.1-14.3) gm/dl Hct (30.3-42.9) % RDW (13.2-15.2) % BUN (7-17) mg/dL Creatinine (0.7-1.2) mg/dL Glucose (65-100) mg/dL POC Glucose 131 H (70-105) Calcium (8.4-10.2) mg/dL Albumin (3.9-5) g/dL
--- NOTE | 2019-04-26 14:29 | Progress Note ---
Assessment and Plan Cultures: 04/24 blood culture - NGTD A/P: 53 yo F with ESRD on HD, DM2, HTN, obesity admitted with altered mental status secondary to dialysis noncompliance and found to be septic with toe osteomyelitis. 1. Acute sepsis: present with tachycardia and leukocytosis. Secondary to toe osteomyelitis. 2. L great toe osteomyelitis involving the proximal phalanx per xray: risk of limb loss. Follow up surgical recs. Continue vancomycin and cefepime for now. If surgery performed please obtain cultures as well as proximal margin for pathology in order to assess for surgical cure. Wound was dry on my examination as such I was unable to obtain a drainage culture. Surround necrotic tissue of wound, expect non-viable. 3. DM2: tight glycemic control for improved wound healing 4. ESRD on HD: renally dose antibiotics as appropriate. 5. Acute encephalopathy: improving. Recs: - continue vancomycin dosed per pharmacy, goal trough 15-20 - continue cefepime 1g q24h - follow up blood cultures - awaiting surgical everett Gamble MD, FACP [facility] ([facility] M: [phone] O: [phone] F: [phone] Subjective Date of service: 04/26/19 Principal diagnosis: osteomyelitis left big toe, ESRD on HD, T2 DM, severe anemia Interval history: Seen at dialysis. Denies any complaints. no nausea, vomiting. No rash. Tolerating abx well. Objective - Exam Narrative Exam: Constitutional: awake, alert, no distress Head, Ears, Nose: Normocephalic, atraumatic. External ears, nose normal Eyes: Conjunctivae/corneas clear. No icterus. No ptosis. Neck: Supple, no meningeal signs Oral: no thrush Cardiovascular: S1, S2 normal. Respiratory: Good air entry, clear to auscultation bilaterally GI: Soft, non-tender; bowel sounds normal. No peritoneal signs. Musculoskeletal: No pedal edema, no cyanosis. L great toe wound, small, dry. Surrounding black skin. R upper chest HD cath + Skin: No rash or abscess Hem/Lymphatic: No palpable cervical or supraclavicular nodes. No lymphangitis Psych: no agitation Neurological: awake, alert, oriented, answering questions. - Constitutional Vitals: Vital Signs Temp Pulse Resp BP Pulse Ox 99.0 F 107 H 18 141/71 96 04/26/19 11:43 04/26/19 11:43 04/26/19 11:43 04/26/19 11:43 04/26/19 11:43 Temperature -Last 24 Hours Temperature 99.0 F Temperature 98.9 F Temperature 97.5 F Temperature 99.7 F Temperature 98.8 F Temperature 99.0 F - Labs CBC & Chem 7: 04/26/19 06:37 04/26/19 06:37 Labs: Abnormal lab results 04/25/19 04/25/19 04/25/19 Range/Units 14:25 16:35 21:18 WBC (4.5-11.0) K/mm3 RBC (3.65-5.03) M/mm3 Hgb 8.3 L (10.1-14.3) gm/dl Hct 25.1 L (30.3-42.9) % RDW (13.2-15.2) % BUN (7-17) mg/dL Creatinine (0.7-1.2) mg/dL Glucose (65-100) mg/dL POC Glucose 116 H 128 H (70-105) Calcium (8.4-10.2) mg/dL Albumin (3.9-5) g/dL 04/26/19 04/26/19 04/26/19 Range/Units 06:37 06:37 08:23 WBC 12.7 H (4.5-11.0) K/mm3 RBC 3.24 L (3.65-5.03) M/mm3 Hgb 9.5 L (10.1-14.3) gm/dl Hct 28.9 L (30.3-42.9) % RDW 18.0 H (13.2-15.2) % BUN 36 H (7-17) mg/dL Creatinine 8.5 H (0.7-1.2) mg/dL Glucose 118 H (65-100) mg/dL POC Glucose 120 H (70-105) Calcium 7.8 L (8.4-10.2) mg/dL Albumin 3.2 L (3.9-5) g/dL 04/26/19 Range/Units 12:35 WBC (4.5-11.0) K/mm3 RBC (3.65-5.03) M/mm3 Hgb (10.1-14.3) gm/dl Hct (30.3-42.9) % RDW (13.2-15.2) % BUN (7-17) mg/dL Creatinine (0.7-1.2) mg/dL Glucose (65-100) mg/dL POC Glucose 131 H (70-105) Calcium (8.4-10.2) mg/dL Albumin (3.9-5) g/dL
[2019-04-26] MEDS ORDERED: SODIUM CHLORIDE*PRIMING MACHINE ONLY FOR DIALYSIS MC ONE ×2 (15:53→16:25)
[2019-04-26] MEDS: EPOETIN ALFA 20,000 UNIT/1 ML INJ IV PRN (16:58)
[2019-04-26] MEDS: HEPARIN 10,000 UNIT/1 ML VIAL IV PRN (17:05)
[2019-04-27] MEDS: oxyCODONE /ACETAMINOPHEN 5-325MG TAB PO PRN (00:57)
[2019-04-27] MEDS: ONDANSETRON 4 MG ODT TAB PO PRN (00:58)
[2019-04-27] MEDS: hydrALAZINE 25 MG TAB PO SCH ×3 (05:20→21:31)
[2019-04-27] MEDS: CEFEPIME/NS 1 GM/100 ML 1 GM/100 ML BAG IV SCH (05:21)
[2019-04-27 07:07] LABS: Albumin 2.4 g/dL (3.9-5); Calcium 6.1 mg/dL (8.4-10.2)
[2019-04-27] MEDS: INSULIN LISPRO 100 UNIT/ML SUB-Q SCH ×4 (07:33→21:32)
[2019-04-27] MEDS: HEPARIN 5,000 UNIT/1 ML VIAL SUB-Q SCH ×2 (09:17→21:31)
[2019-04-27] MEDS: NICOTINE 14 MG/24 HR PATCH TD SCH (09:17)
[2019-04-27] MEDS: amLODIPine 10 MG TAB PO SCH (09:18)
[2019-04-27] MEDS: ASPIRIN 81 MG TAB CHEW PO SCH (09:18)
[2019-04-27] MEDS: DOCUSATE SODIUM 100 MG CAP PO SCH ×2 (09:18→21:30)
[2019-04-27] MEDS: ALBUTEROL 2.5 MG/3 ML NEBU IH SCH ×4 (09:47→21:20)
[2019-04-27] MEDS ORDERED: POTASSIUM CHLORIDE ER 20 MEQ TAB PO ONE (10:00)
[2019-04-27] MEDS ORDERED: POTASSIUM CHLORIDE ER 20 MEQ TAB PO NR (10:00)
--- NOTE | 2019-04-27 10:19 | Progress Note ---
Assessment and Plan Impression: * End stage renal disease on hemodialysis via RIJ permcath * Hyperkalemia, severe- resolved; now hypokalemic on 2K bath * Uremia - BUN 190 at admission, improved --Last HD treatment on Apr 01 * Left great toe wound w/osteomyelitis * Acute encephalopathy possibly secondary to uremia, improved but remains altered * Metabolic acidosis * Anemia secondary to ESRD vs other * Secondary hyperparathyroidism/hypocalcemia * Medical noncompliance Plan: * Patient is s/p STAT HD on 04/23/19 and 04/24/19 * Continue MWF schedule for HD, due tomorrow * Abx per ID - blood cx NGTD (Apr 24); appreciate recommendations * Surgery consult pending * 3K, 3Ca bath given electrolytes. Ok to replete K today * Will start calcitriol or available vitamin D analog given hypocalcemia * Continue to hold Gabapentin * Dose medications for renal function * Epogen TIW prn Thank you for this consult; we will continue to follow closely. Subjective Date of service: 04/27/19 Principal diagnosis: osteomyelitis left big toe, ESRD on HD, T2 DM, severe anemia Interval history: No acute events noted overnight. Patient without new concerns this AM. Tolerated HD well yesterday. Objective - Exam Narrative Exam: General appearance: well-developed, well-nourished EENT: ATNC Respiratory: Clear to Auscultation Cardiology: regular, S1S2 Gastrointestinal: normal, no tenderness, not distended Neurologic: alert this AM Psychiatric: cooperative - Vital Signs Vital signs: Vital Signs - 12hr 04/26/19 04/26/19 04/27/19 23:40 23:41 04:19 Temperature 99.6 F 97.8 F Pulse Rate 113 H 101 H Respiratory 18 18 18 Rate Blood Pressure 118/76 132/68 O2 Sat by Pulse 95 100 Oximetry 04/27/19 04/27/19 07:19 08:39 Temperature 98.3 F Pulse Rate Respiratory 18 18 Rate Blood Pressure 108/67 O2 Sat by Pulse Oximetry - Lab 04/26/19 06:37 04/27/19 05:30 Most recent lab results Calcium 6.1 mg/dL (8.4-10.2) L D 04/27/19 05:30 Magnesium 3.40 mg/dL (1.7-2.3) H 04/24/19 02:47 Medications & Allergies - Medications Allergies/Adverse Reactions: Allergies No Known Allergies Allergy (Verified 06/21/16 15:23) Home Medications: Home Medications Medication Instructions Recorded Confirmed Last Taken Type Ondansetron [Zofran TAB] 4 mg PO PRN PRN 09/09/14 02/25/17 1 Day Ago History ~04/25/16 Gabapentin 300 mg PO TID 02/25/17 02/25/17 Unknown History Loratadine [Claritin] 10 mg PO QDAY PRN 02/25/17 02/25/17 Unknown History ALBUTEROL NEB's [Proventil 0.083% 2.5 mg IH QIDRT #60 nebu 02/27/17 Unknown Rx NEBS] Aspirin [Aspirin BABY CHEW TAB] 81 mg PO QDAY #30 tab.chew 02/27/17 Unknown Rx amLODIPine 5 mg PO QDAY #30 tablet 02/27/17 Unknown Rx hydrALAZINE [Apresoline TAB] 25 mg PO Q8HR #90 tablet 02/27/17 Unknown Rx hydrOXYzine HCL [Atarax] 25 mg PO Q8H PRN #20 tablet 02/27/17 Unknown Rx Clindamycin [Clindamycin CAP] 300 mg PO Q6H #40 capsule 03/02/19 Unknown Rx Active Medications: Generic Name Dose Route Start Last Admin Trade Name Freq PRN Reason Stop Dose Admin Acetaminophen 650 mg 04/24/19 04:41 04/25/19 01:17 Tylenol PO 650 mg Q4H PRN Administration Pain, Mild (1-3); fever>100.5 Albuterol 2.5 mg 04/24/19 04:38 Proventil IH Q4HRT PRN Shortness Of Breath Albuterol 2.5 mg 04/25/19 08:00 04/27/19 09:47 Proventil IH 2.5 mg QIDRT LANDON Administration Amlodipine Besylate 5 mg 04/24/19 10:00 04/27/19 09:18 Amlodipine PO Not Given QDAY L[facility]ON Aspirin 81 mg 04/24/19 10:00 04/27/19 09:18 Baby Aspirin PO Not Given QDAY L[facility]ON Dextrose 50 ml 04/24/19 04:42 D50w (25gm) Syringe IV Q30MIN PRN Hypoglycemia Protocol Diphenhydramine HCl 25 mg 04/24/19 04:40 Benadryl IV Q6H PRN Itching Docusate Sodium 100 mg 04/24/19 10:00 04/27/19 09:18 Colace PO Not Given BID [facility] Epoetin Sylvain 20,000 unit 04/25/19 16:44 04/26/19 16:58 Procrit IV 20,000 unit JAYNE PRN Administration hemodialysis Heparin Sodium (Porcine) 5,000 unit 04/24/19 10:00 04/27/19 09:17 Heparin SUB-Q 5,000 unit Q12HR L[facility]ON Administration Heparin Sodium (Porcine) 5,000 unit 04/25/19 16:44 04/26/19 17:05 Heparin IV 5,000 unit JAYNE PRN Administration hemodialysis Hydralazine HCl 25 mg 04/24/19 06:00 04/27/19 05:20 Apresoline PO 25 mg Q8HR L[facility]ON Administration Hydroxyzine HCl 25 mg 04/24/19 21:27 04/26/19 02:48 Atarax PO 25 mg Q8H PRN Administration Itching Cefepime HCl 1 gm in 100 mls @ 200 mls/hr 04/24/19 06:00 04/27/19 07:15 Cefepime/Ns 1 Gm/100 Ml IV Infused Q24H [facility] Infusion Protocol Sodium Chloride 100 mls @ 999 mls/hr 04/25/19 16:44 Nacl 0.9% IV JAYNE PRN Hypotension Sodium Chloride 1,000 mls @ 100 mls/hr 04/25/19 16:44 Nacl 0.9% 1000 Ml IV JAYNE PRN FOR MUSCLE CRAMPS DURING HEMO Insulin Human Lispro 0 unit 04/24/19 07:30 04/27/19 07:33 Humalog SUB-Q Not Given ACHS [facility] Protocol Nicotine 14 mg 04/24/19 10:00 04/27/19 09:17 Habitrol TD 14 mg QDAY [facility] Administration Ondansetron HCl 4 mg 04/24/19 01:43 04/27/19 00:58 Zofran Odt PO 4 mg Q6HR PRN Administration Nausea Oxycodone/Acetaminophen 1 tab 04/25/19 06:13 04/27/19 00:57 Percocet 5/325 PO 1 tab Q6H PRN Administration Pain, Moderate (4-6) Sodium Chloride 10 ml 04/24/19 10:00 04/27/19 09:19 Sodium Chloride Flush Syringe 10 Ml IV 10 ml BID LANDON Administration Sodium Chloride 10 ml 04/24/19 04:42 Sodium Chloride Flush Syringe 10 Ml IV PRN PRN LINE FLUSH
--- NOTE | 2019-04-27 12:06 | Progress Note ---
Hospitalist Physical - Constitutional Vitals: Temp Pulse Resp BP Pulse Ox 98.3 F 112 H 18 108/67 100 04/27/19 07:19 04/27/19 10:00 04/27/19 08:39 04/27/19 07:19 04/27/19 04:19 General appearance: Present: no acute distress, obese, disheveled Results - Labs CBC & Chem 7: 04/26/19 06:37 04/27/19 05:30 Labs: Laboratory Last Values WBC 12.7 K/mm3 (4.5-11.0) H 04/26/19 06:37 RBC 3.24 M/mm3 (3.65-5.03) L 04/26/19 06:37 Hgb 9.5 gm/dl (10.1-14.3) L 04/26/19 06:37 Hct 28.9 % (30.3-42.9) L 04/26/19 06:37 MCV 89 fl (79-97) 04/26/19 06:37 MCH 29 pg (28-32) 04/26/19 06:37 MCHC 33 % (30-34) 04/26/19 06:37 RDW 18.0 % (13.2-15.2) H 04/26/19 06:37 Plt Count 329 K/mm3 (140-440) 04/26/19 06:37 Lymph % (Auto) 6.5 % (13.4-35.0) L 04/25/19 06:32 [place] % (Auto) 7.7 % (0.0-7.3) H 04/25/19 06:32 Eos % (Auto) 2.7 % (0.0-4.3) 04/25/19 06:32 Baso % (Auto) 0.3 % (0.0-1.8) 04/25/19 06:32 Lymph # 0.8 K/mm3 (1.2-5.4) L 04/25/19 06:32 [place] # 1.0 K/mm3 (0.0-0.8) H 04/25/19 06:32 Eos # 0.3 K/mm3 (0.0-0.4) 04/25/19 06:32 Baso # 0.0 K/mm3 (0.0-0.1) 04/25/19 06:32 Seg Neutrophils % 82.8 % (40.0-70.0) H 04/25/19 06:32 Seg Neutrophils # 10.5 K/mm3 (1.8-7.7) H 04/25/19 06:32 ESR > 140.0 mm/Hr (0-20) 04/24/19 02:47 PT 19.4 Sec. (12.2-14.9) H 04/24/19 02:47 INR 1.67 (0.87-1.13) H 04/24/19 02:47 Sodium 137 mmol/L (137-145) 04/27/19 05:30 Potassium 2.9 mmol/L (3.6-5.0) L* D 04/27/19 05:30 Potassium 3.4 mmol/L (3.6-5.0) L 04/27/19 05:30 Chloride 108.2 mmol/L (98-107) H 04/27/19 05:30 Carbon Dioxide 21 mmol/L (22-30) L 04/27/19 05:30 Anion Gap 11 mmol/L 04/27/19 05:30 BUN 14 mg/dL (7-17) 04/27/19 05:30 Creatinine 4.9 mg/dL (0.7-1.2) H 04/27/19 05:30 Estimated GFR 11 ml/min 04/27/19 05:30 BUN/Creatinine Ratio 3 % 04/27/19 05:30 Glucose 88 mg/dL (65-100) 04/27/19 05:30 POC Glucose 146 (70-105) H 04/27/19 11:26 Hemoglobin A1c < 4.0 % (4-6) L 04/24/19 06:45 Calcium 6.1 mg/dL (8.4-10.2) L D 04/27/19 05:30 Magnesium 1.60 mg/dL (1.7-2.3) L 04/27/19 05:30 Total Bilirubin 0.40 mg/dL (0.1-1.2) 04/27/19 05:30 AST 12 units/L (5-40) 04/27/19 05:30 ALT 8 units/L (7-56) 04/27/19 05:30 Alkaline Phosphatase 66 units/L (35-129) 04/27/19 05:30 Total Creatine Kinase 450 units/L (30-135) H 04/24/19 02:47 C-Reactive Protein 11.50 mg/dL (0.00-1.30) H 04/24/19 02:47 Total Protein 5.8 g/dL (6.3-8.2) L D 04/27/19 05:30 Albumin 2.4 g/dL (3.9-5) L 04/27/19 05:30 Albumin/Globulin Ratio 0.7 % 04/27/19 05:30 Random Vancomycin 12.7 ug/mL (0-40.0) 04/26/19 06:09 Hepatitis A IgM Ab Non-reactive (NonReactive) 04/24/19 06:28 Hep Bs Antigen Non-reactive (Negative) 04/24/19 06:28 Hep B Core IgM Ab Non-reactive (NonReactive) 04/24/19 06:28 Hepatitis C Antibody Non-reactive (NonReactive) 04/24/19 06:28 Blood Type B POSITIVE 04/24/19 02:47 Antibody Screen Negative 04/24/19 02:47 Crossmatch See Detail 04/24/19 02:47 Active Medications - Current Medications Current Medications: Generic Name Dose Route Start Last Admin Trade Name Freq PRN Reason Stop Dose Admin Acetaminophen 650 mg 04/24/19 04:41 04/25/19 01:17 Tylenol PO 650 mg Q4H PRN Administration Pain, Mild (1-3); fever>100.5 Albuterol 2.5 mg 04/24/19 04:38 Proventil IH Q4HRT PRN Shortness Of Breath Albuterol 2.5 mg 04/25/19 08:00 04/27/19 09:47 Proventil IH 2.5 mg QIDRT [facility]ON Administration Amlodipine Besylate 5 mg 04/24/19 10:00 04/27/19 09:18 Amlodipine PO Not Given QDAY [facility] Aspirin 81 mg 04/24/19 10:00 04/27/19 09:18 Baby Aspirin PO Not Given QDAY [facility] Calcitriol 0.25 mcg 04/27/19 11:00 Rocaltrol PO QDAY [facility] Dextrose 50 ml 04/24/19 04:42 D50w (25gm) Syringe IV Q30MIN PRN Hypoglycemia Protocol Diphenhydramine HCl 25 mg 04/24/19 04:40 Benadryl IV Q6H PRN Itching Docusate Sodium 100 mg 04/24/19 10:00 04/27/19 09:18 Colace PO Not Given BID [facility] Epoetin Sylvain 20,000 unit 04/25/19 16:44 04/26/19 16:58 Procrit IV 20,000 unit JAYNE PRN Administration hemodialysis Heparin Sodium (Porcine) 5,000 unit 04/24/19 10:00 04/27/19 09:17 Heparin SUB-Q 5,000 unit Q12HR [facility] Administration Heparin Sodium (Porcine) 5,000 unit 04/25/19 16:44 04/26/19 17:05 Heparin IV 5,000 unit JAYNE PRN Administration hemodialysis Hydralazine HCl 25 mg 04/24/19 06:00 04/27/19 05:20 Apresoline PO 25 mg Q8HR [facility] Administration Hydroxyzine HCl 25 mg 04/24/19 21:27 04/26/19 02:48 Atarax PO 25 mg Q8H PRN Administration Itching Cefepime HCl 1 gm in 100 mls @ 200 mls/hr 04/24/19 06:00 04/27/19 07:15 Cefepime/Ns 1 Gm/100 Ml IV Infused Q24H [facility] Infusion Protocol Sodium Chloride 100 mls @ 999 mls/hr 04/25/19 16:44 Nacl 0.9% IV JAYNE PRN Hypotension Sodium Chloride 1,000 mls @ 100 mls/hr 04/25/19 16:44 Nacl 0.9% 1000 Ml IV JAYNE PRN FOR MUSCLE CRAMPS DURING HEMO Insulin Human Lispro 0 unit 04/24/19 07:30 04/27/19 11:37 Humalog SUB-Q Not Given ACHS [facility] Protocol Nicotine 14 mg 04/24/19 10:00 04/27/19 09:17 Habitrol TD 14 mg QDAY [facility] Administration Ondansetron HCl 4 mg 04/24/19 01:43 04/27/19 00:58 Zofran Odt PO 4 mg Q6HR PRN Administration Nausea Oxycodone/Acetaminophen 1 tab 04/25/19 06:13 04/27/19 00:57 Percocet 5/325 PO 1 tab Q6H PRN Administration Pain, Moderate (4-6) Sodium Chloride 10 ml 04/24/19 10:00 04/27/19 09:19 Sodium Chloride Flush Syringe 10 Ml IV 10 ml BID [facility]ON Administration Sodium Chloride 10 ml 04/24/19 04:42 Sodium Chloride Flush Syringe 10 Ml IV PRN PRN LINE FLUSH
[2019-04-27] MEDS ORDERED: POTASSIUM CHLORIDE ER 10 MEQ TAB PO ONE (13:00)
[2019-04-27] MEDS: CALCITRIOL 0.25 MCG CAP PO SCH (13:25)
--- NOTE | 2019-04-27 14:32 | Consultation ---
History of Present Illness Consult date: 04/27/19 - History of present illness History of present illness: 53 yo female with left great toe ulcer. No h/o DM or tobacco use. No h/o trauma to great toe. No h/o claudication or other ulcer. Past History Past Medical History: anemia, arthritis, CAD, COPD, diabetes, dialysis, ESRD, heart failure (tubal ligation, left ovary removed, left AV graft, right chest permcath ), hypertension, renal failure, stroke, other (asthma ) Past Surgical History: Other (AV fistula placement.) Social history: lives with family Family history: diabetes Medications and Allergies Allergies Allergy/AdvReac Type Severity Reaction Status Date / Time No Known Allergies Allergy Verified 06/21/16 15:23 Home Medications Medication Instructions Recorded Confirmed Last Taken Type Ondansetron [Zofran TAB] 4 mg PO PRN PRN 09/09/14 02/25/17 1 Day Ago History ~04/25/16 Gabapentin 300 mg PO TID 02/25/17 02/25/17 Unknown History Loratadine [Claritin] 10 mg PO QDAY PRN 02/25/17 02/25/17 Unknown History ALBUTEROL NEB's [Proventil 0.083% 2.5 mg IH QIDRT #60 nebu 02/27/17 Unknown Rx NEBS] Aspirin [Aspirin BABY CHEW TAB] 81 mg PO QDAY #30 tab.chew 02/27/17 Unknown Rx amLODIPine 5 mg PO QDAY #30 tablet 02/27/17 Unknown Rx hydrALAZINE [Apresoline TAB] 25 mg PO Q8HR #90 tablet 02/27/17 Unknown Rx hydrOXYzine HCL [Atarax] 25 mg PO Q8H PRN #20 tablet 02/27/17 Unknown Rx Clindamycin [Clindamycin CAP] 300 mg PO Q6H #40 capsule 03/02/19 Unknown Rx Active Meds: Active Medications Acetaminophen (Tylenol) 650 mg PO Q4H PRN PRN Reason: Pain, Mild (1-3); fever>100.5 Last Admin: 04/25/19 01:17 Dose: 650 mg Documented by: Albuterol (Proventil) 2.5 mg IH Q4HRT PRN PRN Reason: Shortness Of Breath Albuterol (Proventil) 2.5 mg IH QIDRT [facility] Last Admin: 04/27/19 09:47 Dose: 2.5 mg Documented by: Amlodipine Besylate (Amlodipine) 5 mg PO QDAY [facility] Last Admin: 04/27/19 09:18 Dose: Not Given Documented by: Aspirin (Baby Aspirin) 81 mg PO QDAY [facility] Last Admin: 04/27/19 09:18 Dose: Not Given Documented by: Calcitriol (Rocaltrol) 0.25 mcg PO QDAY [facility] Last Admin: 04/27/19 13:25 Dose: 0.25 mcg Documented by: Dextrose (D50w (25gm) Syringe) 50 ml IV Q30MIN PRN; Protocol PRN Reason: Hypoglycemia Diphenhydramine HCl (Benadryl) 25 mg IV Q6H PRN PRN Reason: Itching Docusate Sodium (Colace) 100 mg PO BID [facility] Last Admin: 04/27/19 09:18 Dose: Not Given Documented by: Epoetin Sylvain (Procrit) 20,000 unit IV JAYNE PRN PRN Reason: hemodialysis Last Admin: 04/26/19 16:58 Dose: 20,000 unit Documented by: Heparin Sodium (Porcine) (Heparin) 5,000 unit SUB-Q Q12HR [facility] Last Admin: 04/27/19 09:17 Dose: 5,000 unit Documented by: Heparin Sodium (Porcine) (Heparin) 5,000 unit IV JAYNE PRN PRN Reason: hemodialysis Last Admin: 04/26/19 17:05 Dose: 5,000 unit Documented by: Hydralazine HCl (Apresoline) 25 mg PO Q8HR [facility] Last Admin: 04/27/19 13:25 Dose: 25 mg Documented by: Hydroxyzine HCl (Atarax) 25 mg PO Q8H PRN PRN Reason: Itching Last Admin: 04/26/19 02:48 Dose: 25 mg Documented by: Cefepime HCl (Cefepime/Ns 1 Gm/100 Ml) 1 gm in 100 mls @ 200 mls/hr IV Q24H [facility]; Protocol Last Infusion: 04/27/19 07:15 Dose: Infused Documented by: Sodium Chloride (Nacl 0.9%) 100 mls @ 999 mls/hr IV JAYNE PRN PRN Reason: Hypotension Sodium Chloride (Nacl 0.9% 1000 Ml) 1,000 mls @ 100 mls/hr IV JAYNE PRN PRN Reason: FOR MUSCLE CRAMPS DURING HEMO Insulin Human Lispro (Humalog) 0 unit SUB-Q ACHS [facility]; Protocol Last Admin: 04/27/19 11:37 Dose: Not Given Documented by: Nicotine (Habitrol) 14 mg TD QDAY [facility] Last Admin: 04/27/19 09:17 Dose: 14 mg Documented by: Ondansetron HCl (Zofran Odt) 4 mg PO Q6HR PRN PRN Reason: Nausea Last Admin: 04/27/19 00:58 Dose: 4 mg Documented by: Oxycodone/Acetaminophen (Percocet 5/325) 1 tab PO Q6H PRN PRN Reason: Pain, Moderate (4-6) Last Admin: 04/27/19 00:57 Dose: 1 tab Documented by: Sodium Chloride (Sodium Chloride Flush Syringe 10 Ml) 10 ml IV BID [facility] Last Admin: 04/27/19 09:19 Dose: 10 ml Documented by: Sodium Chloride (Sodium Chloride Flush Syringe 10 Ml) 10 ml IV PRN PRN PRN Reason: LINE FLUSH Review of Systems All systems: negative (none) Exam Vital Signs Temp Pulse Resp BP Pulse Ox 98.2 F 78 18 126/79 98 04/24/19 01:16 04/24/19 01:16 04/24/19 01:16 04/24/19 01:16 04/24/19 01:16 - General physical appearance Positive: well developed, well nourished, no distress - Eyes Positive: PERRL, normal occular movement - ENT Positive: normal pinna, normal nares, normal mucosa, no hearing loss, no congestion - Neck Positive: no masses, no bruits, trachea midline, no venous distension - Respiratory Positive: normal expansion, normal respiratory effort, clear to auscultation - Cardiovascular Rhythm: regular Heart Sounds: Present: S1 & S2. Absent: rub, click - Extremities Extremities: no ischemia, pulses symmetrical, No edema Peripheral Pulses: abnormal (I cannot palpate the left DP or PT pulses.) - Breasts Breasts: deferred - Abdomen Abdomen: Present: soft, bowel sounds normal. Absent: tender, distended Hernia: none - Genitourinary Female Genitourinary: deferred - Integumentary other (There is a deep 1.7 X 1.8 X 1.5 cm ulcer over the medial left great toe with necrotic SQ tissue within the wound. There is no associated cellulitis or evidence of abscess.) - Neurologic Neurologic: alert and oriented to time, place and person, motor strength and sensation are grossly intact - Musculoskeletal normal gait, normal posture - Psychiatric Psychiatric: appropriate mood/affect, intact judgment & insight Results - Labs 04/26/19 06:37 04/27/19 05:30 Abnormal lab results 04/26/19 04/26/19 04/27/19 Range/Units 17:49 21:25 05:30 Potassium 2.9 L* D (3.6-5.0) mmol/L Chloride 108.2 H (98-107) mmol/L Carbon Dioxide 21 L (22-30) mmol/L Creatinine 4.9 H (0.7-1.2) mg/dL POC Glucose 128 H 188 H (70-105) Calcium 6.1 L D (8.4-10.2) mg/dL Magnesium (1.7-2.3) mg/dL Total Protein 5.8 L D (6.3-8.2) g/dL Albumin 2.4 L (3.9-5) g/dL 04/27/19 04/27/19 04/27/19 Range/Units 05:30 07:27 11:26 Potassium 3.4 L (3.6-5.0) mmol/L Chloride (98-107) mmol/L Carbon Dioxide (22-30) mmol/L Creatinine (0.7-1.2) mg/dL POC Glucose 125 H 146 H (70-105) Calcium (8.4-10.2) mg/dL Magnesium 1.60 L (1.7-2.3) mg/dL Total Protein (6.3-8.2) g/dL Albumin (3.9-5) g/dL Diabetes panel 04/27/19 04/27/19 Range/Units 05:30 05:30 Sodium 137 (137-145) mmol/L Potassium 2.9 L* D 3.4 L (3.6-5.0) mmol/L Chloride 108.2 H (98-107) mmol/L Carbon Dioxide 21 L (22-30) mmol/L BUN 14 (7-17) mg/dL Creatinine 4.9 H (0.7-1.2) mg/dL Glucose 88 (65-100) mg/dL Calcium 6.1 L D (8.4-10.2) mg/dL AST 12 (5-40) units/L ALT 8 (7-56) units/L Alkaline Phosphatase 66 (35-129) units/L Total Protein 5.8 L D (6.3-8.2) g/dL Albumin 2.4 L (3.9-5) g/dL Calcium panel 04/27/19 Range/Units 05:30 Calcium 6.1 L D (8.4-10.2) mg/dL Albumin 2.4 L (3.9-5) g/dL Pituitary panel 04/27/19 04/27/19 Range/Units 05:30 05:30 Sodium 137 (137-145) mmol/L Potassium 2.9 L* D 3.4 L (3.6-5.0) mmol/L Chloride 108.2 H (98-107) mmol/L Carbon Dioxide 21 L (22-30) mmol/L BUN 14 (7-17) mg/dL Creatinine 4.9 H (0.7-1.2) mg/dL Glucose 88 (65-100) mg/dL Calcium 6.1 L D (8.4-10.2) mg/dL Adrenal panel 04/27/19 04/27/19 Range/Units 05:30 05:30 Sodium 137 (137-145) mmol/L Potassium 2.9 L* D 3.4 L (3.6-5.0) mmol/L Chloride 108.2 H (98-107) mmol/L Carbon Dioxide 21 L (22-30) mmol/L BUN 14 (7-17) mg/dL Creatinine 4.9 H (0.7-1.2) mg/dL Glucose 88 (65-100) mg/dL Calcium 6.1 L D (8.4-10.2) mg/dL Total Bilirubin 0.40 (0.1-1.2) mg/dL AST 12 (5-40) units/L ALT 8 (7-56) units/L Alkaline Phosphatase 66 (35-129) units/L Total Protein 5.8 L D (6.3-8.2) g/dL Albumin 2.4 L (3.9-5) g/dL - Imaging Additional studies: A1c on 04/24/19 was < 4.0 X-ray of left foot on 04/24/19 was c/w osteomyelitis of the proximal phalanx of the great toe. Assessment and Plan - Patient Problems (1) Osteomyelitis Current Visit: Yes Status: Acute Qualifiers: Osteomyelitis type: unspecified type Osteomyelitis location: foot Laterality: left Qualified Code(s): M86.9 - Osteomyelitis, unspecified Plan to address problem: 1) MRI of left foot without contrast (ESRD) 2) LLE arterial dopplers 3) Wound care nurse consult 4) Eventual f/u in the [facility] 5) Debridement of left great toe today
--- NOTE | 2019-04-27 14:52 | Procedure Note ---
Date of procedure: 04/27/19 Pre-op diagnosis: Left great toe wound Post-op diagnosis: same Procedure: Debridement of left great toe wound Description of procedure: Pt was supine in her bed. The left foot was prepped and draped. Necrotic SQ tissue and fascia were then surgically excisionally debrided with forceps and scissors. Bleeding was minimal and was controlled with pressure. Excised tissue was discarded. Wound was then dressed by the Wound Care nurse. Pt tolerated the procedure well. Final wound measurements were: 1.7 X 1.6 X 1.3 cm Anesthesia: none Surgeon: ACL ORTIZ Estimated blood loss: minimal Pathology: none Specimen disposition: discarded Condition: stable Disposition: no change
[2019-04-27] MEDS ORDERED: cefTRIAXone/NS 1 GM/50 ML 1 GM/50 ML BAG IV SCH (15:00)
--- NOTE | 2019-04-27 15:00 | Progress Note ---
Assessment and Plan Cultures: 04/24 blood culture - NGTD 04/25 wound culture: Proteus A/P: 53 yo F with ESRD on HD, DM2, HTN, obesity admitted with altered mental status secondary to dialysis noncompliance and found to be septic with toe osteomyelitis. 1. Acute sepsis: present with tachycardia and leukocytosis. Secondary to toe osteomyelitis. 2. L great toe osteomyelitis involving the proximal phalanx per xray: risk of limb loss. Follow up surgical recs. Continue empiric abx. If surgery performed please obtain cultures as well as proximal margin for pathology in order to assess for surgical cure. 3. DM2: tight glycemic control for improved wound healing 4. ESRD on HD: renally dose antibiotics as appropriate. 5. Acute encephalopathy: improving. Recs: - continue vancomycin dosed per pharmacy, goal trough 15-20 - de-escalated Cefepime to Ceftriaxone - follow up MRI (ordered by Dr. Trent) - arterial duplexes ordered by me Agnes Gamble MD, FACP [facility] ([facility] M: [phone] O: [phone] F: [phone] Subjective Date of service: 04/27/19 Principal diagnosis: osteomyelitis left big toe, ESRD on HD, T2 DM, severe anemia Interval history: No fever. Had bedside debridement by Dr. Trent today. Denies any complaints. No nausea, vomiting. No rash. Objective - Exam Narrative Exam: Constitutional: awake, alert, no distress Head, Ears, Nose: Normocephalic, atraumatic. External ears, nose normal Eyes: Conjunctivae/corneas clear. No icterus. No ptosis. Neck: Supple, no meningeal signs Oral: no thrush Cardiovascular: S1, S2 normal. Respiratory: Good air entry, clear to auscultation bilaterally GI: Soft, non-tender; bowel sounds normal. No peritoneal signs. Musculoskeletal: No pedal edema, no cyanosis. L great toe wound with dressing. R upper chest HD cath + Skin: No rash or abscess Hem/Lymphatic: No palpable cervical or supraclavicular nodes. No lymphangitis Psych: no agitation Neurological: awake, alert, oriented, answering questions. - Constitutional Vitals: Vital Signs Temp Pulse Resp BP Pulse Ox 98.3 F 112 H 18 125/63 100 04/27/19 07:19 04/27/19 13:25 04/27/19 08:39 04/27/19 13:25 04/27/19 04:19 Temperature -Last 24 Hours Temperature 98.3 F Temperature 97.8 F Temperature 99.6 F Temperature 99.3 F Temperature 98 F - Labs CBC & Chem 7: 04/26/19 06:37 04/27/19 05:30 Labs: Abnormal lab results 04/26/19 04/26/19 04/27/19 Range/Units 17:49 21:25 05:30 Potassium 2.9 L* D (3.6-5.0) mmol/L Chloride 108.2 H (98-107) mmol/L Carbon Dioxide 21 L (22-30) mmol/L Creatinine 4.9 H (0.7-1.2) mg/dL POC Glucose 128 H 188 H (70-105) Calcium 6.1 L D (8.4-10.2) mg/dL Magnesium (1.7-2.3) mg/dL Total Protein 5.8 L D (6.3-8.2) g/dL Albumin 2.4 L (3.9-5) g/dL 04/27/19 04/27/19 04/27/19 Range/Units 05:30 07:27 11:26 Potassium 3.4 L (3.6-5.0) mmol/L Chloride (98-107) mmol/L Carbon Dioxide (22-30) mmol/L Creatinine (0.7-1.2) mg/dL POC Glucose 125 H 146 H (70-105) Calcium (8.4-10.2) mg/dL Magnesium 1.60 L (1.7-2.3) mg/dL Total Protein (6.3-8.2) g/dL Albumin (3.9-5) g/dL
--- NOTE | 2019-04-27 15:39 | Progress Note ---
Assessment and Plan Assessment and plan: 53-year-old woman who presented to the hospital with chronic wounds to left big toe. She had also missed dialysis. Sepsis/osteomyelitis of left big toe Bedside debridement done by Dr. Trent 04/27, MRI of foot is pending, antibiotics per ID. 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 protection specialist anemia of CD sp 2 units of prbc improved nonadherence Preventative health counseling performed for 17 minutes DVT prophylaxis; heparin subcu History Interval history: Denies pain to lower extremities, denies fevers, denies chills Review of systems Constitutional: No fevers, no malaise, no joint pains CVS: No chest pain, no orthopnea, no pedal edema GI: No abdominal pain, no diarrhea, no vomiting, no constipation Respiratory: No shortness of breath, no wheezing, no coughing Hospitalist Physical - Physical exam Narrative exam: General.: Appears well, no distress, nontoxic HEENT: Moist mucous membranes, extraocular muscles intact, no lymphadenopathy Neck: supple Cardiac: S1-S2 heard Lungs: clear to auscultation bilaterally Abdomen: soft , nontender, nondistended, bowel sounds positive Extremities: no edema clubbing or cyanosis, left great toe dressing was not removed. Skin: no rash or lesions Neurologic: no gross focal deficits Psych: calm, and cooperative - Constitutional Vitals: Temp Pulse Resp BP Pulse Ox 98.3 F 112 H 18 125/63 100 04/27/19 07:19 04/27/19 13:25 04/27/19 08:39 04/27/19 13:25 04/27/19 04:19 General appearance: Present: no acute distress, obese, disheveled Results - Labs CBC & Chem 7: 04/26/19 06:37 04/27/19 05:30 Labs: Laboratory Last Values WBC 12.7 K/mm3 (4.5-11.0) H 04/26/19 06:37 RBC 3.24 M/mm3 (3.65-5.03) L 04/26/19 06:37 Hgb 9.5 gm/dl (10.1-14.3) L 04/26/19 06:37 Hct 28.9 % (30.3-42.9) L 04/26/19 06:37 MCV 89 fl (79-97) 04/26/19 06:37 MCH 29 pg (28-32) 04/26/19 06:37 MCHC 33 % (30-34) 04/26/19 06:37 RDW 18.0 % (13.2-15.2) H 04/26/19 06:37 Plt Count 329 K/mm3 (140-440) 04/26/19 06:37 Lymph % (Auto) 6.5 % (13.4-35.0) L 04/25/19 06:32 [place] % (Auto) 7.7 % (0.0-7.3) H 04/25/19 06:32 Eos % (Auto) 2.7 % (0.0-4.3) 04/25/19 06:32 Baso % (Auto) 0.3 % (0.0-1.8) 04/25/19 06:32 Lymph # 0.8 K/mm3 (1.2-5.4) L 04/25/19 06:32 [place] # 1.0 K/mm3 (0.0-0.8) H 04/25/19 06:32 Eos # 0.3 K/mm3 (0.0-0.4) 04/25/19 06:32 Baso # 0.0 K/mm3 (0.0-0.1) 04/25/19 06:32 Seg Neutrophils % 82.8 % (40.0-70.0) H 04/25/19 06:32 Seg Neutrophils # 10.5 K/mm3 (1.8-7.7) H 04/25/19 06:32 ESR > 140.0 mm/Hr (0-20) 04/24/19 02:47 PT 19.4 Sec. (12.2-14.9) H 04/24/19 02:47 INR 1.67 (0.87-1.13) H 04/24/19 02:47 Sodium 137 mmol/L (137-145) 04/27/19 05:30 Potassium 2.9 mmol/L (3.6-5.0) L* D 04/27/19 05:30 Potassium 3.4 mmol/L (3.6-5.0) L 04/27/19 05:30 Chloride 108.2 mmol/L (98-107) H 04/27/19 05:30 Carbon Dioxide 21 mmol/L (22-30) L 04/27/19 05:30 Anion Gap 11 mmol/L 04/27/19 05:30 BUN 14 mg/dL (7-17) 04/27/19 05:30 Creatinine 4.9 mg/dL (0.7-1.2) H 04/27/19 05:30 Estimated GFR 11 ml/min 04/27/19 05:30 BUN/Creatinine Ratio 3 % 04/27/19 05:30 Glucose 88 mg/dL (65-100) 04/27/19 05:30 POC Glucose 146 (70-105) H 04/27/19 11:26 Hemoglobin A1c < 4.0 % (4-6) L 04/24/19 06:45 Calcium 6.1 mg/dL (8.4-10.2) L D 04/27/19 05:30 Magnesium 1.60 mg/dL (1.7-2.3) L 04/27/19 05:30 Total Bilirubin 0.40 mg/dL (0.1-1.2) 04/27/19 05:30 AST 12 units/L (5-40) 04/27/19 05:30 ALT 8 units/L (7-56) 04/27/19 05:30 Alkaline Phosphatase 66 units/L (35-129) 04/27/19 05:30 Total Creatine Kinase 450 units/L (30-135) H 04/24/19 02:47 C-Reactive Protein 11.50 mg/dL (0.00-1.30) H 04/24/19 02:47 Total Protein 5.8 g/dL (6.3-8.2) L D 04/27/19 05:30 Albumin 2.4 g/dL (3.9-5) L 04/27/19 05:30 Albumin/Globulin Ratio 0.7 % 04/27/19 05:30 Random Vancomycin 12.7 ug/mL (0-40.0) 04/26/19 06:09 Hepatitis A IgM Ab Non-reactive (NonReactive) 04/24/19 06:28 Hep Bs Antigen Non-reactive (Negative) 04/24/19 06:28 Hep B Core IgM Ab Non-reactive (NonReactive) 04/24/19 06:28 Hepatitis C Antibody Non-reactive (NonReactive) 04/24/19 06:28 Blood Type B POSITIVE 04/24/19 02:47 Antibody Screen Negative 04/24/19 02:47 Crossmatch See Detail 04/24/19 02:47 Active Medications - Current Medications Current Medications: Generic Name Dose Route Start Last Admin Trade Name Freq PRN Reason Stop Dose Admin Acetaminophen 650 mg 04/24/19 04:41 04/25/19 01:17 Tylenol PO 650 mg Q4H PRN Administration Pain, Mild (1-3); fever>100.5 Albuterol 2.5 mg 04/24/19 04:38 Proventil IH Q4HRT PRN Shortness Of Breath Albuterol 2.5 mg 04/25/19 08:00 04/27/19 09:47 Proventil IH 2.5 mg QIDRT LANDON Administration Amlodipine Besylate 5 mg 04/24/19 10:00 04/27/19 09:18 Amlodipine PO Not Given QDAY LANDON Aspirin 81 mg 04/24/19 10:00 04/27/19 09:18 Baby Aspirin PO Not Given QDAY LANDON Calcitriol 0.25 mcg 04/27/19 11:00 04/27/19 13:25 Rocaltrol PO 0.25 mcg QDAY LANDON Administration Dextrose 50 ml 04/24/19 04:42 D50w (25gm) Syringe IV Q30MIN PRN Hypoglycemia Protocol Diphenhydramine HCl 25 mg 04/24/19 04:40 Benadryl IV Q6H PRN Itching Docusate Sodium 100 mg 04/24/19 10:00 04/27/19 09:18 Colace PO Not Given BID LANDON Epoetin Sylvain 20,000 unit 04/25/19 16:44 04/26/19 16:58 Procrit IV 20,000 unit JAYNE PRN Administration hemodialysis Heparin Sodium (Porcine) 5,000 unit 04/24/19 10:00 04/27/19 09:17 Heparin SUB-Q 5,000 unit Q12HR LANDON Administration Heparin Sodium (Porcine) 5,000 unit 04/25/19 16:44 04/26/19 17:05 Heparin IV 5,000 unit JAYNE PRN Administration hemodialysis Hydralazine HCl 25 mg 04/24/19 06:00 04/27/19 13:25 Apresoline PO 25 mg Q8HR LANDON Administration Hydroxyzine HCl 25 mg 04/24/19 21:27 04/26/19 02:48 Atarax PO 25 mg Q8H PRN Administration Itching Sodium Chloride 100 mls @ 999 mls/hr 04/25/19 16:44 Nacl 0.9% IV JAYNE PRN Hypotension Sodium Chloride 1,000 mls @ 100 mls/hr 04/25/19 16:44 Nacl 0.9% 1000 Ml IV JAYNE PRN FOR MUSCLE CRAMPS DURING HEMO Ceftriaxone Sodium 1 gm in 50 mls @ 100 mls/hr 04/27/19 15:00 Rocephin/Ns 1 Gm/50 Ml IV Q24HR [facility] Protocol Insulin Human Lispro 0 unit 04/24/19 07:30 04/27/19 11:37 Humalog SUB-Q Not Given ACHS [facility] Protocol Nicotine 14 mg 04/24/19 10:00 04/27/19 09:17 Habitrol TD 14 mg QDAY LANDON Administration Ondansetron HCl 4 mg 04/24/19 01:43 04/27/19 00:58 Zofran Odt PO 4 mg Q6HR PRN Administration Nausea Oxycodone/Acetaminophen 1 tab 04/25/19 06:13 04/27/19 00:57 Percocet 5/325 PO 1 tab Q6H PRN Administration Pain, Moderate (4-6) Sodium Chloride 10 ml 04/24/19 10:00 04/27/19 09:19 Sodium Chloride Flush Syringe 10 Ml IV 10 ml BID LANDON Administration Sodium Chloride 10 ml 04/24/19 04:42 Sodium Chloride Flush Syringe 10 Ml IV PRN PRN LINE FLUSH
[2019-04-27] MEDS ORDERED: LORazepam 2 MG/ML VIAL IV NR ×2 (16:30→17:00)
--- NOTE | 2019-04-27 17:26 | Vascular Lab Report ---
DUPLEX DOPPLER LOWER EXTREMITY ARTERIAL, BILATERAL INDICATION: osteomyelitis; ulcer. TECHNIQUE: Arterial duplex examination of both lower extremities performed using B-mode, color flow and spectral Doppler assessment. FINDINGS: Scattered plaque is noted bilaterally RIGHT: Common Femoral Artery: PSV 89 cm/sec. Triphasic waveform. Proximal SFA: PSV 122 cm/sec. Triphasic waveform. Mid SFA: PSV 64 cm/sec. Triphasic waveform. Distal SFA: PSV 64 cm/sec. Monophasic waveform. Popliteal artery: PSV 76 cm/sec. Monophasic waveform. Posterior tibial artery: PSV 55 cm/sec. Monophasic waveform. Dorsalis Pedis Artery: PSV 65 cm/sec. Monophasic waveform. LEFT: Common Femoral Artery: PSV 109 cm/sec. Triphasic waveform. Proximal SFA: PSV 155 cm/sec. Triphasic waveform. Mid SFA: PSV 98 cm/sec. Triphasic waveform. Distal SFA: PSV 89 cm/sec. Triphasic waveform. Popliteal artery: PSV 87 cm/sec. Monophasic waveform. Posterior tibial artery: PSV 86 cm/sec. Monophasic waveform. Dorsalis Pedis Artery: PSV 75 cm/sec. Monophasic waveform. IMPRESSION: 1. Monophasic flow is noted in the lower legs bilaterally from the level of the distal superficial fe moral artery on the right and the popliteal artery on the left this transition is abnormal and sugges t hemodynamically significant disease the level the distal SFA on the right and popliteal artery on t he left. There is velocity elevation in the proximal superficial femoral artery on the left but no other areas of significant velocity elevation is seen. * Doppler Waveform: * Triphasic is normal. * Biphasic is abnormal if clear transition from triphasic signal along vascular tree. * Monophasic is abnormal. Signer Name: Bird Chadwick MD Signed: 04/27/2019 5:22 PM Workstation Name: [id number]
[2019-04-28] MEDS: hydrALAZINE 25 MG TAB PO SCH ×3 (05:18→21:08)
[2019-04-28] MEDS: INSULIN LISPRO 100 UNIT/ML SUB-Q SCH ×4 (08:50→21:10)
[2019-04-28] MEDS: ALBUTEROL 2.5 MG/3 ML NEBU IH SCH ×3 (08:57→20:44)
[2019-04-28 08:58] LABS: Calcium 7.7 mg/dL (8.4-10.2)
--- NOTE | 2019-04-28 10:15 | Progress Note ---
Assessment and Plan - Patient Problems (1) Osteomyelitis Current Visit: Yes Status: Acute Qualifiers: Osteomyelitis type: unspecified type Osteomyelitis location: foot Laterality: left Qualified Code(s): M86.9 - Osteomyelitis, unspecified Plan to address problem: 1) CT of left foot 2) Vascular consult - Dr. Darby notified 3) Follow ID recs 4) Strict DM control 5) Local wound care 6) Eventuall f/u in [facility] Subjective Date of service: 04/28/19 Patient Reports: Positive: no new complaints (Refused MRI.) Objective Vital Signs - 12hr 04/27/19 04/28/19 04/28/19 22:54 03:53 05:18 Temperature 98.3 F 98.1 F Pulse Rate 112 H 110 H 112 H Pulse Rate [ Anterior Bilateral] Pulse Rate [ Posterior Bilateral Throughout] Respiratory 18 18 Rate Respiratory Rate [Anterior Bilateral] Respiratory Rate [Posterior Bilateral Throughout] Blood Pressure 140/64 114/65 114/65 O2 Sat by Pulse 100 87 Oximetry 04/28/19 04/28/19 09:21 10:02 Temperature 98.0 F Pulse Rate 115 H Pulse Rate [ 104 H Anterior Bilateral] Pulse Rate [ 102 H Posterior Bilateral Throughout] Respiratory 18 Rate Respiratory 20 Rate [Anterior Bilateral] Respiratory 20 Rate [Posterior Bilateral Throughout] Blood Pressure 142/75 O2 Sat by Pulse 96 Oximetry - Integumentary other (No change in left great toe ulcer.) - Labs 04/26/19 06:37 04/28/19 07:35 Diabetes panel 04/27/19 04/28/19 Range/Units 05:30 07:35 Sodium 137 (137-145) mmol/L Potassium 3.4 L 3.8 (3.6-5.0) mmol/L Chloride 96.6 L (98-107) mmol/L Carbon Dioxide 20 L (22-30) mmol/L BUN 22 H (7-17) mg/dL Creatinine 7.9 H D (0.7-1.2) mg/dL Glucose 100 (65-100) mg/dL Calcium 7.7 L D (8.4-10.2) mg/dL AST 12 (5-40) units/L ALT 8 (7-56) units/L Alkaline Phosphatase 79 (35-129) units/L Total Protein 6.9 (6.3-8.2) g/dL Albumin 3.0 L (3.9-5) g/dL Calcium panel 04/28/19 Range/Units 07:35 Calcium 7.7 L D (8.4-10.2) mg/dL Albumin 3.0 L (3.9-5) g/dL Pituitary panel 04/27/19 04/28/19 Range/Units 05:30 07:35 Sodium 137 (137-145) mmol/L Potassium 3.4 L 3.8 (3.6-5.0) mmol/L Chloride 96.6 L (98-107) mmol/L Carbon Dioxide 20 L (22-30) mmol/L BUN 22 H (7-17) mg/dL Creatinine 7.9 H D (0.7-1.2) mg/dL Glucose 100 (65-100) mg/dL Calcium 7.7 L D (8.4-10.2) mg/dL Adrenal panel 04/27/19 04/28/19 Range/Units 05:30 07:35 Sodium 137 (137-145) mmol/L Potassium 3.4 L 3.8 (3.6-5.0) mmol/L Chloride 96.6 L (98-107) mmol/L Carbon Dioxide 20 L (22-30) mmol/L BUN 22 H (7-17) mg/dL Creatinine 7.9 H D (0.7-1.2) mg/dL Glucose 100 (65-100) mg/dL Calcium 7.7 L D (8.4-10.2) mg/dL Total Bilirubin 0.40 (0.1-1.2) mg/dL AST 12 (5-40) units/L ALT 8 (7-56) units/L Alkaline Phosphatase 79 (35-129) units/L Total Protein 6.9 (6.3-8.2) g/dL Albumin 3.0 L (3.9-5) g/dL - Imaging Additional Studies: Arterial dopplers c/w flow limiting bilateral SFA/popliteal stenoses.
[2019-04-28] MEDS: oxyCODONE /ACETAMINOPHEN 5-325MG TAB PO PRN (11:35)
[2019-04-28] MEDS: EPOETIN ALFA 20,000 UNIT/1 ML INJ IV PRN (11:37)
--- NOTE | 2019-04-28 12:25 | Progress Note ---
Assessment and Plan Assessment and plan: 53-year-old woman who presented to the hospital with chronic wounds to left big toe. She had also missed dialysis. Sepsis/osteomyelitis of left big toe Bedside debridement done by Dr. Trent 04/27, she refused MRI of her foot and this was despite being given IV Ativan, and even her daughter was unable to convince her to get it. She states that she is afraid to have her leg in a machine.. CT is pending, antibiotics per ID. PAD of LE Arterial duplex abnormal, Vasc sx/IR consult appreciated. Discussed with Precious, patient will be seen as an outpatient. 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 anemia of CD sp 2 units of prbc improved nonadherence Preventative health counseling performed for 17 minutes DVT prophylaxis; heparin subcu History Interval history: Denies pain to lower extremities, denies fevers, denies chills Review of systems Constitutional: No fevers, no malaise, no joint pains CVS: No chest pain, no orthopnea, no pedal edema GI: No abdominal pain, no diarrhea, no vomiting, no constipation Respiratory: No shortness of breath, no wheezing, no coughing Hospitalist Physical - Physical exam Narrative exam: General.: Appears well, no distress, nontoxic HEENT: Moist mucous membranes, extraocular muscles intact, no lymphadenopathy Neck: supple Cardiac: S1-S2 heard Lungs: clear to auscultation bilaterally Abdomen: soft , nontender, nondistended, bowel sounds positive Extremities: no edema clubbing or cyanosis, left great toe dressing was not removed. Skin: no rash or lesions Neurologic: no gross focal deficits Psych: calm, and cooperative - Constitutional Vitals: Temp Pulse Resp BP Pulse Ox 98.0 F 115 H 18 142/75 96 04/28/19 10:02 04/28/19 10:02 04/28/19 11:35 04/28/19 10:02 04/28/19 10:02 General appearance: Present: no acute distress, obese, disheveled Results - Labs CBC & Chem 7: 04/26/19 06:37 04/28/19 07:35 Labs: Laboratory Last Values WBC 12.7 K/mm3 (4.5-11.0) H 04/26/19 06:37 RBC 3.24 M/mm3 (3.65-5.03) L 04/26/19 06:37 Hgb 9.5 gm/dl (10.1-14.3) L 04/26/19 06:37 Hct 28.9 % (30.3-42.9) L 04/26/19 06:37 MCV 89 fl (79-97) 04/26/19 06:37 MCH 29 pg (28-32) 04/26/19 06:37 MCHC 33 % (30-34) 04/26/19 06:37 RDW 18.0 % (13.2-15.2) H 04/26/19 06:37 Plt Count 329 K/mm3 (140-440) 04/26/19 06:37 Lymph % (Auto) 6.5 % (13.4-35.0) L 04/25/19 06:32 [place] % (Auto) 7.7 % (0.0-7.3) H 04/25/19 06:32 Eos % (Auto) 2.7 % (0.0-4.3) 04/25/19 06:32 Baso % (Auto) 0.3 % (0.0-1.8) 04/25/19 06:32 Lymph # 0.8 K/mm3 (1.2-5.4) L 04/25/19 06:32 [place] # 1.0 K/mm3 (0.0-0.8) H 04/25/19 06:32 Eos # 0.3 K/mm3 (0.0-0.4) 04/25/19 06:32 Baso # 0.0 K/mm3 (0.0-0.1) 04/25/19 06:32 Seg Neutrophils % 82.8 % (40.0-70.0) H 04/25/19 06:32 Seg Neutrophils # 10.5 K/mm3 (1.8-7.7) H 04/25/19 06:32 ESR > 140.0 mm/Hr (0-20) 04/24/19 02:47 PT 19.4 Sec. (12.2-14.9) H 04/24/19 02:47 INR 1.67 (0.87-1.13) H 04/24/19 02:47 Sodium 137 mmol/L (137-145) 04/28/19 07:35 Potassium 3.8 mmol/L (3.6-5.0) 04/28/19 07:35 Chloride 96.6 mmol/L (98-107) L 04/28/19 07:35 Carbon Dioxide 20 mmol/L (22-30) L 04/28/19 07:35 Anion Gap 24 mmol/L 04/28/19 07:35 BUN 22 mg/dL (7-17) H 04/28/19 07:35 Creatinine 7.9 mg/dL (0.7-1.2) H D 04/28/19 07:35 Estimated GFR 6 ml/min 04/28/19 07:35 BUN/Creatinine Ratio 3 % 04/28/19 07:35 Glucose 100 mg/dL (65-100) 04/28/19 07:35 POC Glucose 122 (70-105) H 04/28/19 08:32 Hemoglobin A1c < 4.0 % (4-6) L 04/24/19 06:45 Calcium 7.7 mg/dL (8.4-10.2) L D 04/28/19 07:35 Magnesium 1.60 mg/dL (1.7-2.3) L 04/27/19 05:30 Total Bilirubin 0.40 mg/dL (0.1-1.2) 04/28/19 07:35 AST 12 units/L (5-40) 04/28/19 07:35 ALT 8 units/L (7-56) 04/28/19 07:35 Alkaline Phosphatase 79 units/L (35-129) 04/28/19 07:35 Total Creatine Kinase 450 units/L (30-135) H 04/24/19 02:47 C-Reactive Protein 11.50 mg/dL (0.00-1.30) H 04/24/19 02:47 Total Protein 6.9 g/dL (6.3-8.2) 04/28/19 07:35 Albumin 3.0 g/dL (3.9-5) L 04/28/19 07:35 Albumin/Globulin Ratio 0.8 % 04/28/19 07:35 Random Vancomycin 22.0 ug/mL (0-40.0) 04/28/19 07:35 Hepatitis A IgM Ab Non-reactive (NonReactive) 04/24/19 06:28 Hep Bs Antigen Non-reactive (Negative) 04/24/19 06:28 Hep B Core IgM Ab Non-reactive (NonReactive) 04/24/19 06:28 Hepatitis C Antibody Non-reactive (NonReactive) 04/24/19 06:28 Blood Type B POSITIVE 04/24/19 02:47 Antibody Screen Negative 04/24/19 02:47 Crossmatch See Detail 04/24/19 02:47 Active Medications - Current Medications Current Medications: Generic Name Dose Route Start Last Admin Trade Name Freq PRN Reason Stop Dose Admin Acetaminophen 650 mg 04/24/19 04:41 04/25/19 01:17 Tylenol PO 650 mg Q4H PRN Administration Pain, Mild (1-3); fever>100.5 Albuterol 2.5 mg 04/24/19 04:38 Proventil IH Q4HRT PRN Shortness Of Breath Albuterol 2.5 mg 04/28/19 08:00 04/28/19 08:57 Proventil IH 2.5 mg TIDRT LANDON Administration Amlodipine Besylate 5 mg 04/24/19 10:00 04/27/19 09:18 Amlodipine PO Not Given QDAY LANDON Aspirin 81 mg 04/24/19 10:00 04/27/19 09:18 Baby Aspirin PO Not Given QDAY LANDON Calcitriol 0.25 mcg 04/27/19 11:00 04/27/19 13:25 Rocaltrol PO 0.25 mcg QDAY LANDON Administration Dextrose 50 ml 04/24/19 04:42 D50w (25gm) Syringe IV Q30MIN PRN Hypoglycemia Protocol Diphenhydramine HCl 25 mg 04/24/19 04:40 Benadryl IV Q6H PRN Itching Docusate Sodium 100 mg 04/24/19 10:00 04/27/19 21:30 Colace PO 100 mg BID LANDON Administration Epoetin Sylvain 20,000 unit 04/25/19 16:44 04/28/19 11:37 Procrit IV 20,000 unit JAYNE PRN Administration hemodialysis Heparin Sodium (Porcine) 5,000 unit 04/24/19 10:00 04/27/19 21:31 Heparin SUB-Q 5,000 unit Q12HR LANDON Administration Heparin Sodium (Porcine) 5,000 unit 04/25/19 16:44 04/26/19 17:05 Heparin IV 5,000 unit JAYNE PRN Administration hemodialysis Hydralazine HCl 25 mg 04/24/19 06:00 04/28/19 05:18 Apresoline PO 25 mg Q8HR LANDON Administration Hydroxyzine HCl 25 mg 04/24/19 21:27 04/26/19 02:48 Atarax PO 25 mg Q8H PRN Administration Itching Sodium Chloride 100 mls @ 999 mls/hr 04/25/19 16:44 Nacl 0.9% IV JAYNE PRN Hypotension Sodium Chloride 1,000 mls @ 100 mls/hr 04/25/19 16:44 Nacl 0.9% 1000 Ml IV JAYNE PRN FOR MUSCLE CRAMPS DURING HEMO Ceftriaxone Sodium 1 gm in 50 mls @ 100 mls/hr 04/27/19 15:00 04/27/19 18:06 Rocephin/Ns 1 Gm/50 Ml IV 100 mls/hr Q24HR LANDON Administration Protocol Insulin Human Lispro 0 unit 04/24/19 07:30 04/28/19 08:50 Humalog SUB-Q Not Given ACHS [facility] Protocol Nicotine 14 mg 04/24/19 10:00 04/27/19 09:17 Habitrol TD 14 mg QDAY LANDON Administration Ondansetron HCl 4 mg 04/24/19 01:43 04/27/19 00:58 Zofran Odt PO 4 mg Q6HR PRN Administration Nausea Oxycodone/Acetaminophen 1 tab 04/25/19 06:13 04/28/19 11:35 Percocet 5/325 PO 1 tab Q6H PRN Administration Pain, Moderate (4-6) Sodium Chloride 10 ml 04/24/19 10:00 04/27/19 21:32 Sodium Chloride Flush Syringe 10 Ml IV 10 ml BID LANDON Administration Sodium Chloride 10 ml 04/24/19 04:42 Sodium Chloride Flush Syringe 10 Ml IV PRN PRN LINE FLUSH
--- NOTE | 2019-04-28 12:30 | Progress Note ---
Assessment and Plan Impression: * End stage renal disease on hemodialysis via RIJ permcath * Hyperkalemia, severe- resolved; now hypokalemic on 2K bath * Uremia - BUN 190 at admission, improved --Last HD treatment on Apr 01 * Left great toe wound w/osteomyelitis * Acute encephalopathy possibly secondary to uremia, improved but remains altered * Metabolic acidosis * Anemia secondary to ESRD vs other * Secondary hyperparathyroidism/hypocalcemia * Medical noncompliance Plan: * Patient is s/p STAT HD on 04/23/19 and 04/24/19 * Continue MWF schedule for HD, seen on HD today * Abx per ID - blood cx NGTD (Apr 24); appreciate recommendations * Surgery consult appreciated * 3K, 3Ca bath given electrolytes * Continue calcitriol or available vitamin D analog with HD given hypocalcemia * Continue to hold Gabapentin * Dose medications for renal function * Epogen TIW prn Thank you for this consult; we will continue to follow closely. Subjective Date of service: 04/28/19 Principal diagnosis: osteomyelitis left big toe, ESRD on HD, T2 DM, severe anemia Interval history: No acute events noted overnight. Patient without new concerns this AM. Seen on HD, tolerating well. Objective - Exam Narrative Exam: General appearance: well-developed, well-nourished EENT: ATNC Respiratory: Clear to Auscultation Cardiology: regular, S1S2 Gastrointestinal: normal, no tenderness, not distended Neurologic: alert this AM Psychiatric: cooperative - Vital Signs Vital signs: Vital Signs - 12hr 04/28/19 04/28/19 04/28/19 03:53 05:18 09:21 Temperature 98.1 F Pulse Rate 110 H 112 H Pulse Rate [ 104 H Anterior Bilateral] Pulse Rate [ Apical] Pulse Rate [ 102 H Posterior Bilateral Throughout] Respiratory 18 Rate Respiratory 20 Rate [Anterior Bilateral] Respiratory 20 Rate [Posterior Bilateral Throughout] Blood Pressure 114/65 114/65 O2 Sat by Pulse 87 Oximetry 04/28/19 04/28/19 04/28/19 10:00 10:02 11:35 Temperature 98.0 F Pulse Rate 107 H 115 H Pulse Rate [ Anterior Bilateral] Pulse Rate [ 107 H Apical] Pulse Rate [ Posterior Bilateral Throughout] Respiratory 18 18 Rate Respiratory Rate [Anterior Bilateral] Respiratory Rate [Posterior Bilateral Throughout] Blood Pressure 142/75 O2 Sat by Pulse 96 Oximetry CVC Qb 350ml/min - Lab 04/26/19 06:37 04/28/19 07:35 Most recent lab results Calcium 7.7 mg/dL (8.4-10.2) L D 04/28/19 07:35 Magnesium 1.60 mg/dL (1.7-2.3) L 04/27/19 05:30 Medications & Allergies - Medications Allergies/Adverse Reactions: Allergies No Known Allergies Allergy (Verified 06/21/16 15:23) Home Medications: Home Medications Medication Instructions Recorded Confirmed Last Taken Type Ondansetron [Zofran TAB] 4 mg PO PRN PRN 09/09/14 02/25/17 1 Day Ago History ~04/25/16 Gabapentin 300 mg PO TID 02/25/17 02/25/17 Unknown History Loratadine [Claritin] 10 mg PO QDAY PRN 02/25/17 02/25/17 Unknown History ALBUTEROL NEB's [Proventil 0.083% 2.5 mg IH QIDRT #60 nebu 02/27/17 Unknown Rx NEBS] Aspirin [Aspirin BABY CHEW TAB] 81 mg PO QDAY #30 tab.chew 02/27/17 Unknown Rx amLODIPine 5 mg PO QDAY #30 tablet 02/27/17 Unknown Rx hydrALAZINE [Apresoline TAB] 25 mg PO Q8HR #90 tablet 02/27/17 Unknown Rx hydrOXYzine HCL [Atarax] 25 mg PO Q8H PRN #20 tablet 02/27/17 Unknown Rx Clindamycin [Clindamycin CAP] 300 mg PO Q6H #40 capsule 03/02/19 Unknown Rx Active Medications: Generic Name Dose Route Start Last Admin Trade Name Freq PRN Reason Stop Dose Admin Acetaminophen 650 mg 04/24/19 04:41 04/25/19 01:17 Tylenol PO 650 mg Q4H PRN Administration Pain, Mild (1-3); fever>100.5 Albuterol 2.5 mg 04/24/19 04:38 Proventil IH Q4HRT PRN Shortness Of Breath Albuterol 2.5 mg 04/28/19 08:00 04/28/19 08:57 Proventil IH 2.5 mg TIDRT LANDON Administration Amlodipine Besylate 5 mg 04/24/19 10:00 04/27/19 09:18 Amlodipine PO Not Given QDAY LANDON Aspirin 81 mg 04/24/19 10:00 04/27/19 09:18 Baby Aspirin PO Not Given QDAY LANDON Calcitriol 0.25 mcg 04/27/19 11:00 04/27/19 13:25 Rocaltrol PO 0.25 mcg QDAY L[facility]ON Administration Dextrose 50 ml 04/24/19 04:42 D50w (25gm) Syringe IV Q30MIN PRN Hypoglycemia Protocol Diphenhydramine HCl 25 mg 04/24/19 04:40 Benadryl IV Q6H PRN Itching Docusate Sodium 100 mg 04/24/19 10:00 04/27/19 21:30 Colace PO 100 mg BID LANDON Administration Epoetin Sylvain 20,000 unit 04/25/19 16:44 04/28/19 11:37 Procrit IV 20,000 unit JAYNE PRN Administration hemodialysis Heparin Sodium (Porcine) 5,000 unit 04/24/19 10:00 04/27/19 21:31 Heparin SUB-Q 5,000 unit Q12HR L[facility]ON Administration Heparin Sodium (Porcine) 5,000 unit 04/25/19 16:44 04/26/19 17:05 Heparin IV 5,000 unit JAYNE PRN Administration hemodialysis Hydralazine HCl 25 mg 04/24/19 06:00 04/28/19 05:18 Apresoline PO 25 mg Q8HR L[facility]ON Administration Hydroxyzine HCl 25 mg 04/24/19 21:27 04/26/19 02:48 Atarax PO 25 mg Q8H PRN Administration Itching Sodium Chloride 100 mls @ 999 mls/hr 04/25/19 16:44 Nacl 0.9% IV JAYNE PRN Hypotension Sodium Chloride 1,000 mls @ 100 mls/hr 04/25/19 16:44 Nacl 0.9% 1000 Ml IV JAYNE PRN FOR MUSCLE CRAMPS DURING HEMO Ceftriaxone Sodium 1 gm in 50 mls @ 100 mls/hr 04/27/19 15:00 04/27/19 18:06 Rocephin/Ns 1 Gm/50 Ml IV 100 mls/hr Q24HR L[facility]ON Administration Protocol Insulin Human Lispro 0 unit 04/24/19 07:30 04/28/19 08:50 Humalog SUB-Q Not Given ACHS [facility] Protocol Nicotine 14 mg 04/24/19 10:00 04/27/19 09:17 Habitrol TD 14 mg QDAY LANDON Administration Ondansetron HCl 4 mg 04/24/19 01:43 04/27/19 00:58 Zofran Odt PO 4 mg Q6HR PRN Administration Nausea Oxycodone/Acetaminophen 1 tab 04/25/19 06:13 04/28/19 11:35 Percocet 5/325 PO 1 tab Q6H PRN Administration Pain, Moderate (4-6) Sodium Chloride 10 ml 04/24/19 10:00 04/27/19 21:32 Sodium Chloride Flush Syringe 10 Ml IV 10 ml BID LANDON Administration Sodium Chloride 10 ml 04/24/19 04:42 Sodium Chloride Flush Syringe 10 Ml IV PRN PRN LINE FLUSH
--- NOTE | 2019-04-28 12:31 | Progress Note ---
Assessment and Plan Cultures: 04/24 blood culture - NGTD 04/25 wound culture: Proteus, Group B Strep, ESBL E.coli A/P: 53 yo F with ESRD on HD, DM2, HTN, obesity admitted with altered mental status secondary to dialysis noncompliance and found to be septic with toe osteomyelitis. 1. Acute sepsis: present with tachycardia and leukocytosis. Secondary to toe osteomyelitis. 2. L great toe osteomyelitis involving the proximal phalanx per xray: at risk of amputation. Follow up surgical recs. Continue abx. Arterial duplex with evidence of PAD. If surgery performed please obtain cultures as well as proximal margin for pathology in order to assess for surgical cure. 3. DM2: tight glycemic control for improved wound healing 4. ESRD on HD: renally dose antibiotics as appropriate. 5. Acute encephalopathy: resolved. 6. PAD: vascular consulted. Recs: - follow up CT results - awaiting vascular surgery eval - discontinued Ceftriaxone and Vancomycin - started IV Meropenem renally adjusted - duration of abx will depend on whether she requires toe amputation d/w pharmacy. Agnes Gamble MD, FACP [facility] ([facility] M: [phone] O: [phone] F: [phone] Subjective Date of service: 04/28/19 Principal diagnosis: osteomyelitis left big toe, ESRD on HD, T2 DM, severe anemia Interval history: Seen at dialysis. Denies any new complaints. No fever. Declining MRI, so now planned for CT. Vascular also consulted due to PAD. Objective - Exam Narrative Exam: Constitutional: awake, alert, no distress Head, Ears, Nose: Normocephalic, atraumatic. External ears, nose normal Eyes: Conjunctivae/corneas clear. No icterus. No ptosis. Neck: Supple, no meningeal signs Oral: no thrush Cardiovascular: S1, S2 normal. Respiratory: Good air entry, clear to auscultation bilaterally GI: Soft, non-tender; bowel sounds normal. No peritoneal signs. Musculoskeletal: No pedal edema, no cyanosis. L great toe wound with dressing. R upper chest HD cath + Skin: No rash or abscess Hem/Lymphatic: No palpable cervical or supraclavicular nodes. No lymphangitis Psych: no agitation Neurological: awake, alert, oriented, answering questions. - Constitutional Vitals: Vital Signs Temp Pulse Resp BP Pulse Ox 98.0 F 115 H 18 142/75 96 04/28/19 10:02 04/28/19 10:02 04/28/19 11:35 04/28/19 10:02 04/28/19 10:02 Temperature -Last 24 Hours Temperature 98.0 F Temperature 98.1 F Temperature 98.3 F Temperature 98.1 F - Labs CBC & Chem 7: 04/26/19 06:37 04/28/19 07:35 Labs: Abnormal lab results 04/27/19 04/27/19 04/28/19 Range/Units 18: 20:46 07:35 Chloride 96.6 L (98-107) mmol/L Carbon Dioxide 20 L (22-30) mmol/L BUN 22 H (7-17) mg/dL Creatinine 7.9 H D (0.7-1.2) mg/dL POC Glucose 176 H 285 H (70-105) Calcium 7.7 L D (8.4-10.2) mg/dL Albumin 3.0 L (3.9-5) g/dL 04/28/19 Range/Units 08:32 Chloride (98-107) mmol/L Carbon Dioxide (22-30) mmol/L BUN (7-17) mg/dL Creatinine (0.7-1.2) mg/dL POC Glucose 122 H (70-105) Calcium (8.4-10.2) mg/dL Albumin (3.9-5) g/dL
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
[2019-04-28] MEDS: amLODIPine 10 MG TAB PO SCH (15:06)
[2019-04-28] MEDS: CALCITRIOL 0.25 MCG CAP PO SCH (15:07)
[2019-04-28] MEDS: ASPIRIN 81 MG TAB CHEW PO SCH (15:07)
[2019-04-28] MEDS: DOCUSATE SODIUM 100 MG CAP PO SCH ×2 (15:07→21:08)
[2019-04-28] MEDS: HEPARIN 5,000 UNIT/1 ML VIAL SUB-Q SCH ×2 (15:07→21:08)
[2019-04-28] MEDS: NICOTINE 14 MG/24 HR PATCH TD SCH (17:48)
[2019-04-28] MEDS: MEROPENEM/NS 1 GRAM/100 ML 1 GRAM/100 ML BAG IV SCH (17:48)
[2019-04-28] MEDS: ONDANSETRON 4 MG ODT TAB PO PRN (22:44)
[2019-04-29] MEDS: hydrALAZINE 25 MG TAB PO SCH ×3 (06:42→22:00)
[2019-04-29] MEDS: DOCUSATE SODIUM 100 MG CAP PO SCH ×2 (09:27→22:00)
[2019-04-29] MEDS: CALCITRIOL 0.25 MCG CAP PO SCH (09:28)
[2019-04-29] MEDS: INSULIN LISPRO 100 UNIT/ML SUB-Q SCH ×4 (09:28→22:00)
[2019-04-29] MEDS: amLODIPine 10 MG TAB PO SCH (09:31)
[2019-04-29] MEDS: NICOTINE 14 MG/24 HR PATCH TD SCH (09:32)
[2019-04-29] MEDS: ASPIRIN 81 MG TAB CHEW PO SCH (09:32)
[2019-04-29] MEDS: ALBUTEROL 2.5 MG/3 ML NEBU IH SCH ×3 (10:04→21:00)
--- NOTE | 2019-04-29 10:58 | Progress Note ---
Assessment and Plan Assessment and plan: 53-year-old woman who presented to the hospital with chronic wounds to left big toe. She had also missed dialysis. Sepsis/osteomyelitis of left big toe Bedside debridement done by Dr. Trent 04/27, she refused MRI of her foot and this was despite being given IV Ativan, and even her daughter was unable to convince her to get it. She states that she is afraid to have her leg in a machine.. CT is pending, antibiotics per ID. wound cx grew ESBL ecoli, on meropenam PAD of LE Arterial duplex abnormal, Vasc sx/IR consult appreciated. Discussed with Precious, patient will be seen as an outpatient. 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 was repleted by transportation broker anemia of CD sp 2 units of prbc improved nonadherence Preventative health counseling performed for 17 minutes DVT prophylaxis; heparin subcu History Interval history: Denies pain to lower extremities, denies fevers, denies chills Review of systems Constitutional: No fevers, no malaise, no joint pains CVS: No chest pain, no orthopnea, no pedal edema GI: No abdominal pain, no diarrhea, no vomiting, no constipation Respiratory: No shortness of breath, no wheezing, no coughing Hospitalist Physical - Physical exam Narrative exam: General.: Appears well, no distress, nontoxic HEENT: Moist mucous membranes, extraocular muscles intact, no lymphadenopathy Neck: supple Cardiac: S1-S2 heard Lungs: clear to auscultation bilaterally Abdomen: soft , nontender, nondistended, bowel sounds positive Extremities: no edema clubbing or cyanosis, left great toe dressing was not removed. Skin: no rash or lesions Neurologic: no gross focal deficits Psych: calm, and cooperative - Constitutional Vitals: Temp Pulse Resp BP Pulse Ox 99.5 F 106 H 18 134/66 96 04/29/19 07:41 04/29/19 09:31 04/29/19 08:00 04/29/19 09:31 04/29/19 07:41 General appearance: Present: no acute distress, obese, disheveled Results - Labs CBC & Chem 7: 04/26/19 06:37 04/28/19 07:35 Labs: Laboratory Last Values WBC 12.7 K/mm3 (4.5-11.0) H 04/26/19 06:37 RBC 3.24 M/mm3 (3.65-5.03) L 04/26/19 06:37 Hgb 9.5 gm/dl (10.1-14.3) L 04/26/19 06:37 Hct 28.9 % (30.3-42.9) L 04/26/19 06:37 MCV 89 fl (79-97) 04/26/19 06:37 MCH 29 pg (28-32) 04/26/19 06:37 MCHC 33 % (30-34) 04/26/19 06:37 RDW 18.0 % (13.2-15.2) H 04/26/19 06:37 Plt Count 329 K/mm3 (140-440) 04/26/19 06:37 Lymph % (Auto) 6.5 % (13.4-35.0) L 04/25/19 06:32 Mcminn % (Auto) 7.7 % (0.0-7.3) H 04/25/19 06:32 Eos % (Auto) 2.7 % (0.0-4.3) 04/25/19 06:32 Baso % (Auto) 0.3 % (0.0-1.8) 04/25/19 06:32 Lymph # 0.8 K/mm3 (1.2-5.4) L 04/25/19 06:32 Mcminn # 1.0 K/mm3 (0.0-0.8) H 04/25/19 06:32 Eos # 0.3 K/mm3 (0.0-0.4) 04/25/19 06:32 Baso # 0.0 K/mm3 (0.0-0.1) 04/25/19 06:32 Seg Neutrophils % 82.8 % (40.0-70.0) H 04/25/19 06:32 Seg Neutrophils # 10.5 K/mm3 (1.8-7.7) H 04/25/19 06:32 ESR > 140.0 mm/Hr (0-20) 04/24/19 02:47 PT 19.4 Sec. (12.2-14.9) H 04/24/19 02:47 INR 1.67 (0.87-1.13) H 04/24/19 02:47 Sodium 137 mmol/L (137-145) 04/28/19 07:35 Potassium 3.8 mmol/L (3.6-5.0) 04/28/19 07:35 Chloride 96.6 mmol/L (98-107) L 04/28/19 07:35 Carbon Dioxide 20 mmol/L (22-30) L 04/28/19 07:35 Anion Gap 24 mmol/L 04/28/19 07:35 BUN 22 mg/dL (7-17) H 04/28/19 07:35 Creatinine 7.9 mg/dL (0.7-1.2) H D 04/28/19 07:35 Estimated GFR 6 ml/min 04/28/19 07:35 BUN/Creatinine Ratio 3 % 04/28/19 07:35 Glucose 100 mg/dL (65-100) 04/28/19 07:35 POC Glucose 108 (70-105) H 04/29/19 07:49 Hemoglobin A1c < 4.0 % (4-6) L 04/24/19 06:45 Calcium 7.7 mg/dL (8.4-10.2) L D 04/28/19 07:35 Magnesium 1.60 mg/dL (1.7-2.3) L 04/27/19 05:30 Total Bilirubin 0.40 mg/dL (0.1-1.2) 04/28/19 07:35 AST 12 units/L (5-40) 04/28/19 07:35 ALT 8 units/L (7-56) 04/28/19 07:35 Alkaline Phosphatase 79 units/L (35-129) 04/28/19 07:35 Total Creatine Kinase 450 units/L (30-135) H 04/24/19 02:47 C-Reactive Protein 11.50 mg/dL (0.00-1.30) H 04/24/19 02:47 Total Protein 6.9 g/dL (6.3-8.2) 04/28/19 07:35 Albumin 3.0 g/dL (3.9-5) L 04/28/19 07:35 Albumin/Globulin Ratio 0.8 % 04/28/19 07:35 Random Vancomycin 22.0 ug/mL (0-40.0) 04/28/19 07:35 Hepatitis A IgM Ab Non-reactive (NonReactive) 04/24/19 06:28 Hep Bs Antigen Non-reactive (Negative) 04/24/19 06:28 Hep B Core IgM Ab Non-reactive (NonReactive) 04/24/19 06:28 Hepatitis C Antibody Non-reactive (NonReactive) 04/24/19 06:28 Blood Type B POSITIVE 04/24/19 02:47 Antibody Screen Negative 04/24/19 02:47 Crossmatch See Detail 04/24/19 02:47 Active Medications - Current Medications Current Medications: Generic Name Dose Route Start Last Admin Trade Name Freq PRN Reason Stop Dose Admin Acetaminophen 650 mg 04/24/19 04:41 04/25/19 01:17 Tylenol PO 650 mg Q4H PRN Administration Pain, Mild (1-3); fever>100.5 Albuterol 2.5 mg 04/24/19 04:38 Proventil IH Q4HRT PRN Shortness Of Breath Albuterol 2.5 mg 04/28/19 08:00 04/29/19 10:04 Proventil IH 2.5 mg TIDRT LANDON Administration Amlodipine Besylate 5 mg 04/24/19 10:00 04/29/19 09:31 Amlodipine PO Not Given QDAY L[facility]ON Aspirin 81 mg 04/24/19 10:00 04/29/19 09:32 Baby Aspirin PO Not Given QDAY L[facility]ON Calcitriol 0.25 mcg 04/27/19 11:00 04/29/19 09:28 Rocaltrol PO 0.25 mcg QDAY L[facility]ON Administration Dextrose 50 ml 04/24/19 04:42 D50w (25gm) Syringe IV Q30MIN PRN Hypoglycemia Protocol Diphenhydramine HCl 25 mg 04/24/19 04:40 Benadryl IV Q6H PRN Itching Docusate Sodium 100 mg 04/24/19 10:00 04/29/19 09:27 Colace PO 100 mg BID L[facility]ON Administration Epoetin Sylvain 20,000 unit 04/25/19 16:44 04/28/19 11:37 Procrit IV 20,000 unit JAYNE PRN Administration hemodialysis Heparin Sodium (Porcine) 5,000 unit 04/24/19 10:00 04/28/19 21:08 Heparin SUB-Q 5,000 unit Q12HR LANDON Administration Heparin Sodium (Porcine) 5,000 unit 04/25/19 16:44 04/26/19 17:05 Heparin IV 5,000 unit JAYNE PRN Administration hemodialysis Hydralazine HCl 25 mg 04/24/19 06:00 04/29/19 06:42 Apresoline PO Not Given Q8HR [facility] Hydroxyzine HCl 25 mg 04/24/19 21:27 04/26/19 02:48 Atarax PO 25 mg Q8H PRN Administration Itching Sodium Chloride 100 mls @ 999 mls/hr 04/25/19 16:44 Nacl 0.9% IV JAYNE PRN Hypotension Sodium Chloride 1,000 mls @ 100 mls/hr 04/25/19 16:44 Nacl 0.9% 1000 Ml IV JAYNE PRN FOR MUSCLE CRAMPS DURING HEMO MEROPENEM/NS 1 GRAM/100 ML 1 gram in 100 mls @ 100 mls/hr 04/28/19 18:00 04/28/19 17:48 Merrem/Ns 1 Gram/100 Ml IV 100 mls/hr QPM [facility] Administration Protocol Insulin Human Lispro 0 unit 04/24/19 07:30 04/29/19 09:28 Humalog SUB-Q Not Given ACHS [facility] Protocol Nicotine 14 mg 04/24/19 10:00 04/29/19 09:32 Habitrol TD Not Given QDAY [facility] Ondansetron HCl 4 mg 04/24/19 01:43 04/28/19 22:44 Zofran Odt PO 4 mg Q6HR PRN Administration Nausea Oxycodone/Acetaminophen 1 tab 04/25/19 06:13 04/28/19 11:35 Percocet 5/325 PO 1 tab Q6H PRN Administration Pain, Moderate (4-6) Sodium Chloride 10 ml 04/24/19 10:00 04/28/19 21:10 Sodium Chloride Flush Syringe 10 Ml IV 10 ml BID LANDON Administration Sodium Chloride 10 ml 04/24/19 04:42 Sodium Chloride Flush Syringe 10 Ml IV PRN PRN LINE FLUSH
--- NOTE | 2019-04-29 11:40 | Progress Note ---
Assessment and Plan Impression: * End stage renal disease on hemodialysis via RIJ permcath * Hyperkalemia, severe- resolved; now hypokalemic on 2K bath * Uremia - BUN 190 at admission, improved --Last HD treatment on Apr 01 * Left great toe wound w/osteomyelitis * Acute encephalopathy possibly secondary to uremia, improved but remains altered * Metabolic acidosis * Anemia secondary to ESRD vs other * Secondary hyperparathyroidism/hypocalcemia * Medical noncompliance Plan: * Patient is s/p STAT HD on 04/23/19 and 04/24/19 * Continue MWF schedule for HD, due tomorrow * Abx per ID - blood cx NGTD (Apr 24); appreciate recommendations * Surgery consult appreciated * 3K, 3Ca bath given electrolytes * Continue calcitriol or available vitamin D analog with HD given hypocalcemia * Continue to hold Gabapentin * Dose medications for renal function * Epogen TIW prn Thank you for this consult; we will continue to follow closely. Subjective Date of service: 04/29/19 Principal diagnosis: osteomyelitis left big toe, ESRD on HD, T2 DM, severe anemia Interval history: No acute events noted overnight. Patient without new concerns this AM. No issues with HD yesterday Objective - Exam Narrative Exam: General appearance: well-developed, well-nourished EENT: ATNC Respiratory: Clear to Auscultation Cardiology: regular, S1S2 Gastrointestinal: normal, no tenderness, not distended Neurologic: alert this AM Psychiatric: cooperative - Vital Signs Vital signs: Vital Signs - 12hr 04/28/19 04/29/19 04/29/19 23:51 04:16 06:42 Temperature 98.2 F 98.5 F Pulse Rate 118 H Pulse Rate [ Anterior Bilateral] Pulse Rate [ Posterior Bilateral Throughout] Respiratory 18 18 Rate Respiratory Rate [Anterior Bilateral] Respiratory Rate [Posterior Bilateral Throughout] Blood Pressure 132/71 106/61 106/61 O2 Sat by Pulse 100 Oximetry 04/29/19 04/29/19 04/29/19 07:41 08:00 08:49 Temperature 99.5 F Pulse Rate 103 H 101 H Pulse Rate [ 86 Anterior Bilateral] Pulse Rate [ 86 Posterior Bilateral Throughout] Respiratory 16 Rate Respiratory 18 Rate [Anterior Bilateral] Respiratory 18 Rate [Posterior Bilateral Throughout] Blood Pressure 134/62 O2 Sat by Pulse 96 Oximetry 04/29/19 09:31 Temperature Pulse Rate 106 H Pulse Rate [ Anterior Bilateral] Pulse Rate [ Posterior Bilateral Throughout] Respiratory Rate Respiratory Rate [Anterior Bilateral] Respiratory Rate [Posterior Bilateral Throughout] Blood Pressure 134/66 O2 Sat by Pulse Oximetry - Lab 04/26/19 06:37 04/28/19 07:35 Most recent lab results Calcium 7.7 mg/dL (8.4-10.2) L D 04/28/19 07:35 Magnesium 1.60 mg/dL (1.7-2.3) L 04/27/19 05:30 Medications & Allergies - Medications Allergies/Adverse Reactions: Allergies No Known Allergies Allergy (Verified 06/21/16 15:23) Home Medications: Home Medications Medication Instructions Recorded Confirmed Last Taken Type Ondansetron [Zofran TAB] 4 mg PO PRN PRN 09/09/14 02/25/17 1 Day Ago History ~04/25/16 Gabapentin 300 mg PO TID 02/25/17 02/25/17 Unknown History Loratadine [Claritin] 10 mg PO QDAY PRN 02/25/17 02/25/17 Unknown History ALBUTEROL NEB's [Proventil 0.083% 2.5 mg IH QIDRT #60 nebu 02/27/17 Unknown Rx NEBS] Aspirin [Aspirin BABY CHEW TAB] 81 mg PO QDAY #30 tab.chew 02/27/17 Unknown Rx amLODIPine 5 mg PO QDAY #30 tablet 02/27/17 Unknown Rx hydrALAZINE [Apresoline TAB] 25 mg PO Q8HR #90 tablet 02/27/17 Unknown Rx hydrOXYzine HCL [Atarax] 25 mg PO Q8H PRN #20 tablet 02/27/17 Unknown Rx Clindamycin [Clindamycin CAP] 300 mg PO Q6H #40 capsule 03/02/19 Unknown Rx Active Medications: Generic Name Dose Route Start Last Admin Trade Name Freq PRN Reason Stop Dose Admin Acetaminophen 650 mg 04/24/19 04:41 04/25/19 01:17 Tylenol PO 650 mg Q4H PRN Administration Pain, Mild (1-3); fever>100.5 Albuterol 2.5 mg 04/24/19 04:38 Proventil IH Q4HRT PRN Shortness Of Breath Albuterol 2.5 mg 04/28/19 08:00 04/29/19 10:04 Proventil IH 2.5 mg TIDRT [facility] Administration Amlodipine Besylate 5 mg 04/24/19 10:00 04/29/19 09:31 Amlodipine PO Not Given QDAY [facility] Aspirin 81 mg 04/24/19 10:00 04/29/19 09:32 Baby Aspirin PO Not Given QDAY [facility] Calcitriol 0.25 mcg 04/27/19 11:00 04/29/19 09:28 Rocaltrol PO 0.25 mcg QDAY [facility] Administration Dextrose 50 ml 04/24/19 04:42 D50w (25gm) Syringe IV Q30MIN PRN Hypoglycemia Protocol Diphenhydramine HCl 25 mg 04/24/19 04:40 Benadryl IV Q6H PRN Itching Docusate Sodium 100 mg 04/24/19 10:00 04/29/19 09:27 Colace PO 100 mg BID [facility] Administration Epoetin Sylvain 20,000 unit 04/25/19 16:44 04/28/19 11:37 Procrit IV 20,000 unit JAYNE PRN Administration hemodialysis Heparin Sodium (Porcine) 5,000 unit 04/24/19 10:00 04/28/19 21:08 Heparin SUB-Q 5,000 unit Q12HR [facility] Administration Heparin Sodium (Porcine) 5,000 unit 04/25/19 16:44 04/26/19 17:05 Heparin IV 5,000 unit JAYNE PRN Administration hemodialysis Hydralazine HCl 25 mg 04/24/19 06:00 04/29/19 06:42 Apresoline PO Not Given Q8HR [facility] Hydroxyzine HCl 25 mg 04/24/19 21:27 04/26/19 02:48 Atarax PO 25 mg Q8H PRN Administration Itching Sodium Chloride 100 mls @ 999 mls/hr 04/25/19 16:44 Nacl 0.9% IV JAYNE PRN Hypotension Sodium Chloride 1,000 mls @ 100 mls/hr 04/25/19 16:44 Nacl 0.9% 1000 Ml IV JAYNE PRN FOR MUSCLE CRAMPS DURING HEMO MEROPENEM/NS 1 GRAM/100 ML 1 gram in 100 mls @ 100 mls/hr 04/28/19 18:00 04/28/19 17:48 Merrem/Ns 1 Gram/100 Ml IV 100 mls/hr QPM [facility] Administration Protocol Insulin Human Lispro 0 unit 04/24/19 07:30 04/29/19 09:28 Humalog SUB-Q Not Given ACHS [facility] Protocol Nicotine 14 mg 04/24/19 10:00 04/29/19 09:32 Habitrol TD Not Given QDAY [facility] Ondansetron HCl 4 mg 04/24/19 01:43 04/28/19 22:44 Zofran Odt PO 4 mg Q6HR PRN Administration Nausea Oxycodone/Acetaminophen 1 tab 04/25/19 06:13 04/28/19 11:35 Percocet 5/325 PO 1 tab Q6H PRN Administration Pain, Moderate (4-6) Sodium Chloride 10 ml 04/24/19 10:00 04/28/19 21:10 Sodium Chloride Flush Syringe 10 Ml IV 10 ml BID [facility] Administration Sodium Chloride 10 ml 04/24/19 04:42 Sodium Chloride Flush Syringe 10 Ml IV PRN PRN LINE FLUSH
--- NOTE | 2019-04-29 12:03 | Progress Note ---
Assessment and Plan Cultures: 04/24 blood culture - NGTD 04/25 wound culture: Proteus, Group B Strep, ESBL E.coli A/P: 53 yo F with ESRD on HD, DM2, HTN, obesity admitted with altered mental status secondary to dialysis noncompliance and found to be septic with toe osteomyelitis. 1. Acute sepsis: present with tachycardia and leukocytosis. Secondary to toe osteomyelitis. 2. L great toe osteomyelitis involving the proximal phalanx per xray: at risk of amputation. Follow up surgical recs. Continue abx. Arterial duplex with evidence of PAD. If surgery performed please obtain cultures as well as proximal margin for pathology in order to assess for surgical cure. 3. DM2: tight glycemic control for improved wound healing 4. ESRD on HD: renally dose antibiotics as appropriate. 5. Acute encephalopathy: resolved. 6. PAD: vascular consulted, no plans for intervention in the hospital. Recs: - follow up CT results - continue IV Meropenem renally adjusted, duration of abx will depend on whether the toe can be salvaged or if she requires a toe amputation. Arranging post HD meropenem will be challenging in the patient especially since most dialysis centers don't carry meropenem. Very likely she may then end up with a tunneled PICC line for abx Agnes Gamble MD, FACP [facility] ([facility] M: [phone] O: [phone] F: [phone] Subjective Date of service: 04/29/19 Principal diagnosis: osteomyelitis left big toe, ESRD on HD, T2 DM, severe anemia Interval history: Denies any complaints. Denies fever. No drainage from left great toe. No pain. Objective - Exam Narrative Exam: Constitutional: awake, alert, no distress Head, Ears, Nose: Normocephalic, atraumatic. External ears, nose normal Eyes: Conjunctivae/corneas clear. No icterus. No ptosis. Neck: Supple, no meningeal signs Oral: no thrush Cardiovascular: S1, S2 normal. Respiratory: Good air entry, clear to auscultation bilaterally GI: Soft, non-tender; bowel sounds normal. No peritoneal signs. Musculoskeletal: No pedal edema, no cyanosis. L great toe with small wound medially, no active drainage. R upper chest HD cath + Skin: No rash or abscess Hem/Lymphatic: No palpable cervical or supraclavicular nodes. No lymphangitis Psych: no agitation Neurological: awake, alert, oriented, answering questions. - Constitutional Vitals: Vital Signs Temp Pulse Resp BP Pulse Ox 99.5 F 106 H 18 134/66 96 04/29/19 07:41 04/29/19 09:31 04/29/19 08:00 04/29/19 09:31 04/29/19 07:41 Temperature -Last 24 Hours Temperature 99.5 F Temperature 98.5 F Temperature 98.2 F Temperature 98.3 F Temperature 98.0 F Temperature 98.8 F - Labs CBC & Chem 7: 04/26/19 06:37 04/28/19 07:35 Labs: Abnormal lab results 04/28/19 04/28/19 04/29/19 Range/Units 16:41 20:16 07:49 POC Glucose 119 H 190 H 108 H (70-105)
[2019-04-29] MEDS: HEPARIN 5,000 UNIT/1 ML VIAL SUB-Q SCH ×2 (13:50→22:47)
--- NOTE | 2019-04-29 14:50 | Progress Note ---
Assessment and Plan - Patient Problems (1) Osteomyelitis Current Visit: Yes Status: Acute Qualifiers: Osteomyelitis type: unspecified type Osteomyelitis location: foot Laterality: left Qualified Code(s): M86.9 - Osteomyelitis, unspecified Plan to address problem: 1) Awaiting CT of foot 2) Continue local wound care 3) Vascular surgery note read and appreciated. 4) Follow ID recommendations 5) F/u in [facility] after discharge Subjective Date of service: 04/29/19 Patient Reports: Positive: no new complaints Objective Vital Signs - 12hr 04/29/19 04/29/19 04/29/19 04:16 06:42 07:41 Temperature 98.5 F 99.5 F Pulse Rate 103 H Pulse Rate [ Anterior Bilateral] Pulse Rate [ Posterior Bilateral Throughout] Respiratory 18 16 Rate Respiratory Rate [Anterior Bilateral] Respiratory Rate [Posterior Bilateral Throughout] Blood Pressure 106/61 106/61 134/62 O2 Sat by Pulse 96 Oximetry 04/29/19 04/29/19 04/29/19 08:00 08:49 09:31 Temperature Pulse Rate 101 H 106 H Pulse Rate [ 86 Anterior Bilateral] Pulse Rate [ 86 Posterior Bilateral Throughout] Respiratory Rate Respiratory 18 Rate [Anterior Bilateral] Respiratory 18 Rate [Posterior Bilateral Throughout] Blood Pressure 134/66 O2 Sat by Pulse Oximetry 04/29/19 12:06 Temperature 98.9 F Pulse Rate 109 H Pulse Rate [ Anterior Bilateral] Pulse Rate [ Posterior Bilateral Throughout] Respiratory 18 Rate Respiratory Rate [Anterior Bilateral] Respiratory Rate [Posterior Bilateral Throughout] Blood Pressure 122/71 O2 Sat by Pulse 100 Oximetry - Integumentary other (No change in foot exam) - Labs 04/26/19 06:37 04/28/19 07:35
[2019-04-29] MEDS ORDERED: HYDROmorphone 1 MG/1 ML INJ IV ONE (15:22)
[2019-04-29] MEDS: MEROPENEM/NS 1 GRAM/100 ML 1 GRAM/100 ML BAG IV SCH (18:03)
[2019-04-29] MEDS: ONDANSETRON 4 MG ODT TAB PO PRN (20:46)
[2019-04-29] MEDS: ONDANSETRON 4 MG/2 ML INJ IV PRN (22:47)
[2019-04-30] MEDS: hydrALAZINE 25 MG TAB PO SCH ×3 (06:18→22:22)
[2019-04-30] MEDS: ONDANSETRON 4 MG/2 ML INJ IV PRN ×2 (06:19→18:51)
[2019-04-30] MEDS: ALBUTEROL 2.5 MG/3 ML NEBU IH SCH ×3 (08:10→23:42)
[2019-04-30] MEDS: INSULIN LISPRO 100 UNIT/ML SUB-Q SCH ×4 (08:16→23:55)
--- NOTE | 2019-04-30 10:59 | Progress Note ---
Assessment and Plan Impression: * End stage renal disease on hemodialysis via RIJ permcath * Hyperkalemia, severe- resolved; now hypokalemic on 2K bath * Uremia - BUN 190 at admission, improved --Last HD treatment on Apr 01 * Left great toe wound w/osteomyelitis * Acute encephalopathy * Metabolic acidosis * Anemia secondary to ESRD vs other * Secondary hyperparathyroidism/hypocalcemia * Medical noncompliance Plan: * Patient is s/p STAT HD on 04/23/19 and 04/24/19 * Continue MWF schedule for HD, due today * Abx per ID - blood cx NGTD (Apr 24); appreciate recommendations * Surgery consult appreciated, awaiting CT scan * 3K, 3Ca bath given electrolytes * Continue calcitriol or available vitamin D analog with HD given hypocalcemia * Continue to hold Gabapentin * Dose medications for renal function * Epogen TIW prn Thank you for this consult; we will continue to follow closely. Subjective Date of service: 04/30/19 Principal diagnosis: osteomyelitis left big toe, ESRD on HD, T2 DM, severe anemia Interval history: No acute events noted overnight. Patient without new concerns this AM. Seen prior to starting on HD. Refused CT of leg as recommended by surgery. Objective - Exam Narrative Exam: General appearance: well-developed, well-nourished EENT: ATNC Respiratory: Clear to Auscultation Cardiology: regular, S1S2 Gastrointestinal: normal, no tenderness, not distended Neurologic: alert this AM Psychiatric: cooperative - Vital Signs Vital signs: Vital Signs - 12hr 04/30/19 04/30/19 04/30/19 00:16 05:04 06:18 Temperature 98.6 F 98.4 F Pulse Rate 113 H 110 H 114 H Respiratory 20 20 Rate Blood Pressure 126/75 140/75 140/75 O2 Sat by Pulse 100 98 Oximetry 04/30/19 08:16 Temperature 98.6 F Pulse Rate Respiratory 18 Rate Blood Pressure 161/91 O2 Sat by Pulse Oximetry - Lab 04/26/19 06:37 04/28/19 07:35 Most recent lab results Calcium 7.7 mg/dL (8.4-10.2) L D 04/28/19 07:35 Magnesium 1.60 mg/dL (1.7-2.3) L 04/27/19 05:30 Medications & Allergies - Medications Allergies/Adverse Reactions: Allergies No Known Allergies Allergy (Verified 06/21/16 15:23) Home Medications: Home Medications Medication Instructions Recorded Confirmed Last Taken Type Ondansetron [Zofran TAB] 4 mg PO PRN PRN 09/09/14 02/25/17 1 Day Ago History ~04/25/16 Gabapentin 300 mg PO TID 02/25/17 02/25/17 Unknown History Loratadine [Claritin] 10 mg PO QDAY PRN 02/25/17 02/25/17 Unknown History ALBUTEROL NEB's [Proventil 0.083% 2.5 mg IH QIDRT #60 nebu 02/27/17 Unknown Rx NEBS] Aspirin [Aspirin BABY CHEW TAB] 81 mg PO QDAY #30 tab.chew 02/27/17 Unknown Rx amLODIPine 5 mg PO QDAY #30 tablet 02/27/17 Unknown Rx hydrALAZINE [Apresoline TAB] 25 mg PO Q8HR #90 tablet 02/27/17 Unknown Rx hydrOXYzine HCL [Atarax] 25 mg PO Q8H PRN #20 tablet 02/27/17 Unknown Rx Clindamycin [Clindamycin CAP] 300 mg PO Q6H #40 capsule 03/02/19 Unknown Rx Active Medications: Generic Name Dose Route Start Last Admin Trade Name Freq PRN Reason Stop Dose Admin Acetaminophen 650 mg 04/24/19 04:41 04/25/19 01:17 Tylenol PO 650 mg Q4H PRN Administration Pain, Mild (1-3); fever>100.5 Albuterol 2.5 mg 04/24/19 04:38 Proventil IH Q4HRT PRN Shortness Of Breath Albuterol 2.5 mg 04/28/19 08:00 04/30/19 08:10 Proventil IH 2.5 mg TIDRT [facility] Administration Amlodipine Besylate 5 mg 04/24/19 10:00 04/29/19 09:31 Amlodipine PO Not Given QDAY [facility] Aspirin 81 mg 04/24/19 10:00 04/29/19 09:32 Baby Aspirin PO Not Given QDAY [facility] Calcitriol 0.25 mcg 04/27/19 11:00 04/29/19 09:28 Rocaltrol PO 0.25 mcg QDAY [facility] Administration Dextrose 50 ml 04/24/19 04:42 D50w (25gm) Syringe IV Q30MIN PRN Hypoglycemia Protocol Diphenhydramine HCl 25 mg 04/24/19 04:40 Benadryl IV Q6H PRN Itching Docusate Sodium 100 mg 04/24/19 10:00 04/29/19 22:00 Colace PO Not Given BID [facility] Epoetin Sylvain 20,000 unit 04/25/19 16:44 04/28/19 11:37 Procrit IV 20,000 unit JAYNE PRN Administration hemodialysis Heparin Sodium (Porcine) 5,000 unit 04/24/19 10:00 04/29/19 22:47 Heparin SUB-Q 5,000 unit Q12HR [facility] Administration Heparin Sodium (Porcine) 5,000 unit 04/25/19 16:44 04/26/19 17:05 Heparin IV 5,000 unit JAYNE PRN Administration hemodialysis Hydralazine HCl 25 mg 04/24/19 06:00 04/30/19 06:18 Apresoline PO 25 mg Q8HR [facility] Administration Hydroxyzine HCl 25 mg 04/24/19 21:27 04/26/19 02:48 Atarax PO 25 mg Q8H PRN Administration Itching Sodium Chloride 100 mls @ 999 mls/hr 04/25/19 16:44 Nacl 0.9% IV JAYNE PRN Hypotension Sodium Chloride 1,000 mls @ 100 mls/hr 04/25/19 16:44 Nacl 0.9% 1000 Ml IV JAYNE PRN FOR MUSCLE CRAMPS DURING HEMO MEROPENEM/NS 1 GRAM/100 ML 1 gram in 100 mls @ 100 mls/hr 04/28/19 18:00 04/29/19 18:03 Merrem/Ns 1 Gram/100 Ml IV 100 mls/hr QPM [facility] Administration Protocol Insulin Human Lispro 0 unit 04/24/19 07:30 04/29/19 22:00 Humalog SUB-Q Not Given ACHS [facility] Protocol Nicotine 14 mg 04/24/19 10:00 04/29/19 09:32 Habitrol TD Not Given QDAY [facility] Ondansetron HCl 4 mg 04/24/19 01:43 04/29/19 20:46 Zofran Odt PO 4 mg Q6HR PRN Administration Nausea Ondansetron HCl 4 mg 04/29/19 22:35 04/30/19 06:19 Zofran IV 4 mg Q6H PRN Administration Nausea And Vomiting Oxycodone/Acetaminophen 1 tab 04/25/19 06:13 04/28/19 11:35 Percocet 5/325 PO 1 tab Q6H PRN Administration Pain, Moderate (4-6) Sodium Chloride 10 ml 04/24/19 10:00 04/29/19 22:00 Sodium Chloride Flush Syringe 10 Ml IV Not Given BID [facility] Sodium Chloride 10 ml 04/24/19 04:42 Sodium Chloride Flush Syringe 10 Ml IV PRN PRN LINE FLUSH
[2019-04-30] MEDS: HEPARIN 5,000 UNIT/1 ML VIAL SUB-Q SCH ×2 (12:16→22:23)
[2019-04-30] MEDS: DOCUSATE SODIUM 100 MG CAP PO SCH ×2 (12:17→22:22)
[2019-04-30] MEDS ORDERED: SODIUM CHLORIDE*PRIMING MACHINE ONLY FOR DIALYSIS MC ONE (13:43)
[2019-04-30] MEDS: EPOETIN ALFA 20,000 UNIT/1 ML INJ IV PRN (13:50)
--- NOTE | 2019-04-30 14:14 | Progress Note ---
Assessment and Plan Cultures: 04/24 blood culture - NGTD 04/25 wound culture: Proteus, Group B Strep, ESBL E.coli A/P: 53 yo F with ESRD on HD, DM2, HTN, obesity admitted with altered mental status secondary to dialysis noncompliance and found to be septic with toe osteomyelitis. 1. Acute sepsis: present with tachycardia and leukocytosis. Secondary to toe osteomyelitis. 2. L great toe osteomyelitis involving the proximal phalanx per xray: at risk of amputation. Follow up surgical recs. Continue abx. Arterial duplex with evidence of PAD. If surgery performed please obtain cultures as well as proximal margin for pathology in order to assess for surgical cure. 3. DM2: tight glycemic control for improved wound healing 4. ESRD on HD: renally dose antibiotics as appropriate. 5. Acute encephalopathy: resolved. 6. PAD: vascular consulted, no plans for intervention in the hospital. Recs: - follow up surgical plan from Dr. Trent - patient refused MRI initially and now has refused CT as well - she also has peripheral vascular disease. If she remains non compliant, I doubt if the toe could be salvaged - continue IV Meropenem renally adjusted, for now. Duration of abx will depend on whether the toe can be salvaged or if she requires a toe amputation. Agnes Gamble MD, FACP [facility] ([facility] M: [phone] O: [phone] F: [phone] Subjective Date of service: 04/30/19 Principal diagnosis: osteomyelitis left big toe, ESRD on HD, T2 DM, severe anemia Interval history: Seen at dialysis. Declined CT scan as well. States she needs pain medicines to do the CT scan. No fever. No drainage from left toe. Objective - Exam Narrative Exam: Constitutional: awake, alert, no distress Head, Ears, Nose: Normocephalic, atraumatic. External ears, nose normal Eyes: Conjunctivae/corneas clear. No icterus. No ptosis. Neck: Supple, no meningeal signs Oral: no thrush Cardiovascular: S1, S2 normal. Respiratory: Good air entry, clear to auscultation bilaterally GI: Soft, non-tender; bowel sounds normal. No peritoneal signs. Musculoskeletal: No pedal edema, no cyanosis. L great toe with small wound medially, no active drainage. R upper chest HD cath + Skin: No rash or abscess Hem/Lymphatic: No palpable cervical or supraclavicular nodes. No lymphangitis Psych: no agitation Neurological: awake, alert, oriented, answering questions. - Constitutional Vitals: Vital Signs Temp Pulse Resp BP Pulse Ox 98.2 F 112 H 18 138/67 98 04/30/19 10:20 04/30/19 12:00 04/30/19 10:20 04/30/19 12:00 04/30/19 05:04 Temperature -Last 24 Hours Temperature 98.2 F Temperature 98.6 F Temperature 98.4 F Temperature 98.6 F Temperature 98.0 F Temperature 98.5 F - Labs CBC & Chem 7: 04/26/19 06:37 04/28/19 07:35 Labs: Abnormal lab results 04/29/19 04/29/19 Range/Units 16:49 20:53 POC Glucose 227 H 145 H (70-105)
[2019-04-30] MEDS: CALCITRIOL 0.25 MCG CAP PO SCH (16:04)
[2019-04-30] MEDS: amLODIPine 10 MG TAB PO SCH (16:10)
[2019-04-30] MEDS: NICOTINE 14 MG/24 HR PATCH TD SCH (16:11)
[2019-04-30] MEDS: ASPIRIN 81 MG TAB CHEW PO SCH (16:11)
[2019-04-30] MEDS: oxyCODONE /ACETAMINOPHEN 5-325MG TAB PO PRN (17:23)
[2019-04-30] MEDS: MEROPENEM/NS 1 GRAM/100 ML 1 GRAM/100 ML BAG IV SCH (17:23)
[2019-04-30] MEDS: ONDANSETRON 4 MG ODT TAB PO PRN (17:23)
[2019-05-01] MEDS: hydrALAZINE 25 MG TAB PO SCH ×3 (05:37→21:00)
[2019-05-01] MEDS: ALBUTEROL 2.5 MG/3 ML NEBU IH SCH ×3 (07:39→22:22)
[2019-05-01] MEDS: INSULIN LISPRO 100 UNIT/ML SUB-Q SCH ×4 (08:30→23:17)
[2019-05-01] MEDS: NICOTINE 14 MG/24 HR PATCH TD SCH (09:26)
[2019-05-01] MEDS: DOCUSATE SODIUM 100 MG CAP PO SCH ×2 (09:27→21:00)
[2019-05-01] MEDS: CALCITRIOL 0.25 MCG CAP PO SCH (09:27)
[2019-05-01] MEDS: ASPIRIN 81 MG TAB CHEW PO SCH (09:27)
[2019-05-01] MEDS: HEPARIN 5,000 UNIT/1 ML VIAL SUB-Q SCH ×2 (09:28→21:00)
[2019-05-01] MEDS: amLODIPine 10 MG TAB PO SCH ×2 (09:28→09:32)
--- NOTE | 2019-05-01 12:09 | Progress Note ---
Assessment and Plan Impression: * End stage renal disease on hemodialysis via RIJ permcath * Hyperkalemia, severe- resolved; now hypokalemic on 2K bath * Uremia - BUN 190 at admission, improved --Last HD treatment on Apr 01 * Left great toe wound w/osteomyelitis * Acute encephalopathy * Metabolic acidosis * Anemia secondary to ESRD vs other * Secondary hyperparathyroidism/hypocalcemia * Medical noncompliance Plan: * Patient is s/p STAT HD on 04/23/19 and 04/24/19 * Continue MWF schedule for HD, * Abx per ID - blood cx NGTD (Apr 24); appreciate recommendations * Surgery consult appreciated, awaiting CT scan * 3K, 3Ca bath given electrolytes * Continue calcitriol or available vitamin D analog with HD given hypocalcemia * Continue to hold Gabapentin * Dose medications for renal function * Epogen TIW prn Subjective Date of service: 05/01/19 Principal diagnosis: osteomyelitis left big toe, ESRD on HD, T2 DM, severe anemia Interval history: Patient is comfortable this morning. States that she had some nausea and vomiting last night. It has now resolved. Denies any shortness of breath. Objective - Vital Signs Vital signs: Vital Signs - 12hr 05/01/19 05/01/19 05:37 07:35 Pulse Rate 115 H Pulse Rate [ 115 H Anterior Bilateral] Pulse Rate [ 117 H Posterior Bilateral Throughout] Respiratory 20 Rate [Anterior Bilateral] Respiratory 20 Rate [Posterior Bilateral Throughout] Blood Pressure 151/75 - General Appearance General appearance: well-developed, well-nourished, appears stated age EENT: PERRL, mucous membranes moist Neck: no JVD, no thyromegaly, no carotid bruit, supple, other (right IJ PermCath in place) Respiratory: Present: Clear to Ascultation Cardiology: regular, normal heart rate, S1S2, no murmurs Gastrointestinal: normal, normoactive bowel sounds Integumentary: other (no edema) - Lab 04/26/19 06:37 04/28/19 07:35 Most recent lab results Calcium 7.7 mg/dL (8.4-10.2) L D 04/28/19 07:35 Magnesium 1.60 mg/dL (1.7-2.3) L 04/27/19 05:30 Medications & Allergies - Medications Allergies/Adverse Reactions: Allergies No Known Allergies Allergy (Verified 06/21/16 15:23) Home Medications: Home Medications Medication Instructions Recorded Confirmed Last Taken Type Ondansetron [Zofran TAB] 4 mg PO PRN PRN 09/09/14 02/25/17 1 Day Ago History ~04/25/16 Gabapentin 300 mg PO TID 02/25/17 02/25/17 Unknown History Loratadine [Claritin] 10 mg PO QDAY PRN 02/25/17 02/25/17 Unknown History ALBUTEROL NEB's [Proventil 0.083% 2.5 mg IH QIDRT #60 nebu 02/27/17 Unknown Rx NEBS] Aspirin [Aspirin BABY CHEW TAB] 81 mg PO QDAY #30 tab.chew 02/27/17 Unknown Rx amLODIPine 5 mg PO QDAY #30 tablet 02/27/17 Unknown Rx hydrALAZINE [Apresoline TAB] 25 mg PO Q8HR #90 tablet 02/27/17 Unknown Rx hydrOXYzine HCL [Atarax] 25 mg PO Q8H PRN #20 tablet 02/27/17 Unknown Rx Clindamycin [Clindamycin CAP] 300 mg PO Q6H #40 capsule 03/02/19 Unknown Rx Active Medications: Generic Name Dose Route Start Last Admin Trade Name Freq PRN Reason Stop Dose Admin Acetaminophen 650 mg 04/24/19 04:41 04/25/19 01:17 Tylenol PO 650 mg Q4H PRN Administration Pain, Mild (1-3); fever>100.5 Albuterol 2.5 mg 04/24/19 04:38 Proventil IH Q4HRT PRN Shortness Of Breath Albuterol 2.5 mg 04/28/19 08:00 05/01/19 07:39 Proventil IH 2.5 mg TIDRT [facility] Administration Amlodipine Besylate 5 mg 04/24/19 10:00 05/01/19 09:32 Amlodipine PO 5 mg QDAY [facility] Administration Aspirin 81 mg 04/24/19 10:00 05/01/19 09:27 Baby Aspirin PO 81 mg QDAY [facility] Administration Calcitriol 0.25 mcg 04/27/19 11:00 05/01/19 09:27 Rocaltrol PO 0.25 mcg QDAY [facility] Administration Dextrose 50 ml 04/24/19 04:42 D50w (25gm) Syringe IV Q30MIN PRN Hypoglycemia Protocol Diphenhydramine HCl 25 mg 04/24/19 04:40 Benadryl IV Q6H PRN Itching Docusate Sodium 100 mg 04/24/19 10:00 05/01/19 09:27 Colace PO 100 mg BID [facility] Administration Epoetin Sylvain 20,000 unit 04/25/19 16:44 04/30/19 13:50 Procrit IV 20,000 unit JAYNE PRN Administration hemodialysis Heparin Sodium (Porcine) 5,000 unit 04/24/19 10:00 05/01/19 09:28 Heparin SUB-Q 5,000 unit Q12HR [facility] Administration Heparin Sodium (Porcine) 5,000 unit 04/25/19 16:44 04/26/19 17:05 Heparin IV 5,000 unit JAYNE PRN Administration hemodialysis Hydralazine HCl 25 mg 04/24/19 06:00 05/01/19 05:37 Apresoline PO 25 mg Q8HR [facility] Administration Hydroxyzine HCl 25 mg 04/24/19 21:27 04/26/19 02:48 Atarax PO 25 mg Q8H PRN Administration Itching Sodium Chloride 100 mls @ 999 mls/hr 04/25/19 16:44 Nacl 0.9% IV JAYNE PRN Hypotension Sodium Chloride 1,000 mls @ 100 mls/hr 04/25/19 16:44 Nacl 0.9% 1000 Ml IV JAYNE PRN FOR MUSCLE CRAMPS DURING HEMO MEROPENEM/NS 1 GRAM/100 ML 1 gram in 100 mls @ 100 mls/hr 04/28/19 18:00 04/30/19 17:23 Merrem/Ns 1 Gram/100 Ml IV 100 mls/hr QPM REPLACED BY [facility] Administration Protocol Insulin Human Lispro 0 unit 04/24/19 07:30 05/01/19 08:30 Humalog SUB-Q Not Given ACHS REPLACED BY [facility] Protocol Nicotine 14 mg 04/24/19 10:00 05/01/19 09:26 Habitrol TD Not Given QDAY REPLACED BY [facility] Ondansetron HCl 4 mg 04/24/19 01:43 04/30/19 17:23 Zofran Odt PO 4 mg Q6HR PRN Administration Nausea Ondansetron HCl 4 mg 04/29/19 22:35 04/30/19 18:51 Zofran IV 4 mg Q6H PRN Administration Nausea And Vomiting Oxycodone/Acetaminophen 1 tab 04/25/19 06:13 04/30/19 17:23 Percocet 5/325 PO 1 tab Q6H PRN Administration Pain, Moderate (4-6) Sodium Chloride 10 ml 04/24/19 10:00 05/01/19 09:30 Sodium Chloride Flush Syringe 10 Ml IV 10 ml BID L[facility]ON Administration Sodium Chloride 10 ml 04/24/19 04:42 Sodium Chloride Flush Syringe 10 Ml IV PRN PRN LINE FLUSH
--- NOTE | 2019-05-01 14:14 | Progress Note ---
Assessment and Plan Assessment and plan: 53-year-old woman who presented to the hospital with chronic wounds to left big toe. She had also missed dialysis. Sepsis/osteomyelitis of left big toe Bedside debridement done by Dr. Trent 04/27, she refused MRI of her foot and this was despite being given IV Ativan, and even her daughter was unable to convince her to get it. She states that she is afraid to have her leg in a machine.. CT is pending, antibiotics per ID. wound cx grew ESBL ecoli, on meropenam PAD of LE Arterial duplex abnormal, Vasc sx/IR consult appreciated. Discussed with Precious, patient will be seen as an outpatient. 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 was repleted by fish and wildlife biologist anemia of CD sp 2 units of prbc improved nonadherence Preventative health counseling performed for 17 minutes DVT prophylaxis; heparin subcu History Interval history: Denies pain to lower extremities, denies fevers, denies chills Review of systems Constitutional: No fevers, no malaise, no joint pains CVS: No chest pain, no orthopnea, no pedal edema GI: No abdominal pain, no diarrhea, no vomiting, no constipation Respiratory: No shortness of breath, no wheezing, no coughing Hospitalist Physical - Physical exam Narrative exam: General.: Appears well, no distress, nontoxic HEENT: Moist mucous membranes, extraocular muscles intact, no lymphadenopathy Neck: supple Cardiac: S1-S2 heard Lungs: clear to auscultation bilaterally Abdomen: soft , nontender, nondistended, bowel sounds positive Extremities: no edema clubbing or cyanosis, left great toe dressing was not removed. Skin: no rash or lesions Neurologic: no gross focal deficits Psych: calm, and cooperative - Constitutional Vitals: Temp Pulse Resp BP Pulse Ox 99.0 F 115 H 20 151/75 98 05/01/19 00:00 05/01/19 07:35 05/01/19 07:35 05/01/19 05:37 05/01/19 00:00 General appearance: Present: no acute distress, obese, disheveled Results - Labs CBC & Chem 7: 04/26/19 06:37 04/28/19 07:35 Labs: Laboratory Last Values WBC 12.7 K/mm3 (4.5-11.0) H 04/26/19 06:37 RBC 3.24 M/mm3 (3.65-5.03) L 04/26/19 06:37 Hgb 9.5 gm/dl (10.1-14.3) L 04/26/19 06:37 Hct 28.9 % (30.3-42.9) L 04/26/19 06:37 MCV 89 fl (79-97) 04/26/19 06:37 MCH 29 pg (28-32) 04/26/19 06:37 MCHC 33 % (30-34) 04/26/19 06:37 RDW 18.0 % (13.2-15.2) H 04/26/19 06:37 Plt Count 329 K/mm3 (140-440) 04/26/19 06:37 Lymph % (Auto) 6.5 % (13.4-35.0) L 04/25/19 06:32 [place] % (Auto) 7.7 % (0.0-7.3) H 04/25/19 06:32 Eos % (Auto) 2.7 % (0.0-4.3) 04/25/19 06:32 Baso % (Auto) 0.3 % (0.0-1.8) 04/25/19 06:32 Lymph # 0.8 K/mm3 (1.2-5.4) L 04/25/19 06:32 [place] # 1.0 K/mm3 (0.0-0.8) H 04/25/19 06:32 Eos # 0.3 K/mm3 (0.0-0.4) 04/25/19 06:32 Baso # 0.0 K/mm3 (0.0-0.1) 04/25/19 06:32 Seg Neutrophils % 82.8 % (40.0-70.0) H 04/25/19 06:32 Seg Neutrophils # 10.5 K/mm3 (1.8-7.7) H 04/25/19 06:32 ESR > 140.0 mm/Hr (0-20) 04/24/19 02:47 PT 19.4 Sec. (12.2-14.9) H 04/24/19 02:47 INR 1.67 (0.87-1.13) H 04/24/19 02:47 Sodium 137 mmol/L (137-145) 04/28/19 07:35 Potassium 3.8 mmol/L (3.6-5.0) 04/28/19 07:35 Chloride 96.6 mmol/L (98-107) L 04/28/19 07:35 Carbon Dioxide 20 mmol/L (22-30) L 04/28/19 07:35 Anion Gap 24 mmol/L 04/28/19 07:35 BUN 22 mg/dL (7-17) H 04/28/19 07:35 Creatinine 7.9 mg/dL (0.7-1.2) H D 04/28/19 07:35 Estimated GFR 6 ml/min 04/28/19 07:35 BUN/Creatinine Ratio 3 % 04/28/19 07:35 Glucose 100 mg/dL (65-100) 04/28/19 07:35 POC Glucose 106 (70-105) H 05/01/19 08:53 Hemoglobin A1c < 4.0 % (4-6) L 04/24/19 06:45 Calcium 7.7 mg/dL (8.4-10.2) L D 04/28/19 07:35 Magnesium 1.60 mg/dL (1.7-2.3) L 04/27/19 05:30 Total Bilirubin 0.40 mg/dL (0.1-1.2) 04/28/19 07:35 AST 12 units/L (5-40) 04/28/19 07:35 ALT 8 units/L (7-56) 04/28/19 07:35 Alkaline Phosphatase 79 units/L (35-129) 04/28/19 07:35 Total Creatine Kinase 450 units/L (30-135) H 04/24/19 02:47 C-Reactive Protein 11.50 mg/dL (0.00-1.30) H 04/24/19 02:47 Total Protein 6.9 g/dL (6.3-8.2) 04/28/19 07:35 Albumin 3.0 g/dL (3.9-5) L 04/28/19 07:35 Albumin/Globulin Ratio 0.8 % 04/28/19 07:35 Random Vancomycin 22.0 ug/mL (0-40.0) 04/28/19 07:35 Hepatitis A IgM Ab Non-reactive (NonReactive) 04/24/19 06:28 Hep Bs Antigen Non-reactive (Negative) 04/24/19 06:28 Hep B Core IgM Ab Non-reactive (NonReactive) 04/24/19 06:28 Hepatitis C Antibody Non-reactive (NonReactive) 04/24/19 06:28 Blood Type B POSITIVE 04/24/19 02:47 Antibody Screen Negative 04/24/19 02:47 Crossmatch See Detail 04/24/19 02:47 Active Medications - Current Medications Current Medications: Generic Name Dose Route Start Last Admin Trade Name Freq PRN Reason Stop Dose Admin Acetaminophen 650 mg 04/24/19 04:41 04/25/19 01:17 Tylenol PO 650 mg Q4H PRN Administration Pain, Mild (1-3); fever>100.5 Albuterol 2.5 mg 04/24/19 04:38 Proventil IH Q4HRT PRN Shortness Of Breath Albuterol 2.5 mg 04/28/19 08:00 05/01/19 14:10 Proventil IH 2.5 mg TIDRT L[place]ON Administration Amlodipine Besylate 5 mg 04/24/19 10:00 05/01/19 09:32 Amlodipine PO 5 mg QDAY [place] Administration Aspirin 81 mg 04/24/19 10:00 05/01/19 09:27 Baby Aspirin PO 81 mg QDAY [facility] Administration Calcitriol 0.25 mcg 04/27/19 11:00 05/01/19 09:27 Rocaltrol PO 0.25 mcg QDAY [place] Administration Dextrose 50 ml 04/24/19 04:42 D50w (25gm) Syringe IV Q30MIN PRN Hypoglycemia Protocol Diphenhydramine HCl 25 mg 04/24/19 04:40 Benadryl IV Q6H PRN Itching Docusate Sodium 100 mg 04/24/19 10:00 05/01/19 09:27 Colace PO 100 mg BID [facility] Administration Epoetin Sylvain 20,000 unit 04/25/19 16:44 04/30/19 13:50 Procrit IV 20,000 unit JAYNE PRN Administration hemodialysis Heparin Sodium (Porcine) 5,000 unit 04/24/19 10:00 05/01/19 09:28 Heparin SUB-Q 5,000 unit Q12HR [facility] Administration Heparin Sodium (Porcine) 5,000 unit 04/25/19 16:44 04/26/19 17:05 Heparin IV 5,000 unit JAYNE PRN Administration hemodialysis Hydralazine HCl 25 mg 04/24/19 06:00 05/01/19 05:37 Apresoline PO 25 mg Q8HR [facility] Administration Hydroxyzine HCl 25 mg 04/24/19 21:27 04/26/19 02:48 Atarax PO 25 mg Q8H PRN Administration Itching Sodium Chloride 100 mls @ 999 mls/hr 04/25/19 16:44 Nacl 0.9% IV JAYNE PRN Hypotension Sodium Chloride 1,000 mls @ 100 mls/hr 04/25/19 16:44 Nacl 0.9% 1000 Ml IV JAYNE PRN FOR MUSCLE CRAMPS DURING HEMO MEROPENEM/NS 1 GRAM/100 ML 1 gram in 100 mls @ 100 mls/hr 04/28/19 18:00 04/30/19 17:23 Merrem/Ns 1 Gram/100 Ml IV 100 mls/hr QPM [facility] Administration Protocol Insulin Human Lispro 0 unit 04/24/19 07:30 05/01/19 08:30 Humalog SUB-Q Not Given ACHS [facility] Protocol Nicotine 14 mg 04/24/19 10:00 05/01/19 09:26 Habitrol TD Not Given QDAY [facility] Ondansetron HCl 4 mg 04/24/19 01:43 04/30/19 17:23 Zofran Odt PO 4 mg Q6HR PRN Administration Nausea Ondansetron HCl 4 mg 04/29/19 22:35 04/30/19 18:51 Zofran IV 4 mg Q6H PRN Administration Nausea And Vomiting Oxycodone/Acetaminophen 1 tab 04/25/19 06:13 04/30/19 17:23 Percocet 5/325 PO 1 tab Q6H PRN Administration Pain, Moderate (4-6) Sodium Chloride 10 ml 04/24/19 10:00 05/01/19 09:30 Sodium Chloride Flush Syringe 10 Ml IV 10 ml BID [place]ON Administration Sodium Chloride 10 ml 04/24/19 04:42 Sodium Chloride Flush Syringe 10 Ml IV PRN PRN LINE FLUSH Nutrition/Malnutrition Assess - Dietary Evaluation Nutrition/Malnutrition Findings: Nutrition Notes Start: 04/30/19 13:06 Freq: Status: Active Protocol: Document 04/30/19 13:06 CT (Rec: 04/30/19 13:09 CT [id number]) Co-Sign 04/30/19 13:06 LP Nutrition Notes Need for Assessment generated from: LOS Initial or Follow up Brief Note Current Diagnosis Coronary Artery Disease, Diabetes,Sepsis,Hypertension, Heart Failure Other Pertinent Diagnosis Hx CVA, ESRD (T/T/Sa), anemia, arthritis, COPD, Chronic wounds Current Diet Renal/Consistent CHO Labs/Tests Reviewed Pertinent Medications Reviewed Height 5 ft 6 in Weight 72.5 kg [place] Body Weight (kg) 59.09 BMI 25.7 Subjective/Other Information Visited pt room twice and pt was not in room
--- NOTE | 2019-05-01 15:20 | Progress Note ---
Assessment and Plan Assessment and plan: 53-year-old woman who presented to the hospital with chronic wounds to left big toe. She had also missed dialysis. Sepsis/osteomyelitis of left big toe Bedside debridement done by Dr. Trent 04/27, she refused MRI of her foot and this was despite being given IV Ativan, and even her daughter was unable to convince her to get it. She later refused CT scan, she was advised and the benefit was explained to the patient and she continues to refuse ct or mri, antibiotics per ID. wound cx grew ESBL ecoli, on meropenam contact iso PAD of LE Arterial duplex abnormal, Vasc sx/IR consult appreciated. Discussed with Precious, patient will be seen as an outpatient. 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 was repleted by metal window screen assembler anemia of CD sp 2 units of prbc improved nonadherence Preventative health counseling performed for 17 minutes DVT prophylaxis; heparin subcu History Interval history: Denies pain to lower extremities, denies fevers, denies chills Review of systems Constitutional: No fevers, no malaise, no joint pains CVS: No chest pain, no orthopnea, no pedal edema GI: No abdominal pain, no diarrhea, no vomiting, no constipation Respiratory: No shortness of breath, no wheezing, no coughing Hospitalist Physical - Physical exam Narrative exam: General.: Appears well, no distress, nontoxic HEENT: Moist mucous membranes, extraocular muscles intact, no lymphadenopathy Neck: supple Cardiac: S1-S2 heard Lungs: clear to auscultation bilaterally Abdomen: soft , nontender, nondistended, bowel sounds positive Extremities: no edema clubbing or cyanosis, left great toe dressing was not removed. Skin: no rash or lesions Neurologic: no gross focal deficits Psych: calm, and cooperative - Constitutional Vitals: Temp Pulse Resp BP Pulse Ox 99.0 F 120 H 19 151/75 98 05/01/19 00:00 05/01/19 14:05 05/01/19 14:05 05/01/19 05:37 05/01/19 00:00 General appearance: Present: no acute distress, obese, disheveled Results - Labs CBC & Chem 7: 04/26/19 06:37 04/28/19 07:35 Labs: Laboratory Last Values WBC 12.7 K/mm3 (4.5-11.0) H 04/26/19 06:37 RBC 3.24 M/mm3 (3.65-5.03) L 04/26/19 06:37 Hgb 9.5 gm/dl (10.1-14.3) L 04/26/19 06:37 Hct 28.9 % (30.3-42.9) L 04/26/19 06:37 MCV 89 fl (79-97) 04/26/19 06:37 MCH 29 pg (28-32) 04/26/19 06:37 MCHC 33 % (30-34) 04/26/19 06:37 RDW 18.0 % (13.2-15.2) H 04/26/19 06:37 Plt Count 329 K/mm3 (140-440) 04/26/19 06:37 Lymph % (Auto) 6.5 % (13.4-35.0) L 04/25/19 06:32 [place] % (Auto) 7.7 % (0.0-7.3) H 04/25/19 06:32 Eos % (Auto) 2.7 % (0.0-4.3) 04/25/19 06:32 Baso % (Auto) 0.3 % (0.0-1.8) 04/25/19 06:32 Lymph # 0.8 K/mm3 (1.2-5.4) L 04/25/19 06:32 [place] # 1.0 K/mm3 (0.0-0.8) H 04/25/19 06:32 Eos # 0.3 K/mm3 (0.0-0.4) 04/25/19 06:32 Baso # 0.0 K/mm3 (0.0-0.1) 04/25/19 06:32 Seg Neutrophils % 82.8 % (40.0-70.0) H 04/25/19 06:32 Seg Neutrophils # 10.5 K/mm3 (1.8-7.7) H 04/25/19 06:32 ESR > 140.0 mm/Hr (0-20) 04/24/19 02:47 PT 19.4 Sec. (12.2-14.9) H 04/24/19 02:47 INR 1.67 (0.87-1.13) H 04/24/19 02:47 Sodium 137 mmol/L (137-145) 04/28/19 07:35 Potassium 3.8 mmol/L (3.6-5.0) 04/28/19 07:35 Chloride 96.6 mmol/L (98-107) L 04/28/19 07:35 Carbon Dioxide 20 mmol/L (22-30) L 04/28/19 07:35 Anion Gap 24 mmol/L 04/28/19 07:35 BUN 22 mg/dL (7-17) H 04/28/19 07:35 Creatinine 7.9 mg/dL (0.7-1.2) H D 04/28/19 07:35 Estimated GFR 6 ml/min 04/28/19 07:35 BUN/Creatinine Ratio 3 % 04/28/19 07:35 Glucose 100 mg/dL (65-100) 04/28/19 07:35 POC Glucose 122 (70-105) H 05/01/19 12:19 Hemoglobin A1c < 4.0 % (4-6) L 04/24/19 06:45 Calcium 7.7 mg/dL (8.4-10.2) L D 04/28/19 07:35 Magnesium 1.60 mg/dL (1.7-2.3) L 04/27/19 05:30 Total Bilirubin 0.40 mg/dL (0.1-1.2) 04/28/19 07:35 AST 12 units/L (5-40) 04/28/19 07:35 ALT 8 units/L (7-56) 04/28/19 07:35 Alkaline Phosphatase 79 units/L (35-129) 04/28/19 07:35 Total Creatine Kinase 450 units/L (30-135) H 04/24/19 02:47 C-Reactive Protein 11.50 mg/dL (0.00-1.30) H 04/24/19 02:47 Total Protein 6.9 g/dL (6.3-8.2) 04/28/19 07:35 Albumin 3.0 g/dL (3.9-5) L 04/28/19 07:35 Albumin/Globulin Ratio 0.8 % 04/28/19 07:35 Random Vancomycin 22.0 ug/mL (0-40.0) 04/28/19 07:35 Hepatitis A IgM Ab Non-reactive (NonReactive) 04/24/19 06:28 Hep Bs Antigen Non-reactive (Negative) 04/24/19 06:28 Hep B Core IgM Ab Non-reactive (NonReactive) 04/24/19 06:28 Hepatitis C Antibody Non-reactive (NonReactive) 04/24/19 06:28 Blood Type B POSITIVE 04/24/19 02:47 Antibody Screen Negative 04/24/19 02:47 Crossmatch See Detail 04/24/19 02:47 Active Medications - Current Medications Current Medications: Generic Name Dose Route Start Last Admin Trade Name Freq PRN Reason Stop Dose Admin Acetaminophen 650 mg 04/24/19 04:41 04/25/19 01:17 Tylenol PO 650 mg Q4H PRN Administration Pain, Mild (1-3); fever>100.5 Albuterol 2.5 mg 04/24/19 04:38 Proventil IH Q4HRT PRN Shortness Of Breath Albuterol 2.5 mg 04/28/19 08:00 05/01/19 14:10 Proventil IH 2.5 mg TIDRT [facility] Administration Amlodipine Besylate 5 mg 04/24/19 10:00 05/01/19 09:32 Amlodipine PO 5 mg QDAY [facility] Administration Aspirin 81 mg 04/24/19 10:00 05/01/19 09:27 Baby Aspirin PO 81 mg QDAY [facility] Administration Calcitriol 0.25 mcg 04/27/19 11:00 05/01/19 09:27 Rocaltrol PO 0.25 mcg QDAY [facility] Administration Dextrose 50 ml 04/24/19 04:42 D50w (25gm) Syringe IV Q30MIN PRN Hypoglycemia Protocol Diphenhydramine HCl 25 mg 04/24/19 04:40 Benadryl IV Q6H PRN Itching Docusate Sodium 100 mg 04/24/19 10:00 05/01/19 09:27 Colace PO 100 mg BID [facility] Administration Epoetin Sylvain 20,000 unit 04/25/19 16:44 04/30/19 13:50 Procrit IV 20,000 unit JAYNE PRN Administration hemodialysis Heparin Sodium (Porcine) 5,000 unit 04/24/19 10:00 05/01/19 09:28 Heparin SUB-Q 5,000 unit Q12HR [place] Administration Heparin Sodium (Porcine) 5,000 unit 04/25/19 16:44 04/26/19 17:05 Heparin IV 5,000 unit JAYNE PRN Administration hemodialysis Hydralazine HCl 25 mg 04/24/19 06:00 05/01/19 05:37 Apresoline PO 25 mg Q8HR [facility] Administration Hydroxyzine HCl 25 mg 04/24/19 21:27 04/26/19 02:48 Atarax PO 25 mg Q8H PRN Administration Itching Sodium Chloride 100 mls @ 999 mls/hr 04/25/19 16:44 Nacl 0.9% IV JAYNE PRN Hypotension Sodium Chloride 1,000 mls @ 100 mls/hr 04/25/19 16:44 Nacl 0.9% 1000 Ml IV JAYNE PRN FOR MUSCLE CRAMPS DURING HEMO MEROPENEM/NS 1 GRAM/100 ML 1 gram in 100 mls @ 100 mls/hr 04/28/19 18:00 04/30/19 17:23 Merrem/Ns 1 Gram/100 Ml IV 100 mls/hr QPM [facility] Administration Protocol Insulin Human Lispro 0 unit 04/24/19 07:30 05/01/19 12:30 Humalog SUB-Q Not Given ACHS [facility] Protocol Nicotine 14 mg 04/24/19 10:00 05/01/19 09:26 Habitrol TD Not Given QDAY [facility] Ondansetron HCl 4 mg 04/24/19 01:43 04/30/19 17:23 Zofran Odt PO 4 mg Q6HR PRN Administration Nausea Ondansetron HCl 4 mg 04/29/19 22:35 04/30/19 18:51 Zofran IV 4 mg Q6H PRN Administration Nausea And Vomiting Oxycodone/Acetaminophen 1 tab 04/25/19 06:13 04/30/19 17:23 Percocet 5/325 PO 1 tab Q6H PRN Administration Pain, Moderate (4-6) Sodium Chloride 10 ml 04/24/19 10:00 05/01/19 09:30 Sodium Chloride Flush Syringe 10 Ml IV 10 ml BID [place] Administration Sodium Chloride 10 ml 04/24/19 04:42 Sodium Chloride Flush Syringe 10 Ml IV PRN PRN LINE FLUSH Nutrition/Malnutrition Assess - Dietary Evaluation Nutrition/Malnutrition Findings: Nutrition Notes Start: 04/30/19 13:06 Freq: Status: Active Protocol: Document 04/30/19 13:06 CT (Rec: 04/30/19 13:09 CT [id number]) Co-Sign 04/30/19 13:06 LP Nutrition Notes Need for Assessment generated from: LOS Initial or Follow up Brief Note Current Diagnosis Coronary Artery Disease, Diabetes,Sepsis,Hypertension, Heart Failure Other Pertinent Diagnosis Hx CVA, ESRD (T/T/Sa), anemia, arthritis, COPD, Chronic wounds Current Diet Renal/Consistent CHO Labs/Tests Reviewed Pertinent Medications Reviewed Height 5 ft 6 in Weight 72.5 kg [place] Body Weight (kg) 59.09 BMI 25.7 Subjective/Other Information Visited pt room twice and pt was not in room
[2019-05-01] MEDS ORDERED: LORazepam 2 MG/ML VIAL IV PRN (16:27)
[2019-05-01] MEDS ORDERED: HYDROmorphone 1 MG/1 ML INJ IV PRN (16:27)
[2019-05-01] MEDS: MEROPENEM/NS 1 GRAM/100 ML 1 GRAM/100 ML BAG IV SCH (20:10)
[2019-05-01] MEDS: ACETAMINOPHEN 325 MG TAB PO PRN (23:53)
[2019-05-02] MEDS: hydrALAZINE 25 MG TAB PO SCH ×3 (05:36→21:51)
[2019-05-02] MEDS: ALBUTEROL 2.5 MG/3 ML NEBU IH SCH ×3 (07:22→19:49)
--- NOTE | 2019-05-02 07:36 | Progress Note ---
Assessment and Plan Assessment and plan: 53-year-old woman who presented to the hospital with chronic wounds to left big toe. She had also missed dialysis. Sepsis/osteomyelitis of left big toe Bedside debridement done by Dr. Trent 04/27, she refused MRI of her foot and this was despite being given IV Ativan, and even her daughter was unable to convince her to get it. She later refused CT scan, she was advised and the benefit was explained to the patient and she continues to refuse MRI, she is willing to do CT scan today with pre-medication, antibiotics per ID. wound cx grew ESBL ecoli, on meropenam contact iso PAD of LE Arterial duplex abnormal, Vasc sx/IR consult appreciated. Discussed with Precious, patient will be seen as an outpatient. 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 anemia of CD sp 2 units of prbc improved nonadherence Preventative health counseling performed for 17 minutes DVT prophylaxis; heparin subcu History Interval history: Denies pain to lower extremities, denies fevers, denies chills Review of systems Constitutional: No fevers, no malaise, no joint pains CVS: No chest pain, no orthopnea, no pedal edema GI: No abdominal pain, no diarrhea, no vomiting, no constipation Respiratory: No shortness of breath, no wheezing, no coughing Hospitalist Physical - Physical exam Narrative exam: General.: Appears well, no distress, nontoxic HEENT: Moist mucous membranes, extraocular muscles intact, no lymphadenopathy Neck: supple Cardiac: S1-S2 heard Lungs: clear to auscultation bilaterally Abdomen: soft , nontender, nondistended, bowel sounds positive Extremities: no edema clubbing or cyanosis, left great toe dressing was not removed. Skin: no rash or lesions Neurologic: no gross focal deficits Psych: calm, and cooperative - Constitutional Vitals: Temp Pulse Resp BP Pulse Ox 97.5 F L 106 H 18 114/52 99 05/02/19 06:09 05/02/19 06:09 05/02/19 06:09 05/02/19 06:09 05/02/19 06:09 General appearance: Present: no acute distress, obese, disheveled Results - Labs CBC & Chem 7: 04/26/19 06:37 04/28/19 07:35 Labs: Laboratory Last Values WBC 12.7 K/mm3 (4.5-11.0) H 04/26/19 06:37 RBC 3.24 M/mm3 (3.65-5.03) L 04/26/19 06:37 Hgb 9.5 gm/dl (10.1-14.3) L 04/26/19 06:37 Hct 28.9 % (30.3-42.9) L 04/26/19 06:37 MCV 89 fl (79-97) 04/26/19 06:37 MCH 29 pg (28-32) 04/26/19 06:37 MCHC 33 % (30-34) 04/26/19 06:37 RDW 18.0 % (13.2-15.2) H 04/26/19 06:37 Plt Count 329 K/mm3 (140-440) 04/26/19 06:37 Lymph % (Auto) 6.5 % (13.4-35.0) L 04/25/19 06:32 [place] % (Auto) 7.7 % (0.0-7.3) H 04/25/19 06:32 Eos % (Auto) 2.7 % (0.0-4.3) 04/25/19 06:32 Baso % (Auto) 0.3 % (0.0-1.8) 04/25/19 06:32 Lymph # 0.8 K/mm3 (1.2-5.4) L 04/25/19 06:32 [place] # 1.0 K/mm3 (0.0-0.8) H 04/25/19 06:32 Eos # 0.3 K/mm3 (0.0-0.4) 04/25/19 06:32 Baso # 0.0 K/mm3 (0.0-0.1) 04/25/19 06:32 Seg Neutrophils % 82.8 % (40.0-70.0) H 04/25/19 06:32 Seg Neutrophils # 10.5 K/mm3 (1.8-7.7) H 04/25/19 06:32 ESR > 140.0 mm/Hr (0-20) 04/24/19 02:47 PT 19.4 Sec. (12.2-14.9) H 04/24/19 02:47 INR 1.67 (0.87-1.13) H 04/24/19 02:47 Sodium 137 mmol/L (137-145) 04/28/19 07:35 Potassium 3.8 mmol/L (3.6-5.0) 04/28/19 07:35 Chloride 96.6 mmol/L (98-107) L 04/28/19 07:35 Carbon Dioxide 20 mmol/L (22-30) L 04/28/19 07:35 Anion Gap 24 mmol/L 04/28/19 07:35 BUN 22 mg/dL (7-17) H 04/28/19 07:35 Creatinine 7.9 mg/dL (0.7-1.2) H D 04/28/19 07:35 Estimated GFR 6 ml/min 04/28/19 07:35 BUN/Creatinine Ratio 3 % 04/28/19 07:35 Glucose 100 mg/dL (65-100) 04/28/19 07:35 POC Glucose 184 (70-105) H 05/01/19 22:06 Hemoglobin A1c < 4.0 % (4-6) L 04/24/19 06:45 Calcium 7.7 mg/dL (8.4-10.2) L D 04/28/19 07:35 Magnesium 1.60 mg/dL (1.7-2.3) L 04/27/19 05:30 Total Bilirubin 0.40 mg/dL (0.1-1.2) 04/28/19 07:35 AST 12 units/L (5-40) 04/28/19 07:35 ALT 8 units/L (7-56) 04/28/19 07:35 Alkaline Phosphatase 79 units/L (35-129) 04/28/19 07:35 Total Creatine Kinase 450 units/L (30-135) H 04/24/19 02:47 C-Reactive Protein 11.50 mg/dL (0.00-1.30) H 04/24/19 02:47 Total Protein 6.9 g/dL (6.3-8.2) 04/28/19 07:35 Albumin 3.0 g/dL (3.9-5) L 04/28/19 07:35 Albumin/Globulin Ratio 0.8 % 04/28/19 07:35 Random Vancomycin 22.0 ug/mL (0-40.0) 04/28/19 07:35 Hepatitis A IgM Ab Non-reactive (NonReactive) 04/24/19 06:28 Hep Bs Antigen Non-reactive (Negative) 04/24/19 06:28 Hep B Core IgM Ab Non-reactive (NonReactive) 04/24/19 06:28 Hepatitis C Antibody Non-reactive (NonReactive) 04/24/19 06:28 Blood Type B POSITIVE 04/24/19 02:47 Antibody Screen Negative 04/24/19 02:47 Crossmatch See Detail 04/24/19 02:47 Active Medications - Current Medications Current Medications: Generic Name Dose Route Start Last Admin Trade Name Freq PRN Reason Stop Dose Admin Acetaminophen 650 mg 04/24/19 04:41 05/01/19 23:53 Tylenol PO 650 mg Q4H PRN Administration Pain, Mild (1-3); fever>100.5 Albuterol 2.5 mg 04/24/19 04:38 Proventil IH Q4HRT PRN Shortness Of Breath Albuterol 2.5 mg 04/28/19 08:00 05/02/19 07:22 Proventil IH 2.5 mg TIDRT L[facility]ON Administration Amlodipine Besylate 5 mg 04/24/19 10:00 05/01/19 09:32 Amlodipine PO 5 mg QDAY [facility] Administration Aspirin 81 mg 04/24/19 10:00 05/01/19 09:27 Baby Aspirin PO 81 mg QDAY [facility] Administration Calcitriol 0.25 mcg 04/27/19 11:00 05/01/19 09:27 Rocaltrol PO 0.25 mcg QDAY [facility] Administration Dextrose 50 ml 04/24/19 04:42 D50w (25gm) Syringe IV Q30MIN PRN Hypoglycemia Protocol Diphenhydramine HCl 25 mg 04/24/19 04:40 Benadryl IV Q6H PRN Itching Docusate Sodium 100 mg 04/24/19 10:00 05/01/19 21:00 Colace PO 100 mg BID LANDON Administration Epoetin Sylvain 20,000 unit 04/25/19 16:44 04/30/19 13:50 Procrit IV 20,000 unit JAYNE PRN Administration hemodialysis Heparin Sodium (Porcine) 5,000 unit 04/24/19 10:00 05/01/19 21:00 Heparin SUB-Q 5,000 unit Q12HR [facility]ON Administration Heparin Sodium (Porcine) 5,000 unit 04/25/19 16:44 04/26/19 17:05 Heparin IV 5,000 unit JAYNE PRN Administration hemodialysis Hydralazine HCl 25 mg 04/24/19 06:00 05/02/19 05:36 Apresoline PO Not Given Q8HR [facility] Hydromorphone HCl 1 mg 05/01/19 16:27 Dilaudid IV Q24H PRN before CT scan Hydroxyzine HCl 25 mg 04/24/19 21:27 04/26/19 02:48 Atarax PO 25 mg Q8H PRN Administration Itching Sodium Chloride 100 mls @ 999 mls/hr 04/25/19 16:44 Nacl 0.9% IV JAYNE PRN Hypotension Sodium Chloride 1,000 mls @ 100 mls/hr 04/25/19 16:44 Nacl 0.9% 1000 Ml IV JAYNE PRN FOR MUSCLE CRAMPS DURING HEMO MEROPENEM/NS 1 GRAM/100 ML 1 gram in 100 mls @ 100 mls/hr 04/28/19 18:00 05/01/19 20:10 Merrem/Ns 1 Gram/100 Ml IV 100 mls/hr QPM [facility] Administration Protocol Insulin Human Lispro 0 unit 04/24/19 07:30 05/01/19 23:17 Humalog SUB-Q Not Given ACHS [facility] Protocol Lorazepam 1 mg 05/01/19 16:27 Ativan IV Q24H PRN before ct scan Nicotine 14 mg 04/24/19 10:00 05/01/19 09:26 Habitrol TD Not Given QDAY [facility] Ondansetron HCl 4 mg 04/24/19 01:43 04/30/19 17:23 Zofran Odt PO 4 mg Q6HR PRN Administration Nausea Ondansetron HCl 4 mg 04/29/19 22:35 04/30/19 18:51 Zofran IV 4 mg Q6H PRN Administration Nausea And Vomiting Oxycodone/Acetaminophen 1 tab 04/25/19 06:13 04/30/19 17:23 Percocet 5/325 PO 1 tab Q6H PRN Administration Pain, Moderate (4-6) Sodium Chloride 10 ml 04/24/19 10:00 05/01/19 21:00 Sodium Chloride Flush Syringe 10 Ml IV 10 ml BID LANDON Administration Sodium Chloride 10 ml 04/24/19 04:42 Sodium Chloride Flush Syringe 10 Ml IV PRN PRN LINE FLUSH Nutrition/Malnutrition Assess - Dietary Evaluation Nutrition/Malnutrition Findings: Nutrition Notes Start: 04/30/19 13:06 Freq: Status: Active Protocol: Document 04/30/19 13:06 CT (Rec: 04/30/19 13:09 CT [id number]) Co-Sign 04/30/19 13:06 LP Nutrition Notes Need for Assessment generated from: LOS Initial or Follow up Brief Note Current Diagnosis Coronary Artery Disease, Diabetes,Sepsis,Hypertension, Heart Failure Other Pertinent Diagnosis Hx CVA, ESRD (T/T/Sa), anemia, arthritis, COPD, Chronic wounds Current Diet Renal/Consistent CHO Labs/Tests Reviewed Pertinent Medications Reviewed Height 5 ft 6 in Weight 72.5 kg [place] Body Weight (kg) 59.09 BMI 25.7 Subjective/Other Information Visited pt room twice and pt was not in room
[2019-05-02] MEDS: INSULIN LISPRO 100 UNIT/ML SUB-Q SCH ×3 (08:00→17:30)
[2019-05-02] MEDS: amLODIPine 10 MG TAB PO SCH (10:05)
[2019-05-02] MEDS: NICOTINE 14 MG/24 HR PATCH TD SCH (10:07)
[2019-05-02] MEDS: HEPARIN 5,000 UNIT/1 ML VIAL SUB-Q SCH ×2 (10:08→21:52)
[2019-05-02] MEDS: DOCUSATE SODIUM 100 MG CAP PO SCH ×2 (10:08→21:51)
[2019-05-02] MEDS: CALCITRIOL 0.25 MCG CAP PO SCH (10:08)
[2019-05-02] MEDS: ASPIRIN 81 MG TAB CHEW PO SCH (10:08)
--- NOTE | 2019-05-02 12:14 | Progress Note ---
Assessment and Plan Impression: * End stage renal disease on hemodialysis via RIJ permcath * Hyperkalemia, severe- resolved; now hypokalemic on 2K bath * Uremia - BUN 190 at admission, improved --Last HD treatment on Apr 01 * Left great toe wound w/osteomyelitis * Acute encephalopathy * Metabolic acidosis * Anemia secondary to ESRD vs other * Secondary hyperparathyroidism/hypocalcemia * Medical noncompliance Plan: * Patient is s/p STAT HD on 04/23/19 and 04/24/19 * Continue MWF schedule for HD, * Abx per ID - blood cx NGTD (Apr 24); appreciate recommendations * Surgery consult appreciated, awaiting CT scan * 3K, 3Ca bath given electrolytes * Continue calcitriol or available vitamin D analog with HD given hypocalcemia * Continue to hold Gabapentin * Dose medications for renal function * Epogen TIW prn * Plans for CT scan noted. Recommend doing the CT scan tomorrow morning prior to her dialysis Subjective Date of service: 05/02/19 Principal diagnosis: osteomyelitis left big toe, ESRD on HD, T2 DM, severe anemia Interval history: Patient is comfortable this morning. States that she had some nausea and vomiting last night. It has now resolved. Denies any shortness of breath. Objective - Vital Signs Vital signs: Vital Signs - 12hr 05/02/19 05/02/19 05/02/19 05:36 06:09 07:41 Temperature 97.5 F L Pulse Rate 106 H Pulse Rate [ 110 H Posterior Bilateral Throughout] Respiratory 18 Rate Respiratory 16 Rate [Posterior Bilateral Throughout] Blood Pressure 102/43 114/52 O2 Sat by Pulse 99 Oximetry - General Appearance General appearance: well-developed, well-nourished, appears stated age EENT: PERRL, mucous membranes moist Neck: no JVD, no thyromegaly, other (IJ PermCath in place) Respiratory: Present: Clear to Ascultation Cardiology: regular, normal heart rate Gastrointestinal: normal, normoactive bowel sounds Integumentary: other (no edema) - Lab 04/26/19 06:37 04/28/19 07:35 Most recent lab results Calcium 7.7 mg/dL (8.4-10.2) L D 04/28/19 07:35 Magnesium 1.60 mg/dL (1.7-2.3) L 04/27/19 05:30 Medications & Allergies - Medications Allergies/Adverse Reactions: Allergies No Known Allergies Allergy (Verified 06/21/16 15:23) Home Medications: Home Medications Medication Instructions Recorded Confirmed Last Taken Type Ondansetron [Zofran TAB] 4 mg PO PRN PRN 09/09/14 02/25/17 1 Day Ago History ~04/25/16 Gabapentin 300 mg PO TID 02/25/17 02/25/17 Unknown History Loratadine [Claritin] 10 mg PO QDAY PRN 02/25/17 02/25/17 Unknown History ALBUTEROL NEB's [Proventil 0.083% 2.5 mg IH QIDRT #60 nebu 02/27/17 Unknown Rx NEBS] Aspirin [Aspirin BABY CHEW TAB] 81 mg PO QDAY #30 tab.chew 02/27/17 Unknown Rx amLODIPine 5 mg PO QDAY #30 tablet 02/27/17 Unknown Rx hydrALAZINE [Apresoline TAB] 25 mg PO Q8HR #90 tablet 02/27/17 Unknown Rx hydrOXYzine HCL [Atarax] 25 mg PO Q8H PRN #20 tablet 02/27/17 Unknown Rx Clindamycin [Clindamycin CAP] 300 mg PO Q6H #40 capsule 03/02/19 Unknown Rx Active Medications: Generic Name Dose Route Start Last Admin Trade Name Freq PRN Reason Stop Dose Admin Acetaminophen 650 mg 04/24/19 04:41 05/01/19 23:53 Tylenol PO 650 mg Q4H PRN Administration Pain, Mild (1-3); fever>100.5 Albuterol 2.5 mg 04/24/19 04:38 Proventil IH Q4HRT PRN Shortness Of Breath Albuterol 2.5 mg 04/28/19 08:00 05/02/19 07:22 Proventil IH 2.5 mg TIDRT LANDON Administration Amlodipine Besylate 5 mg 04/24/19 10:00 05/02/19 10:05 Amlodipine PO Not Given QDAY [facility] Aspirin 81 mg 04/24/19 10:00 05/02/19 10:08 Baby Aspirin PO 81 mg QDAY [facility] Administration Calcitriol 0.25 mcg 04/27/19 11:00 05/02/19 10:08 Rocaltrol PO 0.25 mcg QDAY [place] Administration Dextrose 50 ml 04/24/19 04:42 D50w (25gm) Syringe IV Q30MIN PRN Hypoglycemia Protocol Diphenhydramine HCl 25 mg 04/24/19 04:40 Benadryl IV Q6H PRN Itching Docusate Sodium 100 mg 04/24/19 10:00 05/02/19 10:08 Colace PO 100 mg BID [facility] Administration Epoetin Sylvain 20,000 unit 04/25/19 16:44 04/30/19 13:50 Procrit IV 20,000 unit JAYNE PRN Administration hemodialysis Heparin Sodium (Porcine) 5,000 unit 04/24/19 10:00 05/02/19 10:08 Heparin SUB-Q 5,000 unit Q12HR [facility] Administration Heparin Sodium (Porcine) 5,000 unit 04/25/19 16:44 04/26/19 17:05 Heparin IV 5,000 unit JAYNE PRN Administration hemodialysis Hydralazine HCl 25 mg 04/24/19 06:00 05/02/19 05:36 Apresoline PO Not Given Q8HR [facility] Hydromorphone HCl 1 mg 05/01/19 16:27 Dilaudid IV Q24H PRN before CT scan Hydroxyzine HCl 25 mg 04/24/19 21:27 04/26/19 02:48 Atarax PO 25 mg Q8H PRN Administration Itching Sodium Chloride 100 mls @ 999 mls/hr 04/25/19 16:44 Nacl 0.9% IV JAYNE PRN Hypotension Sodium Chloride 1,000 mls @ 100 mls/hr 04/25/19 16:44 Nacl 0.9% 1000 Ml IV JAYNE PRN FOR MUSCLE CRAMPS DURING HEMO MEROPENEM/NS 1 GRAM/100 ML 1 gram in 100 mls @ 100 mls/hr 04/28/19 18:00 05/01/19 20:10 Merrem/Ns 1 Gram/100 Ml IV 100 mls/hr QPM [facility] Administration Protocol Insulin Human Lispro 0 unit 04/24/19 07:30 05/02/19 08:00 Humalog SUB-Q Not Given ACHS [facility] Protocol Lorazepam 1 mg 05/01/19 16:27 Ativan IV Q24H PRN before ct scan Nicotine 14 mg 04/24/19 10:00 05/02/19 10:07 Habitrol TD Not Given QDAY [facility] Ondansetron HCl 4 mg 04/24/19 01:43 04/30/19 17:23 Zofran Odt PO 4 mg Q6HR PRN Administration Nausea Ondansetron HCl 4 mg 04/29/19 22:35 04/30/19 18:51 Zofran IV 4 mg Q6H PRN Administration Nausea And Vomiting Oxycodone/Acetaminophen 1 tab 04/25/19 06:13 04/30/19 17:23 Percocet 5/325 PO 1 tab Q6H PRN Administration Pain, Moderate (4-6) Sodium Chloride 10 ml 04/24/19 10:00 05/02/19 10:08 Sodium Chloride Flush Syringe 10 Ml IV 10 ml BID L[place]ON Administration Sodium Chloride 10 ml 04/24/19 04:42 Sodium Chloride Flush Syringe 10 Ml IV PRN PRN LINE FLUSH
[2019-05-02] MEDS: ACETAMINOPHEN 325 MG TAB PO PRN (13:48)
--- NOTE | 2019-05-02 16:22 | Cat Scan Report ---
CT lower extremity LT w con INDICATION: Left big toe infection. TECHNIQUE: CT of the left foot with contrast. All CT scans at this location are performed using CT dose reductio n for ALARA by means of automated exposure control. The patient received 100 mL of IV Omnipaque 300 COMPARISON: Left toe radiographs on 04/24/2019 FINDINGS: There are findings consistent with osteomyelitis in the proximal and distal phalanx in the left great toe with heterogeneous bone destruction, a skin wound along the medial great toe, and adjacent cellu litis. There is no additional definite evidence of osteomyelitis in the remainder of the right foot. There are no radiopaque foreign bodies. There are no focal fluid collections. IMPRESSION: 1. Osteomyelitis involving the proximal and distal phalanx in the left great toe. 2. No additional evidence of additional osteomyelitis in the remainder of the foot. Signer Name: James Marsh MD Signed: 05/02/2019 4:18 PM Workstation Name: [email or web address]
[2019-05-02] MEDS: MEROPENEM/NS 1 GRAM/100 ML 1 GRAM/100 ML BAG IV SCH (17:29)
[2019-05-03] MEDS: INSULIN LISPRO 100 UNIT/ML SUB-Q SCH ×5 (01:43→22:40)
[2019-05-03] MEDS: hydrALAZINE 25 MG TAB PO SCH ×3 (05:48→22:38)
[2019-05-03] MEDS: ALBUTEROL 2.5 MG/3 ML NEBU IH SCH ×3 (07:20→20:02)
[2019-05-03] MEDS: amLODIPine 10 MG TAB PO SCH (10:46)
[2019-05-03] MEDS: ASPIRIN 81 MG TAB CHEW PO SCH (10:46)
[2019-05-03] MEDS: CALCITRIOL 0.25 MCG CAP PO SCH (10:46)
[2019-05-03] MEDS: DOCUSATE SODIUM 100 MG CAP PO SCH ×2 (10:46→23:03)
[2019-05-03] MEDS: NICOTINE 14 MG/24 HR PATCH TD SCH (10:46)
[2019-05-03] MEDS: HEPARIN 5,000 UNIT/1 ML VIAL SUB-Q SCH ×2 (10:47→23:04)
--- NOTE | 2019-05-03 11:19 | Progress Note ---
Assessment and Plan Assessment and plan: 53-year-old woman who presented to the hospital with chronic wounds to left big toe. She had also missed dialysis. Sepsis/osteomyelitis of left big toe Bedside debridement done by Dr. Trent 04/27, She refused MRI, had CT LE on 05/03 "1. Osteomyelitis involving the proximal and distal phalanx in the left great toe. 2. No additional evidence of additional osteomyelitis in the remainder of the foot." -Follow-up with general surgeon and ID about course of treatment wound cx grew ESBL ecoli, on meropenam contact iso PAD of LE Arterial duplex abnormal, Vasc sx/IR consult appreciated. Discussed with Precious, patient will be seen as an outpatient. 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 Spoke to case management, patient may need IV antibiotics upon discharge History Interval history: Denies pain to lower extremities, denies chills Review of systems Constitutional: had fever, no malaise, no joint pains CVS: No chest pain, no orthopnea, no pedal edema GI: No abdominal pain, no diarrhea, no vomiting, no constipation Respiratory: No shortness of breath, no wheezing, no coughing Hospitalist Physical - Physical exam Narrative exam: General.: Appears well, no distress, nontoxic HEENT: Moist mucous membranes, extraocular muscles intact, no lymphadenopathy Neck: supple Cardiac: S1-S2 heard Lungs: clear to auscultation bilaterally Abdomen: soft , nontender, nondistended, bowel sounds positive Extremities: no edema clubbing or cyanosis, left great toe dressing was not removed. Skin: no rash or lesions Neurologic: no gross focal deficits Psych: calm, and cooperative - Constitutional Vitals: Temp Pulse Resp BP Pulse Ox 98.3 F 85 18 122/68 98 05/03/19 05:56 05/03/19 07:21 05/03/19 07:21 05/03/19 10:46 05/03/19 05:56 General appearance: Present: no acute distress, obese, disheveled Results - Labs CBC & Chem 7: 05/03/19 10:51 05/03/19 10:51 Labs: Laboratory Last Values WBC 12.7 K/mm3 (4.5-11.0) H 04/26/19 06:37 RBC 3.24 M/mm3 (3.65-5.03) L 04/26/19 06:37 Hgb 9.5 gm/dl (10.1-14.3) L 04/26/19 06:37 Hct 28.9 % (30.3-42.9) L 04/26/19 06:37 MCV 89 fl (79-97) 04/26/19 06:37 MCH 29 pg (28-32) 04/26/19 06:37 MCHC 33 % (30-34) 04/26/19 06:37 RDW 18.0 % (13.2-15.2) H 04/26/19 06:37 Plt Count 329 K/mm3 (140-440) 04/26/19 06:37 Lymph % (Auto) 6.5 % (13.4-35.0) L 04/25/19 06:32 [place] % (Auto) 7.7 % (0.0-7.3) H 04/25/19 06:32 Eos % (Auto) 2.7 % (0.0-4.3) 04/25/19 06:32 Baso % (Auto) 0.3 % (0.0-1.8) 04/25/19 06:32 Lymph # 0.8 K/mm3 (1.2-5.4) L 04/25/19 06:32 [place] # 1.0 K/mm3 (0.0-0.8) H 04/25/19 06:32 Eos # 0.3 K/mm3 (0.0-0.4) 04/25/19 06:32 Baso # 0.0 K/mm3 (0.0-0.1) 04/25/19 06:32 Seg Neutrophils % 82.8 % (40.0-70.0) H 04/25/19 06:32 Seg Neutrophils # 10.5 K/mm3 (1.8-7.7) H 04/25/19 06:32 ESR > 140.0 mm/Hr (0-20) 04/24/19 02:47 PT 19.4 Sec. (12.2-14.9) H 04/24/19 02:47 INR 1.67 (0.87-1.13) H 04/24/19 02:47 Sodium 137 mmol/L (137-145) 04/28/19 07:35 Potassium 3.8 mmol/L (3.6-5.0) 04/28/19 07:35 Chloride 96.6 mmol/L (98-107) L 04/28/19 07:35 Carbon Dioxide 20 mmol/L (22-30) L 04/28/19 07:35 Anion Gap 24 mmol/L 04/28/19 07:35 BUN 22 mg/dL (7-17) H 04/28/19 07:35 Creatinine 7.9 mg/dL (0.7-1.2) H D 04/28/19 07:35 Estimated GFR 6 ml/min 04/28/19 07:35 BUN/Creatinine Ratio 3 % 04/28/19 07:35 Glucose 100 mg/dL (65-100) 04/28/19 07:35 POC Glucose 96 (70-105) 05/02/19 21:59 Hemoglobin A1c < 4.0 % (4-6) L 04/24/19 06:45 Calcium 7.7 mg/dL (8.4-10.2) L D 04/28/19 07:35 Magnesium 1.60 mg/dL (1.7-2.3) L 04/27/19 05:30 Total Bilirubin 0.40 mg/dL (0.1-1.2) 04/28/19 07:35 AST 12 units/L (5-40) 04/28/19 07:35 ALT 8 units/L (7-56) 04/28/19 07:35 Alkaline Phosphatase 79 units/L (35-129) 04/28/19 07:35 Total Creatine Kinase 450 units/L (30-135) H 04/24/19 02:47 C-Reactive Protein 11.50 mg/dL (0.00-1.30) H 04/24/19 02:47 Total Protein 6.9 g/dL (6.3-8.2) 04/28/19 07:35 Albumin 3.0 g/dL (3.9-5) L 04/28/19 07:35 Albumin/Globulin Ratio 0.8 % 04/28/19 07:35 Random Vancomycin 22.0 ug/mL (0-40.0) 04/28/19 07:35 Hepatitis A IgM Ab Non-reactive (NonReactive) 04/24/19 06:28 Hep Bs Antigen Non-reactive (Negative) 04/24/19 06:28 Hep B Core IgM Ab Non-reactive (NonReactive) 04/24/19 06:28 Hepatitis C Antibody Non-reactive (NonReactive) 04/24/19 06:28 Blood Type B POSITIVE 04/24/19 02:47 Antibody Screen Negative 04/24/19 02:47 Crossmatch See Detail 04/24/19 02:47 Active Medications - Current Medications Current Medications: Generic Name Dose Route Start Last Admin Trade Name Freq PRN Reason Stop Dose Admin Acetaminophen 650 mg 04/24/19 04:41 05/02/19 13:48 Tylenol PO 650 mg Q4H PRN Administration Pain, Mild (1-3); fever>100.5 Albuterol 2.5 mg 04/24/19 04:38 Proventil IH Q4HRT PRN Shortness Of Breath Albuterol 2.5 mg 04/28/19 08:00 05/03/19 07:20 Proventil IH 2.5 mg TIDRT [facility]ON Administration Amlodipine Besylate 5 mg 04/24/19 10:00 05/03/19 10:46 Amlodipine PO 5 mg QDAY [facility] Administration Aspirin 81 mg 04/24/19 10:00 05/03/19 10:46 Baby Aspirin PO 81 mg QDAY [facility] Administration Calcitriol 0.25 mcg 04/27/19 11:00 05/03/19 10:46 Rocaltrol PO 0.25 mcg QDAY [facility] Administration Dextrose 50 ml 04/24/19 04:42 D50w (25gm) Syringe IV Q30MIN PRN Hypoglycemia Protocol Diphenhydramine HCl 25 mg 04/24/19 04:40 Benadryl IV Q6H PRN Itching Docusate Sodium 100 mg 04/24/19 10:00 05/03/19 10:46 Colace PO 100 mg BID [facility] Administration Epoetin Sylvain 20,000 unit 04/25/19 16:44 04/30/19 13:50 Procrit IV 20,000 unit JAYNE PRN Administration hemodialysis Heparin Sodium (Porcine) 5,000 unit 04/24/19 10:00 05/03/19 10:47 Heparin SUB-Q 5,000 unit Q12HR [facility] Administration Heparin Sodium (Porcine) 5,000 unit 04/25/19 16:44 04/26/19 17:05 Heparin IV 5,000 unit JAYNE PRN Administration hemodialysis Hydralazine HCl 25 mg 04/24/19 06:00 05/03/19 05:48 Apresoline PO 25 mg Q8HR [facility] Administration Hydromorphone HCl 1 mg 05/01/19 16:27 Dilaudid IV Q24H PRN before CT scan Hydroxyzine HCl 25 mg 04/24/19 21:27 04/26/19 02:48 Atarax PO 25 mg Q8H PRN Administration Itching Sodium Chloride 100 mls @ 999 mls/hr 04/25/19 16:44 Nacl 0.9% IV JAYNE PRN Hypotension Sodium Chloride 1,000 mls @ 100 mls/hr 04/25/19 16:44 Nacl 0.9% 1000 Ml IV JAYNE PRN FOR MUSCLE CRAMPS DURING HEMO MEROPENEM/NS 1 GRAM/100 ML 1 gram in 100 mls @ 100 mls/hr 04/28/19 18:00 05/02/19 17:29 Merrem/Ns 1 Gram/100 Ml IV 100 mls/hr QPM [facility] Administration Protocol Insulin Human Lispro 0 unit 04/24/19 07:30 05/03/19 10:47 Humalog SUB-Q Not Given ACHS [facility] Protocol Lorazepam 1 mg 05/01/19 16:27 05/02/19 13:48 Ativan IV 1 mg Q24H PRN Administration before ct scan Nicotine 14 mg 04/24/19 10:00 05/03/19 10:46 Habitrol TD 14 mg QDAY [facility] Administration Ondansetron HCl 4 mg 04/24/19 01:43 04/30/19 17:23 Zofran Odt PO 4 mg Q6HR PRN Administration Nausea Ondansetron HCl 4 mg 04/29/19 22:35 04/30/19 18:51 Zofran IV 4 mg Q6H PRN Administration Nausea And Vomiting Oxycodone/Acetaminophen 1 tab 04/25/19 06:13 04/30/19 17:23 Percocet 5/325 PO 1 tab Q6H PRN Administration Pain, Moderate (4-6) Sodium Chloride 10 ml 04/24/19 10:00 05/03/19 10:47 Sodium Chloride Flush Syringe 10 Ml IV 10 ml BID L[place]ON Administration Sodium Chloride 10 ml 04/24/19 04:42 Sodium Chloride Flush Syringe 10 Ml IV PRN PRN LINE FLUSH Nutrition/Malnutrition Assess - Dietary Evaluation Nutrition/Malnutrition Findings: Nutrition Notes Start: 04/30/19 13:06 Freq: Status: Active Protocol: Document 04/30/19 13:06 CT (Rec: 04/30/19 13:09 CT [id number]) Co-Sign 04/30/19 13:06 LP Nutrition Notes Need for Assessment generated from: LOS Initial or Follow up Brief Note Current Diagnosis Coronary Artery Disease, Diabetes,Sepsis,Hypertension, Heart Failure Other Pertinent Diagnosis Hx CVA, ESRD (T/T/Sa), anemia, arthritis, COPD, Chronic wounds Current Diet Renal/Consistent CHO Labs/Tests Reviewed Pertinent Medications Reviewed Height 5 ft 6 in Weight 72.5 kg [place] Body Weight (kg) 59.09 BMI 25.7 Subjective/Other Information Visited pt room twice and pt was not in room
[2019-05-03 11:22] LABS: Basophils # (Auto) 0.1 K/mm3 (0.0-0.1); Eosinophils # (Auto) 0.6 K/mm3 (0.0-0.4); Eosinophils % (Auto) 4.9 % (0.0-4.3); Hematocrit 30.4 % (30.3-42.9); Hemoglobin 9.5 gm/dl (10.1-14.3); Lymphocytes # (Auto) 1.4 K/mm3 (1.2-5.4); Lymphocytes % (Auto) 11.5 % (13.4-35.0); Mean Corpuscular HGB Conc 31 % (30-34); Mean Corpuscular Volume 92 fl (79-97); Platelet Count 341 K/mm3 (140-440); Red Blood Count 3.31 M/mm3 (3.65-5.03); Red Cell Distribution Width 19.7 % (13.2-15.2)
[2019-05-03 11:45] LABS: Calcium 8.6 mg/dL (8.4-10.2)
[2019-05-03] MEDS ORDERED: SODIUM CHLORIDE 0.9% 100 ML IV PRN (12:20)
--- NOTE | 2019-05-03 17:17 | Progress Note ---
Assessment and Plan - Patient Problems (1) ESRD (end stage renal disease) on dialysis Current Visit: Yes Status: Chronic Plan to address problem: End-stage renal disease hemodialysis We'll continue hemodialysis Friday (2) Anemia in chronic kidney disease Current Visit: No Status: Chronic Plan to address problem: Moderate anemia Hemoglobin 9.5 gram per DL Monitor CBC (3) Essential hypertension Current Visit: No Status: Chronic Plan to address problem: Hypertension Continue present medications (4) Type II diabetes mellitus Current Visit: No Status: Chronic Plan to address problem: Diabetes mellitus type 2 Continuing medications Monitor fingerstick Subjective Principal diagnosis: osteomyelitis left big toe, ESRD on HD, T2 DM, severe anemia Interval history: 53-year-old female with end-stage renal disease on hemodialysis, diabetes mellitus type 2, CAD, COPD, previous CVA admitted following missed hemodialysis for 2 weeks, also being worked up for left great toe for osteomyelitis Patient denies any distress denies any orthopnea PND denies any fevers or chills Objective - Vital Signs Vital signs: Vital Signs - 12hr 05/03/19 05/03/19 05/03/19 05:48 05:56 07:21 Temperature 98.3 F Pulse Rate 105 H 107 H Pulse Rate [ 85 Anterior Bilateral] Pulse Rate [ 84 Posterior Bilateral Throughout] Respiratory 20 Rate Respiratory 18 Rate [Anterior Bilateral] Respiratory 18 Rate [Posterior Bilateral Throughout] Blood Pressure 131/72 140/62 O2 Sat by Pulse 98 Oximetry 05/03/19 05/03/19 05/03/19 10:46 10:48 13:01 Temperature 98.8 F Pulse Rate 113 H Pulse Rate [ Anterior Bilateral] Pulse Rate [ Posterior Bilateral Throughout] Respiratory 18 Rate Respiratory Rate [Anterior Bilateral] Respiratory Rate [Posterior Bilateral Throughout] Blood Pressure 122/68 122/68 149/78 O2 Sat by Pulse 98 Oximetry 05/03/19 14:19 Temperature Pulse Rate Pulse Rate [ Anterior Bilateral] Pulse Rate [ Posterior Bilateral Throughout] Respiratory Rate Respiratory Rate [Anterior Bilateral] Respiratory Rate [Posterior Bilateral Throughout] Blood Pressure 149/78 O2 Sat by Pulse Oximetry - General Appearance General appearance: well-developed, well-nourished EENT: ATNC, PERRL Neck: no JVD Respiratory: Present: Clear to Ascultation Cardiology: regular, S1S2 Gastrointestinal: normal, normoactive bowel sounds Integumentary: no rash Neurologic: alert and oriented x3, CN 3-12 intact Psychiatric: mood/affect appropriate - Lab 05/03/19 10:51 05/03/19 10:51 Most recent lab results Calcium 8.6 mg/dL (8.4-10.2) 05/03/19 10:51 Magnesium 1.60 mg/dL (1.7-2.3) L 04/27/19 05:30 - Imaging Other: other (CT reviewed with consult for osteomyelitis of the great toe) Medications & Allergies - Medications Allergies/Adverse Reactions: Allergies No Known Allergies Allergy (Verified 06/21/16 15:23) Home Medications: Home Medications Medication Instructions Recorded Confirmed Last Taken Type Ondansetron [Zofran TAB] 4 mg PO PRN PRN 09/09/14 02/25/17 1 Day Ago History ~04/25/16 Gabapentin 300 mg PO TID 02/25/17 02/25/17 Unknown History Loratadine [Claritin] 10 mg PO QDAY PRN 02/25/17 02/25/17 Unknown History ALBUTEROL NEB's [Proventil 0.083% 2.5 mg IH QIDRT #60 nebu 02/27/17 Unknown Rx NEBS] Aspirin [Aspirin BABY CHEW TAB] 81 mg PO QDAY #30 tab.chew 02/27/17 Unknown Rx amLODIPine 5 mg PO QDAY #30 tablet 02/27/17 Unknown Rx hydrALAZINE [Apresoline TAB] 25 mg PO Q8HR #90 tablet 02/27/17 Unknown Rx hydrOXYzine HCL [Atarax] 25 mg PO Q8H PRN #20 tablet 02/27/17 Unknown Rx Clindamycin [Clindamycin CAP] 300 mg PO Q6H #40 capsule 03/02/19 Unknown Rx Active Medications: Generic Name Dose Route Start Last Admin Trade Name Freq PRN Reason Stop Dose Admin Acetaminophen 650 mg 04/24/19 04:41 05/02/19 13:48 Tylenol PO 650 mg Q4H PRN Administration Pain, Mild (1-3); fever>100.5 Albuterol 2.5 mg 04/24/19 04:38 Proventil IH Q4HRT PRN Shortness Of Breath Albuterol 2.5 mg 04/28/19 08:00 05/03/19 13:37 Proventil IH Not Given TIDRT LANDON Amlodipine Besylate 5 mg 04/24/19 10:00 05/03/19 10:46 Amlodipine PO 5 mg QDAY LANDON Administration Aspirin 81 mg 04/24/19 10:00 05/03/19 10:46 Baby Aspirin PO 81 mg QDAY L[place]ON Administration Calcitriol 0.25 mcg 04/27/19 11:00 05/03/19 10:46 Rocaltrol PO 0.25 mcg QDAY LANDON Administration Dextrose 50 ml 04/24/19 04:42 D50w (25gm) Syringe IV Q30MIN PRN Hypoglycemia Protocol Diphenhydramine HCl 25 mg 04/24/19 04:40 Benadryl IV Q6H PRN Itching Docusate Sodium 100 mg 04/24/19 10:00 05/03/19 10:46 Colace PO 100 mg BID LANDON Administration Epoetin Sylvain 20,000 unit 04/25/19 16:44 04/30/19 13:50 Procrit IV 20,000 unit JAYNE PRN Administration hemodialysis Heparin Sodium (Porcine) 5,000 unit 04/24/19 10:00 05/03/19 10:47 Heparin SUB-Q 5,000 unit Q12HR LANDON Administration Heparin Sodium (Porcine) 5,000 unit 04/25/19 16:44 04/26/19 17:05 Heparin IV 5,000 unit JAYNE PRN Administration hemodialysis Hydralazine HCl 25 mg 04/24/19 06:00 05/03/19 14:19 Apresoline PO 25 mg Q8HR LANDON Administration Hydromorphone HCl 1 mg 05/01/19 16:27 Dilaudid IV Q24H PRN before CT scan Hydroxyzine HCl 25 mg 04/24/19 21:27 04/26/19 02:48 Atarax PO 25 mg Q8H PRN Administration Itching Sodium Chloride 100 mls @ 999 mls/hr 04/25/19 16:44 Nacl 0.9% IV JAYNE PRN Hypotension Sodium Chloride 1,000 mls @ 100 mls/hr 04/25/19 16:44 Nacl 0.9% 1000 Ml IV JAYNE PRN FOR MUSCLE CRAMPS DURING HEMO MEROPENEM/NS 1 GRAM/100 ML 1 gram in 100 mls @ 100 mls/hr 04/28/19 18:00 05/02/19 17:29 Merrem/Ns 1 Gram/100 Ml IV 100 mls/hr QPM LANDON Administration Protocol Insulin Human Lispro 0 unit 04/24/19 07:30 05/03/19 14:20 Humalog SUB-Q Not Given ACHS [facility] Protocol Lorazepam 1 mg 05/01/19 16:27 05/02/19 13:48 Ativan IV 1 mg Q24H PRN Administration before ct scan Nicotine 14 mg 04/24/19 10:00 05/03/19 10:46 Habitrol TD 14 mg QDAY LANDON Administration Ondansetron HCl 4 mg 04/24/19 01:43 04/30/19 17:23 Zofran Odt PO 4 mg Q6HR PRN Administration Nausea Ondansetron HCl 4 mg 04/29/19 22:35 04/30/19 18:51 Zofran IV 4 mg Q6H PRN Administration Nausea And Vomiting Oxycodone/Acetaminophen 1 tab 04/25/19 06:13 04/30/19 17:23 Percocet 5/325 PO 1 tab Q6H PRN Administration Pain, Moderate (4-6) Sodium Chloride 10 ml 04/24/19 10:00 05/03/19 10:47 Sodium Chloride Flush Syringe 10 Ml IV 10 ml BID LANDON Administration Sodium Chloride 10 ml 04/24/19 04:42 Sodium Chloride Flush Syringe 10 Ml IV PRN PRN LINE FLUSH
[2019-05-03] MEDS: MEROPENEM/NS 1 GRAM/100 ML 1 GRAM/100 ML BAG IV SCH (17:32)
--- NOTE | 2019-05-03 17:34 | Progress Note ---
Assessment and Plan Cultures: 04/24 blood culture - NGTD 04/25 wound culture: Proteus, Group B Strep, ESBL E.coli A/P: 53 yo F with ESRD on HD, DM2, HTN, obesity admitted with altered mental status secondary to dialysis noncompliance and found to be septic with toe osteomyelitis. 1. Acute sepsis: noted fever and still leukocytosis. Secondary to toe osteomyelitis. CT leg shows left great toe osteomyelitis 2. L great toe osteomyelitis involving the proximal phalanx per xray: at risk of amputation. Follow up surgical recs. Continue abx. Arterial duplex with evidence of PAD. Wound cx with ESBL E coli, Strep B, Proteus 3. DM2: tight glycemic control for improved wound healing 4. ESRD on HD: renally dose antibiotics as appropriate. 5. Acute encephalopathy: resolved. 6. PAD: vascular consulted, no plans for intervention in the hospital. Recs: arranging meropenem IV for 6 weeks in a patient on HD will require an extra tunneled PICC placement and even if this is done, risk for amputation is still high. Will ask Dr Trent to [place] to determine if amputation can be done sooner than later. continue meropenem for now Will follow. Thanks for consultation Nohelia Stanford MD Infectious Diseases [facility] ([facility]) M [phone] O [phone] Subjective Date of service: 05/03/19 Principal diagnosis: osteomyelitis left big toe, ESRD on HD, T2 DM, severe anemia Interval history: Feels ok, no fever, c/o itching Objective - Exam Narrative Exam: Constitutional: Alert, cooperative. No acute distress Head, Ears, Nose: Normocephalic, atraumatic. External ears, nose normal Eyes: Conjunctivae/corneas clear. No icterus. No ptosis. Neck: Supple, no meningeal signs Oral: dentition fair, no thrush Cardiovascular: S1, S2 normal. Respiratory: Good air entry, clear to auscultation bilaterally GI: Soft, non-tender Musculoskeletal: left foot with dressings Skin: No rash or abscess Hem/Lymphatic: No palpable cervical or supraclavicular nodes. No lymphangitis Psych: Mood ok. Affect normal Neurological: Awake, alert, oriented. No gross abnormality - Constitutional Vitals: Vital Signs Temp Pulse Resp BP Pulse Ox 98.8 F 113 H 18 149/78 98 05/03/19 13:01 05/03/19 13:01 05/03/19 13:01 05/03/19 14:19 05/03/19 13:01 Temperature -Last 24 Hours Temperature 98.8 F Temperature 98.3 F Temperature 98.2 F Temperature 98.6 F - Labs CBC & Chem 7: 05/03/19 10:51 05/03/19 10:51 Labs: Abnormal lab results 05/03/19 05/03/19 05/03/19 Range/Units 10:51 10:51 16:59 WBC 12.3 H (4.5-11.0) K/mm3 RBC 3.31 L (3.65-5.03) M/mm3 Hgb 9.5 L (10.1-14.3) gm/dl RDW 19.7 H (13.2-15.2) % Lymph % (Auto) 11.5 L (13.4-35.0) % [place] % (Auto) 8.0 H (0.0-7.3) % Eos % (Auto) 4.9 H (0.0-4.3) % [place] # 1.0 H (0.0-0.8) K/mm3 Eos # 0.6 H (0.0-0.4) K/mm3 Seg Neutrophils % 74.6 H (40.0-70.0) % Seg Neutrophils # 9.2 H (1.8-7.7) K/mm3 Sodium 134 L (137-145) mmol/L Chloride 90.9 L (98-107) mmol/L BUN 23 H (7-17) mg/dL Creatinine 10.6 H (0.7-1.2) mg/dL POC Glucose 118 H (70-105)
[2019-05-03] MEDS: ONDANSETRON 4 MG/2 ML INJ IV PRN (21:56)
[2019-05-03] MEDS: ACETAMINOPHEN 325 MG TAB PO PRN (23:03)
[2019-05-04] MEDS: hydrALAZINE 25 MG TAB PO SCH ×3 (06:22→22:47)
[2019-05-04] MEDS: ALBUTEROL 2.5 MG/3 ML NEBU IH SCH ×3 (07:25→20:12)
[2019-05-04] MEDS: CALCITRIOL 0.25 MCG CAP PO SCH (09:09)
[2019-05-04] MEDS: DOCUSATE SODIUM 100 MG CAP PO SCH ×2 (09:09→22:50)
[2019-05-04] MEDS: ASPIRIN 81 MG TAB CHEW PO SCH (09:09)
[2019-05-04] MEDS: INSULIN LISPRO 100 UNIT/ML SUB-Q SCH ×4 (09:10→22:48)
[2019-05-04] MEDS: amLODIPine 10 MG TAB PO SCH (09:12)
[2019-05-04] MEDS: HEPARIN 5,000 UNIT/1 ML VIAL SUB-Q SCH ×2 (09:13→22:50)
[2019-05-04] MEDS: NICOTINE 14 MG/24 HR PATCH TD SCH (09:16)
[2019-05-04] MEDS ORDERED: SODIUM CHLORIDE*PRIMING MACHINE ONLY FOR DIALYSIS MC ONE (09:58)
--- NOTE | 2019-05-04 10:39 | Progress Note ---
Assessment and Plan - Patient Problems (1) ESRD (end stage renal disease) on dialysis Current Visit: Yes Status: Chronic Plan to address problem: End-stage renal disease hemodialysis We'll continue hemodialysis Friday (2) Anemia in chronic kidney disease Current Visit: No Status: Chronic Plan to address problem: Moderate anemia Hemoglobin 9.5 gram per DL epogen with HD Monitor CBC (3) Essential hypertension Current Visit: No Status: Chronic Plan to address problem: Hypertension Continue present medications (4) Type II diabetes mellitus Current Visit: No Status: Chronic Plan to address problem: Diabetes mellitus type 2 Continuing medications Monitor fingerstick Subjective Principal diagnosis: osteomyelitis left big toe, ESRD on HD, T2 DM, severe anemia Interval history: 53-year-old female with end-stage renal disease on hemodialysis, diabetes mellitus type 2, CAD, COPD, previous CVA admitted following missed hemodialysis for 2 weeks, also being worked up for left great toe for osteomyelitis Patient denies any Shortness of breath I attest I saw the patient on dialysis Objective - Vital Signs Vital signs: Vital Signs - 12hr 05/04/19 05/04/19 05/04/19 05:12 05:13 06:22 Temperature 98.8 F 98.8 F Pulse Rate 106 H 107 H 106 H Pulse Rate [ Anterior Bilateral] Respiratory 20 20 Rate Respiratory Rate [Anterior Bilateral] Blood Pressure 82/36 82/56 O2 Sat by Pulse 100 100 Oximetry O2 Sat by Pulse Oximetry [ Anterior Bilateral] 05/04/19 05/04/19 05/04/19 07:26 09:12 09:23 Temperature 99.2 F Pulse Rate 107 H Pulse Rate [ 110 H Anterior Bilateral] Respiratory 18 Rate Respiratory 20 Rate [Anterior Bilateral] Blood Pressure 90/56 114/66 O2 Sat by Pulse Oximetry O2 Sat by Pulse 97 Oximetry [ Anterior Bilateral] 05/04/19 05/04/19 05/04/19 09:30 09:45 10:00 Temperature Pulse Rate 104 H 83 85 Pulse Rate [ Anterior Bilateral] Respiratory Rate Respiratory Rate [Anterior Bilateral] Blood Pressure 120/62 118/74 113/59 O2 Sat by Pulse Oximetry O2 Sat by Pulse Oximetry [ Anterior Bilateral] - General Appearance General appearance: well-developed, well-nourished EENT: ATNC, PERRL Neck: no JVD Respiratory: Present: Clear to Ascultation Cardiology: regular, S1S2 Gastrointestinal: normal, normoactive bowel sounds Integumentary: no rash Neurologic: alert and oriented x3, CN 3-12 intact Psychiatric: mood/affect appropriate - Lab 05/03/19 10:51 05/03/19 10:51 Most recent lab results Calcium 8.6 mg/dL (8.4-10.2) 05/03/19 10:51 Magnesium 1.60 mg/dL (1.7-2.3) L 04/27/19 05:30 - Imaging Other: other (CT with concern for osteomyelitis) Medications & Allergies - Medications Allergies/Adverse Reactions: Allergies No Known Allergies Allergy (Verified 06/21/16 15:23) Home Medications: Home Medications Medication Instructions Recorded Confirmed Last Taken Type Ondansetron [Zofran TAB] 4 mg PO PRN PRN 09/09/14 02/25/17 1 Day Ago History ~04/25/16 Gabapentin 300 mg PO TID 02/25/17 02/25/17 Unknown History Loratadine [Claritin] 10 mg PO QDAY PRN 02/25/17 02/25/17 Unknown History ALBUTEROL NEB's [Proventil 0.083% 2.5 mg IH QIDRT #60 nebu 02/27/17 Unknown Rx NEBS] Aspirin [Aspirin BABY CHEW TAB] 81 mg PO QDAY #30 tab.chew 02/27/17 Unknown Rx amLODIPine 5 mg PO QDAY #30 tablet 02/27/17 Unknown Rx hydrALAZINE [Apresoline TAB] 25 mg PO Q8HR #90 tablet 02/27/17 Unknown Rx hydrOXYzine HCL [Atarax] 25 mg PO Q8H PRN #20 tablet 02/27/17 Unknown Rx Clindamycin [Clindamycin CAP] 300 mg PO Q6H #40 capsule 03/02/19 Unknown Rx Active Medications: Generic Name Dose Route Start Last Admin Trade Name Freq PRN Reason Stop Dose Admin Acetaminophen 650 mg 04/24/19 04:41 05/03/19 23:03 Tylenol PO 650 mg Q4H PRN Administration Pain, Mild (1-3); fever>100.5 Albuterol 2.5 mg 04/24/19 04:38 Proventil IH Q4HRT PRN Shortness Of Breath Albuterol 2.5 mg 04/28/19 08:00 05/04/19 07:25 Proventil IH 2.5 mg TIDRT LANDON Administration Amlodipine Besylate 5 mg 04/24/19 10:00 05/04/19 09:12 Amlodipine PO Not Given QDAY L[place]ON Aspirin 81 mg 04/24/19 10:00 05/04/19 09:09 Baby Aspirin PO 81 mg QDAY [place]ON Administration Calcitriol 0.25 mcg 04/27/19 11:00 05/04/19 09:09 Rocaltrol PO 0.25 mcg QDAY L[place]ON Administration Dextrose 50 ml 04/24/19 04:42 D50w (25gm) Syringe IV Q30MIN PRN Hypoglycemia Protocol Diphenhydramine HCl 25 mg 04/24/19 04:40 05/03/19 21:56 Benadryl IV 25 mg Q6H PRN Administration Itching Docusate Sodium 100 mg 04/24/19 10:00 05/04/19 09:09 Colace PO 100 mg BID L[place]ON Administration Epoetin Sylvain 20,000 unit 04/25/19 16:44 04/30/19 13:50 Procrit IV 20,000 unit JAYNE PRN Administration hemodialysis Heparin Sodium (Porcine) 5,000 unit 04/24/19 10:00 05/04/19 09:13 Heparin SUB-Q 5,000 unit Q12HR L[place]ON Administration Heparin Sodium (Porcine) 5,000 unit 04/25/19 16:44 04/26/19 17:05 Heparin IV 5,000 unit JAYNE PRN Administration hemodialysis Hydralazine HCl 25 mg 04/24/19 06:00 05/04/19 06:22 Apresoline PO Not Given Q8HR [facility] Hydromorphone HCl 1 mg 05/01/19 16:27 Dilaudid IV Q24H PRN before CT scan Hydroxyzine HCl 25 mg 04/24/19 21:27 04/26/19 02:48 Atarax PO 25 mg Q8H PRN Administration Itching Sodium Chloride 100 mls @ 999 mls/hr 04/25/19 16:44 Nacl 0.9% IV JAYNE PRN Hypotension Sodium Chloride 1,000 mls @ 100 mls/hr 04/25/19 16:44 Nacl 0.9% 1000 Ml IV JAYNE PRN FOR MUSCLE CRAMPS DURING HEMO MEROPENEM/NS 1 GRAM/100 ML 1 gram in 100 mls @ 100 mls/hr 04/28/19 18:00 05/03/19 17:32 Merrem/Ns 1 Gram/100 Ml IV 100 mls/hr QPM LANDON Administration Protocol Insulin Human Lispro 0 unit 04/24/19 07:30 05/04/19 09:10 Humalog SUB-Q Not Given ACHS [facility] Protocol Lorazepam 1 mg 05/01/19 16:27 05/02/19 13:48 Ativan IV 1 mg Q24H PRN Administration before ct scan Nicotine 14 mg 04/24/19 10:00 05/04/19 09:16 Habitrol TD Not Given QDAY [facility] Ondansetron HCl 4 mg 04/24/19 01:43 04/30/19 17:23 Zofran Odt PO 4 mg Q6HR PRN Administration Nausea Ondansetron HCl 4 mg 04/29/19 22:35 05/03/19 21:56 Zofran IV 4 mg Q6H PRN Administration Nausea And Vomiting Oxycodone/Acetaminophen 1 tab 04/25/19 06:13 04/30/19 17:23 Percocet 5/325 PO 1 tab Q6H PRN Administration Pain, Moderate (4-6) Sodium Chloride 10 ml 04/24/19 10:00 05/04/19 09:14 Sodium Chloride Flush Syringe 10 Ml IV 10 ml BID LANDON Administration Sodium Chloride 10 ml 04/24/19 04:42 Sodium Chloride Flush Syringe 10 Ml IV PRN PRN LINE FLUSH
[2019-05-04] MEDS: HEPARIN 10,000 UNIT/1 ML VIAL IV PRN (12:25)
[2019-05-04] MEDS: EPOETIN ALFA 20,000 UNIT/1 ML INJ IV PRN (12:25)
--- NOTE | 2019-05-04 13:13 | Progress Note ---
Assessment and Plan - Patient Problems (1) Osteomyelitis Current Visit: Yes Status: Acute Qualifiers: Osteomyelitis type: unspecified type Osteomyelitis location: foot Laterality: left Qualified Code(s): M86.9 - Osteomyelitis, unspecified Plan to address problem: 1) Pt adamantly refuses to consider toe amputation. 2) Six weeks of IV antibiotics per ID 3) Six weeks of HBOT 4) Continue local wound care 5) Strict DM control 6) Pt is aware that HBOT + IV antibiotics may fail, necessitating eventual toe amputation. Subjective Date of service: 05/04/19 Patient Reports: Positive: no new complaints (Vascular consult note read.) Objective Vital Signs - 12hr 05/04/19 05/04/19 05/04/19 05:12 05:13 06:22 Temperature 98.8 F 98.8 F Pulse Rate 106 H 107 H 106 H Pulse Rate [ Anterior Bilateral] Respiratory 20 20 Rate Respiratory Rate [Anterior Bilateral] Blood Pressure 82/36 82/56 O2 Sat by Pulse 100 100 Oximetry O2 Sat by Pulse Oximetry [ Anterior Bilateral] 05/04/19 05/04/19 05/04/19 07:26 09:12 09:23 Temperature 99.2 F Pulse Rate 107 H Pulse Rate [ 110 H Anterior Bilateral] Respiratory 18 Rate Respiratory 20 Rate [Anterior Bilateral] Blood Pressure 90/56 114/66 O2 Sat by Pulse Oximetry O2 Sat by Pulse 97 Oximetry [ Anterior Bilateral] 05/04/19 05/04/19 05/04/19 09:30 09:45 10:00 Temperature Pulse Rate 104 H 83 85 Pulse Rate [ Anterior Bilateral] Respiratory Rate Respiratory Rate [Anterior Bilateral] Blood Pressure 120/62 118/74 113/59 O2 Sat by Pulse Oximetry O2 Sat by Pulse Oximetry [ Anterior Bilateral] 05/04/19 05/04/19 05/04/19 10:15 10:30 10:45 Temperature Pulse Rate 81 81 79 Pulse Rate [ Anterior Bilateral] Respiratory Rate Respiratory Rate [Anterior Bilateral] Blood Pressure 93/68 121/60 116/55 O2 Sat by Pulse Oximetry O2 Sat by Pulse Oximetry [ Anterior Bilateral] 05/04/19 05/04/19 05/04/19 11:00 11:15 11:30 Temperature Pulse Rate 107 H 94 H 82 Pulse Rate [ Anterior Bilateral] Respiratory Rate Respiratory Rate [Anterior Bilateral] Blood Pressure 101/67 132/73 126/50 O2 Sat by Pulse Oximetry O2 Sat by Pulse Oximetry [ Anterior Bilateral] 05/04/19 05/04/19 05/04/19 11:45 12:00 12:15 Temperature Pulse Rate 103 H 86 107 H Pulse Rate [ Anterior Bilateral] Respiratory Rate Respiratory Rate [Anterior Bilateral] Blood Pressure 114/58 92/49 115/65 O2 Sat by Pulse Oximetry O2 Sat by Pulse Oximetry [ Anterior Bilateral] 05/04/19 12:30 Temperature Pulse Rate 88 Pulse Rate [ Anterior Bilateral] Respiratory Rate Respiratory Rate [Anterior Bilateral] Blood Pressure 108/50 O2 Sat by Pulse Oximetry O2 Sat by Pulse Oximetry [ Anterior Bilateral] - Integumentary other (No change in left great toe exam.) - Labs 05/03/19 10:51 05/03/19 10:51 - Imaging Additional Studies: CT of left foot is c/w osteo of left great toe.
--- NOTE | 2019-05-04 13:52 | Progress Note ---
Assessment and Plan Cultures: 04/24 blood culture - NGTD 04/25 wound culture: Proteus, Group B Strep, ESBL E.coli A/P: 53 yo F with ESRD on HD, DM2, HTN, obesity admitted with altered mental status secondary to dialysis noncompliance and found to be septic with toe osteomyelitis. 1. Acute sepsis: noted fever and still leukocytosis. Secondary to toe osteomyelitis. CT leg shows left great toe osteomyelitis 2. L great toe osteomyelitis involving the proximal phalanx per xray: at risk of amputation. Follow up surgical recs. Continue abx. Arterial duplex with evidence of PAD. Wound cx with ESBL E coli, Strep B, Proteus 3. DM2: tight glycemic control for improved wound healing 4. ESRD on HD: renally dose antibiotics as appropriate. 5. Acute encephalopathy: resolved. 6. PAD: vascular consulted, no plans for intervention in the hospital. Recs: adamantly refuses toe amputation ask Renal if ok to place tunneled PICC line for daily meropenem for [address] Baptiste. If it is ok with renal will ask Vascular to place tunneled PICC at discharge will treat with meropenem 1 gm IV q day for 6 weeks till 06/09/2019. Order sent to vocational case manager to arrange home health. continue meropenem for now risk of amputation still high despite abx Discussed with Dr Hairston and Dr Trent Will follow. Thanks for consultation Nohelia Stanford MD Infectious Diseases [facility] ([facility]) M [phone] O [phone] Subjective Date of service: 05/04/19 Principal diagnosis: osteomyelitis left big toe, ESRD on HD, T2 DM, severe anemia Interval history: Feels ok, no fever, upset. Objective - Exam Narrative Exam: Constitutional: Alert, cooperative. No acute distress Head, Ears, Nose: Normocephalic, atraumatic. External ears, nose normal Eyes: Conjunctivae/corneas clear. No icterus. No ptosis. Neck: Supple, no meningeal signs Oral: dentition fair, no thrush Cardiovascular: S1, S2 normal. Respiratory: Good air entry, clear to auscultation bilaterally GI: Soft, non-tender Musculoskeletal: left great toe with chronic skin changes with small wound minimal drainage Skin: No rash or abscess Hem/Lymphatic: No palpable cervical or supraclavicular nodes. No lymphangitis Psych: Mood ok. Affect normal Neurological: Awake, alert, oriented. No gross abnormality - Constitutional Vitals: Vital Signs Temp Pulse Resp BP Pulse Ox 99.2 F 88 18 108/50 97 05/04/19 09:23 05/04/19 12:30 05/04/19 09:23 05/04/19 12:30 05/04/19 09:23 Temperature -Last 24 Hours Temperature 99.2 F Temperature 98.8 F Temperature 98.8 F Temperature 99.3 F Temperature 99.5 F - Labs CBC & Chem 7: 05/03/19 10:51 05/03/19 10:51 Labs: Abnormal lab results 05/03/19 Range/Units 16:59 POC Glucose 118 H (70-105)
--- NOTE | 2019-05-04 16:31 | Progress Note ---
Assessment and Plan Assessment and plan: Patient is a 53-year-old woman who presented to the hospital with chronic wounds to left big toe. She had also missed dialysis. Sepsis/osteomyelitis of left big toe Bedside debridement done by Dr. Trent 04/27, She refused MRI, had CT LE on 05/03 "1. Osteomyelitis involving the proximal and distal phalanx in the left great toe. 2. No additional evidence of additional osteomyelitis in the remainder of the foot." -Follow-up with general surgeon and ID about course of treatment wound cx grew ESBL ecoli, on meropenam contact isolation PAD of LE Arterial duplex abnormal, Vasc sx/IR consult appreciated. Discussed with Precious, patient will be seen as an outpatient. End-stage renal disease Continue dialysis per nephrology Type 2 dm ruled out a1c is <4, patient was not on any diabetic meds at home Hypokalemia was repleted by continuous drier operator MCKAYLA sp 2 units of prbc improved Non-adherence Counseling done DVT prophylaxis; heparin subcu Patient refuses amputation History Interval history: Patient was seen and examined. Follow-up on current diagnosis sepsis Osteomyelitis. No overnight events reported to me. Patient denies any chest pain, shortness breath, nausea/vomiting or severe headaches. Imaging, nursing note, chart, labs and old chart reviewed. Discussed with patient. Hospitalist Physical - Physical exam Narrative exam: Gen: WDWN, NAD, Awake, Alert, Orientated HEENT: NCAT, EOMI, PERRL, OP Clear Neck: supple, no adenopathy, no thyromegaly, no JVD CVS/Heart: RRR, normal S1S2, pulses present bilaterally Chest/Lungs: CTA B, Symmetrical chest expansion, good air entry bilaterally GI/Abdomen: soft, NTND, good bowel sounds, no guarding or rebound /Bladder: no suprapubic tenderness, no CVA or paraspinal tenderness Extermity/Skin: left great toe necrotic MSK: FROM x 4 Neuro: CN 2-12 grossly intact, no new focal deficits Psych: calm - Constitutional Vitals: Temp Pulse Resp BP Pulse Ox 97.6 F 111 H 18 116/64 100 05/04/19 14:02 05/04/19 14:02 05/04/19 14:02 05/04/19 14:02 05/04/19 14:02 General appearance: Present: no acute distress, obese. Absent: disheveled Results - Labs CBC & Chem 7: 05/03/19 10:51 05/03/19 10:51 Labs: Laboratory Last Values WBC 12.3 K/mm3 (4.5-11.0) H 05/03/19 10:51 RBC 3.31 M/mm3 (3.65-5.03) L 05/03/19 10:51 Hgb 9.5 gm/dl (10.1-14.3) L 05/03/19 10:51 Hct 30.4 % (30.3-42.9) 05/03/19 10:51 MCV 92 fl (79-97) 05/03/19 10:51 MCH 29 pg (28-32) 05/03/19 10:51 MCHC 31 % (30-34) 05/03/19 10:51 RDW 19.7 % (13.2-15.2) H 05/03/19 10:51 Plt Count 341 K/mm3 (140-440) 05/03/19 10:51 Lymph % (Auto) 11.5 % (13.4-35.0) L 05/03/19 10:51 [place] % (Auto) 8.0 % (0.0-7.3) H 05/03/19 10:51 Eos % (Auto) 4.9 % (0.0-4.3) H 05/03/19 10:51 Baso % (Auto) 1.0 % (0.0-1.8) 05/03/19 10:51 Lymph # 1.4 K/mm3 (1.2-5.4) 05/03/19 10:51 [place] # 1.0 K/mm3 (0.0-0.8) H 05/03/19 10:51 Eos # 0.6 K/mm3 (0.0-0.4) H 05/03/19 10:51 Baso # 0.1 K/mm3 (0.0-0.1) 05/03/19 10:51 Seg Neutrophils % 74.6 % (40.0-70.0) H 05/03/19 10:51 Seg Neutrophils # 9.2 K/mm3 (1.8-7.7) H 05/03/19 10:51 ESR > 140.0 mm/Hr (0-20) 04/24/19 02:47 PT 19.4 Sec. (12.2-14.9) H 04/24/19 02:47 INR 1.67 (0.87-1.13) H 04/24/19 02:47 Sodium 134 mmol/L (137-145) L 05/03/19 10:51 Potassium 4.4 mmol/L (3.6-5.0) 05/03/19 10:51 Chloride 90.9 mmol/L (98-107) L 05/03/19 10:51 Carbon Dioxide 22 mmol/L (22-30) 05/03/19 10:51 Anion Gap 26 mmol/L 05/03/19 10:51 BUN 23 mg/dL (7-17) H 05/03/19 10:51 Creatinine 10.6 mg/dL (0.7-1.2) H 05/03/19 10:51 Estimated GFR 5 ml/min 05/03/19 10:51 BUN/Creatinine Ratio 2 % 05/03/19 10:51 Glucose 95 mg/dL (65-100) 05/03/19 10:51 POC Glucose 89 (70-105) 05/04/19 07:54 Hemoglobin A1c < 4.0 % (4-6) L 04/24/19 06:45 Calcium 8.6 mg/dL (8.4-10.2) 05/03/19 10:51 Magnesium 1.60 mg/dL (1.7-2.3) L 04/27/19 05:30 Total Bilirubin 0.40 mg/dL (0.1-1.2) 04/28/19 07:35 AST 12 units/L (5-40) 04/28/19 07:35 ALT 8 units/L (7-56) 04/28/19 07:35 Alkaline Phosphatase 79 units/L (35-129) 04/28/19 07:35 Total Creatine Kinase 450 units/L (30-135) H 04/24/19 02:47 C-Reactive Protein 11.50 mg/dL (0.00-1.30) H 04/24/19 02:47 Total Protein 6.9 g/dL (6.3-8.2) 04/28/19 07:35 Albumin 3.0 g/dL (3.9-5) L 04/28/19 07:35 Albumin/Globulin Ratio 0.8 % 04/28/19 07:35 Random Vancomycin 22.0 ug/mL (0-40.0) 04/28/19 07:35 Hepatitis A IgM Ab Non-reactive (NonReactive) 04/24/19 06:28 Hep Bs Antigen Non-reactive (Negative) 04/24/19 06:28 Hep B Core IgM Ab Non-reactive (NonReactive) 04/24/19 06:28 Hepatitis C Antibody Non-reactive (NonReactive) 04/24/19 06:28 Blood Type B POSITIVE 04/24/19 02:47 Antibody Screen Negative 04/24/19 02:47 Crossmatch See Detail 04/24/19 02:47 Active Medications - Current Medications Current Medications: Generic Name Dose Route Start Last Admin Trade Name Freq PRN Reason Stop Dose Admin Acetaminophen 650 mg 04/24/19 04:41 05/03/19 23:03 Tylenol PO 650 mg Q4H PRN Administration Pain, Mild (1-3); fever>100.5 Albuterol 2.5 mg 04/24/19 04:38 Proventil IH Q4HRT PRN Shortness Of Breath Albuterol 2.5 mg 04/28/19 08:00 05/04/19 15:52 Proventil IH Not Given TIDRT LANDON Amlodipine Besylate 5 mg 04/24/19 10:00 05/04/19 09:12 Amlodipine PO Not Given QDAY L[place]ON Aspirin 81 mg 04/24/19 10:00 05/04/19 09:09 Baby Aspirin PO 81 mg QDAY LANDON Administration Calcitriol 0.25 mcg 04/27/19 11:00 05/04/19 09:09 Rocaltrol PO 0.25 mcg QDAY LANDON Administration Dextrose 50 ml 04/24/19 04:42 D50w (25gm) Syringe IV Q30MIN PRN Hypoglycemia Protocol Diphenhydramine HCl 25 mg 04/24/19 04:40 05/03/19 21:56 Benadryl IV 25 mg Q6H PRN Administration Itching Docusate Sodium 100 mg 04/24/19 10:00 05/04/19 09:09 Colace PO 100 mg BID LANDON Administration Epoetin Sylvain 20,000 unit 04/25/19 16:44 05/04/19 12:25 Procrit IV 20,000 unit JAYNE PRN Administration hemodialysis Heparin Sodium (Porcine) 5,000 unit 04/24/19 10:00 05/04/19 09:13 Heparin SUB-Q 5,000 unit Q12HR LANDON Administration Heparin Sodium (Porcine) 5,000 unit 04/25/19 16:44 05/04/19 12:25 Heparin IV 5,000 unit JAYNE PRN Administration hemodialysis Hydralazine HCl 25 mg 04/24/19 06:00 05/04/19 14:00 Apresoline PO Not Given Q8HR [facility] Hydromorphone HCl 1 mg 05/01/19 16:27 Dilaudid IV Q24H PRN before CT scan Hydroxyzine HCl 25 mg 04/24/19 21:27 04/26/19 02:48 Atarax PO 25 mg Q8H PRN Administration Itching Sodium Chloride 100 mls @ 999 mls/hr 04/25/19 16:44 Nacl 0.9% IV JAYNE PRN Hypotension Sodium Chloride 1,000 mls @ 100 mls/hr 04/25/19 16:44 Nacl 0.9% 1000 Ml IV JAYNE PRN FOR MUSCLE CRAMPS DURING HEMO MEROPENEM/NS 1 GRAM/100 ML 1 gram in 100 mls @ 100 mls/hr 04/28/19 18:00 05/03/19 17:32 Merrem/Ns 1 Gram/100 Ml IV 100 mls/hr QPM [facility] Administration Protocol Insulin Human Lispro 0 unit 04/24/19 07:30 05/04/19 12:00 Humalog SUB-Q Not Given ACHS [facility] Protocol Lorazepam 1 mg 05/01/19 16:27 05/02/19 13:48 Ativan IV 1 mg Q24H PRN Administration before ct scan Nicotine 14 mg 04/24/19 10:00 05/04/19 09:16 Habitrol TD Not Given QDAY [facility] Ondansetron HCl 4 mg 04/24/19 01:43 04/30/19 17:23 Zofran Odt PO 4 mg Q6HR PRN Administration Nausea Ondansetron HCl 4 mg 04/29/19 22:35 05/03/19 21:56 Zofran IV 4 mg Q6H PRN Administration Nausea And Vomiting Oxycodone/Acetaminophen 1 tab 04/25/19 06:13 04/30/19 17:23 Percocet 5/325 PO 1 tab Q6H PRN Administration Pain, Moderate (4-6) Sodium Chloride 10 ml 04/24/19 10:00 05/04/19 09:14 Sodium Chloride Flush Syringe 10 Ml IV 10 ml BID LANDON Administration Sodium Chloride 10 ml 04/24/19 04:42 Sodium Chloride Flush Syringe 10 Ml IV PRN PRN LINE FLUSH Nutrition/Malnutrition Assess - Dietary Evaluation Nutrition/Malnutrition Findings: Nutrition Notes Start: 04/30/19 13:06 Freq: Status: Active Protocol: Document 04/30/19 13:06 CT (Rec: 04/30/19 13:09 CT [id number]) Co-Sign 04/30/19 13:06 LP Nutrition Notes Need for Assessment generated from: LOS Initial or Follow up Brief Note Current Diagnosis Coronary Artery Disease, Diabetes,Sepsis,Hypertension, Heart Failure Other Pertinent Diagnosis Hx CVA, ESRD (T/T/Sa), anemia, arthritis, COPD, Chronic wounds Current Diet Renal/Consistent CHO Labs/Tests Reviewed Pertinent Medications Reviewed Height 5 ft 6 in Weight 72.5 kg [place] Body Weight (kg) 59.09 BMI 25.7 Subjective/Other Information Visited pt room twice and pt was not in room
[2019-05-04] MEDS: MEROPENEM/NS 1 GRAM/100 ML 1 GRAM/100 ML BAG IV SCH (17:34)
[2019-05-05] MEDS: hydrALAZINE 25 MG TAB PO SCH ×3 (06:01→22:26)
[2019-05-05] MEDS: INSULIN LISPRO 100 UNIT/ML SUB-Q SCH ×5 (08:25→23:53)
[2019-05-05] MEDS: amLODIPine 10 MG TAB PO SCH (10:00)
[2019-05-05] MEDS: HEPARIN 5,000 UNIT/1 ML VIAL SUB-Q SCH ×2 (10:46→22:27)
[2019-05-05] MEDS: NICOTINE 14 MG/24 HR PATCH TD SCH (10:46)
[2019-05-05] MEDS: CALCITRIOL 0.25 MCG CAP PO SCH (10:46)
[2019-05-05] MEDS: ASPIRIN 81 MG TAB CHEW PO SCH (10:46)
[2019-05-05] MEDS: DOCUSATE SODIUM 100 MG CAP PO SCH ×2 (10:46→22:27)
[2019-05-05] MEDS: ALBUTEROL 2.5 MG/3 ML NEBU IH SCH ×3 (14:40→21:46)
--- NOTE | 2019-05-05 15:49 | Progress Note ---
Assessment and Plan Cultures: 04/24 blood culture - NGTD 04/25 wound culture: Proteus, Group B Strep, ESBL E.coli A/P: 53 yo F with ESRD on HD, DM2, HTN, obesity admitted with altered mental status secondary to dialysis noncompliance and found to be septic with toe osteomyelitis. 1. Acute sepsis: noted fever and still leukocytosis. Secondary to toe osteomyelitis. CT leg shows left great toe osteomyelitis 2. L great toe osteomyelitis involving the proximal phalanx per xray: at risk of amputation. Follow up surgical recs. Continue abx. Arterial duplex with evidence of PAD. Wound cx with ESBL E coli, Strep B, Proteus 3. DM2: tight glycemic control for improved wound healing 4. ESRD on HD: renally dose antibiotics as appropriate. 5. Acute encephalopathy: resolved. 6. PAD: vascular consulted, no plans for intervention in the hospital. Recs: refuses toe amputation Discussed with Renal Dr Baptiste need for tunneled PICC for daily meropenem for [address] Hairston kindly requested vascular consult to place access. anticipate to d/c on meropenem 1 gm IV q day for 6 weeks till 06/09/2019. Order sent to manager of case to arrange home health. continue meropenem for now May 27. project scheduler notified risk of amputation still high despite abx Will follow. Nohelia Stanford MD Infectious Diseases Meat Manager [facility] ([facility]) M [phone] O [phone] Subjective Date of service: 05/05/19 Principal diagnosis: osteomyelitis left big toe, ESRD on HD, T2 DM, severe anemia Interval history: Feels better, she is not upset. no fever. Objective - Exam Narrative Exam: Constitutional: Alert, cooperative. No acute distress Head, Ears, Nose: Normocephalic, atraumatic. External ears, nose normal Eyes: Conjunctivae/corneas clear. No icterus. No ptosis. Neck: Supple, no meningeal signs Oral: dentition fair, no thrush Cardiovascular: S1, S2 normal. Respiratory: Good air entry, clear to auscultation bilaterally GI: Soft, non-tender Musculoskeletal: left great toe with chronic skin changes with small wound minimal drainage Skin: No rash or abscess Hem/Lymphatic: No palpable cervical or supraclavicular nodes. No lymphangitis Psych: Mood ok. Affect normal Neurological: Awake, alert, oriented. No gross abnormality - Constitutional Vitals: Vital Signs Temp Pulse Resp BP Pulse Ox 97.1 F L 94 H 20 118/68 100 05/05/19 11:15 05/05/19 14:00 05/05/19 14:00 05/05/19 11:15 05/05/19 11:15 Temperature -Last 24 Hours Temperature 97.1 F Temperature 97.5 F Temperature 97.7 F Temperature 97.0 F - Labs CBC & Chem 7: 05/03/19 10:51 05/03/19 10:51 Labs: Abnormal lab results 05/04/19 05/04/19 05/05/19 Range/Units 16:35 21:14 07:46 POC Glucose 150 H 139 H 117 H (70-105) 05/05/19 Range/Units 11:25 POC Glucose 115 H (70-105)
--- NOTE | 2019-05-05 16:15 | Progress Note ---
Assessment and Plan - Patient Problems (1) ESRD (end stage renal disease) on dialysis Current Visit: Yes Status: Chronic Plan to address problem: End-stage renal disease hemodialysis We'll continue hemodialysis Friday (2) Anemia in chronic kidney disease Current Visit: No Status: Chronic Plan to address problem: Moderate anemia Hemoglobin 9.5 gram per DL epogen with HD Monitor CBC (3) Essential hypertension Current Visit: No Status: Chronic Plan to address problem: Hypertension Continue present medications (4) Type II diabetes mellitus Current Visit: No Status: Chronic Plan to address problem: Diabetes mellitus type 2 Continuing medications Monitor fingerstick Subjective Principal diagnosis: osteomyelitis left big toe, ESRD on HD, T2 DM, severe anemia Interval history: 53-year-old female with end-stage renal disease on hemodialysis, diabetes mellitus type 2, CAD, COPD, previous CVA admitted following missed hemodialysis for 2 weeks, also being worked up for left great toe for osteomyelitis Patient denies any worsening Shortness of breath no fevers or chills , no headaches. Objective - Vital Signs Vital signs: Vital Signs - 12hr 05/05/19 05/05/19 05/05/19 04:54 06:01 11:15 Temperature 97.5 F L 97.1 F L Pulse Rate 117 H 117 H 110 H Pulse Rate [ Anterior Bilateral] Pulse Rate [ Posterior Bilateral Throughout] Respiratory 24 20 Rate Respiratory Rate [Anterior Bilateral] Respiratory Rate [Posterior Bilateral Throughout] Blood Pressure 100/55 100/55 118/68 O2 Sat by Pulse 97 100 Oximetry 05/05/19 14:00 Temperature Pulse Rate Pulse Rate [ 94 H Anterior Bilateral] Pulse Rate [ 86 Posterior Bilateral Throughout] Respiratory Rate Respiratory 20 Rate [Anterior Bilateral] Respiratory 18 Rate [Posterior Bilateral Throughout] Blood Pressure O2 Sat by Pulse Oximetry - General Appearance General appearance: well-developed, well-nourished EENT: ATNC, PERRL Neck: no JVD Respiratory: Present: Clear to Ascultation Cardiology: regular, S1S2 Gastrointestinal: normal, normoactive bowel sounds Integumentary: no rash Neurologic: alert and oriented x3, CN 3-12 intact Psychiatric: mood/affect appropriate - Lab 05/03/19 10:51 05/03/19 10:51 Most recent lab results Calcium 8.6 mg/dL (8.4-10.2) 05/03/19 10:51 Magnesium 1.60 mg/dL (1.7-2.3) L 04/27/19 05:30 - Imaging Other: other (CT scan with concern for osteomyelitis. ) Medications & Allergies - Medications Allergies/Adverse Reactions: Allergies No Known Allergies Allergy (Verified 06/21/16 15:23) Home Medications: Home Medications Medication Instructions Recorded Confirmed Last Taken Type Ondansetron [Zofran TAB] 4 mg PO PRN PRN 09/09/14 02/25/17 1 Day Ago History ~04/25/16 Gabapentin 300 mg PO TID 02/25/17 02/25/17 Unknown History Loratadine [Claritin] 10 mg PO QDAY PRN 02/25/17 02/25/17 Unknown History ALBUTEROL NEB's [Proventil 0.083% 2.5 mg IH QIDRT #60 nebu 02/27/17 Unknown Rx NEBS] Aspirin [Aspirin BABY CHEW TAB] 81 mg PO QDAY #30 tab.chew 02/27/17 Unknown Rx amLODIPine 5 mg PO QDAY #30 tablet 02/27/17 Unknown Rx hydrALAZINE [Apresoline TAB] 25 mg PO Q8HR #90 tablet 02/27/17 Unknown Rx hydrOXYzine HCL [Atarax] 25 mg PO Q8H PRN #20 tablet 02/27/17 Unknown Rx Clindamycin [Clindamycin CAP] 300 mg PO Q6H #40 capsule 03/02/19 Unknown Rx Active Medications: Generic Name Dose Route Start Last Admin Trade Name Freq PRN Reason Stop Dose Admin Acetaminophen 650 mg 04/24/19 04:41 05/03/19 23:03 Tylenol PO 650 mg Q4H PRN Administration Pain, Mild (1-3); fever>100.5 Albuterol 2.5 mg 04/24/19 04:38 Proventil IH Q4HRT PRN Shortness Of Breath Albuterol 2.5 mg 04/28/19 08:00 05/05/19 14:44 Proventil IH Not Given TIDRT L[place]ON Amlodipine Besylate 5 mg 04/24/19 10:00 05/04/19 09:12 Amlodipine PO Not Given QDAY L[place] Aspirin 81 mg 04/24/19 10:00 05/05/19 10:46 Baby Aspirin PO 81 mg QDAY L[place]ON Administration Calcitriol 0.25 mcg 04/27/19 11:00 05/05/19 10:46 Rocaltrol PO 0.25 mcg QDAY L[place]ON Administration Dextrose 50 ml 04/24/19 04:42 D50w (25gm) Syringe IV Q30MIN PRN Hypoglycemia Protocol Diphenhydramine HCl 25 mg 04/24/19 04:40 05/03/19 21:56 Benadryl IV 25 mg Q6H PRN Administration Itching Docusate Sodium 100 mg 04/24/19 10:00 05/05/19 10:46 Colace PO 100 mg BID L[place]ON Administration Epoetin Sylvain 20,000 unit 04/25/19 16:44 05/04/19 12:25 Procrit IV 20,000 unit JAYNE PRN Administration hemodialysis Heparin Sodium (Porcine) 5,000 unit 04/24/19 10:00 05/05/19 10:46 Heparin SUB-Q 5,000 unit Q12HR L[place]ON Administration Heparin Sodium (Porcine) 5,000 unit 04/25/19 16:44 05/04/19 12:25 Heparin IV 5,000 unit JAYNE PRN Administration hemodialysis Hydralazine HCl 25 mg 04/24/19 06:00 05/05/19 06:01 Apresoline PO 25 mg Q8HR LANDON Administration Hydromorphone HCl 1 mg 05/01/19 16:27 Dilaudid IV Q24H PRN before CT scan Hydroxyzine HCl 25 mg 04/24/19 21:27 04/26/19 02:48 Atarax PO 25 mg Q8H PRN Administration Itching Sodium Chloride 100 mls @ 999 mls/hr 04/25/19 16:44 Nacl 0.9% IV JAYNE PRN Hypotension Sodium Chloride 1,000 mls @ 100 mls/hr 04/25/19 16:44 Nacl 0.9% 1000 Ml IV JAYNE PRN FOR MUSCLE CRAMPS DURING HEMO MEROPENEM/NS 1 GRAM/100 ML 1 gram in 100 mls @ 100 mls/hr 04/28/19 18:00 05/04/19 17:34 Merrem/Ns 1 Gram/100 Ml IV 06/09/19 18:59 100 mls/hr QPM LANDON Administration Protocol Insulin Human Lispro 0 unit 04/24/19 07:30 05/05/19 11:30 Humalog SUB-Q Not Given ACHS LANDON Protocol Lorazepam 1 mg 05/01/19 16:27 05/02/19 13:48 Ativan IV 1 mg Q24H PRN Administration before ct scan Nicotine 14 mg 04/24/19 10:00 05/05/19 10:46 Habitrol TD 14 mg QDAY L[place]ON Administration Ondansetron HCl 4 mg 04/29/19 22:35 05/03/19 21:56 Zofran IV 4 mg Q6H PRN Administration Nausea And Vomiting Oxycodone/Acetaminophen 1 tab 04/25/19 06:13 04/30/19 17:23 Percocet 5/325 PO 1 tab Q6H PRN Administration Pain, Moderate (4-6) Sodium Chloride 10 ml 04/24/19 10:00 05/05/19 10:47 Sodium Chloride Flush Syringe 10 Ml IV 10 ml BID L[place]ON Administration Sodium Chloride 10 ml 04/24/19 04:42 Sodium Chloride Flush Syringe 10 Ml IV PRN PRN LINE FLUSH
--- NOTE | 2019-05-05 18:00 | Progress Note ---
Assessment and Plan Assessment and plan: Patient is a 53-year-old woman who presented to the hospital with chronic wounds to left big toe. She had also missed dialysis. Sepsis/osteomyelitis of left big toe Bedside debridement done by Dr. Trent 04/27, She refused MRI, had CT LE on 05/03 "1. Osteomyelitis involving the proximal and distal phalanx in the left great toe. 2. No additional evidence of additional osteomyelitis in the remainder of the foot." -Follow-up with general surgeon and ID about course of treatment wound cx grew ESBL ecoli, on meropenam contact isolation PAD of LE Arterial duplex abnormal, Vasc sx/IR consult appreciated. Discussed with Precious, patient will be seen as an outpatient. End-stage renal disease Continue dialysis per nephrology Type 2 dm ruled out a1c is <4, patient was not on any diabetic meds at home Hypokalemia was repleted by internal medicine nurse practitioner MCKAYLA sp 2 units of prbc improved Non-adherence Counseling done DVT prophylaxis; heparin subcu Awaiting tunnel PICC then d/c with HD abx History Interval history: Patient was seen and examined. Follow-up on current diagnosis sepsis Osteomyelitis. No overnight events reported to me. Patient denies any chest echo n, shortness breath, nausea/vomiting or severe headaches. Imaging, nursing note, chart, labs and old chart reviewed. Discussed with patient. Hospitalist Physical - Physical exam Narrative exam: Gen: WDWN, NAD, Awake, Alert, Orientated HEENT: NCAT, EOMI, PERRL, OP Clear Neck: supple, no adenopathy, no thyromegaly, no JVD CVS/Heart: RRR, normal S1S2, pulses present bilaterally Chest/Lungs: CTA B, Symmetrical chest expansion, good air entry bilaterally GI/Abdomen: soft, NTND, good bowel sounds, no guarding or rebound /Bladder: no suprapubic tenderness, no CVA or paraspinal tenderness Extermity/Skin: left great toe necrotic MSK: FROM x 4 Neuro: CN 2-12 grossly intact, no new focal deficits Psych: calm - Constitutional Vitals: Temp Pulse Resp BP Pulse Ox 97.7 F 116 H 18 104/68 96 05/05/19 17:09 05/05/19 17:09 05/05/19 17:09 05/05/19 17:09 05/05/19 17:09 General appearance: Present: no acute distress, obese. Absent: disheveled Results - Labs CBC & Chem 7: 05/03/19 10:51 05/03/19 10:51 Labs: Laboratory Last Values WBC 12.3 K/mm3 (4.5-11.0) H 05/03/19 10:51 RBC 3.31 M/mm3 (3.65-5.03) L 05/03/19 10:51 Hgb 9.5 gm/dl (10.1-14.3) L 05/03/19 10:51 Hct 30.4 % (30.3-42.9) 05/03/19 10:51 MCV 92 fl (79-97) 05/03/19 10:51 MCH 29 pg (28-32) 05/03/19 10:51 MCHC 31 % (30-34) 05/03/19 10:51 RDW 19.7 % (13.2-15.2) H 05/03/19 10:51 Plt Count 341 K/mm3 (140-440) 05/03/19 10:51 Lymph % (Auto) 11.5 % (13.4-35.0) L 05/03/19 10:51 [place] % (Auto) 8.0 % (0.0-7.3) H 05/03/19 10:51 Eos % (Auto) 4.9 % (0.0-4.3) H 05/03/19 10:51 Baso % (Auto) 1.0 % (0.0-1.8) 05/03/19 10:51 Lymph # 1.4 K/mm3 (1.2-5.4) 05/03/19 10:51 [place] # 1.0 K/mm3 (0.0-0.8) H 05/03/19 10:51 Eos # 0.6 K/mm3 (0.0-0.4) H 05/03/19 10:51 Baso # 0.1 K/mm3 (0.0-0.1) 05/03/19 10:51 Seg Neutrophils % 74.6 % (40.0-70.0) H 05/03/19 10:51 Seg Neutrophils # 9.2 K/mm3 (1.8-7.7) H 05/03/19 10:51 ESR > 140.0 mm/Hr (0-20) 04/24/19 02:47 PT 19.4 Sec. (12.2-14.9) H 04/24/19 02:47 INR 1.67 (0.87-1.13) H 04/24/19 02:47 Sodium 134 mmol/L (137-145) L 05/03/19 10:51 Potassium 4.4 mmol/L (3.6-5.0) 05/03/19 10:51 Chloride 90.9 mmol/L (98-107) L 05/03/19 10:51 Carbon Dioxide 22 mmol/L (22-30) 05/03/19 10:51 Anion Gap 26 mmol/L 05/03/19 10:51 BUN 23 mg/dL (7-17) H 05/03/19 10:51 Creatinine 10.6 mg/dL (0.7-1.2) H 05/03/19 10:51 Estimated GFR 5 ml/min 05/03/19 10:51 BUN/Creatinine Ratio 2 % 05/03/19 10:51 Glucose 95 mg/dL (65-100) 05/03/19 10:51 POC Glucose 188 (70-105) H 05/05/19 16:37 Hemoglobin A1c < 4.0 % (4-6) L 04/24/19 06:45 Calcium 8.6 mg/dL (8.4-10.2) 05/03/19 10:51 Magnesium 1.60 mg/dL (1.7-2.3) L 04/27/19 05:30 Total Bilirubin 0.40 mg/dL (0.1-1.2) 04/28/19 07:35 AST 12 units/L (5-40) 04/28/19 07:35 ALT 8 units/L (7-56) 04/28/19 07:35 Alkaline Phosphatase 79 units/L (35-129) 04/28/19 07:35 Total Creatine Kinase 450 units/L (30-135) H 04/24/19 02:47 C-Reactive Protein 11.50 mg/dL (0.00-1.30) H 04/24/19 02:47 Total Protein 6.9 g/dL (6.3-8.2) 04/28/19 07:35 Albumin 3.0 g/dL (3.9-5) L 04/28/19 07:35 Albumin/Globulin Ratio 0.8 % 04/28/19 07:35 Random Vancomycin 22.0 ug/mL (0-40.0) 04/28/19 07:35 Hepatitis A IgM Ab Non-reactive (NonReactive) 04/24/19 06:28 Hep Bs Antigen Non-reactive (Negative) 04/24/19 06:28 Hep B Core IgM Ab Non-reactive (NonReactive) 04/24/19 06:28 Hepatitis C Antibody Non-reactive (NonReactive) 04/24/19 06:28 Blood Type B POSITIVE 04/24/19 02:47 Antibody Screen Negative 04/24/19 02:47 Crossmatch See Detail 04/24/19 02:47 Active Medications - Current Medications Current Medications: Generic Name Dose Route Start Last Admin Trade Name Freq PRN Reason Stop Dose Admin Acetaminophen 650 mg 04/24/19 04:41 05/03/19 23:03 Tylenol PO 650 mg Q4H PRN Administration Pain, Mild (1-3); fever>100.5 Albuterol 2.5 mg 04/24/19 04:38 Proventil IH Q4HRT PRN Shortness Of Breath Albuterol 2.5 mg 04/28/19 08:00 05/05/19 14:44 Proventil IH Not Given TIDRT LANDON Amlodipine Besylate 5 mg 04/24/19 10:00 05/04/19 09:12 Amlodipine PO Not Given QDAY LANDON Aspirin 81 mg 04/24/19 10:00 05/05/19 10:46 Baby Aspirin PO 81 mg QDAY LANDON Administration Calcitriol 0.25 mcg 04/27/19 11:00 05/05/19 10:46 Rocaltrol PO 0.25 mcg QDAY LANDON Administration Dextrose 50 ml 04/24/19 04:42 D50w (25gm) Syringe IV Q30MIN PRN Hypoglycemia Protocol Diphenhydramine HCl 25 mg 04/24/19 04:40 05/03/19 21:56 Benadryl IV 25 mg Q6H PRN Administration Itching Docusate Sodium 100 mg 04/24/19 10:00 05/05/19 10:46 Colace PO 100 mg BID LANDON Administration Epoetin Sylvain 20,000 unit 04/25/19 16:44 05/04/19 12:25 Procrit IV 20,000 unit JAYNE PRN Administration hemodialysis Heparin Sodium (Porcine) 5,000 unit 04/24/19 10:00 05/05/19 10:46 Heparin SUB-Q 5,000 unit Q12HR LANDON Administration Heparin Sodium (Porcine) 5,000 unit 04/25/19 16:44 05/04/19 12:25 Heparin IV 5,000 unit JAYNE PRN Administration hemodialysis Hydralazine HCl 25 mg 04/24/19 06:00 05/05/19 06:01 Apresoline PO 25 mg Q8HR LANDON Administration Hydromorphone HCl 1 mg 05/01/19 16:27 Dilaudid IV Q24H PRN before CT scan Hydroxyzine HCl 25 mg 04/24/19 21:27 04/26/19 02:48 Atarax PO 25 mg Q8H PRN Administration Itching Sodium Chloride 100 mls @ 999 mls/hr 04/25/19 16:44 Nacl 0.9% IV JAYNE PRN Hypotension Sodium Chloride 1,000 mls @ 100 mls/hr 04/25/19 16:44 Nacl 0.9% 1000 Ml IV JAYNE PRN FOR MUSCLE CRAMPS DURING HEMO MEROPENEM/NS 1 GRAM/100 ML 1 gram in 100 mls @ 100 mls/hr 04/28/19 18:00 05/04/19 17:34 Merrem/Ns 1 Gram/100 Ml IV 06/09/19 18:59 100 mls/hr QPM LANDON Administration Protocol Insulin Human Lispro 0 unit 04/24/19 07:30 05/05/19 11:30 Humalog SUB-Q Not Given ACHS [facility] Protocol Lorazepam 1 mg 05/01/19 16:27 05/02/19 13:48 Ativan IV 1 mg Q24H PRN Administration before ct scan Nicotine 14 mg 04/24/19 10:00 05/05/19 10:46 Habitrol TD 14 mg QDAY LANDON Administration Ondansetron HCl 4 mg 04/29/19 22:35 05/03/19 21:56 Zofran IV 4 mg Q6H PRN Administration Nausea And Vomiting Oxycodone/Acetaminophen 1 tab 04/25/19 06:13 04/30/19 17:23 Percocet 5/325 PO 1 tab Q6H PRN Administration Pain, Moderate (4-6) Sodium Chloride 10 ml 04/24/19 10:00 05/05/19 10:47 Sodium Chloride Flush Syringe 10 Ml IV 10 ml BID LANDON Administration Sodium Chloride 10 ml 04/24/19 04:42 Sodium Chloride Flush Syringe 10 Ml IV PRN PRN LINE FLUSH Nutrition/Malnutrition Assess - Dietary Evaluation Nutrition/Malnutrition Findings: Nutrition Notes Start: 04/30/19 13:06 Freq: Status: Active Protocol: Document 04/30/19 13:06 CT (Rec: 04/30/19 13:09 CT [id number]) Co-Sign 04/30/19 13:06 LP Nutrition Notes Need for Assessment generated from: LOS Initial or Follow up Brief Note Current Diagnosis Coronary Artery Disease, Diabetes,Sepsis,Hypertension, Heart Failure Other Pertinent Diagnosis Hx CVA, ESRD (T/T/Sa), anemia, arthritis, COPD, Chronic wounds Current Diet Renal/Consistent CHO Labs/Tests Reviewed Pertinent Medications Reviewed Height 5 ft 6 in Weight 72.5 kg [place] Body Weight (kg) 59.09 BMI 25.7 Subjective/Other Information Visited pt room twice and pt was not in room
[2019-05-05] MEDS: MEROPENEM/NS 1 GRAM/100 ML 1 GRAM/100 ML BAG IV SCH (18:02)
[2019-05-05] MEDS: ONDANSETRON 4 MG/2 ML INJ IV PRN (18:57)
[2019-05-06 05:27] LABS: Albumin 3.1 g/dL (3.9-5); BUN/Creatinine Ratio 2; Blood Urea Nitrogen 18 mg/dL (7-17); Calcium 8.7 mg/dL (8.4-10.2); Hemolysis Index 5
[2019-05-06 05:29] LABS: Alanine Aminotransferase < 5 units/L (7-56)
[2019-05-06 05:32] LABS: Hematocrit 29.3 % (30.3-42.9); Hemoglobin 9.5 gm/dl (10.1-14.3); Mean Corpuscular HGB Conc 32 % (30-34); Mean Corpuscular Volume 92 fl (79-97); Platelet Count 300 K/mm3 (140-440); Red Blood Count 3.17 M/mm3 (3.65-5.03); Red Cell Distribution Width 18.7 % (13.2-15.2)
[2019-05-06] MEDS: hydrALAZINE 25 MG TAB PO SCH ×2 (08:07→14:00)
[2019-05-06] MEDS: INSULIN LISPRO 100 UNIT/ML SUB-Q SCH ×2 (08:30→11:30)
[2019-05-06] MEDS: HEPARIN 5,000 UNIT/1 ML VIAL SUB-Q SCH (10:00)
[2019-05-06] MEDS: CALCITRIOL 0.25 MCG CAP PO SCH (10:00)
[2019-05-06] MEDS: DOCUSATE SODIUM 100 MG CAP PO SCH (10:00)
[2019-05-06] MEDS: ASPIRIN 81 MG TAB CHEW PO SCH (10:00)
[2019-05-06] MEDS: amLODIPine 10 MG TAB PO SCH (10:00)
[2019-05-06] MEDS: oxyCODONE /ACETAMINOPHEN 5-325MG TAB PO PRN ×2 (10:32→17:22)
[2019-05-06] MEDS: ALBUTEROL 2.5 MG/3 ML NEBU IH SCH ×2 (11:27→16:46)
[2019-05-06] MEDS ORDERED: LIDOCAINE 1%/EPINEPHRINE 1:100,000 VIAL (20 ML) INFILTRATI ONE (13:38)
[2019-05-06] MEDS ORDERED: HEPARIN/NS 5000 UNIT/500ML 500 ML IR ONE (13:38)
[2019-05-06] MEDS ORDERED: MIDAZOLAM 2 MG/2 ML INJ ONE (13:38)
[2019-05-06] MEDS ORDERED: fentaNYL 100 MCG/2 ML INJ ONE (13:38)
[2019-05-06] MEDS ORDERED: SODIUM CHLORIDE 0.9% 250ML 250 ML ONE (13:39)
--- NOTE | 2019-05-06 14:22 | Progress Note ---
Assessment and Plan - Patient Problems (1) ESRD (end stage renal disease) on dialysis Current Visit: Yes Status: Chronic Plan to address problem: End-stage renal disease hemodialysis We'll continue hemodialysis Friday (2) Anemia in chronic kidney disease Current Visit: No Status: Chronic Plan to address problem: Moderate anemia Hemoglobin 9.5 gram per DL epogen with HD Monitor CBC (3) Essential hypertension Current Visit: No Status: Chronic Plan to address problem: Hypertension Continue present medications (4) Type II diabetes mellitus Current Visit: No Status: Chronic Plan to address problem: Diabetes mellitus type 2 Continuing medications Monitor fingerstick Subjective Principal diagnosis: osteomyelitis left big toe, ESRD on HD, T2 DM, severe anemia Interval history: 53-year-old female with end-stage renal disease on hemodialysis, diabetes mellitus type 2, CAD, COPD, previous CVA admitted following missed hemodialysis for 2 weeks, also being worked up for left great toe for osteomyelitis Patient denies any worsening Shortness of breath no fevers or chills , no headaches. I attest that I saw the patient on dialysis Objective - Vital Signs Vital signs: Vital Signs - 12hr 05/06/19 05:39 Temperature 97.9 F Pulse Rate 109 H Respiratory 20 Rate Blood Pressure 91/55 O2 Sat by Pulse 99 Oximetry - General Appearance General appearance: well-developed, well-nourished EENT: ATNC, PERRL Neck: no JVD Respiratory: Present: Clear to Ascultation Cardiology: regular, S1S2 Gastrointestinal: normal, normoactive bowel sounds Integumentary: no rash Neurologic: alert and oriented x3, CN 3-12 intact Psychiatric: mood/affect appropriate - Lab 05/06/19 04:19 05/06/19 04:19 Most recent lab results Calcium 8.7 mg/dL (8.4-10.2) 05/06/19 04:19 Magnesium 1.60 mg/dL (1.7-2.3) L 04/27/19 05:30 - Imaging Other: other (CT scan reviewed concerning for osteomyelitis) Medications & Allergies - Medications Allergies/Adverse Reactions: Allergies No Known Allergies Allergy (Verified 06/21/16 15:23) Home Medications: Home Medications Medication Instructions Recorded Confirmed Last Taken Type Ondansetron [Zofran TAB] 4 mg PO PRN PRN 09/09/14 02/25/17 1 Day Ago History ~04/25/16 Gabapentin 300 mg PO TID 02/25/17 02/25/17 Unknown History Loratadine [Claritin] 10 mg PO QDAY PRN 02/25/17 02/25/17 Unknown History ALBUTEROL NEB's [Proventil 0.083% 2.5 mg IH QIDRT #60 nebu 02/27/17 Unknown Rx NEBS] Aspirin [Aspirin BABY CHEW TAB] 81 mg PO QDAY #30 tab.chew 02/27/17 Unknown Rx amLODIPine 5 mg PO QDAY #30 tablet 02/27/17 Unknown Rx hydrALAZINE [Apresoline TAB] 25 mg PO Q8HR #90 tablet 02/27/17 Unknown Rx hydrOXYzine HCL [Atarax] 25 mg PO Q8H PRN #20 tablet 02/27/17 Unknown Rx Clindamycin [Clindamycin CAP] 300 mg PO Q6H #40 capsule 03/02/19 Unknown Rx Active Medications: Generic Name Dose Route Start Last Admin Trade Name Freq PRN Reason Stop Dose Admin Acetaminophen 650 mg 04/24/19 04:41 05/03/19 23:03 Tylenol PO 650 mg Q4H PRN Administration Pain, Mild (1-3); fever>100.5 Albuterol 2.5 mg 04/24/19 04:38 Proventil IH Q4HRT PRN Shortness Of Breath Albuterol 2.5 mg 04/28/19 08:00 05/06/19 11:27 Proventil IH 1 mg TIDRT LANDON Administration Amlodipine Besylate 5 mg 04/24/19 10:00 05/05/19 10:00 Amlodipine PO 5 mg QDAY LANDON Administration Aspirin 81 mg 04/24/19 10:00 05/05/19 10:46 Baby Aspirin PO 81 mg QDAY LANDON Administration Calcitriol 0.25 mcg 04/27/19 11:00 05/05/19 10:46 Rocaltrol PO 0.25 mcg QDAY LANDON Administration Dextrose 50 ml 04/24/19 04:42 D50w (25gm) Syringe IV Q30MIN PRN Hypoglycemia Protocol Diphenhydramine HCl 25 mg 04/24/19 04:40 05/03/19 21:56 Benadryl IV 25 mg Q6H PRN Administration Itching Docusate Sodium 100 mg 04/24/19 10:00 05/05/19 22:27 Colace PO 100 mg BID LANDON Administration Epoetin Sylvain 20,000 unit 04/25/19 16:44 05/04/19 12:25 Procrit IV 20,000 unit JAYNE PRN Administration hemodialysis Heparin Sodium (Porcine) 5,000 unit 04/24/19 10:00 05/05/19 22:27 Heparin SUB-Q 5,000 unit Q12HR LANDON Administration Heparin Sodium (Porcine) 5,000 unit 04/25/19 16:44 05/04/19 12:25 Heparin IV 5,000 unit JAYNE PRN Administration hemodialysis Hydralazine HCl 25 mg 04/24/19 06:00 05/06/19 08:07 Apresoline PO Not Given Q8HR [facility] Hydromorphone HCl 1 mg 05/01/19 16:27 05/05/19 18:56 Dilaudid IV 1 mg Q24H PRN Administration before CT scan Hydroxyzine HCl 25 mg 04/24/19 21:27 04/26/19 02:48 Atarax PO 25 mg Q8H PRN Administration Itching Sodium Chloride 100 mls @ 999 mls/hr 04/25/19 16:44 Nacl 0.9% IV JAYNE PRN Hypotension Sodium Chloride 1,000 mls @ 100 mls/hr 04/25/19 16:44 Nacl 0.9% 1000 Ml IV JAYNE PRN FOR MUSCLE CRAMPS DURING HEMO MEROPENEM/NS 1 GRAM/100 ML 1 gram in 100 mls @ 100 mls/hr 04/28/19 18:00 04/17 18:02 Merrem/Ns 1 Gram/100 Ml IV 06/09/19 18:59 100 mls/hr QPM LANDON Administration Protocol Insulin Human Lispro 0 unit 04/24/19 07:30 05/06/19 08:30 Humalog SUB-Q Not Given ACHS [facility] Protocol Lorazepam 1 mg 05/01/19 16:27 05/02/19 13:48 Ativan IV 1 mg Q24H PRN Administration before ct scan Nicotine 14 mg 04/24/19 10:00 05/05/19 10:46 Habitrol TD 14 mg QDAY L[place]ON Administration Ondansetron HCl 4 mg 04/29/19 22:35 05/05/19 18:57 Zofran IV 4 mg Q6H PRN Administration Nausea And Vomiting Oxycodone/Acetaminophen 1 tab 04/25/19 06:13 05/06/19 10:32 Percocet 5/325 PO 1 tab Q6H PRN Administration Pain, Moderate (4-6) Sodium Chloride 10 ml 04/24/19 10:00 05/05/19 22:12 Sodium Chloride Flush Syringe 10 Ml IV 10 ml BID LANDON Administration Sodium Chloride 10 ml 04/24/19 04:42 Sodium Chloride Flush Syringe 10 Ml IV PRN PRN LINE FLUSH
--- NOTE | 2019-05-06 14:55 | Operative Report ---
Operative Report Operative Report: Exam: Ultrasound and fluoroscopic guided placement of tunneled PICC Clinical indication: Patient with bacteremia acquiring long-term IV access for antibiotics Date: 05/06/2019 Procedure: Following an explanation of the risks, benefits and alternatives; written informed consent was obtained. The patient was brought to the angiographic suite and placed in supine position on the examination table. Initial ultrasound evaluation of her neck demonstrated a patent left internal jugular vein. The patient's left neck and chest wall were prepped and draped in usual sterile fashion. 1% lidocaine was used for anesthesia. Under ultrasound guidance, the left internal jugular vein was cannulated with a 7 cm 21-gauge needle. A 0.018 guidewire was advanced centrally under fluoroscopy in the IVC to document intravenous positioning and for anchoring. The needle was removed. An appropriate catheter exit site was chosen along the lateral lateral left chest wall. 1% lidocaine was used for anesthesia of the catheter exit site and along the tunnel tract. A Bard dual-lumen power PICC was then tunneled antegrade from the catheter exit site of the venotomy site. 5 Lebanese peel-away sheath was placed over the guidewire and advanced centrally. Following standard guidewire measurements, the guidewire was removed, the pick N Ida inserted to the peel-away sheath in the peel-away sheath removed. The catheter tip was positioned at the cavoatrial junction. Both ports flushed and aspirated easily and more than locked with Scar saline. The venotomy was closed using Dermabond and a sterile dressing. 4-0 Vicryl suture was used to approximate the catheter exit site and estate picks applied. Sterile dressings were then applied. The patient tolerated the procedure well. There were no immediate post procedure complications. Conscious sedation was administered under the guidance or radiologic nursing. Continuous cardiopulmonary monitoring was utilized. Impression: Ultrasound and fluoroscopic guided placement of tunneled PICC via the left internal jugular vein.
[2019-05-06] MEDS: NICOTINE 14 MG/24 HR PATCH TD SCH (15:55)
--- NOTE | 2019-05-06 16:20 | Discharge Summary ---
Providers - Providers Date of Admission: 04/24/19 03:44 Date of discharge: 05/06/19 Attending physician: AMBER BURGER 04/24/19 03:31 Consult to Physician [CONS] Urgent Comment: Consulting Provider: KIMBERLY VARELA Physician Instructions: Reason For Exam: esrd 04/24/19 04:34 Consult to Physician [CONS] Routine Comment: Consulting Provider: SUMMER MORALES Physician Instructions: Reason For Exam: ?? Osteomyelitis; left great toe wound Consult to Wound/ET Nurse [CONS] Routine Reason For Exam: wound eval 04/24/19 04:53 Consult to Physician [CONS] Routine Comment: Consulting Provider: KWASI PIERRE Physician Instructions: Reason For Exam: ?? Osteomyelitis, left great toe wound 04/27/19 11:57 Consult to Physician [CONS] Urgent Comment: Consulting Provider: CAL TRENT Physician Instructions: surgical debridement of left great toe ulcer Reason For Exam: left great toe ulcer 04/28/19 12:26 Consult to Physician [CONS] Routine Comment: Consulting Provider: MELISSA DIEHL Physician Instructions: Reason For Exam: PAD of LE with Left toe wound 05/04/19 13:56 Consult to Case Management [CONS] Stat Services Needed at Discharge: Other Notified:: process consultant Additional Physician Instructions: [facility] Please infuse meropenem 1 gm IV q day for 6 weeks till 06/09/2019 Diagnosis: left great toe osteomyelitis with ESBL Labs: CBC, AST, ALT, CRP, creatinine q Friday. Fax results to [phone]. Call for Critical labs to [phone]. Dr Montoya 05/05/19 09:14 Consult to Interventional Radiology [CONS] Urgent Consulting Provider: MELISSA SAGASTUME Reason For Exam: picc Notified:: yes Primary care physician: MOWING MACHINE OPERATOR Hospitalization Condition: Stable Hospital course: Patient is a 53-year-old woman who presented to the hospital with chronic wounds to left big toe. She had also missed dialysis. Sepsis due to osteomyelitis of left big toe Bedside debridement done by Dr. Trent 04/27, She refused MRI but had CT LE on 05/03 "1. Osteomyelitis involving the proximal and distal phalanx in the left great toe. 2. No additional evidence of additional osteomyelitis in the remainder of the foot." -Follow-up with general surgeon and ID about course of treatment She refuses amputation wound cx grew ESBL ecoli, on meropenam contact isolation PAD of LE Arterial duplex abnormal, Vasc sx/IR consult appreciated. Discussed with Precious, patient will be seen as an outpatient. End-stage renal disease Continue dialysis per nephrology Type 2 dm ruled out a1c is <4, patient was not on any diabetic meds at home Hypokalemia was repleted by rehab office coordinator AOSARITA sp 2 units of prbc improved Non-adherence Counseling done DVT prophylaxis; heparin subcu Awaiting tunnel PICC then d/c with HD abx Disposition: DC/TX-06 HOME [facility] Time spent for discharge: 35 mintues Core Measure Documentation - Palliative Care Palliative Care/ Comfort Measures: Not Applicable - Core Measures Any of the following diagnoses?: none - VTE Discharge Requirements Deep Vein Thrombosis/Pulmonary Embolism Present on Admission: No Has pt received <5 days of overlap therapy or INR<2.0: No Anticoagulant overlap therapy prescribed at discharge: No Contraindication No Overlap Therapy order at DC: Not Indicated Exam - Physical Exam Narrative exam: Gen: WDWN, NAD, Awake, Alert, Orientated HEENT: NCAT, EOMI, PERRL, OP Clear Neck: supple, no adenopathy, no thyromegaly, no JVD CVS/Heart: RRR, normal S1S2, pulses present bilaterally Chest/Lungs: CTA B, Symmetrical chest expansion, good air entry bilaterally GI/Abdomen: soft, NTND, good bowel sounds, no guarding or rebound /Bladder: no suprapubic tenderness, no CVA or paraspinal tenderness Extermity/Skin: left great toe necrotic MSK: FROM x 4 Neuro: CN 2-12 grossly intact, no new focal deficits Psych: calm - Constitutional Vitals: Temp Pulse Resp BP Pulse Ox 97.9 F 108 H 18 123/71 99 05/06/19 13:45 05/06/19 13:45 05/06/19 13:45 05/06/19 13:45 05/06/19 05:39 Plan Activity: other (no strenous activities) Diet: renal Special Instructions: smoking cessation Follow up with: PRIMARY CARE, [Primary Care Provider] - 3-5 Days BAM BELTRÁN MD [Staff Physician] - 05/05/19 11:00 am KIMBERLY VARELA MD [Staff Physician] - 7 Days CAL TRENT MD [Staff Physician] - 7 Days SUMMER MORALES MD [Staff Physician] - 7 Days Prescriptions: RX: Aspirin [Aspirin BABY CHEW TAB] 81 mg PO QDAY #30 tab.chew RX: Nicotine [Habitrol] 14 mg TD QDAY #14 patch Amlodipine Besylate [Norvasc] 5 mg PO QDAY #30 tablet RX: oxyCODONE /ACETAMINOPHEN [Percocet 5/325 mg] 1 tab PO Q6H PRN #26 tablet PRN Reason: Pain , Severe (7-10) RX: ALBUTEROL Inhaler (OR & NICU) [ProAir HFA Inhaler] 2 puff IH QID PRN #8.5 gram PRN Reason: Shortness Of Breath
[2019-05-06] MEDS: MEROPENEM/NS 1 GRAM/100 ML 1 GRAM/100 ML BAG IV SCH (17:20)
[2019-05-06 18:17] VITALS: BP 92/51
== END 2019-05-06 18:50 | disposition home health service (06) | DRG 853 ==
LOC: ED 01:07 → SUATTDRO 01:07 → 4A 03:44 → 3A 04-30 21:53
PROVIDERS: ADMIT Internal Medicine; ATTEND Internal Medicine
PROC: 30233N1 Transfusion of Nonautologous Red Blood Cells into Peripheral Vein, Percutaneous Approach (ICD-10-PCS; 2019-04-24)
PROC: 5A1D70Z Performance of Urinary Filtration, Intermittent, Less than 6 Hours Per Day (ICD-10-PCS; 2019-04-24)
PROC: 5A1D70Z Performance of Urinary Filtration, Intermittent, Less than 6 Hours Per Day (ICD-10-PCS; 2019-04-25)
PROC: 5A1D70Z Performance of Urinary Filtration, Intermittent, Less than 6 Hours Per Day (ICD-10-PCS; 2019-04-26)
PROC: 0JBR0ZZ Excision of Left Foot Subcutaneous Tissue and Fascia, Open Approach (ICD-10-PCS; principal; 2019-04-27)
PROC: 5A1D70Z Performance of Urinary Filtration, Intermittent, Less than 6 Hours Per Day (ICD-10-PCS; 2019-04-28)
PROC: 5A1D70Z Performance of Urinary Filtration, Intermittent, Less than 6 Hours Per Day (ICD-10-PCS; 2019-04-30)
PROC: 5A1D70Z Performance of Urinary Filtration, Intermittent, Less than 6 Hours Per Day (ICD-10-PCS; 2019-05-04)
PROC: 0JH63XZ Insertion of Tunneled Vascular Access Device into Chest Subcutaneous Tissue and Fascia, Percutaneous Approach (ICD-10-PCS; 2019-05-06)
PROC: 02HV33Z Insertion of Infusion Device into Superior Vena Cava, Percutaneous Approach (ICD-10-PCS; 2019-05-06)
PROC: B5181ZA Fluoroscopy of Superior Vena Cava using Low Osmolar Contrast, Guidance (ICD-10-PCS; 2019-05-06)
PROC: B544ZZA Ultrasonography of Left Jugular Veins, Guidance (ICD-10-PCS; 2019-05-06)
PROC: 5A1D70Z Performance of Urinary Filtration, Intermittent, Less than 6 Hours Per Day (ICD-10-PCS; 2019-05-06)
DX: A41.9 Sepsis, unspecified organism (principal); N18.6 End stage renal disease; G93.40 Encephalopathy, unspecified; E87.2 Acidosis; M86.8X7 Other osteomyelitis, ankle and foot; N25.81 Secondary hyperparathyroidism of renal origin; I69.351 Hemiplegia and hemiparesis following cerebral infarction affecting right dominant side; I13.2 Hypertensive heart and chronic kidney disease with heart failure and with stage 5 chronic kidney disease, or end stage renal disease; E87.5 Hyperkalemia; I73.9 Peripheral vascular disease, unspecified; E87.6 Hypokalemia; D63.1 Anemia in chronic kidney disease; E83.51 Hypocalcemia; E66.9 Obesity, unspecified; I25.10 Atherosclerotic heart disease of native coronary artery without angina pectoris; M19.90 Unspecified osteoarthritis, unspecified site; J44.9 Chronic obstructive pulmonary disease, unspecified; L08.89 Other specified local infections of the skin and subcutaneous tissue; I50.9 Heart failure, unspecified; F17.200 Nicotine dependence, unspecified, uncomplicated; Z91.19 Patient's noncompliance with other medical treatment and regimen; Z99.2 Dependence on renal dialysis; Z68.25 Body mass index [BMI] 25.0-25.9, adult; Z98.51 Tubal ligation status; Z79.899 Other long term (current) drug therapy; Z79.82 Long term (current) use of aspirin
CPT/HCPCS: 36415; 36430; 36558; 71045; 77001; 80048; 80053; 80074; 80202; 82550; 82962; 83036; 83735; 84132; 85014; 85018; 85025; 85027; 85610; 85652; 86140; 86850; 86900; 86901; 86920; 87040; 87076; 87116; 87186; 93005; 93010; 93925; 94640; 94644; G0378; C1751; J0610; J0692; J0696; J0885; J1170; J1200; J1644; J1815; J2060; J2185; J2250; J2405; J3010; J3370; J7030; J7040; J7050; P9016; Q0162; Q9967

== ENCOUNTER 2019-05-18 20:14 | Inpatient (IN) | payer MEDICARE ==
[2019-05-18] MEDS ORDERED: ONDANSETRON 4 MG/2 ML INJ IV ONE (21:17)
[2019-05-18] MEDS ORDERED: SODIUM CHLORIDE 0.9% 1000 ML 500 ML IV ONE (21:17)
[2019-05-18] MEDS ORDERED: ALTEPLASE 2 MG INJ IV ONE (21:22)
[2019-05-18 21:45] LABS: Basophils # (Auto) 0.1 K/mm3 (0.0-0.1); Basophils % (Auto) 0.4 % (0.0-1.8); Eosinophils # (Auto) 0.7 K/mm3 (0.0-0.4); Eosinophils % (Auto) 6.5 % (0.0-4.3); Hemoglobin 12.1 gm/dl (10.1-14.3); Lymphocytes # (Auto) 1.1 K/mm3 (1.2-5.4); Lymphocytes % (Auto) 9.8 % (13.4-35.0); Mean Corpuscular HGB Conc 32 % (30-34); Mean Corpuscular Volume 92 fl (79-97); Monocytes # (Auto) 0.5 K/mm3 (0.0-0.8); Monocytes % (Auto) 4.1 % (0.0-7.3); Platelet Count 282 K/mm3 (140-440); Red Blood Count 4.14 M/mm3 (3.65-5.03); Red Cell Distribution Width 17.6 % (13.2-15.2)
[2019-05-18 21:59] LABS: Albumin 3.3 g/dL (3.9-5); BUN/Creatinine Ratio 2; Blood Urea Nitrogen 22 mg/dL (7-17); Calcium 9.7 mg/dL (8.4-10.2); Hemolysis Index 21
[2019-05-18] MEDS ORDERED: WATER FOR INJ Sterile (PF) 10 ML ONE (22:04)
[2019-05-18 22:07] LABS: Alanine Aminotransferase < 5 units/L (7-56)
[2019-05-18] MEDS ORDERED: DEXTROSE 50% IN WATER (25GM) 50 ML SYRINGE IV ONE (22:17)
[2019-05-18] MEDS ORDERED: SODIUM BICARB 8.4% 50 MEQ/50 ML SYRINGE IV ONE (22:17)
[2019-05-18] MEDS ORDERED: SODIUM POLYSTYRENE 15 GM/60 ML ORAL LIQD PO ONE (22:17)
[2019-05-18] MEDS ORDERED: INSULIN REGULAR, HUMAN 100 UNITS/1 ML IV ONE (22:17)
[2019-05-18] MEDS ORDERED: CALCIUM GLUCONATE 1,000 MG in SODIUM CHLORIDE 0.9% 100 ML IV ONE (22:18)
[2019-05-18] MEDS ORDERED: ALBUTEROL 2.5 MG/3 ML NEBU IH ONE (22:18)
--- NOTE | 2019-05-18 22:46 | Emergency Department Report ---
ED General Adult HPI - General Chief complaint: Nausea/Vomiting/Diarrhea Stated complaint: EMESIS/DIARRHEA Time Seen by Provider: 05/18/19 20:45 Source: EMS Mode of arrival: Stretcher Limitations: No Limitations - History of Present Illness Initial comments: Patient presents to the emergency department with a chief complaint of nausea, vomiting, diarrhea for the last 3 days. Patient states she is a dialysis patient is currently been treated for cellulitis to her left great toe. Patient also complains of left flank pain for the last couple of weeks that has been intermittent in nature and radiates into her groin. Patient also has concern of her PICC line in her left upper extremity that she states has been clotted for the last week which has resulted in her not giving her home antibiotics. She denies any chest pain, shortness breath, or headache. -: Gradual Location: abdomen Severity scale (0 -10): 4 Consistency: constant Improves with: none Worsens with: none Associated Symptoms: denies other symptoms Treatments Prior to Arrival: none - Related Data Home Medications Medication Instructions Recorded Confirmed Last Taken Ondansetron [Zofran TAB] 4 mg PO PRN PRN 09/09/14 02/25/17 1 Day Ago ~04/25/16 Gabapentin 300 mg PO TID 02/25/17 02/25/17 Unknown Loratadine [Claritin] 10 mg PO QDAY PRN 02/25/17 02/25/17 Unknown Previous Rx's Medication Instructions Recorded Last Taken Type hydrALAZINE [Apresoline TAB] 25 mg PO Q8HR #90 tablet 02/27/17 Unknown Rx hydrOXYzine HCL [Atarax] 25 mg PO Q8H PRN #20 tablet 02/27/17 Unknown Rx ALBUTEROL Inhaler (OR & NICU) 2 puff IH QID PRN #8.5 gram 05/06/19 Unknown Rx [ProAir HFA Inhaler] Acetaminophen [Acetaminophen TAB] 650 mg PO Q4H PRN tablet 05/06/19 Unknown Rx Amlodipine Besylate [Norvasc] 5 mg PO QDAY #30 tablet 05/06/19 Unknown Rx Aspirin [Aspirin BABY CHEW TAB] 81 mg PO QDAY #30 tab.chew 05/06/19 Unknown Rx Calcitriol [Rocaltrol] 0.25 mcg PO QDAY #30 capsule 05/06/19 Unknown Rx Epoetin Sylvain 20,000 Unit [Procrit] 20,000 unit IV JAYNE PRN #1 vial 05/06/19 Unknown Rx Nicotine [Habitrol] 14 mg TD QDAY #14 patch 05/06/19 Unknown Rx oxyCODONE /ACETAMINOPHEN [Percocet 1 tab PO Q6H PRN #26 tablet 05/06/19 Unknown Rx 5/325 mg] Allergies Allergy/AdvReac Type Severity Reaction Status Date / Time No Known Allergies Allergy Verified 06/21/16 15:23 ED Review of Systems ROS: Stated complaint: EMESIS/DIARRHEA Other details as noted in HPI Comment: All other systems reviewed and negative Constitutional: denies: chills, fever Eyes: denies: eye pain, eye discharge, vision change ENT: denies: ear pain, throat pain Respiratory: denies: cough, shortness of breath, wheezing Cardiovascular: denies: chest pain, palpitations Endocrine: no symptoms reported Gastrointestinal: nausea, vomiting, diarrhea. denies: abdominal pain Genitourinary: denies: urgency, dysuria, discharge Musculoskeletal: denies: back pain, joint swelling, arthralgia Skin: denies: rash, lesions Neurological: denies: headache, weakness, paresthesias Psychiatric: denies: anxiety, depression Hematological/Lymphatic: denies: easy bleeding, easy bruising ED Past Medical Hx - Past Medical History Previous Medical History?: Yes Hx Hypertension: Yes Hx CVA: Yes (right weakness) Hx Congestive Heart Failure: Yes Hx Diabetes: Yes Hx Renal Disease: Yes (DIALYSIS / / FRI) Hx Arthritis: Yes (hands) Hx Asthma: Yes Hx COPD: Yes Additional medical history: ANEMIA - Surgical History Past Surgical History?: Yes Additional Surgical History: TUBAL LIGATION. LEFT OVARY REMOVED. GRAFT LEFT ARM. PERMACATH RIGHT CHEST - Social History Smoking Status: Never Smoker - Medications Home Medications: Home Medications Medication Instructions Recorded Confirmed Last Taken Type Ondansetron [Zofran TAB] 4 mg PO PRN PRN 09/09/14 02/25/17 1 Day Ago History ~04/25/16 Gabapentin 300 mg PO TID 02/25/17 02/25/17 Unknown History Loratadine [Claritin] 10 mg PO QDAY PRN 02/25/17 02/25/17 Unknown History hydrALAZINE [Apresoline TAB] 25 mg PO Q8HR #90 tablet 02/27/17 Unknown Rx hydrOXYzine HCL [Atarax] 25 mg PO Q8H PRN #20 tablet 02/27/17 Unknown Rx ALBUTEROL Inhaler (OR & NICU) 2 puff IH QID PRN #8.5 gram 05/06/19 Unknown Rx [ProAir HFA Inhaler] Acetaminophen [Acetaminophen TAB] 650 mg PO Q4H PRN tablet 05/06/19 Unknown Rx Amlodipine Besylate [Norvasc] 5 mg PO QDAY #30 tablet 05/06/19 Unknown Rx Aspirin [Aspirin BABY CHEW TAB] 81 mg PO QDAY #30 tab.chew 05/06/19 Unknown Rx Calcitriol [Rocaltrol] 0.25 mcg PO QDAY #30 capsule 05/06/19 Unknown Rx Epoetin Sylvain 20,000 Unit [Procrit] 20,000 unit IV JAYNE PRN #1 vial 05/06/19 Unknown Rx Nicotine [Habitrol] 14 mg TD QDAY #14 patch 05/06/19 Unknown Rx oxyCODONE /ACETAMINOPHEN [Percocet 1 tab PO Q6H PRN #26 tablet 05/06/19 Unknown Rx 5/325 mg] ED Physical Exam - General Limitations: No Limitations General appearance: alert, in no apparent distress - Head Head exam: Present: atraumatic, normocephalic - Eye Eye exam: Present: normal appearance, PERRL, EOMI - ENT ENT exam: Present: mucous membranes dry - Neck Neck exam: Present: normal inspection - Respiratory Respiratory exam: Present: normal lung sounds bilaterally. Absent: respiratory distress - Cardiovascular Cardiovascular Exam: Present: regular rate, normal rhythm. Absent: systolic murmur, diastolic murmur, rubs, gallop - GI/Abdominal GI/Abdominal exam: Present: soft, normal bowel sounds. Absent: distended, tenderness - Extremities Exam Extremities exam: Present: normal inspection - Back Exam Back exam: Present: normal inspection - Neurological Exam Neurological exam: Present: alert, oriented X3, CN II-XII intact. Absent: motor sensory deficit - Psychiatric Psychiatric exam: Present: normal affect, normal mood - Skin Skin exam: Present: warm, dry, intact, normal color, other (of great toe is inflamed and swollen with mild erythema) ED Course Vital Signs 05/18/19 05/18/19 20:27 22:38 Temperature 98.9 F Pulse Rate 106 H Pulse Rate [ 105 H Bilateral Throughout] Respiratory 12 Rate Respiratory 13 Rate [Bilateral Throughout] Blood Pressure 175/82 O2 Sat by Pulse 100 Oximetry ED Medical Decision Making - Lab Data Result diagrams: 05/18/19 21:32 05/19/19 01:36 Lab Results 05/18/19 05/18/19 05/19/19 Range/Units 21:32 21:32 01:36 WBC 11.4 H (4.5-11.0) K/mm3 RBC 4.14 (3.65-5.03) M/mm3 Hgb 12.1 (10.1-14.3) gm/dl Hct 38.0 (30.3-42.9) % MCV 92 (79-97) fl MCH 29 (28-32) pg MCHC 32 (30-34) % RDW 17.6 H (13.2-15.2) % Plt Count 282 (140-440) K/mm3 Lymph % (Auto) 9.8 L (13.4-35.0) % Hardin % (Auto) 4.1 (0.0-7.3) % Eos % (Auto) 6.5 H (0.0-4.3) % Baso % (Auto) 0.4 (0.0-1.8) % Lymph # 1.1 L (1.2-5.4) K/mm3 Hardin # 0.5 (0.0-0.8) K/mm3 Eos # 0.7 H (0.0-0.4) K/mm3 Baso # 0.1 (0.0-0.1) K/mm3 Seg Neutrophils % 79.2 H (40.0-70.0) % Seg Neutrophils # 9.1 H (1.8-7.7) K/mm3 Sodium 136 L (137-145) mmol/L Potassium 7.9 H* 6.7 H* (3.6-5.0) mmol/L Chloride 99.6 (98-107) mmol/L Carbon Dioxide 15 L (22-30) mmol/L Anion Gap 29 mmol/L BUN 22 H (7-17) mg/dL Creatinine 11.2 H (0.7-1.2) mg/dL Estimated GFR 4 ml/min BUN/Creatinine Ratio 2 % Glucose 71 (65-100) mg/dL Calcium 9.7 (8.4-10.2) mg/dL Total Bilirubin 0.40 (0.1-1.2) mg/dL AST 13 (5-40) units/L ALT < 5 L (7-56) units/L Alkaline Phosphatase 142 H (35-129) units/L Total Protein 7.4 (6.3-8.2) g/dL Albumin 3.3 L (3.9-5) g/dL Albumin/Globulin Ratio 0.8 % Lipase 19 (13-60) units/L - EKG Data -: EKG Interpreted by Me EKG shows normal: sinus rhythm Rate: tachycardia - Radiology Data Radiology results: report reviewed - Medical Decision Making Patient was given sodium bicarbonate, insulin, albuterol, Kayexalate, calcium gluconate. Discussion discussed in detail with Dr. Boland's and the patient will be dialyzed in the a.m. Critical Care Time: Yes Critical care time in (mins) excluding proc time.: 60 Critical care attestation.: If time is entered above; I have spent that time in minutes in the direct care of this critically ill patient, excluding procedure time. ED Disposition Clinical Impression: Hyperkalemia Disposition: DC-09 OP ADMIT IP TO THIS HOSP Is pt being admited?: Yes Does the pt Need Aspirin: Yes Condition: Fair
--- NOTE | 2019-05-19 00:28 | Cat Scan Report ---
CT ABDOMEN AND PELVIS WITHOUT CONTRAST INDICATION / CLINICAL INFORMATION: left flank pain. TECHNIQUE: Axial CT images were obtained through the abdomen and pelvis without IV contrast. All CT scans at [facility] location are performed using CT dose reduction for ALARA by means of automated exposure control. COMPARISON: None available. FINDINGS: LOWER CHEST: No significant abnormality. LIVER: No significant abnormality. GALLBLADDER: Abnormal diffuse gallbladder wall thickening that measures up to 3 mm in thickness. Gall stones noted within the gallbladder lumen. BILE DUCTS: No significant abnormality. PANCREAS: No significant abnormality. SPLEEN: No significant abnormality. ADRENALS: No significant abnormality. RIGHT KIDNEY and URETER: No significant abnormality. LEFT KIDNEY and URETER: No significant abnormality. STOMACH and SMALL BOWEL: No significant abnormality. COLON: No significant abnormality. APPENDIX: No significant abnormality. PERITONEUM: No free fluid. No free air. No fluid collection. LYMPH NODES: No significant adenopathy. AORTA and ARTERIES: Extensive arterial calcification throughout the abdominal aorta and its branches. . IVC and VEINS: No significant abnormality. URINARY BLADDER: No significant abnormality. REPRODUCTIVE ORGANS: No significant abnormality. ADDITIONAL FINDINGS: None. SKELETAL SYSTEM: No significant abnormality. IMPRESSION: 1. Gallbladder wall thickening with gallstones, as above. 2. No hydronephrosis or obstructive ureteral calculus identified on the left. No bowel obstruction. Signer Name: Kendall Gunn MD Signed: 05/19/2019 12:24 AM Workstation Name: [id number]
[2019-05-19] MEDS ORDERED: ASPIRIN 81 MG TAB CHEW PO ONE (03:12)
--- NOTE | 2019-05-19 04:08 | History and Physical Report ---
History of Present Illness History of present illness: 53 year old woman with history of Hypertension, CVA Congestive Heart Failure, Diabetes End-stage Renal Disease comes to the emergency room with complaints of nausea vomiting and diarrhea yesterday. She had 3 episodes of nonbloody diarrhea, she did not go to dialysis yesterday. Diarrhea has now stopped. Also complain of left flank pain Review Of Systems: Constitutional: no weight loss, fever, chills Ears, eyes, nose, mouth and throat: no nasal congestion, no nasal discharge, no sinus pressure, blurry vision, diplopia Neck: No neck pain or rigidity. Cardiovascular: No palpitations, chest pain Respiratory: No shortness of breath, cough Gastrointestinal: No hematochezia, abdominal pain Genitourinary : no dysuria, frequency , hematuria Musculoskeletal: no muscle ache , joint pain Integumentary: no rash, no pruritis Neurological: no parathesias, focal weakness Endocrine: no cold or heat intolerance, no polyuria or polydipsia Hematologic/Lymphatic: no easy bruising, no easy bleeding, no gland swelling Allergic/Immunologic: no urticaria, no angioedema. HISTORY: Hypertension, CVA Congestive Heart Failure, Diabetes End-stage Renal Disease PAST SURGICAL HISTORY:AVF SOCIAL HISTORY: Denies alcohol, tobacco, drugs FAMILY HISTORY: Hypertension Medications and Allergies Allergies Allergy/AdvReac Type Severity Reaction Status Date / Time No Known Allergies Allergy Verified 06/21/16 15:23 Home Medications Medication Instructions Recorded Confirmed Last Taken Type Ondansetron [Zofran TAB] 4 mg PO PRN PRN 09/09/14 05/19/19 1 Day Ago History ~04/25/16 Gabapentin 300 mg PO TID 02/25/17 05/19/19 Unknown History hydrALAZINE [Apresoline TAB] 25 mg PO Q8HR #90 tablet 02/27/17 05/19/19 Unknown Rx hydrOXYzine HCL [Atarax] 25 mg PO Q8H PRN #20 tablet 02/27/17 05/19/19 Unknown Rx ALBUTEROL Inhaler (OR & NICU) 2 puff IH QID PRN #8.5 gram 05/06/19 05/19/19 Unknown Rx [ProAir HFA Inhaler] Aspirin [Aspirin BABY CHEW TAB] 81 mg PO QDAY #30 tab.chew 05/06/19 05/19/19 Unknown Rx Calcitriol [Rocaltrol] 0.25 mcg PO QDAY #30 capsule 05/06/19 05/19/19 Unknown Rx Epoetin Sylvain 20,000 Unit [Procrit] 20,000 unit IV JAYNE PRN #1 vial 05/06/19 05/19/19 Unknown Rx Acetaminophen [Acetaminophen TAB] 650 mg PO Q4H PRN tablet 05/21/19 Unknown Rx Amlodipine Besylate [Norvasc] 5 mg PO QDAY #30 tablet 05/21/19 Unknown Rx Loratadine [Claritin] 10 mg PO QDAY PRN #30 05/21/19 05/19/19 Unknown Rx Metoprolol [Lopressor TAB] 50 mg PO BID #60 tablet 05/21/19 Unknown Rx Nicotine [Habitrol] 14 mg TD QDAY #14 patch 05/21/19 Unknown Rx oxyCODONE /ACETAMINOPHEN [Percocet 1 tab PO Q6H PRN #26 tablet 05/21/19 Unknown Rx 5/325 mg] Active Meds: Active Medications Enoxaparin Sodium (Enoxaparin) 30 mg SUB-Q QDAY LANDON Exam - Physical Exam Narrative exam: Physical examGen. appearance: Patient lying in bed, no apparent distress HEENT: Normocephalic, atraumatic, pupils equally round and reactive to light, extraocular movement intact, and no sclericterus,. No JVD or thyromegaly or nodule,neck supple, no carotid bruit ,mucous membranes moist, no exudate or erythema Heart: S1, S2, regular rate and rhythm Lungs: Crackles bilaterally, breathing comfortable Abdomen: Positive bowel sounds, nontender, nondistended, no organomegaly Extremity: no edema, cyanosis, clubbing Skin: No rash, nodules, warm, dry, great toe wound Neuro: speech is fluent, moves extremities, sensory intact - Constitutional Vitals: Temp Pulse Resp BP Pulse Ox 98.9 F 105 H 13 175/82 100 05/18/19 20:27 05/18/19 22:38 05/18/19 22:38 05/18/19 20:27 05/18/19 20:27 Results - Labs CBC & Chem 7: 05/20/19 06:21 05/20/19 06:21 Labs: Abnormal lab results 05/18/19 05/18/19 05/19/19 Range/Units 21:32 21:32 01:36 WBC 11.4 H (4.5-11.0) K/mm3 RDW 17.6 H (13.2-15.2) % Lymph % (Auto) 9.8 L (13.4-35.0) % Eos % (Auto) 6.5 H (0.0-4.3) % Lymph # 1.1 L (1.2-5.4) K/mm3 Eos # 0.7 H (0.0-0.4) K/mm3 Seg Neutrophils % 79.2 H (40.0-70.0) % Seg Neutrophils # 9.1 H (1.8-7.7) K/mm3 Sodium 136 L (137-145) mmol/L Potassium 7.9 H* 6.7 H* (3.6-5.0) mmol/L Carbon Dioxide 15 L (22-30) mmol/L BUN 22 H (7-17) mg/dL Creatinine 11.2 H (0.7-1.2) mg/dL ALT < 5 L (7-56) units/L Alkaline Phosphatase 142 H (35-129) units/L Albumin 3.3 L (3.9-5) g/dL - Imaging and Cardiology CT scan - abdomen: report reviewed CT scan - pelvis: report reviewed Assessment and Plan Assessment Hyperkalemia ESRD needing dialysis Gallstone with wall thickening gastroenteritis resolved Hypertension CVA Congestive Heart Failure Diabetes Plan Admit to medicine s/p cocktail for hyperkalemia Renal consulted Consult surgery, wound care Check fingersticks, start sliding scale DVT prophylaxis
[2019-05-19] MEDS ORDERED: ONDANSETRON 4 MG/2 ML INJ IV PRN (04:16)
--- NOTE | 2019-05-19 09:18 | Consultation ---
History of Present Illness - Reason for Consult Consult date: 05/19/19 end stage renal disease, hyperkalemia - History of Present Illness The patient is a 53 YO female with history significant for DM type 2, Hypertension, CVA, Congestive Heart Failure, ESRD on hemodialysis (TTS) who presented to [facility] ED with complaints of nausea, vomiting and diarrhea that started yesterday. She had 3 episodes of non-bloody diarrhea. Per pt the transportation didn't come yesterday to pick her to go to dialysis. Her symptoms has resolved now. Patient denies fever, chills, abd pain, sick contact, dizziness or syncope. Labs significant for K 7.9. Nephrology was consulted for further evaluation. Past History Past Medical History: diabetes, dialysis, ESRD, hypertension Medications and Allergies Allergies Allergy/AdvReac Type Severity Reaction Status Date / Time No Known Allergies Allergy Verified 06/21/16 15:23 Home Medications Medication Instructions Recorded Confirmed Last Taken Type Ondansetron [Zofran TAB] 4 mg PO PRN PRN 09/09/14 05/19/19 1 Day Ago History ~04/25/16 Gabapentin 300 mg PO TID 02/25/17 05/19/19 Unknown History Loratadine [Claritin] 10 mg PO QDAY PRN 02/25/17 05/19/19 Unknown History hydrALAZINE [Apresoline TAB] 25 mg PO Q8HR #90 tablet 02/27/17 05/19/19 Unknown Rx hydrOXYzine HCL [Atarax] 25 mg PO Q8H PRN #20 tablet 02/27/17 05/19/19 Unknown Rx ALBUTEROL Inhaler (OR & NICU) 2 puff IH QID PRN #8.5 gram 05/06/19 05/19/19 Unknown Rx [ProAir HFA Inhaler] Acetaminophen [Acetaminophen TAB] 650 mg PO Q4H PRN tablet 05/06/19 05/19/19 Unknown Rx Amlodipine Besylate [Norvasc] 5 mg PO QDAY #30 tablet 05/06/19 05/19/19 Unknown Rx Aspirin [Aspirin BABY CHEW TAB] 81 mg PO QDAY #30 tab.chew 05/06/19 05/19/19 Unknown Rx Calcitriol [Rocaltrol] 0.25 mcg PO QDAY #30 capsule 05/06/19 05/19/19 Unknown Rx Epoetin Sylvain 20,000 Unit [Procrit] 20,000 unit IV JAYNE PRN #1 vial 05/06/19 05/19/19 Unknown Rx Nicotine [Habitrol] 14 mg TD QDAY #14 patch 05/06/19 05/19/19 Unknown Rx oxyCODONE /ACETAMINOPHEN [Percocet 1 tab PO Q6H PRN #26 tablet 05/06/19 05/19/19 Unknown Rx 5/325 mg] Active Meds: Active Medications Acetaminophen (Tylenol) 650 mg PO Q4H PRN PRN Reason: Pain MILD(1-3)/Fever >100.5/SMITH Enoxaparin Sodium (Enoxaparin) 30 mg SUB-Q QDAY LANDON Ondansetron HCl (Zofran) 4 mg IV Q8H PRN PRN Reason: Nausea And Vomiting Sodium Chloride (Sodium Chloride Flush Syringe 10 Ml) 10 ml IV BID LANDON Sodium Chloride (Sodium Chloride Flush Syringe 10 Ml) 10 ml IV PRN PRN PRN Reason: LINE FLUSH Review of Systems Constitutional: no weight loss, no weight gain, no fever, no chills, no anorexia, no weakness Breasts: deferred Cardiovascular: high blood pressure, no chest pain, no orthopnea, no edema, no lightheadedness, no shortness of breath, no leg edema Gastrointestinal: nausea, vomiting, diarrhea, no abdominal pain, no melena Genitourinary Female: no dysuria Musculoskeletal: no muscle cramps Integumentary: no rash, no wounds Neurological: no seizures, no syncope, no convulsions, no aphasia Exam - Vital Signs Vital signs: Vital Signs Temp Pulse Resp BP Pulse Ox 98.9 F 106 H 12 175/82 100 05/18/19 20:27 05/18/19 20:27 05/18/19 20:27 05/18/19 20:27 05/18/19 20:27 - General Appearance General appearance: well-developed, appears stated age, other (no distress, R IJ tunnel catheter) EENT: ATNC, PERRL, hearing intact, vision intact Neck: Present: neck supple, trachea midline Respiratory: Clear to Ascultation Heart: regular, S1S2, no murmurs Gastrointestinal: Present: normoactive bowel sounds. Absent: tenderness, distended Integumentary: no rash, warm and dry Neurologic: no focal deficit, no asterixis, alert and oriented x3 Musculoskeletal: Present: other (no edema) Psychiatric: cooperative Results - Lab Results 05/18/19 21:32 05/19/19 01:36 Most recent lab results Calcium 9.7 mg/dL (8.4-10.2) 05/18/19 21:32 Assessment and Plan 1. ESRD: Patient presented after missed HD yesterday. Hemodialysis today as planned. 2. FEN: Hyperkalemia, HD today. Monitor lytes. 3. N, V & D: Resolved. 4. Hypertension. 5. DM type 2.
[2019-05-19] MEDS ORDERED: HEPARIN 10,000 UNITS/10 ML VIAL IV PRN (09:30)
[2019-05-19] MEDS ORDERED: ENOXAPARIN 30 MG/0.3 ML INJ SUB-Q SCH (10:00)
[2019-05-19] MEDS ORDERED: SODIUM CHLORIDE 0.9% 100 ML IV PRN (10:00)
--- NOTE | 2019-05-19 10:22 | Consultation ---
History of Present Illness Consult date: 05/19/19 Chief complaint: n/v, diarrhea - History of present illness History of present illness: 53 yo F with hx of ESRD on HD presents to ER with n/v, diarrhea for the last few days. No hematochezia or melena. No exacerbating or inciting factors noted by patient. Patient states that she is also having sharp L sided flank and back pain. She has had symptoms like this for the last 6 months, intermittently. She denies abdominal pain. She has had a poor appetite for the last 6 months. No weight gain or loss. No f/c, cp. Patient has baseline dyspnea with exertion and states she was supposed to have home O2 prescribed on her last hospitalization. Surgery is consulted due to abnormal gallbladder and gallstones on CT scan. Patient states nausea has improved and she was able to drink juice without discomfort. Patient has been on senior care IV abx for left toe wound infection and is managed by Dr. Montoya as outpatient. Past History Past Medical History: diabetes, dialysis, ESRD, hypertension, other (neuropathy, L foot wound infection) Past Surgical History: , Other (R permcath, L great toe debridements) Social history: no significant social history Family history: no significant family history Medications and Allergies Allergies Allergy/AdvReac Type Severity Reaction Status Date / Time No Known Allergies Allergy Verified 06/21/16 15:23 Home Medications Medication Instructions Recorded Confirmed Last Taken Type Ondansetron [Zofran TAB] 4 mg PO PRN PRN 09/09/14 05/19/19 1 Day Ago History ~04/25/16 Gabapentin 300 mg PO TID 02/25/17 05/19/19 Unknown History Loratadine [Claritin] 10 mg PO QDAY PRN 02/25/17 05/19/19 Unknown History hydrALAZINE [Apresoline TAB] 25 mg PO Q8HR #90 tablet 02/27/17 05/19/19 Unknown Rx hydrOXYzine HCL [Atarax] 25 mg PO Q8H PRN #20 tablet 02/27/17 05/19/19 Unknown Rx ALBUTEROL Inhaler (OR & NICU) 2 puff IH QID PRN #8.5 gram 05/06/19 05/19/19 Unknown Rx [ProAir HFA Inhaler] Acetaminophen [Acetaminophen TAB] 650 mg PO Q4H PRN tablet 05/06/19 05/19/19 Unknown Rx Amlodipine Besylate [Norvasc] 5 mg PO QDAY #30 tablet 05/06/19 05/19/19 Unknown Rx Aspirin [Aspirin BABY CHEW TAB] 81 mg PO QDAY #30 tab.chew 05/06/19 05/19/19 Unknown Rx Calcitriol [Rocaltrol] 0.25 mcg PO QDAY #30 capsule 05/06/19 05/19/19 Unknown Rx Epoetin Sylvain 20,000 Unit [Procrit] 20,000 unit IV JAYNE PRN #1 vial 05/06/19 05/19/19 Unknown Rx Nicotine [Habitrol] 14 mg TD QDAY #14 patch 05/06/19 05/19/19 Unknown Rx oxyCODONE /ACETAMINOPHEN [Percocet 1 tab PO Q6H PRN #26 tablet 05/06/19 05/19/19 Unknown Rx 5/325 mg] Active Meds: Active Medications Acetaminophen (Tylenol) 650 mg PO Q4H PRN PRN Reason: Pain MILD(1-3)/Fever >100.5/SMITH Enoxaparin Sodium (Enoxaparin) 30 mg SUB-Q QDAY LANDON Heparin Sodium (Porcine) (Heparin 10,000 Units/10 Ml) 2,000 unit IV JAYNE PRN PRN Reason: hemodialysis Sodium Chloride (Nacl 0.9%) 100 mls @ 999 mls/hr IV JAYNE PRN PRN Reason: Hypotension Ondansetron HCl (Zofran) 4 mg IV Q8H PRN PRN Reason: Nausea And Vomiting Sodium Chloride (Sodium Chloride Flush Syringe 10 Ml) 10 ml IV BID LANDON Sodium Chloride (Sodium Chloride Flush Syringe 10 Ml) 10 ml IV PRN PRN PRN Reason: LINE FLUSH Review of Systems All systems: negative (10 pt ROS performed and negative except for that listed in HPI) Exam Vital Signs Temp Pulse Resp BP Pulse Ox 98.9 F 106 H 12 175/82 100 05/18/19 20:27 05/18/19 20:27 05/18/19 20:27 05/18/19 20:27 05/18/19 20:27 Narrative exam: Gen: AAOx3. NAD ENT: No scleral icterus or conjunctival pallor CV: s1, S2+ Resp: even and unlabored Abd: soft, ND, mild L lateral abdominal wall and flank TTP. no r/r/g. Remainder of abdomen is benign Ext: no c/c/e. L great toe wound - lateral aspect, clean and dry with pink base. Results - Labs 05/18/19 21:32 05/19/19 01:36 Abnormal lab results 05/18/19 05/18/19 05/19/19 Range/Units 21:32 21:32 01:36 WBC 11.4 H (4.5-11.0) K/mm3 RDW 17.6 H (13.2-15.2) % Lymph % (Auto) 9.8 L (13.4-35.0) % Eos % (Auto) 6.5 H (0.0-4.3) % Lymph # 1.1 L (1.2-5.4) K/mm3 Eos # 0.7 H (0.0-0.4) K/mm3 Seg Neutrophils % 79.2 H (40.0-70.0) % Seg Neutrophils # 9.1 H (1.8-7.7) K/mm3 Sodium 136 L (137-145) mmol/L Potassium 7.9 H* 6.7 H* (3.6-5.0) mmol/L Carbon Dioxide 15 L (22-30) mmol/L BUN 22 H (7-17) mg/dL Creatinine 11.2 H (0.7-1.2) mg/dL ALT < 5 L (7-56) units/L Alkaline Phosphatase 142 H (35-129) units/L Albumin 3.3 L (3.9-5) g/dL Diabetes panel 05/18/19 05/19/19 Range/Units 21:32 01:36 Sodium 136 L (137-145) mmol/L Potassium 7.9 H* 6.7 H* (3.6-5.0) mmol/L Chloride 99.6 (98-107) mmol/L Carbon Dioxide 15 L (22-30) mmol/L BUN 22 H (7-17) mg/dL Creatinine 11.2 H (0.7-1.2) mg/dL Glucose 71 (65-100) mg/dL Calcium 9.7 (8.4-10.2) mg/dL AST 13 (5-40) units/L ALT < 5 L (7-56) units/L Alkaline Phosphatase 142 H (35-129) units/L Total Protein 7.4 (6.3-8.2) g/dL Albumin 3.3 L (3.9-5) g/dL Calcium panel 05/18/19 Range/Units 21:32 Calcium 9.7 (8.4-10.2) mg/dL Albumin 3.3 L (3.9-5) g/dL Pituitary panel 05/18/19 05/19/19 Range/Units 21:32 01:36 Sodium 136 L (137-145) mmol/L Potassium 7.9 H* 6.7 H* (3.6-5.0) mmol/L Chloride 99.6 (98-107) mmol/L Carbon Dioxide 15 L (22-30) mmol/L BUN 22 H (7-17) mg/dL Creatinine 11.2 H (0.7-1.2) mg/dL Glucose 71 (65-100) mg/dL Calcium 9.7 (8.4-10.2) mg/dL Adrenal panel 05/18/19 05/19/19 Range/Units 21:32 01:36 Sodium 136 L (137-145) mmol/L Potassium 7.9 H* 6.7 H* (3.6-5.0) mmol/L Chloride 99.6 (98-107) mmol/L Carbon Dioxide 15 L (22-30) mmol/L BUN 22 H (7-17) mg/dL Creatinine 11.2 H (0.7-1.2) mg/dL Glucose 71 (65-100) mg/dL Calcium 9.7 (8.4-10.2) mg/dL Total Bilirubin 0.40 (0.1-1.2) mg/dL AST 13 (5-40) units/L ALT < 5 L (7-56) units/L Alkaline Phosphatase 142 H (35-129) units/L Total Protein 7.4 (6.3-8.2) g/dL Albumin 3.3 L (3.9-5) g/dL - Imaging CT scan - abdomen: report reviewed, image reviewed CT scan - pelvis: report reviewed, image reviewed Assessment and Plan 53 yo F with 1. n/v, diarrhea 2. ESRD on HD 3. hyperkalemia 4. L toe wound Plan: 1. Clear liquid diet 2. obtain RUQ U/s - although the patient's symptoms are not likely related to gallbladder, will obtain U/s for further evaluation of abnormal gallbladder seen on CT scan 3. obtain stool studies, cdiff as patient has been on senior care IV abx 4. HD per nephro 5. certification technician consulted 6. will follow up in am Thank you, please call with questions.
[2019-05-19] MEDS: ACETAMINOPHEN 325 MG TAB PO PRN (11:38)
--- NOTE | 2019-05-19 15:32 | Progress Note ---
Assessment and Plan Assessment and plan: Patient is a 53 yo woman with a plethora of severe co-morbidities including hypertension, CVA, CHF, no type 2 DM, ESRD on hemodialysis, AOCD and Left leg PAD with Left big toe osteomyelitis with ESBL on 1g IV Meropenem qday (end date 06/09/19) who refuses amputation (I discharged on 05/06/19) who presents to [facility] with n/v/d and inability to tolerate food or taking her medications. * CT abd/pelvis without contrast Impression: 1. Gallbladder wall thickening with gallstones, as above 2. No hydronephrosis or obstructive ureteral calculus identified on the left. No bowel obstruction. Intractable N/V, unrelieved by OTC medications, requiring hospitalization, suspected related to GB disorder vs drug/abx side effect vs other: GS consulted, input noted Cholelithiasis: u/s pending, GS following Left great toe osteomyelitis, w/ ?SE of iv merrem: hold medication, notified ID, Dr. Gamble ESRD with hyperkalemia: consulted Nephrology, needing HD H/o CHF Ambulatory dysfunction: consult PT DVT ppx sq heparin prolonged inpatient services 31 minutes History Interval history: Patient was seen and examined. Follow-up on current diagnosis. No overnight events reported to me. Patient denies any chest pain, shortness breath, or severe headaches. Imaging, nursing note, chart, labs and old chart reviewed. Discussed with patient. Hospitalist Physical - Physical exam Narrative exam: Gen: WDWN, NAD, Awake, Alert, Orientated HEENT: NCAT, EOMI, PERRL, OP Clear Neck: supple, no adenopathy, no thyromegaly, no JVD CVS/Heart: RRR, normal S1S2, pulses present bilaterally Chest/Lungs: CTA B, Symmetrical chest expansion, good air entry bilaterally GI/Abdomen: soft, NTND, good bowel sounds, no guarding or rebound /Bladder: no suprapubic tenderness, no CVA or paraspinal tenderness Extermity/Skin: no c/c/e,+obvious facial rash MSK: FROM x 4, very limited mobility, Neuro: CN 2-12 grossly intact, no new focal deficits Psych: calm - Constitutional Vitals: Temp Pulse Resp BP Pulse Ox 98.4 F 104 H 18 156/84 100 05/19/19 15:28 05/19/19 14:10 05/19/19 15:28 05/19/19 15:28 05/19/19 07:10 Results - Labs CBC & Chem 7: 05/18/19 21:32 05/19/19 01:36 Labs: Laboratory Last Values WBC 11.4 K/mm3 (4.5-11.0) H 05/18/19 21:32 RBC 4.14 M/mm3 (3.65-5.03) 05/18/19 21:32 Hgb 12.1 gm/dl (10.1-14.3) 05/18/19 21:32 Hct 38.0 % (30.3-42.9) 05/18/19 21:32 MCV 92 fl (79-97) 05/18/19 21:32 MCH 29 pg (28-32) 05/18/19 21:32 MCHC 32 % (30-34) 05/18/19 21:32 RDW 17.6 % (13.2-15.2) H 05/18/19 21:32 Plt Count 282 K/mm3 (140-440) 05/18/19 21:32 Lymph % (Auto) 9.8 % (13.4-35.0) L 05/18/19 21:32 Ransom % (Auto) 4.1 % (0.0-7.3) 05/18/19 21:32 Eos % (Auto) 6.5 % (0.0-4.3) H 05/18/19 21:32 Baso % (Auto) 0.4 % (0.0-1.8) 05/18/19 21:32 Lymph # 1.1 K/mm3 (1.2-5.4) L 05/18/19 21:32 Ransom # 0.5 K/mm3 (0.0-0.8) 05/18/19 21:32 Eos # 0.7 K/mm3 (0.0-0.4) H 05/18/19 21:32 Baso # 0.1 K/mm3 (0.0-0.1) 05/18/19 21:32 Seg Neutrophils % 79.2 % (40.0-70.0) H 05/18/19 21:32 Seg Neutrophils # 9.1 K/mm3 (1.8-7.7) H 05/18/19 21:32 Sodium 136 mmol/L (137-145) L 05/18/19 21:32 Potassium 6.7 mmol/L (3.6-5.0) H* 05/19/19 01:36 Chloride 99.6 mmol/L (98-107) 05/18/19 21:32 Carbon Dioxide 15 mmol/L (22-30) L 05/18/19 21:32 Anion Gap 29 mmol/L 05/18/19 21:32 BUN 22 mg/dL (7-17) H 05/18/19 21:32 Creatinine 11.2 mg/dL (0.7-1.2) H 05/18/19 21:32 Estimated GFR 4 ml/min 05/18/19 21:32 BUN/Creatinine Ratio 2 % 05/18/19 21:32 Glucose 71 mg/dL (65-100) 05/18/19 21:32 Calcium 9.7 mg/dL (8.4-10.2) 05/18/19 21:32 Total Bilirubin 0.40 mg/dL (0.1-1.2) 05/18/19 21:32 AST 13 units/L (5-40) 05/18/19 21:32 ALT < 5 units/L (7-56) L 05/18/19 21:32 Alkaline Phosphatase 142 units/L (35-129) H 05/18/19 21:32 Total Protein 7.4 g/dL (6.3-8.2) 05/18/19 21:32 Albumin 3.3 g/dL (3.9-5) L 05/18/19 21:32 Albumin/Globulin Ratio 0.8 % 05/18/19 21:32 Lipase 19 units/L (13-60) 05/18/19 21:32 Active Medications - Current Medications Current Medications: Generic Name Dose Route Start Last Admin Trade Name Freq PRN Reason Stop Dose Admin Acetaminophen 650 mg 05/19/19 04:16 05/19/19 11:38 Tylenol PO 650 mg Q4H PRN Administration Pain MILD(1-3)/Fever >100.5/SMITH Enoxaparin Sodium 30 mg 05/19/19 10:00 Enoxaparin SUB-Q QDAY LANDON Heparin Sodium (Porcine) 2,000 unit 05/19/19 09:30 Heparin 10,000 Units/10 Ml IV JAYNE PRN hemodialysis Sodium Chloride 100 mls @ 999 mls/hr 05/19/19 10:00 Nacl 0.9% IV JAYNE PRN Hypotension Ondansetron HCl 4 mg 05/19/19 04:16 Zofran IV Q8H PRN Nausea And Vomiting Sodium Chloride 10 ml 05/19/19 10:00 Sodium Chloride Flush Syringe 10 Ml IV BID LANDON Sodium Chloride 10 ml 05/19/19 04:16 Sodium Chloride Flush Syringe 10 Ml IV PRN PRN LINE FLUSH
[2019-05-20 06:42] LABS: Basophils % (Auto) 0.4 % (0.0-1.8); Eosinophils # (Auto) 0.7 K/mm3 (0.0-0.4); Eosinophils % (Auto) 9.5 % (0.0-4.3); Hemoglobin 9.4 gm/dl (10.1-14.3); Lymphocytes # (Auto) 1.4 K/mm3 (1.2-5.4); Lymphocytes % (Auto) 18.4 % (13.4-35.0); Mean Corpuscular HGB Conc 32 % (30-34); Mean Corpuscular Volume 91 fl (79-97); Monocytes # (Auto) 0.5 K/mm3 (0.0-0.8); Monocytes % (Auto) 6.6 % (0.0-7.3); Platelet Count 248 K/mm3 (140-440); Red Blood Count 3.19 M/mm3 (3.65-5.03); Red Cell Distribution Width 17.2 % (13.2-15.2)
[2019-05-20 07:20] LABS: Hematocrit 28.9 % (30.3-42.9)
--- NOTE | 2019-05-20 09:08 | Ultrasound Report ---
ULTRASOUND ABDOMEN, LIMITED (RIGHT UPPER QUADRANT) INDICATION: gallstones, abnormal GB on CT scan. COMPARISON: None available. FINDINGS: Pancreas: Visualized portion shows no significant abnormality. Liver: Normal. Gallbladder: No gallstones identified. The gallbladder wall is mildly thickened measuring 6 mm Perich olecystic fluid is present. Bile ducts: Dilated Common Bile Duct measures 7.8 mm. Free fluid: None. Additional Findings: Right kidney is atrophic/echogenic. IMPRESSION: 1. Suspect acalculous cholecystitis. 2. Mildly dilated common bile duct. 3. Atrophic right kidney. Signer Name: Contreras Joseph MD Signed: 05/20/2019 9:04 AM Workstation Name: [id number]
--- NOTE | 2019-05-20 09:34 | Event Note ---
Date: 05/20/19 patient was initially scheduled to undergo angiogram of the left leg for toe ulcer as an outpatient but admitted with persistent abdominal pain, n ausea/vomiting and diarrhea. Patient states her symptoms have not subsided and had an episode of non-bloody emesis last night. I will hold off on left leg angiogram today until patient symptoms improve. Patient can follow-up in clinic next week, if she is discharged over the weekend.
--- NOTE | 2019-05-20 12:58 | Progress Note ---
Assessment and Plan 53 yo F with 1. n/v, diarrhea 2. ESRD on HD 3. hyperkalemia 4. L toe wound RUQ u/s - ?acalculus cholecystitis. No stones seen. Pericholecystic fluid and thickened gallbladder wall. Dilated common bile duct HIDA - no biliary obstruction. GB EF of 9% Plan: 1. ADAT 2. obtain stool studies, cdiff as patient has been on jail IV abx. ID on board 3. HD per nephro 4. Patient with biliary dyskinesia based on HIDA. Her intermittent n/v may be related however her left sided back pain would be a very unusual symptom of gallbladder disease. Additionally, she has no RUQ or epigastric pain and the CCK did not trigger any abdominal pain. Patient states her symptoms all started when she first started dialysis. I discussed the imaging findings with her and the option of cholecystectomy in detail and explained that this may help relieve some of her symptoms such as n/v. She is worried about her other health issues and at this time is not willing to proceed with surgery. I explained to her that this is not an emergency and we will obtain cardiology consultation to help determine her surgical risk. She is ok with that plan. 5. cards c/s - harrison Patient may be discharged when medically stable and can follow up in the office to discuss elective cholecystectomy. Thank you, please call with questions. Subjective Date of service: 05/20/19 Narrative: Pt seen and examined. c/o headache and left sided back pain. No n/v, f/c. Tolerating diet but has poor appetite. Pt states she had very mild nausea with CCK during HIDA but slept through most of the test. Objective Vital Signs - 12hr 05/20/19 05/20/19 05/20/19 05:41 09:16 10:00 Temperature 97.9 F 99.3 F Pulse Rate 102 H 112 H Pulse Rate [ 100 H From Monitor] Respiratory 20 18 18 Rate Blood Pressure 145/76 163/91 Blood Pressure [Right] O2 Sat by Pulse 96 99 100 Oximetry 05/20/19 12:00 Temperature 98.6 F Pulse Rate 104 H Pulse Rate [ From Monitor] Respiratory 18 Rate Blood Pressure Blood Pressure 143/78 [Right] O2 Sat by Pulse 99 Oximetry - General physical appearance Narrative Exam: Gen; AAOx3. NAD CV: s1, S2+ resp: even and unlabored Abd: soft, NT, ND Ext: no c/c/e - Labs 05/20/19 06:21 05/20/19 06:21 Diabetes panel 05/20/19 Range/Units 06:21 Sodium 136 L (137-145) mmol/L Potassium 5.1 H D (3.6-5.0) mmol/L Chloride 97.8 L (98-107) mmol/L Carbon Dioxide 22 D (22-30) mmol/L BUN 10 (7-17) mg/dL Creatinine 6.9 H (0.7-1.2) mg/dL Glucose 68 (65-100) mg/dL Calcium 8.0 L D (8.4-10.2) mg/dL Calcium panel 05/20/19 Range/Units 06:21 Calcium 8.0 L D (8.4-10.2) mg/dL Pituitary panel 05/20/19 Range/Units 06:21 Sodium 136 L (137-145) mmol/L Potassium 5.1 H D (3.6-5.0) mmol/L Chloride 97.8 L (98-107) mmol/L Carbon Dioxide 22 D (22-30) mmol/L BUN 10 (7-17) mg/dL Creatinine 6.9 H (0.7-1.2) mg/dL Glucose 68 (65-100) mg/dL Calcium 8.0 L D (8.4-10.2) mg/dL Adrenal panel 05/20/19 Range/Units 06:21 Sodium 136 L (137-145) mmol/L Potassium 5.1 H D (3.6-5.0) mmol/L Chloride 97.8 L (98-107) mmol/L Carbon Dioxide 22 D (22-30) mmol/L BUN 10 (7-17) mg/dL Creatinine 6.9 H (0.7-1.2) mg/dL Glucose 68 (65-100) mg/dL Calcium 8.0 L D (8.4-10.2) mg/dL
[2019-05-20] MEDS ORDERED: SODIUM CHLORIDE 0.9% 100 ML IV PRN (13:28)
[2019-05-20] MEDS ORDERED: WATER FOR INJ Sterile (PF) 10 ML ONE (13:31)
[2019-05-20] MEDS ORDERED: SINCALIDE 5 MCG VIAL IV ONE ×2 (13:31→13:40)
--- NOTE | 2019-05-20 15:03 | Nuclear Medicine Report ---
NUCLEAR MEDICINE HEPATOBILIARY SCAN INDICATION: abnormal gallbladder on imaging. TECHNIQUE: Radiotracer: Tc-99m mebrofenin (by IV): 4.7 mCi. Gallbladder Stimulant: 1.6 mcg of CCK FINDINGS: Hepatic activity: Normal. Biliary activity: Normal. Common bile duct activity at 10 minutes. Gallbladder activity: Normal at 10 minutes. Small bowel activity: Not seen up to 60 minutes. Avid activity after CCK administration. The gallbladder ejection fraction is markedly decreased measuring 9%. The patient complained of mild nausea during the infusion of CCK. IMPRESSION: No biliary obstruction. Decreased gallbladder ejection fraction measuring 9%. Symptomatology as described. Signer Name: Jose Manuel Saleem Jr, MD Signed: 05/20/2019 2:59 PM Workstation Name: [id number]
--- NOTE | 2019-05-20 15:37 | Event Note ---
Date: 05/20/19 Tried to the see patient 3 times over the course of 3 hours, she is not on the floor. Chart reviewed, patient is on Meropenem for osteomyelitis treatment. Admitted with GI symptoms. Reportedly also some ? of rash per my discussion with Dr. Hairston. Labs cr, she seems to have increasing eosinophilia - ?drug reaction. Would continue to hold off on any additional meropenem. Also, if she has any diarrhea, send C.difficile sample. Full consult tomorrow.
[2019-05-20] MEDS ORDERED: amLODIPine 10 MG TAB PO STA (17:10)
[2019-05-20] MEDS: ACETAMINOPHEN 325 MG TAB PO PRN (17:23)
[2019-05-20] MEDS ORDERED: hydrOXYzine HCL 25 MG TAB PO PRN (18:49)
[2019-05-20] MEDS ORDERED: LORATADINE (NF) 10 MG TAB PO PRN (18:49)
[2019-05-20] MEDS ORDERED: EPOETIN ALFA 20,000 UNIT/1 ML INJ IV PRN (18:49)
[2019-05-20] MEDS ORDERED: hydrALAZINE 20 MG/1 ML INJ IV PRN (18:51)
--- NOTE | 2019-05-20 18:56 | Progress Note ---
Assessment and Plan Assessment and plan: Patient is a 53 yo woman with a plethora of severe co-morbidities including hypertension, CVA, CHF, no type 2 DM, ESRD on hemodialysis, AOCD and Left leg PAD with Left big toe osteomyelitis with ESBL on 1g IV Meropenem qday (end date 06/09/19) who refuses amputation (I discharged on 05/06/19) who presents to [facility] ED with n/v/d and inability to tolerate food or taking her medications. * CT abd/pelvis without contrast Impression: 1. Gallbladder wall thickening with gallstones, as above 2. No hydronephrosis or obstructive ureteral calculus identified on the left. No bowel obstruction. Intractable N/V, unrelieved by OTC medications, requiring hospitalization, suspected related to GB disorder vs drug/abx side effect vs other: GS consulted, input noted Cholelithiasis with chronic acalculus cholecystitis: u/s reviewed, GS following input noted, pt refuses lap cholecystitis, no need for abx Left great toe osteomyelitis, w/ ?SE of iv merrem: hold medication, notified ID, Dr. Gamble ESRD with hyperkalemia: consulted Nephrology, needing HD H/o CHF Ambulatory dysfunction: consult PT DVT ppx sq heparin History Interval history: Patient was seen and examined. Follow-up on current diagnosis. No overnight carlos nts reported to me. Patient denies any chest pain, shortness breath, or severe headaches. Imaging, nursing note, chart, labs and old chart reviewed. Discussed with patient. Hospitalist Physical - Physical exam Narrative exam: Gen: WDWN, NAD, Awake, Alert, Orientated HEENT: NCAT, EOMI, PERRL, OP Clear Neck: supple, no adenopathy, no thyromegaly, no JVD CVS/Heart: RRR, normal S1S2, pulses present bilaterally Chest/Lungs: CTA B, Symmetrical chest expansion, good air entry bilaterally GI/Abdomen: soft, NTND, good bowel sounds, no guarding or rebound /Bladder: no suprapubic tenderness, no CVA or paraspinal tenderness Extermity/Skin: no c/c/e,+obvious facial rash MSK: FROM x 4, very limited mobility, Neuro: CN 2-12 grossly intact, no new focal deficits Psych: calm - Constitutional Vitals: Temp Pulse Resp BP Pulse Ox 98.2 F 115 H 18 162/95 99 05/20/19 15:00 05/20/19 18:16 05/20/19 15:00 05/20/19 18:16 05/20/19 12:00 Results - Labs CBC & Chem 7: 05/20/19 06:21 05/20/19 06:21 Labs: Laboratory Last Values WBC 7.7 K/mm3 (4.5-11.0) 05/20/19 06:21 RBC 3.19 M/mm3 (3.65-5.03) L 05/20/19 06:21 Hgb 9.4 gm/dl (10.1-14.3) L 05/20/19 06:21 Hct 28.9 % (30.3-42.9) L D 05/20/19 06:21 MCV 91 fl (79-97) 05/20/19 06:21 MCH 29 pg (28-32) 05/20/19 06:21 MCHC 32 % (30-34) 05/20/19 06:21 RDW 17.2 % (13.2-15.2) H 05/20/19 06:21 Plt Count 248 K/mm3 (140-440) 05/20/19 06:21 Lymph % (Auto) 18.4 % (13.4-35.0) 05/20/19 06:21 [place] % (Auto) 6.6 % (0.0-7.3) 05/20/19 06:21 Eos % (Auto) 9.5 % (0.0-4.3) H 05/20/19 06:21 Baso % (Auto) 0.4 % (0.0-1.8) 05/20/19 06:21 Lymph # 1.4 K/mm3 (1.2-5.4) 05/20/19 06:21 [place] # 0.5 K/mm3 (0.0-0.8) 05/20/19 06:21 Eos # 0.7 K/mm3 (0.0-0.4) H 05/20/19 06:21 Baso # 0.0 K/mm3 (0.0-0.1) 05/20/19 06:21 Seg Neutrophils % 65.1 % (40.0-70.0) 05/20/19 06:21 Seg Neutrophils # 5.0 K/mm3 (1.8-7.7) 05/20/19 06:21 Sodium 136 mmol/L (137-145) L 05/20/19 06:21 Potassium 5.1 mmol/L (3.6-5.0) H D 05/20/19 06:21 Chloride 97.8 mmol/L (98-107) L 05/20/19 06:21 Carbon Dioxide 22 mmol/L (22-30) D 05/20/19 06:21 Anion Gap 21 mmol/L 05/20/19 06:21 BUN 10 mg/dL (7-17) 05/20/19 06:21 Creatinine 6.9 mg/dL (0.7-1.2) H 05/20/19 06:21 Estimated GFR 7 ml/min 05/20/19 06:21 BUN/Creatinine Ratio 1 % 05/20/19 06:21 Glucose 68 mg/dL (65-100) 05/20/19 06:21 POC Glucose 79 (70-105) 05/19/19 20:55 Calcium 8.0 mg/dL (8.4-10.2) L D 05/20/19 06:21 Total Bilirubin 0.40 mg/dL (0.1-1.2) 05/18/19 21:32 AST 13 units/L (5-40) 05/18/19 21:32 ALT < 5 units/L (7-56) L 05/18/19 21:32 Alkaline Phosphatase 142 units/L (35-129) H 05/18/19 21:32 Total Protein 7.4 g/dL (6.3-8.2) 05/18/19 21:32 Albumin 3.3 g/dL (3.9-5) L 05/18/19 21:32 Albumin/Globulin Ratio 0.8 % 05/18/19 21:32 Lipase 19 units/L (13-60) 05/18/19 21:32 Active Medications - Current Medications Current Medications: Generic Name Dose Route Start Last Admin Trade Name Freq PRN Reason Stop Dose Admin Acetaminophen 650 mg 05/19/19 04:16 05/20/19 17:23 Tylenol PO 650 mg Q4H PRN Administration Pain MILD(1-3)/Fever >100.5/SMITH Amlodipine Besylate 5 mg 05/20/19 19:00 Amlodipine PO QDAY [facility] Aspirin 81 mg 05/21/19 10:00 Baby Aspirin PO QDAY [facility] Calcitriol 0.25 mcg 05/21/19 10:00 Rocaltrol PO QDAY [facility] Epoetin Sylvain 20,000 unit 05/20/19 18:49 Procrit IV JAYNE PRN hemodialysis Gabapentin 300 mg 05/20/19 20:00 Gabapentin PO TID [facility] Heparin Sodium (Porcine) 2,000 unit 05/19/19 09:30 05/20/19 16:43 Heparin 10,000 Units/10 Ml IV 2,000 unit JAYNE PRN Administration hemodialysis Heparin Sodium (Porcine) 5,000 unit 05/20/19 22:00 Heparin SUB-Q Q12HR [facility] Hydralazine HCl 25 mg 05/20/19 22:00 Apresoline PO Q8HR LANDON Hydralazine HCl 10 mg 05/20/19 18:51 Apresoline IV Q4HR PRN Blood Pressure Hydroxyzine HCl 25 mg 05/20/19 18:49 Atarax PO Q8H PRN Itching Sodium Chloride 100 mls @ 999 mls/hr 05/19/19 10:00 Nacl 0.9% IV JAYNE PRN Hypotension Loratadine 10 mg 05/20/19 18:49 Claritin PO QDAY PRN Allergy Symptoms Nicotine 14 mg 05/20/19 19:00 Habitrol TD QDAY [facility] Ondansetron HCl 4 mg 05/19/19 04:16 Zofran IV Q8H PRN Nausea And Vomiting Oxycodone/Acetaminophen 1 tab 05/20/19 18:49 Percocet 5/325 PO Q6H PRN Pain , Severe (7-10) Sodium Chloride 10 ml 05/19/19 10:00 05/20/19 12:24 Sodium Chloride Flush Syringe 10 Ml IV 10 ml BID LANDON Administration Sodium Chloride 10 ml 05/19/19 04:16 Sodium Chloride Flush Syringe 10 Ml IV PRN PRN LINE FLUSH Nutrition/Malnutrition Assess - Dietary Evaluation Nutrition/Malnutrition Findings: Nutrition Notes Start: 05/20/19 11:02 Freq: Status: Active Protocol: Document 05/20/19 11:02 CT (Rec: 05/20/19 11:20 CT [id number]) Co-Sign 05/20/19 11:02 LP Nutrition Notes Need for Assessment generated from: biology faculty member,MST Initial or Follow up Assessment Current Diagnosis Diabetes,Hypertension,Heart Failure,Stroke Other Pertinent Diagnosis ESRD on HD, N/V/D, Gallstones, Hyperkalemia, Diabetic Ulcer Current Diet Renal and Cardiac Labs/Tests Na 136 K 5.1 Creatinine 6.9 Pertinent Medications Reviewed Height 5 ft 2 in Weight 81.3 kg [place] Body Weight (kg) 50.00 BMI 32.8 Intake Prior to Admission Poor Weight Status Obese Subjective/Other Information Consult for Hx difficulty chewing, Skin Risk of 19, and MST score of 2. Pt stated she does not have any teeth with difficulty chewing but refused a mechanical soft diet. Pt stated she cuts her food then she can eat it. Pt is unsure of her usual body wt but states she has lost 36 pounds in 3 weeks d/t constant N/V/D. Pt stated that she has nausea since starting dialysis 5 years ago. Pt was offered bland foods to help the nausea , pt refused. 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 Pt ate 0% of breakfast d/t not liking the food. Preferences were noted. Once labs are more stable, can discuss liberalizing diet to a cardiac diet. Offered Nepro, but pt refused vanilla or butterpecan flavors, stating only liking chocolate. Per Physical Assessment, bilat weak cruise staff member strength. Per ADL pt consumed 50-75% of meals the previous day. Burn Absent Trauma Absent GI Symptoms Nausea,Vomiting,Diarrhea Difficulty In Chewing Food Allergy No Current % PO Poor (25-49%) Minimum of two criteria Yes Energy Intake (non-severe) <75% Estimated Energy Requirement >7 days Reduced Divemaster Strength Measurably Reduced (severe) #1 Nutrition Diagnosis Malnutrition Etiology gallstones, chronic illness, N /V/D As Evidenced by Signs and Symptoms bilat weak cruise staff member strength, <75% EER >7days Is patient on ventilator? No Is Patient Ambulatory and/or Out of Bed Yes REE-([facility]-ambulatory/OOB) [ 1769.625 NUTR.MSJOOB] Calculation Used for Recommendations [facility] Additional Notes Protein needs: 79-98 g/kg/day (1.2-1.5 g/kg/day AdBW 65.65kg ) Fluid needs: 2773-7232 ml/day Nutrition Intervention Change Diet Order: Continue Renal Diet D/C Cardiac Diet Goal #1 Meet >75% of energy and protein needs Anticipated Discharge Needs: Renal Diet Follow-Up By: 05/24/19 Additional Comments Follow up for PO intakes
[2019-05-20] MEDS: oxyCODONE /ACETAMINOPHEN 5-325MG TAB PO PRN (19:15)
[2019-05-20] MEDS: NICOTINE 14 MG/24 HR PATCH TD SCH (20:32)
[2019-05-20] MEDS: GABAPENTIN 300 MG CAP PO SCH (20:37)
--- NOTE | 2019-05-20 21:13 | Progress Note ---
Assessment and Plan 1. ESRD: Patient presented after missed HD. Last dialyzed yesterday. Hemodialysis today as planned. 2. FEN: Hyperkalemia, HD today. Monitor lytes. 3. N, V & D: Resolved. 4. Acalculus cholecystitis: Gen. Surgery following. 5. Left great toe osteomyelitis. 6. Hypertension. 7. DM type 2. Subjective Date of service: 05/20/19 Interval history: was not examined today. However the current and previous medical records are reviewed in detail as are laboratory and imaging data reviewed when appropriate. Medications being given are also reviewed. In addition the case has been discussed with the attending hospitalist when needed. Newrenalrecommendations as above. Objective - Vital Signs Vital signs: Vital Signs - 12hr 05/20/19 05/20/19 05/20/19 09:16 10:00 12:00 Temperature 99.3 F 98.6 F Pulse Rate 112 H 104 H Pulse Rate [ 100 H From Monitor] Respiratory 18 18 18 Rate Blood Pressure 163/91 Blood Pressure 143/78 [Right] O2 Sat by Pulse 99 100 99 Oximetry 05/20/19 05/20/19 05/20/19 15:00 15:10 15:15 Temperature 98.2 F Pulse Rate 107 H 108 H 107 H Pulse Rate [ From Monitor] Respiratory 18 Rate Blood Pressure 165/94 169/103 179/100 Blood Pressure [Right] O2 Sat by Pulse Oximetry 05/20/19 05/20/19 05/20/19 15:30 15:45 16:00 Temperature Pulse Rate 107 H 109 H 110 H Pulse Rate [ From Monitor] Respiratory Rate Blood Pressure 185/99 186/105 175/108 Blood Pressure [Right] O2 Sat by Pulse Oximetry 05/20/19 05/20/19 05/20/19 16:15 16:30 16:45 Temperature Pulse Rate 111 H 108 H 108 H Pulse Rate [ From Monitor] Respiratory Rate Blood Pressure 179/106 178/109 183/109 Blood Pressure [Right] O2 Sat by Pulse Oximetry 05/20/19 05/20/19 05/20/19 17:00 17:15 17:20 Temperature Pulse Rate 114 H 111 H 111 H Pulse Rate [ From Monitor] Respiratory Rate Blood Pressure 179/108 179/108 179/108 Blood Pressure [Right] O2 Sat by Pulse Oximetry 05/20/19 05/20/19 05/20/19 17:30 17:45 18:00 Temperature Pulse Rate 109 H 110 H 111 H Pulse Rate [ From Monitor] Respiratory Rate Blood Pressure 182/92 176/111 165/101 Blood Pressure [Right] O2 Sat by Pulse Oximetry 05/20/19 05/20/19 05/20/19 18:16 18:25 20:30 Temperature 98.4 F Pulse Rate 115 H 112 H 112 H Pulse Rate [ From Monitor] Respiratory 18 Rate Blood Pressure 162/95 180/105 Blood Pressure [Right] O2 Sat by Pulse Oximetry - Lab 05/20/19 06:21 05/20/19 06:21 Most recent lab results Calcium 8.0 mg/dL (8.4-10.2) L D 05/20/19 06:21 Medications & Allergies - Medications Allergies/Adverse Reactions: Allergies No Known Allergies Allergy (Verified 06/21/16 15:23) Home Medications: Home Medications Medication Instructions Recorded Confirmed Last Taken Type Ondansetron [Zofran TAB] 4 mg PO PRN PRN 09/09/14 05/19/19 1 Day Ago History ~04/25/16 Gabapentin 300 mg PO TID 02/25/17 05/19/19 Unknown History hydrALAZINE [Apresoline TAB] 25 mg PO Q8HR #90 tablet 02/27/17 05/19/19 Unknown Rx hydrOXYzine HCL [Atarax] 25 mg PO Q8H PRN #20 tablet 02/27/17 05/19/19 Unknown Rx ALBUTEROL Inhaler (OR & NICU) 2 puff IH QID PRN #8.5 gram 05/06/19 05/19/19 Unknown Rx [ProAir HFA Inhaler] Aspirin [Aspirin BABY CHEW TAB] 81 mg PO QDAY #30 tab.chew 05/06/19 05/19/19 Unknown Rx Calcitriol [Rocaltrol] 0.25 mcg PO QDAY #30 capsule 05/06/19 05/19/19 Unknown Rx Epoetin Sylvain 20,000 Unit [Procrit] 20,000 unit IV JAYNE PRN #1 vial 05/06/19 05/19/19 Unknown Rx Acetaminophen [Acetaminophen TAB] 650 mg PO Q4H PRN tablet 05/21/19 Unknown Rx Amlodipine Besylate [Norvasc] 5 mg PO QDAY #30 tablet 05/21/19 Unknown Rx Loratadine [Claritin] 10 mg PO QDAY PRN #30 05/21/19 05/19/19 Unknown Rx Metoprolol [Lopressor TAB] 50 mg PO BID #60 tablet 05/21/19 Unknown Rx Nicotine [Habitrol] 14 mg TD QDAY #14 patch 05/21/19 Unknown Rx oxyCODONE /ACETAMINOPHEN [Percocet 1 tab PO Q6H PRN #26 tablet 05/21/19 Unknown Rx 5/325 mg] Active Medications: Generic Name Dose Route Start Last Admin Trade Name Freq PRN Reason Stop Dose Admin Acetaminophen 650 mg 05/19/19 04:16 05/20/19 17:23 Tylenol PO 650 mg Q4H PRN Administration Pain MILD(1-3)/Fever >100.5/SMITH Amlodipine Besylate 5 mg 05/21/19 10:00 Amlodipine PO QDAY [facility] Aspirin 81 mg 05/21/19 10:00 Baby Aspirin PO QDAY [facility] Calcitriol 0.25 mcg 05/21/19 10:00 Rocaltrol PO QDAY [facility] Epoetin Sylvain 20,000 unit 05/20/19 18:49 Procrit IV JAYNE PRN hemodialysis Gabapentin 300 mg 05/20/19 20:00 05/20/19 20:37 Gabapentin PO 300 mg TID LANDON Administration Heparin Sodium (Porcine) 2,000 unit 05/19/19 09:30 05/20/19 16:43 Heparin 10,000 Units/10 Ml IV 2,000 unit JAYNE PRN Administration hemodialysis Heparin Sodium (Porcine) 5,000 unit 05/20/19 22:00 Heparin SUB-Q Q12HR [facility] Hydralazine HCl 25 mg 05/20/19 22:00 Apresoline PO Q8HR [facility] Hydralazine HCl 10 mg 05/20/19 18:51 Apresoline IV Q4HR PRN Blood Pressure Hydroxyzine HCl 25 mg 05/20/19 18:49 Atarax PO Q8H PRN Itching Sodium Chloride 100 mls @ 999 mls/hr 05/19/19 10:00 Nacl 0.9% IV JAYNE PRN Hypotension Loratadine 10 mg 05/20/19 18:49 Claritin PO QDAY PRN Allergy Symptoms Nicotine 14 mg 05/20/19 19:00 05/20/19 20:32 Habitrol TD Not Given QDAY [facility] Ondansetron HCl 4 mg 05/19/19 04:16 Zofran IV Q8H PRN Nausea And Vomiting Oxycodone/Acetaminophen 1 tab 05/20/19 18:49 05/20/19 19:15 Percocet 5/325 PO 1 tab Q6H PRN Administration Pain , Severe (7-10) Sodium Chloride 10 ml 05/19/19 10:00 05/20/19 12:24 Sodium Chloride Flush Syringe 10 Ml IV 10 ml BID LANDON Administration Sodium Chloride 10 ml 05/19/19 04:16 Sodium Chloride Flush Syringe 10 Ml IV PRN PRN LINE FLUSH
[2019-05-20] MEDS: METOPROLOL TARTRATE 50 MG TAB PO SCH (22:19)
[2019-05-20] MEDS: hydrALAZINE 25 MG TAB PO SCH (22:19)
[2019-05-20] MEDS: HEPARIN 5,000 UNIT/1 ML VIAL SUB-Q SCH (22:19)
[2019-05-21] MEDS: oxyCODONE /ACETAMINOPHEN 5-325MG TAB PO PRN (02:21)
[2019-05-21] MEDS: hydrALAZINE 25 MG TAB PO SCH ×2 (05:47→13:39)
[2019-05-21] MEDS: GABAPENTIN 300 MG CAP PO SCH ×2 (08:35→13:41)
[2019-05-21] MEDS: METOPROLOL TARTRATE 50 MG TAB PO SCH (09:53)
[2019-05-21] MEDS: NICOTINE 14 MG/24 HR PATCH TD SCH (09:55)
[2019-05-21] MEDS: HEPARIN 5,000 UNIT/1 ML VIAL SUB-Q SCH (09:55)
[2019-05-21] MEDS ORDERED: ASPIRIN 81 MG TAB CHEW PO SCH (10:00)
[2019-05-21] MEDS ORDERED: amLODIPine 5 MG TAB PO SCH (10:00)
[2019-05-21] MEDS ORDERED: CALCITRIOL 0.25 MCG CAP PO SCH (10:00)
--- NOTE | 2019-05-21 11:56 | Progress Note ---
Assessment and Plan Assessment and plan: Patient is a 53 yo woman with a plethora of severe co-morbidities including hypertension, CVA, CHF, notf type 2 DM (a1c was <5 without meds), ESRD on hemodialysis, AOCD and Left leg PAD with Left big toe osteomyelitis with ESBL on 1g IV Meropenem qday (end date 06/09/19) who refuses amputation (I discharged on 05/06/19) who presents to [facility] ED with n/v/d and inability to tolerate food or taking her medications. * CT abd/pelvis without contrast Impression: 1. Gallbladder wall thickening with gallstones, as above 2. No hydronephrosis or obstructive ureteral calculus identified on the left. No bowel obstruction. Intractable N/V, unrelieved by OTC medications, requiring hospitalization, suspected related to GB disorder vs drug/abx side effect vs other: GS consulted, input noted Cholelithiasis with chronic acalculus cholecystitis: u/s reviewed, GS following input noted, pt refuses lap cholecystitis, no need for abx Left great toe osteomyelitis, w/ ?SE of iv merrem: hold medication, d/w ID, Dr. Gamble ESRD with hyperkalemia: consulted Nephrology, needing HD H/o CHF, stable Ambulatory dysfunction: consult PT DVT ppx sq heparin Disposition: continue inpatient care, anticipate d/c soon once ID clears. History Interval history: Patient was seen and examined. Follow-up on current diagnosis. No overnight events reported to me. Patient denies any chest pain, shortness breath, or severe headaches. Imaging, nursing note, chart, labs and old chart reviewed. Discussed with patient. Hospitalist Physical - Physical exam Narrative exam: Gen: WDWN, NAD, Awake, Alert, Orientated HEENT: NCAT, EOMI, PERRL, OP Clear Neck: supple, no adenopathy, no thyromegaly, no JVD CVS/Heart: RRR, normal S1S2, pulses present bilaterally Chest/Lungs: CTA B, Symmetrical chest expansion, good air entry bilaterally GI/Abdomen: soft, NTND, good bowel sounds, no guarding or rebound /Bladder: no suprapubic tenderness, no CVA or paraspinal tenderness Extermity/Skin: no c/c/e,+obvious facial rash MSK: FROM x 4, very limited mobility, Neuro: CN 2-12 grossly intact, no new focal deficits Psych: calm - Constitutional Vitals: Temp Pulse Resp BP Pulse Ox 99.8 F H 84 18 151/81 97 05/21/19 09:22 05/21/19 09:54 05/21/19 09:22 05/21/19 09:54 05/21/19 09:22 Results - Labs CBC & Chem 7: 05/20/19 06:21 05/20/19 06:21 Labs: Laboratory Last Values WBC 7.7 K/mm3 (4.5-11.0) 05/20/19 06:21 RBC 3.19 M/mm3 (3.65-5.03) L 05/20/19 06:21 Hgb 9.4 gm/dl (10.1-14.3) L 05/20/19 06:21 Hct 28.9 % (30.3-42.9) L D 05/20/19 06:21 MCV 91 fl (79-97) 05/20/19 06:21 MCH 29 pg (28-32) 05/20/19 06:21 MCHC 32 % (30-34) 05/20/19 06:21 RDW 17.2 % (13.2-15.2) H 05/20/19 06:21 Plt Count 248 K/mm3 (140-440) 05/20/19 06:21 Lymph % (Auto) 18.4 % (13.4-35.0) 05/20/19 06:21 [place] % (Auto) 6.6 % (0.0-7.3) 05/20/19 06:21 Eos % (Auto) 9.5 % (0.0-4.3) H 05/20/19 06:21 Baso % (Auto) 0.4 % (0.0-1.8) 05/20/19 06:21 Lymph # 1.4 K/mm3 (1.2-5.4) 05/20/19 06:21 [place] # 0.5 K/mm3 (0.0-0.8) 05/20/19 06:21 Eos # 0.7 K/mm3 (0.0-0.4) H 05/20/19 06:21 Baso # 0.0 K/mm3 (0.0-0.1) 05/20/19 06:21 Seg Neutrophils % 65.1 % (40.0-70.0) 05/20/19 06:21 Seg Neutrophils # 5.0 K/mm3 (1.8-7.7) 05/20/19 06:21 Sodium 136 mmol/L (137-145) L 05/20/19 06:21 Potassium 5.1 mmol/L (3.6-5.0) H D 05/20/19 06:21 Chloride 97.8 mmol/L (98-107) L 05/20/19 06:21 Carbon Dioxide 22 mmol/L (22-30) D 05/20/19 06:21 Anion Gap 21 mmol/L 05/20/19 06:21 BUN 10 mg/dL (7-17) 05/20/19 06:21 Creatinine 6.9 mg/dL (0.7-1.2) H 05/20/19 06:21 Estimated GFR 7 ml/min 05/20/19 06:21 BUN/Creatinine Ratio 1 % 05/20/19 06:21 Glucose 68 mg/dL (65-100) 05/20/19 06:21 POC Glucose 79 (70-105) 05/19/19 20:55 Calcium 8.0 mg/dL (8.4-10.2) L D 05/20/19 06:21 Total Bilirubin 0.40 mg/dL (0.1-1.2) 05/18/19 21:32 AST 13 units/L (5-40) 05/18/19 21:32 ALT < 5 units/L (7-56) L 05/18/19 21:32 Alkaline Phosphatase 142 units/L (35-129) H 05/18/19 21:32 Total Protein 7.4 g/dL (6.3-8.2) 05/18/19 21:32 Albumin 3.3 g/dL (3.9-5) L 05/18/19 21:32 Albumin/Globulin Ratio 0.8 % 05/18/19 21:32 Lipase 19 units/L (13-60) 05/18/19 21:32 Active Medications - Current Medications Current Medications: Generic Name Dose Route Start Last Admin Trade Name Freq PRN Reason Stop Dose Admin Acetaminophen 650 mg 05/19/19 04:16 05/20/19 17:23 Tylenol PO 650 mg Q4H PRN Administration Pain MILD(1-3)/Fever >100.5/SMITH Amlodipine Besylate 5 mg 05/21/19 10:00 05/21/19 09:54 Amlodipine PO 5 mg QDAY LANDON Administration Aspirin 81 mg 05/21/19 10:00 05/21/19 09:53 Baby Aspirin PO 81 mg QDAY LANDON Administration Calcitriol 0.25 mcg 05/21/19 10:00 05/21/19 09:53 Rocaltrol PO 0.25 mcg QDAY L[place]ON Administration Epoetin Sylvain 20,000 unit 05/20/19 18:49 Procrit IV JAYNE PRN hemodialysis Gabapentin 300 mg 05/20/19 20:00 05/21/19 08:35 Gabapentin PO 300 mg TID LANDON Administration Heparin Sodium (Porcine) 2,000 unit 05/19/19 09:30 05/20/19 16:43 Heparin 10,000 Units/10 Ml IV 2,000 unit JAYNE PRN Administration hemodialysis Heparin Sodium (Porcine) 5,000 unit 05/20/19 22:00 05/21/19 09:55 Heparin SUB-Q 5,000 unit Q12HR LANDON Administration Hydralazine HCl 25 mg 05/20/19 22:00 05/21/19 05:47 Apresoline PO 25 mg Q8HR [place] Administration Hydralazine HCl 10 mg 05/20/19 18:51 Apresoline IV Q4HR PRN Blood Pressure Hydroxyzine HCl 25 mg 05/20/19 18:49 Atarax PO Q8H PRN Itching Sodium Chloride 100 mls @ 999 mls/hr 05/19/19 10:00 Nacl 0.9% IV JAYNE PRN Hypotension Loratadine 10 mg 05/20/19 18:49 Claritin PO QDAY PRN Allergy Symptoms Metoprolol Tartrate 50 mg 05/20/19 22:00 05/21/19 09:53 Metoprolol PO 50 mg BID LANDON Administration Nicotine 14 mg 05/20/19 19:00 05/21/19 09:55 Habitrol TD Not Given QDAY [facility] Ondansetron HCl 4 mg 05/19/19 04:16 Zofran IV Q8H PRN Nausea And Vomiting Oxycodone/Acetaminophen 1 tab 05/20/19 18:49 05/21/19 02:21 Percocet 5/325 PO 1 tab Q6H PRN Administration Pain , Severe (7-10) Sodium Chloride 10 ml 05/19/19 10:00 05/21/19 09:55 Sodium Chloride Flush Syringe 10 Ml IV 10 ml BID LANDON Administration Sodium Chloride 10 ml 05/19/19 04:16 Sodium Chloride Flush Syringe 10 Ml IV PRN PRN LINE FLUSH Nutrition/Malnutrition Assess - Dietary Evaluation Nutrition/Malnutrition Findings: Nutrition Notes Start: 05/20/19 11:02 Freq: Status: Active Protocol: Document 05/20/19 11:02 CT (Rec: 05/20/19 11:20 CT [id number]) Co-Sign 05/20/19 11:02 LP Nutrition Notes Need for Assessment generated from: sample patternmaker,MST Initial or Follow up Assessment Current Diagnosis Diabetes,Hypertension,Heart Failure,Stroke Other Pertinent Diagnosis ESRD on HD, N/V/D, Gallstones, Hyperkalemia, Diabetic Ulcer Current Diet Renal and Cardiac Labs/Tests Na 136 K 5.1 Creatinine 6.9 Pertinent Medications Reviewed Height 5 ft 2 in Weight 81.3 kg [place] Body Weight (kg) 50.00 BMI 32.8 Intake Prior to Admission Poor Weight Status Obese Subjective/Other Information Consult for Hx difficulty chewing, Skin Risk of 19, and MST score of 2. Pt stated she does not have any teeth with difficulty chewing but refused a mechanical soft diet. Pt stated she cuts her food then she can eat it. Pt is unsure of her usual body wt but states she has lost 36 pounds in 3 weeks d/t constant N/V/D. Pt stated that she has nausea since starting dialysis 5 years ago. Pt was offered bland foods to help the nausea , pt refused. 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 Pt ate 0% of breakfast d/t not liking the food. Preferences were noted. Once labs are more stable, can discuss liberalizing diet to a cardiac diet. Offered Nepro, but pt refused vanilla or butterpecan flavors, stating only liking chocolate. 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 Per ADL pt consumed 50-75% of meals the previous day. 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 No Is Patient Ambulatory and/or Out of Bed Yes REE-([facility]-ambulatory/OOB) [ 1769.625 NUTR.MSJOOB] Calculation Used for Recommendations [facility] Additional Notes Protein needs: 79-98 g/kg/day (1.2-1.5 g/kg/day AdBW 65.65kg ) Fluid needs: 2521-0888 ml/day Nutrition Intervention Change Diet Order: Continue Renal Diet D/C Cardiac Diet Goal #1 Meet >75% of energy and protein needs Anticipated Discharge Needs: Renal Diet Follow-Up By: 05/24/19 Additional Comments Follow up for PO intakes
--- NOTE | 2019-05-21 12:19 | Discharge Summary ---
Providers - Providers Date of Admission: 05/19/19 09:38 Date of discharge: 05/21/19 Attending physician: AMBER BURGER 05/19/19 02:48 Consult to Physician [CONS] Routine Comment: Dr. Thacker spoke with Dr. Hayes @ [phone] Consulting Provider: GUZMAN HAYES Physician Instructions: Reason For Exam: hyperkalemia/dialysis 05/19/19 04:30 Consult to Physician [CONS] Routine Comment: Consulting Provider: MITCH BROWNING Physician Instructions: Reason For Exam: gall stone 05/19/19 06:32 Consult to Wound/ET Nurse [CONS] Routine Reason For Exam: wound eval 05/19/19 15:25 Consult to Physician [CONS] Routine Comment: Consulting Provider: JCARLOS SAENZ Physician Instructions: I spoke with Reason For Exam: left big toe osteomyelitis, ?abx adverse rx 05/20/19 17:59 Consult to Physician [CONS] Routine Comment: Consulting Provider: CHICHO MAHARAJ Physician Instructions: Reason For Exam: preop risk assessment 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 * CT abd/pelvis without contrast Impression: 1. Gallbladder wall thickening with gallstones, as above 2. No hydronephrosis or obstructive ureteral calculus identified on the left. No bowel obstruction. Intractable N/V, unrelieved by OTC medications, requiring hospitalization, suspected related to GB disorder vs drug/abx side effect vs other: GS consulted, input noted Cholelithiasis with chronic acalculus cholecystitis: u/s reviewed, GS following input noted, pt refuses lap cholecystitis again today, no need for abx Left great toe osteomyelitis, needs amputation but patient refused w/ ?SE of iv merrem: hold medication, d/w ID, Dr. Saenz ESRD with hyperkalemia: consulted Nephrology, needing HD H/o CHF, stable Ambulatory dysfunction: consult PT DVT ppx sq heparin Disposition: continue inpatient care, anticipate d/c soon once ID clears. Disposition: DC- TO HOME OR SELFCARE Time spent for discharge: 35 minutes Core Measure Documentation - Palliative Care Palliative Care/ Comfort Measures: Not Applicable - Core Measures Any of the following diagnoses?: none - VTE Discharge Requirements Deep Vein Thrombosis/Pulmonary Embolism Present on Admission: No Has pt received <5 days of overlap therapy or INR<2.0: No Anticoagulant overlap therapy prescribed at discharge: No Contraindication No Overlap Therapy order at DC: Not Indicated Exam - Physical Exam Narrative exam: Gen: WDWN, NAD, Awake, Alert, Orientated HEENT: NCAT, EOMI, PERRL, OP Clear Neck: supple, no adenopathy, no thyromegaly, no JVD CVS/Heart: RRR, normal S1S2, pulses present bilaterally Chest/Lungs: CTA B, Symmetrical chest expansion, good air entry bilaterally GI/Abdomen: soft, NTND, good bowel sounds, no guarding or rebound /Bladder: no suprapubic tenderness, no CVA or paraspinal tenderness Extermity/Skin: no c/c/e,+obvious facial rash MSK: FROM x 4, very limited mobility, Neuro: CN 2-12 grossly intact, no new focal deficits Psych: calm - Constitutional Vitals: Temp Pulse Resp BP Pulse Ox 99.8 F H 84 18 151/81 97 05/21/19 09:22 05/21/19 09:54 05/21/19 09:22 05/21/19 09:54 05/21/19 09:22 Plan Activity: other (no strenous activities) Diet: renal Follow up with: PRIMARY MD CESAR [Primary Care Provider] - 3-5 Days JCARLOS SAENZ MD [Staff Physician] - 7 Days MITCH BROWNING DO [Staff Physician] - 7 Days GUZMAN HAYES MD [Staff Physician] - 7 Days Prescriptions: Nicotine [Habitrol] 14 mg TD QDAY #14 patch Amlodipine Besylate [Norvasc] 5 mg PO QDAY #30 tablet oxyCODONE /ACETAMINOPHEN [Percocet 5/325 mg] 1 tab PO Q6H PRN #26 tablet PRN Reason: Pain , Severe (7-10)
--- NOTE | 2019-05-21 13:14 | Consultation ---
History of Present Illness Consult date: 05/21/19 Requesting physician: MITCH BROWNING Consult reason: pre op evaluation History of present illness: The pt is a 53 yo woman with a past medical history of reported AMI in 2014 with no cath performed or intervention required, ESRD on HD, CVA, HTN, DM, PAD, recent left big toe osteomyelitis with ESBL on 1g IV Meropenem qday (end date 06/09/19) who refuses amputation. She is previously unknown to our practice. She presented with c/o n/v/d and inability to tolerate food or medications. RUQ u/s showed ?acalculus cholecystitis with biliary dyskinesia based on HIDA. General surgery is considering cholecystectomy and pt was worried about her other health issues and was initially refusing surgery. Now, pt states she is considering surgery and wanted to be seen by cardiology to so that we could provide pre- operative cardiac risk stratification. Pt denies any cardiac complaints. Echo done 02/2017 showed EF 60-65%, mild to mod LVH, LA mildly dilated, mild MR, mild to mod TR, mild pulm HTN with RVSP 38mmHg. Lexiscan MPI stress test done 02/2017 showed mod sized fixed apical defect, no ischemia, EF 49%. Past History Past Medical History: diabetes, dialysis, ESRD, hypertension Past Surgical History: , Other (R permcath, L great toe debridements) Social history: no significant social history Family history: no significant family history Medications and Allergies Allergies Allergy/AdvReac Type Severity Reaction Status Date / Time No Known Allergies Allergy Verified 06/21/16 15:23 Home Medications Medication Instructions Recorded Confirmed Last Taken Type Ondansetron [Zofran TAB] 4 mg PO PRN PRN 09/09/14 05/19/19 1 Day Ago History ~04/25/16 Gabapentin 300 mg PO TID 02/25/17 05/19/19 Unknown History hydrALAZINE [Apresoline TAB] 25 mg PO Q8HR #90 tablet 02/27/17 05/19/19 Unknown Rx hydrOXYzine HCL [Atarax] 25 mg PO Q8H PRN #20 tablet 02/27/17 05/19/19 Unknown Rx ALBUTEROL Inhaler (OR & NICU) 2 puff IH QID PRN #8.5 gram 05/06/19 05/19/19 Unknown Rx [ProAir HFA Inhaler] Aspirin [Aspirin BABY CHEW TAB] 81 mg PO QDAY #30 tab.chew 05/06/19 05/19/19 Unknown Rx Calcitriol [Rocaltrol] 0.25 mcg PO QDAY #30 capsule 05/06/19 05/19/19 Unknown Rx Epoetin Sylvain 20,000 Unit [Procrit] 20,000 unit IV JAYNE PRN #1 vial 05/06/19 05/19/19 Unknown Rx Acetaminophen [Acetaminophen TAB] 650 mg PO Q4H PRN tablet 05/21/19 Unknown Rx Amlodipine Besylate [Norvasc] 5 mg PO QDAY #30 tablet 05/21/19 Unknown Rx Loratadine [Claritin] 10 mg PO QDAY PRN #30 05/21/19 05/19/19 Unknown Rx Metoprolol [Lopressor TAB] 50 mg PO BID #60 tablet 05/21/19 Unknown Rx Nicotine [Habitrol] 14 mg TD QDAY #14 patch 05/21/19 Unknown Rx oxyCODONE /ACETAMINOPHEN [Percocet 1 tab PO Q6H PRN #26 tablet 05/21/19 Unknown Rx 5/325 mg] Active Meds: Active Medications Acetaminophen (Tylenol) 650 mg PO Q4H PRN PRN Reason: Pain MILD(1-3)/Fever >100.5/SMITH Last Admin: 05/20/19 17:23 Dose: 650 mg Documented by: Amlodipine Besylate (Amlodipine) 5 mg PO QDAY [facility] Last Admin: 05/21/19 09:54 Dose: 5 mg Documented by: Aspirin (Baby Aspirin) 81 mg PO QDAY [facility] Last Admin: 05/21/19 09:53 Dose: 81 mg Documented by: Calcitriol (Rocaltrol) 0.25 mcg PO QDAY [facility] Last Admin: 05/21/19 09:53 Dose: 0.25 mcg Documented by: Epoetin Sylvain (Procrit) 20,000 unit IV JAYNE PRN PRN Reason: hemodialysis Gabapentin (Gabapentin) 300 mg PO TID [facility] Last Admin: 05/21/19 08:35 Dose: 300 mg Documented by: Heparin Sodium (Porcine) (Heparin 10,000 Units/10 Ml) 2,000 unit IV JAYNE PRN PRN Reason: hemodialysis Last Admin: 05/20/19 16:43 Dose: 2,000 unit Documented by: Heparin Sodium (Porcine) (Heparin) 5,000 unit SUB-Q Q12HR [facility] Last Admin: 05/21/19 09:55 Dose: 5,000 unit Documented by: Hydralazine HCl (Apresoline) 25 mg PO Q8HR [facility] Last Admin: 05/21/19 05:47 Dose: 25 mg Documented by: Hydralazine HCl (Apresoline) 10 mg IV Q4HR PRN PRN Reason: Blood Pressure Hydroxyzine HCl (Atarax) 25 mg PO Q8H PRN PRN Reason: Itching Sodium Chloride (Nacl 0.9%) 100 mls @ 999 mls/hr IV JAYNE PRN PRN Reason: Hypotension Loratadine (Claritin) 10 mg PO QDAY PRN PRN Reason: Allergy Symptoms Metoprolol Tartrate (Metoprolol) 50 mg PO BID [facility] Last Admin: 05/21/19 09:53 Dose: 50 mg Documented by: Nicotine (Habitrol) 14 mg TD QDAY [facility] Last Admin: 05/21/19 09:55 Dose: Not Given Documented by: Ondansetron HCl (Zofran) 4 mg IV Q8H PRN PRN Reason: Nausea And Vomiting Oxycodone/Acetaminophen (Percocet 5/325) 1 tab PO Q6H PRN PRN Reason: Pain , Severe (7-10) Last Admin: 05/21/19 02:21 Dose: 1 tab Documented by: Sodium Chloride (Sodium Chloride Flush Syringe 10 Ml) 10 ml IV BID [facility] Last Admin: 05/21/19 09:55 Dose: 10 ml Documented by: Sodium Chloride (Sodium Chloride Flush Syringe 10 Ml) 10 ml IV PRN PRN PRN Reason: LINE FLUSH Review of Systems Constitutional: no weight loss, no weight gain, no fever, no chills, no sweats Ears, nose, mouth and throat: no ear pain, no nose pain, no sinus pressure, no sinus pain Cardiovascular: no chest pain, no orthopnea, no palpitations, no rapid/irregular heart beat, no edema, no syncope, no lightheadedness, no shortness of breath, no dyspnea on exertion Respiratory: no cough, no shortness of breath, no dyspnea on exertion, no congestion, no wheezing, no pain on inspiration Gastrointestinal: abdominal pain, nausea, vomiting, diarrhea Genitourinary Female: no pelvic pain, no flank pain, no dysuria, no urinary frequency, no urgency Musculoskeletal: no neck stiffness, no neck pain, no shooting arm pain, no arm numbness/tingling, no low back pain, no shooting leg pain Integumentary: other (left big toe wound), no rash, no pruritis, no redness Neurological: no head injury, no paralysis, no weakness, no parathesias, no numbness, no tingling, no seizures, no syncope Psychiatric: no anxiety Endocrine: no cold intolerance, no heat intolerance Hematologic/Lymphatic: no easy bruising, no easy bleeding Allergic/Immunologic: no urticaria, no wheezing Physical Examination Vital Signs Temp Pulse Resp BP Pulse Ox 98.9 F 106 H 12 175/82 100 05/18/19 20:27 05/18/19 20:27 05/18/19 20:27 05/18/19 20:27 05/18/19 20:27 General appearance: no acute distress HEENT: Positive: PERRL, Normocephaly, Mucus Membranes Moist Neck: Positive: neck supple, trachea midline Cardiac: Positive: Reg Rate and Rhythm, S1/S2 Lungs: Positive: clear to auscultation Neuro: Positive: Grossly Intact Abdomen: Negative: Tender Skin: Positive: Other (left big toe wound). Negative: Rash Extremities: Absent: edema Results 05/20/19 06:21 05/20/19 06:21 - Imaging and Cardiology Echo: report reviewed (Echo done 02/2017 showed EF 60-65%, mild to mod LVH, LA mildly dilated, mild MR, mild to mod TR, mild pulm HTN with RVSP 38mmHg. ) EKG: report reviewed, image reviewed EKG interpretations - Telemetry EKG Rhythm: Sinus Rhythm - EKG Sinus rhythms and dysrhythmias: sinus rhythm Assessment and Plan Currently stable cardiac status. Pt denies any cardiac complaints. Obtain echo and will provide cardiac risk stratification for cholecystectomy pending echo results. The patient has been seen in conjunction with Dr. Gil Phan who agrees with the assessment and plan of care. - Patient Problems (1) Cholecystitis Current Visit: Yes Status: Suspected (2) Biliary dyskinesia Current Visit: Yes Status: Acute (3) ESRD (end stage renal disease) on dialysis Current Visit: Yes Status: Chronic (4) History of CVA (cerebrovascular accident) Current Visit: Yes Status: Chronic (5) Hypertension Current Visit: Yes Status: Chronic (6) Type II diabetes mellitus Current Visit: Yes Status: Chronic (7) History of myocardial infarction Current Visit: Yes Status: Chronic Plan to address problem: per pt report (8) Osteomyelitis Current Visit: Yes Status: Chronic Qualifiers: Osteomyelitis type: unspecified type Osteomyelitis location: foot Laterality: left Qualified Code(s): M86.9 - Osteomyelitis, unspecified (9) Hyperkalemia Current Visit: Yes Status: Acute (10) Anemia Current Visit: Yes Status: Chronic Qualifiers: Anemia type: due to chronic kidney disease Chronic kidney disease stage: on chronic dialysis Qualified Code(s): N18.6 - End stage renal disease; D63.1 - Anemia in chronic kidney disease; Z99.2 - Dependence on renal dialysis
[2019-05-21 13:42] VITALS: BP 126/66
--- NOTE | 2019-05-21 13:50 | Progress Note ---
Assessment and Plan 1. ESRD: Patient presented after missed HD. Last dialyzed yesterday. Continue hemodialysis three times a week, TTS schedule. 2. FEN: Hyperkalemia, s/p HD. Monitor lytes. 3. N, V & D: Resolved. 4. Acalculus cholecystitis: Gen. Surgery following. 5. Left great toe osteomyelitis. 6. Hypertension. 7. DM type 2. Examination: General appearance: well-developed, appears stated age, no distress HEENT: ATNC, PORFIRIO, hearing intact, vision intact Neck: neck supple, trachea midline Respiratory: Clear to Ascultation Heart: regular, S1S2, no murmurs Gastrointestinal: soft, obese, normoactive bowel sounds, not tender Integumentary: L great toe ulcer Neurologic: no focal deficit, no asterixis, alert and oriented x3 Ext: no edema Hemodialysis access: R IJ tunnel catheter Subjective Date of service: 05/21/19 Interval history: was seen and examined at the bedside. Doing ok. Objective - Vital Signs Vital signs: Vital Signs - 12hr 05/21/19 05/21/19 05/21/19 02:21 04:56 09:00 Temperature 98.9 F Pulse Rate 82 77 Respiratory 18 16 18 Rate Blood Pressure 126/60 O2 Sat by Pulse 95 Oximetry 05/21/19 05/21/19 05/21/19 09:22 09:53 09:54 Temperature 99.8 F H Pulse Rate 89 84 84 Respiratory 18 Rate Blood Pressure 151/81 151/81 151/81 O2 Sat by Pulse 97 Oximetry 05/21/19 13:39 Temperature Pulse Rate 86 Respiratory Rate Blood Pressure 126/66 O2 Sat by Pulse Oximetry - Lab 05/20/19 06:21 05/20/19 06:21 Most recent lab results Calcium 8.0 mg/dL (8.4-10.2) L D 05/20/19 06:21 Medications & Allergies - Medications Allergies/Adverse Reactions: Allergies No Known Allergies Allergy (Verified 06/21/16 15:23) Home Medications: Home Medications Medication Instructions Recorded Confirmed Last Taken Type Ondansetron [Zofran TAB] 4 mg PO PRN PRN 09/09/14 05/19/19 1 Day Ago History ~04/25/16 Gabapentin 300 mg PO TID 02/25/17 05/19/19 Unknown History hydrALAZINE [Apresoline TAB] 25 mg PO Q8HR #90 tablet 02/27/17 05/19/19 Unknown Rx hydrOXYzine HCL [Atarax] 25 mg PO Q8H PRN #20 tablet 02/27/17 05/19/19 Unknown Rx ALBUTEROL Inhaler (OR & NICU) 2 puff IH QID PRN #8.5 gram 05/06/19 05/19/19 Unknown Rx [ProAir HFA Inhaler] Aspirin [Aspirin BABY CHEW TAB] 81 mg PO QDAY #30 tab.chew 05/06/19 05/19/19 Unknown Rx Calcitriol [Rocaltrol] 0.25 mcg PO QDAY #30 capsule 05/06/19 05/19/19 Unknown Rx Epoetin Sylvain 20,000 Unit [Procrit] 20,000 unit IV JAYNE PRN #1 vial 05/06/19 05/19/19 Unknown Rx Acetaminophen [Acetaminophen TAB] 650 mg PO Q4H PRN tablet 05/21/19 Unknown Rx Amlodipine Besylate [Norvasc] 5 mg PO QDAY #30 tablet 05/21/19 Unknown Rx Loratadine [Claritin] 10 mg PO QDAY PRN #30 05/21/19 05/19/19 Unknown Rx Metoprolol [Lopressor TAB] 50 mg PO BID #60 tablet 05/21/19 Unknown Rx Nicotine [Habitrol] 14 mg TD QDAY #14 patch 05/21/19 Unknown Rx oxyCODONE /ACETAMINOPHEN [Percocet 1 tab PO Q6H PRN #26 tablet 05/21/19 Unknown Rx 5/325 mg] Active Medications: Generic Name Dose Route Start Last Admin Trade Name Freq PRN Reason Stop Dose Admin Acetaminophen 650 mg 05/19/19 04:16 05/20/19 17:23 Tylenol PO 650 mg Q4H PRN Administration Pain MILD(1-3)/Fever >100.5/SMITH Amlodipine Besylate 5 mg 05/21/19 10:00 05/21/19 09:54 Amlodipine PO 5 mg QDAY [facility] Administration Aspirin 81 mg 05/21/19 10:00 05/21/19 09:53 Baby Aspirin PO 81 mg QDAY [facility] Administration Calcitriol 0.25 mcg 05/21/19 10:00 05/21/19 09:53 Rocaltrol PO 0.25 mcg QDAY [facility] Administration Epoetin Sylvain 20,000 unit 05/20/19 18:49 Procrit IV JAYNE PRN hemodialysis Gabapentin 300 mg 05/20/19 20:00 05/21/19 13:41 Gabapentin PO 300 mg TID [facility] Administration Heparin Sodium (Porcine) 2,000 unit 05/19/19 09:30 05/20/19 16:43 Heparin 10,000 Units/10 Ml IV 2,000 unit JAYNE PRN Administration hemodialysis Heparin Sodium (Porcine) 5,000 unit 05/20/19 22:00 05/21/19 09:55 Heparin SUB-Q 5,000 unit Q12HR [facility] Administration Hydralazine HCl 25 mg 05/20/19 22:00 05/21/19 13:39 Apresoline PO 25 mg Q8HR [facility] Administration Hydralazine HCl 10 mg 05/20/19 18:51 Apresoline IV Q4HR PRN Blood Pressure Hydroxyzine HCl 25 mg 05/20/19 18:49 Atarax PO Q8H PRN Itching Sodium Chloride 100 mls @ 999 mls/hr 05/19/19 10:00 Nacl 0.9% IV JAYNE PRN Hypotension Loratadine 10 mg 05/20/19 18:49 Claritin PO QDAY PRN Allergy Symptoms Metoprolol Tartrate 50 mg 05/20/19 22:00 05/21/19 09:53 Metoprolol PO 50 mg BID [facility] Administration Nicotine 14 mg 05/20/19 19:00 05/21/19 09:55 Habitrol TD Not Given QDAY [facility] Ondansetron HCl 4 mg 05/19/19 04:16 Zofran IV Q8H PRN Nausea And Vomiting Oxycodone/Acetaminophen 1 tab 05/20/19 18:49 05/21/19 02:21 Percocet 5/325 PO 1 tab Q6H PRN Administration Pain , Severe (7-10) Sodium Chloride 10 ml 05/19/19 10:00 05/21/19 09:55 Sodium Chloride Flush Syringe 10 Ml IV 10 ml BID [facility] Administration Sodium Chloride 10 ml 05/19/19 04:16 Sodium Chloride Flush Syringe 10 Ml IV PRN PRN LINE FLUSH
--- NOTE | 2019-05-21 15:04 | Consultation ---
History of Present Illness - Reason for Consult Consult date: 05/21/19 Left great toe osteomyelitis Requesting physician: AMBER BURGER - History of Present Illness The patient is a 53 year old female patient with ESRD on HD, DM2, HTN, obesity, seen by us last admission with sepsis and left great toe osteomyelitis. She also has peripheral vascular disease, follows with vascular, has a pending intervention with them. She was set up with 6 weeks of IV Meropenem renally adjusted for osteomyelitis treatment. Apparently, she missed dialysis due to transportation issues. Developed nausea, vomiting and few episodes of diarrhea. These have now resolved. Had no diarrhea here, C.diff was ordered but not sent. Also was seen by Gen. Surg, ?acalculous cholecystitis was raised, patient declined surgery at this time with plans for outpatient follow up. She was also noted to have eosinophilia and facial rash. Per patient, the rash is chronic for many years, has seen a Transfer Specialist before. Review of Systems: General: no fevers,chills or rigors HEENT: no new visual disturbance Respiratory: No cough, sputum, hemoptysis or shortness of breath Cardiovascular: No chest pain, syncope Gastrointestinal: No nausea, vomiting or diarrhea Genitourinary: No dysuria or hematuria Musculoskeletal: No new or worsening neck pain or back pain Neurologic: No headaches, seizures Hematologic: No easy bruising or bleeding Endocrine: No night sweats or acute weight loss Skin: negative for rash, jaundice Psychiatric: No suicidal or homicidal ideation Past History Past Medical History: diabetes, dialysis, ESRD, hypertension Past Surgical History: , Other (R permcath, L great toe debridements) Social history: no significant social history Family history: no significant family history Medications and Allergies Allergies Allergy/AdvReac Type Severity Reaction Status Date / Time No Known Allergies Allergy Verified 06/21/16 15:23 Home Medications Medication Instructions Recorded Confirmed Last Taken Type Ondansetron [Zofran TAB] 4 mg PO PRN PRN 09/09/14 05/19/19 1 Day Ago History ~04/25/16 Gabapentin 300 mg PO TID 02/25/17 05/19/19 Unknown History hydrALAZINE [Apresoline TAB] 25 mg PO Q8HR #90 tablet 02/27/17 05/19/19 Unknown Rx hydrOXYzine HCL [Atarax] 25 mg PO Q8H PRN #20 tablet 02/27/17 05/19/19 Unknown Rx ALBUTEROL Inhaler (OR & NICU) 2 puff IH QID PRN #8.5 gram 05/06/19 05/19/19 Unknown Rx [ProAir HFA Inhaler] Aspirin [Aspirin BABY CHEW TAB] 81 mg PO QDAY #30 tab.chew 05/06/19 05/19/19 Unknown Rx Calcitriol [Rocaltrol] 0.25 mcg PO QDAY #30 capsule 05/06/19 05/19/19 Unknown Rx Epoetin Sylvain 20,000 Unit [Procrit] 20,000 unit IV JAYNE PRN #1 vial 05/06/19 05/19/19 Unknown Rx Acetaminophen [Acetaminophen TAB] 650 mg PO Q4H PRN tablet 05/21/19 Unknown Rx Amlodipine Besylate [Norvasc] 5 mg PO QDAY #30 tablet 05/21/19 Unknown Rx Loratadine [Claritin] 10 mg PO QDAY PRN #30 05/21/19 05/19/19 Unknown Rx Metoprolol [Lopressor TAB] 50 mg PO BID #60 tablet 05/21/19 Unknown Rx Nicotine [Habitrol] 14 mg TD QDAY #14 patch 05/21/19 Unknown Rx oxyCODONE /ACETAMINOPHEN [Percocet 1 tab PO Q6H PRN #26 tablet 05/21/19 Unknown Rx 5/325 mg] Active Meds: Active Medications Acetaminophen (Tylenol) 650 mg PO Q4H PRN PRN Reason: Pain MILD(1-3)/Fever >100.5/SMITH Last Admin: 05/20/19 17:23 Dose: 650 mg Documented by: Amlodipine Besylate (Amlodipine) 5 mg PO QDAY [facility] Last Admin: 05/21/19 09:54 Dose: 5 mg Documented by: Aspirin (Baby Aspirin) 81 mg PO QDAY [facility] Last Admin: 05/21/19 09:53 Dose: 81 mg Documented by: Calcitriol (Rocaltrol) 0.25 mcg PO QDAY [facility] Last Admin: 05/21/19 09:53 Dose: 0.25 mcg Documented by: Epoetin Sylvain (Procrit) 20,000 unit IV JAYNE PRN PRN Reason: hemodialysis Gabapentin (Gabapentin) 300 mg PO TID [facility] Last Admin: 05/21/19 13:41 Dose: 300 mg Documented by: Heparin Sodium (Porcine) (Heparin 10,000 Units/10 Ml) 2,000 unit IV JAYNE PRN PRN Reason: hemodialysis Last Admin: 05/20/19 16:43 Dose: 2,000 unit Documented by: Heparin Sodium (Porcine) (Heparin) 5,000 unit SUB-Q Q12HR [facility] Last Admin: 05/21/19 09:55 Dose: 5,000 unit Documented by: Hydralazine HCl (Apresoline) 25 mg PO Q8HR [facility] Last Admin: 05/21/19 13:39 Dose: 25 mg Documented by: Hydralazine HCl (Apresoline) 10 mg IV Q4HR PRN PRN Reason: Blood Pressure Hydroxyzine HCl (Atarax) 25 mg PO Q8H PRN PRN Reason: Itching Sodium Chloride (Nacl 0.9%) 100 mls @ 999 mls/hr IV JAYNE PRN PRN Reason: Hypotension Loratadine (Claritin) 10 mg PO QDAY PRN PRN Reason: Allergy Symptoms Metoprolol Tartrate (Metoprolol) 50 mg PO BID [facility] Last Admin: 05/21/19 09:53 Dose: 50 mg Documented by: Nicotine (Habitrol) 14 mg TD QDAY [facility] Last Admin: 05/21/19 09:55 Dose: Not Given Documented by: Ondansetron HCl (Zofran) 4 mg IV Q8H PRN PRN Reason: Nausea And Vomiting Oxycodone/Acetaminophen (Percocet 5/325) 1 tab PO Q6H PRN PRN Reason: Pain , Severe (7-10) Last Admin: 05/21/19 02:21 Dose: 1 tab Documented by: Sodium Chloride (Sodium Chloride Flush Syringe 10 Ml) 10 ml IV BID [facility] Last Admin: 05/21/19 09:55 Dose: 10 ml Documented by: Sodium Chloride (Sodium Chloride Flush Syringe 10 Ml) 10 ml IV PRN PRN PRN Reason: LINE FLUSH Physical Examination - Physical Exam Narrative exam: Physical Exam: Constitutional: Alert, cooperative. No acute distress Head, Ears, Nose: Normocephalic, atraumatic. External ears, nose normal Eyes: Conjunctivae/corneas clear. No icterus. No ptosis. Neck: Supple, no meningeal signs Cardiovascular: S1, S2 normal. Respiratory: Good air entry, clear to auscultation bilaterally GI: Soft, non-tender; bowel sounds normal. No peritoneal signs Musculoskeletal: No pedal edema, no cyanosis. Left great toe with chronic changes and small wound, no active drainage. Tunneled PICC line + and Permcath + Skin: Chronic scaly facial rash Hem/Lymphatic: No palpable cervical or supraclavicular nodes. No lymphangitis Psych: Mood ok. Affect normal Neurological: Awake, alert, oriented. No gross abnormality - Constitutional Vitals: Vital Signs Temp Pulse Resp BP Pulse Ox 99.8 F H 86 18 126/66 98 05/21/19 09:22 05/21/19 13:39 05/21/19 09:22 05/21/19 13:39 05/21/19 13:57 Temperature -Last 24 Hours Temperature 99.8 F Temperature 98.9 F Temperature 99.0 F Temperature 98.9 F Temperature 98.4 F Results - Labs CBC & Chem 7: 05/20/19 06:21 05/20/19 06:21 - Imaging and Cardiology CT scan - abdomen: report reviewed, image reviewed (gall stones +) Assessment and Plan Cultures: None this admission A/P: 53 year old female patient with ESRD on HD, DM2, HTN, obesity, seen by us last admission with sepsis and left great toe osteomyelitis, admitted with nausea, vomiting which has now resolved: 1) Left great toe osteomyelitis: Had wound cultures growing ESBL E coli, Strep B, Proteus, was on IV meropenem 1 g daily renally adjusted to complete 6 weeks ending 06/09/2019. Discussed plan with Dr. Montoya. 2) Peripheral vascular disease: has pending angiogram of the left leg, planned as outpatient - Dr. Lang. 3) ESRD on hemodialysis: renally dose abx. 4) Chronic eosinophilia: Per review of her EMR, eosinophilia appears chronic and dates back to 2014 5) Nausea, vomiting: few episodes of diarrhea. All resolved. CT showed gall stones. Recs: Resume patient's existing OPAT orders for IV meropenem 1 g daily renally adjusted to complete 6 weeks ending 06/09/2019 Follow-up with Dr. Montoya in the ID clinic, patient states she has an appointment next week Discussed with case management (Concepción Billingsley) about resuming IV meropenem orders upon discharge Plan discussed with Dr. Burger and Dr. Jan Gamble MD, [facility], [place] [facility] C: [phone] O: [phone] F: [phone]
== END 2019-05-21 18:40 | disposition home health service (06) | DRG 444 ==
LOC: ED 20:14 → 4A 05-19 03:55 → OBSVTOIN 05-19 09:38
PROVIDERS: ADMIT Internal Medicine; ATTEND Internal Medicine
PROC: 5A1D70Z Performance of Urinary Filtration, Intermittent, Less than 6 Hours Per Day (ICD-10-PCS; principal; 2019-05-19)
PROC: 5A1D70Z Performance of Urinary Filtration, Intermittent, Less than 6 Hours Per Day (ICD-10-PCS; 2019-05-20)
DX: K80.10 Calculus of gallbladder with chronic cholecystitis without obstruction (principal); N18.6 End stage renal disease; I13.2 Hypertensive heart and chronic kidney disease with heart failure and with stage 5 chronic kidney disease, or end stage renal disease; M86.8X7 Other osteomyelitis, ankle and foot; I69.351 Hemiplegia and hemiparesis following cerebral infarction affecting right dominant side; K52.9 Noninfective gastroenteritis and colitis, unspecified; E11.69 Type 2 diabetes mellitus with other specified complication; E11.22 Type 2 diabetes mellitus with diabetic chronic kidney disease; I50.9 Heart failure, unspecified; E87.5 Hyperkalemia; E66.9 Obesity, unspecified; Z53.29 Procedure and treatment not carried out because of patient's decision for other reasons; E11.51 Type 2 diabetes mellitus with diabetic peripheral angiopathy without gangrene; M19.90 Unspecified osteoarthritis, unspecified site; D72.1 Eosinophilia; D63.1 Anemia in chronic kidney disease; Z99.2 Dependence on renal dialysis; Z68.32 Body mass index [BMI] 32.0-32.9, adult; Z79.899 Other long term (current) drug therapy; Z82.49 Family history of ischemic heart disease and other diseases of the circulatory system; Z98.51 Tubal ligation status; I25.2 Old myocardial infarction; Z79.82 Long term (current) use of aspirin
CPT/HCPCS: 36415; 74176; 76705; 78227; 80048; 80053; 82962; 83690; 84132; 85025; 87116; 93005; 93010; 94644; G0378; A9537; J0610; J1644; J1650; J1815; J2405; J2805; J2997; J7030

== ENCOUNTER 2019-05-26 07:55 | Outpatient (CLI) | payer MEDICARE ==
[2019-05-26] MEDS ORDERED: LIDOCAINE (4%) 40 MG/ML TOPICAL SOLN 50 ML BOTTLE TP ONE (08:30)
== END 2019-05-26 07:56 | disposition home or self-care (01) ==
LOC: WOUND 07:55
PROVIDERS: ATTEND Surgery
DX: E11.621 Type 2 diabetes mellitus with foot ulcer (principal); L97.522 Non-pressure chronic ulcer of other part of left foot with fat layer exposed; E11.69 Type 2 diabetes mellitus with other specified complication; M86.672 Other chronic osteomyelitis, left ankle and foot; E11.51 Type 2 diabetes mellitus with diabetic peripheral angiopathy without gangrene; E11.22 Type 2 diabetes mellitus with diabetic chronic kidney disease; I12.0 Hypertensive chronic kidney disease with stage 5 chronic kidney disease or end stage renal disease; N18.6 End stage renal disease
CPT/HCPCS: 11042; G0463; 99215

== ENCOUNTER 2019-05-27 08:05 | Outpatient (CLI) | payer MEDICARE | END 2019-05-27 08:06 | disposition home or self-care (01) | LOC: WOUND 08:05 | PROVIDERS: ATTEND Surgery | DX: E11.621 Type 2 diabetes mellitus with foot ulcer (principal); L97.522 Non-pressure chronic ulcer of other part of left foot with fat layer exposed; E11.69 Type 2 diabetes mellitus with other specified complication; M86.672 Other chronic osteomyelitis, left ankle and foot; E11.51 Type 2 diabetes mellitus with diabetic peripheral angiopathy without gangrene; E11.22 Type 2 diabetes mellitus with diabetic chronic kidney disease; I12.0 Hypertensive chronic kidney disease with stage 5 chronic kidney disease or end stage renal disease; N18.6 End stage renal disease | CPT/HCPCS: 82962 ==

== ENCOUNTER 2019-05-28 08:01 | Outpatient (CLI) | payer MEDICARE | END 2019-05-28 08:02 | disposition home or self-care (01) | LOC: WOUND 08:01 | PROVIDERS: ATTEND Surgery | DX: E11.621 Type 2 diabetes mellitus with foot ulcer (principal); L97.522 Non-pressure chronic ulcer of other part of left foot with fat layer exposed; E11.69 Type 2 diabetes mellitus with other specified complication; M86.672 Other chronic osteomyelitis, left ankle and foot; E11.51 Type 2 diabetes mellitus with diabetic peripheral angiopathy without gangrene; E11.22 Type 2 diabetes mellitus with diabetic chronic kidney disease; I12.0 Hypertensive chronic kidney disease with stage 5 chronic kidney disease or end stage renal disease; N18.6 End stage renal disease | CPT/HCPCS: 82962; 99183; G0277 ==

== ENCOUNTER 2019-06-01 08:31 | Outpatient (CLI) | payer MEDICARE | END 2019-06-01 08:32 | disposition home or self-care (01) | LOC: WOUND 08:31 | PROVIDERS: ATTEND Surgery | DX: E11.621 Type 2 diabetes mellitus with foot ulcer (principal); L97.522 Non-pressure chronic ulcer of other part of left foot with fat layer exposed; E11.69 Type 2 diabetes mellitus with other specified complication; M86.672 Other chronic osteomyelitis, left ankle and foot; E11.51 Type 2 diabetes mellitus with diabetic peripheral angiopathy without gangrene; E11.22 Type 2 diabetes mellitus with diabetic chronic kidney disease; I12.0 Hypertensive chronic kidney disease with stage 5 chronic kidney disease or end stage renal disease; N18.6 End stage renal disease | CPT/HCPCS: 82962 ==

== ENCOUNTER 2019-06-07 08:01 | Outpatient (CLI) | payer MEDICARE | END 2019-06-07 08:02 | disposition home or self-care (01) | LOC: WOUND 08:01 | PROVIDERS: ATTEND Surgery | DX: I70.245 Atherosclerosis of native arteries of left leg with ulceration of other part of foot (principal); L97.522 Non-pressure chronic ulcer of other part of left foot with fat layer exposed; L84 Corns and callosities; I12.0 Hypertensive chronic kidney disease with stage 5 chronic kidney disease or end stage renal disease; N18.6 End stage renal disease; I73.89 Other specified peripheral vascular diseases; M86.672 Other chronic osteomyelitis, left ankle and foot | CPT/HCPCS: 82962; G0463; 99214 ==

== ENCOUNTER 2019-07-22 09:43 | Inpatient (IN) | payer MEDICARE ==
[2019-07-22] MEDS ORDERED: SODIUM CHLORIDE 0.9% 1000 ML 500 ML IV ONE (10:35)
[2019-07-22] MEDS ORDERED: ONDANSETRON 4 MG/2 ML INJ IV ONE (10:43)
[2019-07-22] MEDS ORDERED: MORPHINE 2 MG/1 ML INJ IV ONE (10:43)
[2019-07-22] MEDS ORDERED: PANTOPRAZOLE 40 MG INJ IV ONE (10:44)
--- NOTE | 2019-07-22 10:49 | Emergency Department Report ---
ED General Adult HPI - General Chief complaint: Nausea/Vomiting/Diarrhea Stated complaint: N/V/D/ X 1WEEK Time Seen by Provider: 07/22/19 10:28 Source: patient, family, EMS Mode of arrival: Stretcher Limitations: No Limitations - History of Present Illness Initial comments: 53 year old female with end-stage renal disease. This is her dialysis day. She presented to the emergency department with a complaint of nausea and abdominal pain. She states that she's had mid to upper abdominal discomfort for the past 2-3 days. She's had some intermittent diarrhea. She has history of diabetes as well as CABG. She is a poor historian. She cannot really describe her pain. She may possibly have a history of gallstones but the family is vague. -: Gradual, days(s) Location: abdomen Radiation: non-radiation Severity scale (0 -10): 9 Quality: aching Consistency: constant Improves with: none Worsens with: none Associated Symptoms: denies other symptoms Treatments Prior to Arrival: none - Related Data Home Medications Medication Instructions Recorded Confirmed Last Taken Ondansetron [Zofran TAB] 4 mg PO PRN PRN 09/09/14 05/19/19 1 Day Ago ~04/25/16 Gabapentin 300 mg PO TID 02/25/17 05/19/19 Unknown Previous Rx's Medication Instructions Recorded Last Taken Type hydrOXYzine HCL [Atarax] 25 mg PO Q8H PRN #20 tablet 02/27/17 Unknown Rx Albuterol INH(or & Nicu Only) 2 puff IH QID PRN #8.5 gram 05/06/19 Unknown Rx [ProAir HFA Inhaler] Aspirin [Aspirin BABY CHEW TAB] 81 mg PO QDAY #30 tab.chew 05/06/19 Unknown Rx calcitrioL [Rocaltrol] 0.25 mcg PO QDAY #30 capsule 05/06/19 Unknown Rx Amlodipine Besylate [Norvasc] 5 mg PO QDAY #30 tablet 05/21/19 Unknown Rx Loratadine (Nf) [Claritin (Nf)] 10 mg PO QDAY PRN #30 05/21/19 Unknown Rx Allergies Allergy/AdvReac Type Severity Reaction Status Date / Time No Known Allergies Allergy Verified 07/22/19 10:08 ED Review of Systems ROS: Stated complaint: N/V/D/ X 1WEEK Other details as noted in HPI Constitutional: denies: chills, fever Eyes: denies: eye pain, eye discharge, vision change ENT: denies: ear pain, throat pain Respiratory: denies: cough, shortness of breath, wheezing Cardiovascular: denies: chest pain, palpitations Endocrine: no symptoms reported Gastrointestinal: abdominal pain, nausea, diarrhea Genitourinary: denies: urgency, dysuria, discharge Musculoskeletal: denies: back pain, joint swelling, arthralgia Skin: denies: rash, lesions Neurological: denies: headache, weakness, paresthesias Psychiatric: denies: anxiety, depression Hematological/Lymphatic: denies: easy bleeding, easy bruising ED Past Medical Hx - Past Medical History Previous Medical History?: Yes Hx Hypertension: Yes Hx CVA: Yes (right weakness) Hx Heart Attack/AMI: No Hx Congestive Heart Failure: Yes (HX CHEST PAIN & SOB) Hx Diabetes: Yes (TYPE 11) Hx Liver Disease: No Hx Renal Disease: Yes (DIALYSIS / / FRI) Hx Sickle Cell Disease: No Hx Arthritis: Yes (hands) Hx Asthma: Yes Hx COPD: Yes Hx Tuberculosis: (NEG) Additional medical history: ANEMIA - Surgical History Past Surgical History?: Yes Additional Surgical History: TUBAL LIGATION. LEFT OVARY REMOVED. GRAFT LEFT ARM x 2 (inactive). PERMACATH RIGHT CHEST - Social History Smoking Status: Never Smoker Substance Use Type: None - Medications Home Medications: Home Medications Medication Instructions Recorded Confirmed Last Taken Type Ondansetron [Zofran TAB] 4 mg PO PRN PRN 09/09/14 05/19/19 1 Day Ago History ~04/25/16 Gabapentin 300 mg PO TID 02/25/17 05/19/19 Unknown History hydrOXYzine HCL [Atarax] 25 mg PO Q8H PRN #20 tablet 02/27/17 05/19/19 Unknown Rx Albuterol INH(or & Nicu Only) 2 puff IH QID PRN #8.5 gram 05/06/19 05/19/19 Unknown Rx [ProAir HFA Inhaler] Aspirin [Aspirin BABY CHEW TAB] 81 mg PO QDAY #30 tab.chew 05/06/19 05/19/19 Unknown Rx calcitrioL [Rocaltrol] 0.25 mcg PO QDAY #30 capsule 05/06/19 05/19/19 Unknown Rx Amlodipine Besylate [Norvasc] 5 mg PO QDAY #30 tablet 05/21/19 Unknown Rx Loratadine (Nf) [Claritin (Nf)] 10 mg PO QDAY PRN #30 05/21/19 05/19/19 Unknown Rx ED Physical Exam - General Limitations: No Limitations General appearance: alert, in no apparent distress - Head Head exam: Present: atraumatic, normocephalic - Eye Eye exam: Present: normal appearance. Absent: scleral icterus - ENT ENT exam: Present: mucous membranes moist - Neck Neck exam: Present: normal inspection - Respiratory Respiratory exam: Present: normal lung sounds bilaterally. Absent: respiratory distress - Cardiovascular Cardiovascular Exam: Present: regular rate, normal rhythm. Absent: systolic murmur, diastolic murmur, rubs, gallop - GI/Abdominal GI/Abdominal exam: Present: soft, distended, tenderness (right upper quadrant to epigastric discomfort), normal bowel sounds. Absent: guarding (negative Murp hy's), rebound, rigid - Extremities Exam Extremities exam: Present: normal inspection - Back Exam Back exam: Present: normal inspection - Neurological Exam Neurological exam: Present: alert, oriented X3, CN II-XII intact. Absent: motor sensory deficit - Psychiatric Psychiatric exam: Present: normal affect, normal mood - Skin Skin exam: Present: warm, dry, intact, normal color. Absent: rash ED Course Vital Signs 07/22/19 07/22/19 09:45 13:03 Temperature 98.7 F Pulse Rate 117 H Respiratory 16 18 Rate Blood Pressure 148/86 [Right] O2 Sat by Pulse 100 Oximetry ED Medical Decision Making - Lab Data Result diagrams: 07/22/19 10:47 07/22/19 10:47 Laboratory Results - last 24 hr 07/22/19 07/22/19 07/22/19 10:47 10:47 10:47 WBC 12.6 H RBC 2.65 L Hgb 7.7 L Hct 24.2 L MCV 91 MCH 29 MCHC 32 RDW 16.7 H Plt Count 637 H Lymph % (Auto) 7.5 L [place] % (Auto) 7.2 Eos % (Auto) 1.0 Baso % (Auto) 0.8 Lymph # 0.9 L [place] # 0.9 H Eos # 0.1 Baso # 0.1 Seg Neutrophils % 83.5 H Seg Neutrophils # 10.5 H PT INR APTT Sodium TNR Potassium TNR Chloride TNR Carbon Dioxide TNR Anion Gap TNR BUN TNR Creatinine TNR Estimated GFR TNR BUN/Creatinine Ratio TNR Glucose TNR Lactic Acid Calcium TNR Phosphorus Magnesium TNR Total Bilirubin TNR Direct Bilirubin TNR Indirect Bilirubin AST TNR ALT TNR Alkaline Phosphatase TNR Troponin T NT-Pro-B Natriuret Pep Total Protein TNR Albumin TNR Albumin/Globulin Ratio TNR Triglycerides Cholesterol LDL Cholesterol Direct HDL Cholesterol Cholesterol/HDL Ratio TSH 0.930 Free T4 1.02 07/22/19 07/22/19 07/22/19 10:47 10:53 10:53 WBC RBC Hgb Hct MCV MCH MCHC RDW Plt Count Lymph % (Auto) [place] % (Auto) Eos % (Auto) Baso % (Auto) Lymph # [place] # Eos # Baso # Seg Neutrophils % Seg Neutrophils # PT 16.5 H INR 1.31 H APTT 27.8 Sodium 138 Potassium 4.0 Chloride 98.9 Carbon Dioxide 18 L Anion Gap 25 BUN 7 Creatinine 6.2 H Estimated GFR 8 BUN/Creatinine Ratio 1 Glucose 99 Lactic Acid Calcium 9.5 Phosphorus 4.80 H Magnesium 2.20 Total Bilirubin 0.60 Direct Bilirubin 0.3 H Indirect Bilirubin 0.3 AST 15 ALT 10 Alkaline Phosphatase 144 H Troponin T 0.258 H* NT-Pro-B Natriuret Pep 29131 H Total Protein 5.8 L Albumin 2.8 L Albumin/Globulin Ratio 0.9 Triglycerides 353 H Cholesterol 200 H LDL Cholesterol Direct 87 HDL Cholesterol 18 L Cholesterol/HDL Ratio 11.11 TSH Free T4 07/22/19 13:10 WBC RBC Hgb Hct MCV MCH MCHC RDW Plt Count Lymph % (Auto) [place] % (Auto) Eos % (Auto) Baso % (Auto) Lymph # [place] # Eos # Baso # Seg Neutrophils % Seg Neutrophils # PT INR APTT Sodium Potassium Chloride Carbon Dioxide Anion Gap BUN Creatinine Estimated GFR BUN/Creatinine Ratio Glucose Lactic Acid 1.00 Calcium Phosphorus Magnesium Total Bilirubin Direct Bilirubin Indirect Bilirubin AST ALT Alkaline Phosphatase Troponin T NT-Pro-B Natriuret Pep Total Protein Albumin Albumin/Globulin Ratio Triglycerides Cholesterol LDL Cholesterol Direct HDL Cholesterol Cholesterol/HDL Ratio TSH Free T4 - EKG Data EKG shows normal: sinus rhythm, axis, intervals, QRS complexes, ST-T waves Rate: tachycardia - EKG Data Interpretation: nonspecific ST-T wave doug - Radiology Data Radiology results: report reviewed interpreted by me: IMPRESSION: 1. Gallbladder wall thickening with gallstones, as above. 2. No hydronephrosis or obstructive ureteral calculus identified on the left. No bowel obstruction. Critical care attestation.: If time is entered above; I have spent that time in minutes in the direct care of this critically ill patient, excluding procedure time. ED Disposition Clinical Impression: Cholecystitis, End stage renal disease on dialysis, Elevated troponin Abdominal pain Qualifiers: Abdominal location: upper abdomen, unspecified Qualified Code(s): R10.10 - Upper abdominal pain, unspecified Anemia Qualifiers: Anemia type: due to chronic kidney disease Chronic kidney disease stage: on chronic dialysis Qualified Code(s): N18.6 - End stage renal disease Disposition: 09 OP ADMIT IP TO THIS HOSP Is pt being admited?: Yes Does the pt Need Aspirin: Yes Condition: Stable Referrals: PRIMARY CARE, [Primary Care Provider] - 3-5 Days
[2019-07-22] MEDS ORDERED: PIPERACILLIN/TAZOBACTAM 3.375 3.375 GM/50 ML BAG IV ONE (11:00)
[2019-07-22 11:10] LABS: Basophils # (Auto) 0.1 K/mm3 (0.0-0.1); Basophils % (Auto) 0.8 % (0.0-1.8); Eosinophils # (Auto) 0.1 K/mm3 (0.0-0.4); Hematocrit 24.2 % (30.3-42.9); Hemoglobin 7.7 gm/dl (10.1-14.3); Lymphocytes # (Auto) 0.9 K/mm3 (1.2-5.4); Lymphocytes % (Auto) 7.5 % (13.4-35.0); Mean Corpuscular HGB Conc 32 % (30-34); Mean Corpuscular Volume 91 fl (79-97); Monocytes # (Auto) 0.9 K/mm3 (0.0-0.8); Monocytes % (Auto) 7.2 % (0.0-7.3); Platelet Count 637 K/mm3 (140-440); Red Blood Count 2.65 M/mm3 (3.65-5.03); Red Cell Distribution Width 16.7 % (13.2-15.2)
[2019-07-22 11:17] LABS: INR 1.31 (0.87-1.13)
[2019-07-22 11:18] LABS: Partial Thromboplastin Time 27.8 Sec. (24.2-36.6)
[2019-07-22 11:27] LABS: Hemolysis Index 357
[2019-07-22 11:35] LABS: Free T4 (Free Thyroxine) 1.02 ng/dL (0.76-1.46)
--- NOTE | 2019-07-22 11:52 | Cat Scan Report ---
CT ABDOMEN AND PELVIS WITHOUT CONTRAST INDICATION: Unspecified acute abdominal pain for 12 hours. COMPARISON: CT abdomen and pelvis without contrast from 05/19/2019. TECHNIQUE: Axial, coronal and sagittal CT imaging of the abdomen and pelvis was performed without co ntrast. Lack of intravenous contrast limits evaluation of the vascular and solid organs. All CT sca ns at this location are performed using CT dose reduction for ALARA by means of automated exposure co ntrol. FINDINGS: LOWER CHEST: The lung bases are clear. The heart is normal in size with diffuse coronary atherosclero sis. LIVER: No significant abnormality. BILIARY: Multiple gallstones are again seen with mild distention of the gallbladder and mild gallblad talat wall thickening. No significant surrounding inflammation is seen. No biliary ductal dilatation is identified. No choledocholithiasis is clearly seen. PANCREAS: No significant abnormality. SPLEEN: No significant abnormality. ADRENALS: No significant abnormality. KIDNEYS AND URETERS: No significant abnormality. GI TRACT: No significant abnormality of the stomach, small bowel or colon. Unremarkable appendix. PERITONEUM: No free fluid. No free air. No fluid collection. LYMPH NODES: No significant adenopathy. VASCULATURE: The aorta is normal in caliber. There is severe generalized atherosclerosis. URINARY BLADDER: Collapsed without a distinct abnormality. REPRODUCTIVE ORGANS: No significant abnormality. ADDITIONAL FINDINGS: None. SKELETAL SYSTEM: No acute abnormality. There are similar degenerative changes throughout the spine an d pelvis. IMPRESSION: 1. Similar cholelithiasis with mild gallbladder distention and mild wall thickening. Acute cholecysti tis cannot be excluded. Please correlate with the clinical findings. 2. Additional findings as above. Signer Name: Chris Sumner MD Signed: 07/22/2019 11:47 AM Workstation Name: [employer]
--- NOTE | 2019-07-22 12:02 | XRay Report ---
CHEST 1 VIEW INDICATION: hypertension. COMPARISON: 04/24/2019 FINDINGS: Support devices: Stable satisfactory device positioning. Right Vas-Cath. Heart: Within normal limits. Pulmonary vasculature: Normal. Lungs/Pleura: No acute air space or interstitial disease. Additional findings: None. IMPRESSION: 1. No acute findings. Signer Name: Eliezer Hastings MD Signed: 07/22/2019 11:57 AM Workstation Name: [id number]
[2019-07-22 12:07] LABS: BUN/Creatinine Ratio TNR; Blood Urea Nitrogen TNR mg/dL (7-17)
[2019-07-22 12:08] LABS: Bilirubin,Direct TNR mg/dL (0-0.2); Calcium TNR mg/dL (8.4-10.2)
[2019-07-22 12:09] LABS: Alanine Aminotransferase TNR units/L (7-56); Albumin TNR g/dL (3.9-5)
[2019-07-22 12:25] LABS: Albumin 2.8 g/dL (3.9-5); Bilirubin,Direct 0.3 mg/dL (0-0.2); Calcium 9.5 mg/dL (8.4-10.2)
[2019-07-22 12:30] LABS: Chol/HDL Ratio 11.11 %
--- NOTE | 2019-07-22 14:30 | History and Physical Report ---
History of Present Illness Chief complaint: My stomach is hurting History of present illness: 53-year-old female with CVA complicated by RHP, CHF, DM, OA, COPD, Asthma, Anemia, ESRD on HD(T, R, SA) presents to ED for evaluation. Patient states that she has experienced abdominal pain and nausea over the last 3 days with persistent symptoms over the same timeframe. Patient also reports multiple loose stools. Patient states that she has experienced pain in her abdomen over the past 2 days. Patient states that pain is 9 out of 10, was initially intermittent but now has become constant over the past 1 day, no exacerbating or alleviating factors, nonradiating, diffuse. EMS notified and upon arrival to [facility] patient was found to be in distress and subsequently transported to [facility] for further care and evaluation. Patient seen and evaluated in the emergency department. Lab and imaging studies reviewed. Patient found to have end-stage renal disease in need of dialysis, metabolic acidosis, systemic inflammatory response syndrome, as well as evidence of acute cholecystitis. Patient admitted to medical floor for medical management due to increased risk of decompensation. Nephrology team consulted in ED for dialysis as per renal team. Patient treated with empiric IV antibiotic therapy. Surgery team consulted in ED. Patient denies fever, chills, chest pain, palpitations, bright red blood per rectum, ingestion of food/water from new or different sources, productive cough, skin rash, or recent ill contacts. Prior admission on 05/19/2019 reviewed. All medication listed at time of admission has been reconciled. Past History Past Medical History: arthritis, COPD, diabetes, heart failure, stroke, other (See HPI) Past Surgical History: Other (TUBAL LIGATION. LEFT OVARY REMOVED. GRAFT LEFT ARM x 2 (inactive). PERMACATH RIGHT CHEST) Social history: single. denies: smoking, alcohol abuse, prescription drug abuse Family history: diabetes, hypertension Medications and Allergies Allergies Allergy/AdvReac Type Severity Reaction Status Date / Time No Known Allergies Allergy Verified 07/22/19 10:08 Home Medications Medication Instructions Recorded Confirmed Last Taken Type Ondansetron [Zofran TAB] 4 mg PO PRN PRN 09/09/14 05/19/19 1 Day Ago History ~04/25/16 Gabapentin 300 mg PO TID 02/25/17 05/19/19 Unknown History hydrOXYzine HCL [Atarax] 25 mg PO Q8H PRN #20 tablet 02/27/17 05/19/19 Unknown Rx Albuterol INH(or & Nicu Only) 2 puff IH QID PRN #8.5 gram 05/06/19 05/19/19 Unk nown Rx [ProAir HFA Inhaler] Aspirin [Aspirin BABY CHEW TAB] 81 mg PO QDAY #30 tab.chew 05/06/19 05/19/19 Unknown Rx calcitrioL [Rocaltrol] 0.25 mcg PO QDAY #30 capsule 05/06/19 05/19/19 Unknown Rx Amlodipine Besylate [Norvasc] 5 mg PO QDAY #30 tablet 05/21/19 Unknown Rx Loratadine (Nf) [Claritin (Nf)] 10 mg PO QDAY PRN #30 05/21/19 05/19/19 Unknown Rx Active Meds: Active Medications Sodium Chloride (Nacl 0.9% 1000 Ml) 500 mls @ 125 mls/hr IV ONCE ONE Stop: 07/22/19 14:34 Last Admin: 07/22/19 13:03 Dose: 125 mls/hr Documented by: Review of Systems Constitutional: no weight loss, no weight gain, no fever, no chills Ears, nose, mouth and throat: no ear pain, no tinnitis, no decreased hearing, no nose pain, no nasal congestion Breasts: no change in shape, no swelling, no mass Cardiovascular: no orthopnea, no palpitations, no edema, no syncope Respiratory: no cough, no excessive sputum, no hemoptysis, no shortness of breath Gastrointestinal: abdominal pain, nausea, diarrhea, no change in bowel habits, no hematemesis, no BRBPR, no loss of appetite, no indigestion Genitourinary Female: no dysmenorrhea, no pelvic pain, no menorrhagia, no dysuria, no stress incontinence Rectal: no pain, no incontinence, no bleeding Musculoskeletal: no neck stiffness, no neck pain, no shooting arm pain, no low b ack pain, no leg numbness/tingling Integumentary: no rash, no pruritis, no redness, no sores, no wounds, no jaundice Neurological: no transient paralysis, no paralysis, no weakness, no parathesias, no numbness, no tingling, no seizures, no tremors Psychiatric: no memory loss, no hypersomnia, no change in appetite, no change in libido, no suicidal ideation, no disorientation Endocrine: no cold intolerance, no heat intolerance, no polyphagia, no excessive thirst, no polydipsia, no polyuria, no flushing, no weight change Hematologic/Lymphatic: no easy bruising, no easy bleeding, no lymphadenopathy, no lymphedema Allergic/Immunologic: no urticaria, no allergic rhinitis, no wheezing, no persistent infections Exam - Constitutional Vitals: Temp Pulse Resp BP Pulse Ox 98.7 F 117 H 18 148/86 100 07/22/19 09:45 07/22/19 09:45 07/22/19 13:03 07/22/19 09:45 07/22/19 09:45 General appearance: Present: mild distress - EENT Eyes: Present: PERRL ENT: hearing intact, clear oral mucosa - Neck Neck: Present: supple, normal ROM - Respiratory Respiratory effort: normal Respiratory: bilateral: CTA - Cardiovascular Heart Sounds: Present: S1 & S2. Absent: rub, click - Extremities Extremities: pulses symmetrical, No edema Peripheral Pulses: within normal limits - Abdominal General gastrointestinal: Present: soft, tender, non-distended, normal bowel sounds Female genitourinary: Present: normal - Integumentary Integumentary: Present: clear, warm, dry - Musculoskeletal Musculoskeletal: gait normal, strength equal bilaterally - Psychiatric Psychiatric: appropriate mood/affect, intact judgment & insight - Neurologic Neurologic: CNII-XII intact, moves all extremities Results - Labs CBC & Chem 7: 07/22/19 10:47 07/22/19 10:47 Labs: Abnormal lab results 07/22/19 07/22/19 07/22/19 Range/Units 10:47 10:47 10:53 WBC 12.6 H (4.5-11.0) K/mm3 RBC 2.65 L (3.65-5.03) M/mm3 Hgb 7.7 L (10.1-14.3) gm/dl Hct 24.2 L (30.3-42.9) % RDW 16.7 H (13.2-15.2) % Plt Count 637 H (140-440) K/mm3 Lymph % (Auto) 7.5 L (13.4-35.0) % Lymph # 0.9 L (1.2-5.4) K/mm3 [place] # 0.9 H (0.0-0.8) K/mm3 Seg Neutrophils % 83.5 H (40.0-70.0) % Seg Neutrophils # 10.5 H (1.8-7.7) K/mm3 PT 16.5 H (12.2-14.9) Sec. INR 1.31 H (0.87-1.13) Carbon Dioxide 18 L (22-30) mmol/L Creatinine 6.2 H (0.7-1.2) mg/dL Phosphorus (2.5-4.5) mg/dL Direct Bilirubin 0.3 H (0-0.2) mg/dL Alkaline Phosphatase 144 H (35-129) units/L Troponin T (0.00-0.029) ng/mL NT-Pro-B Natriuret Pep (0-900) pg/mL Total Protein 5.8 L (6.3-8.2) g/dL Albumin 2.8 L (3.9-5) g/dL Triglycerides (2-149) mg/dL Cholesterol (50-199) mg/dL HDL Cholesterol (40-59) mg/dL 07/22/19 Range/Units 10:53 WBC (4.5-11.0) K/mm3 RBC (3.65-5.03) M/mm3 Hgb (10.1-14.3) gm/dl Hct (30.3-42.9) % RDW (13.2-15.2) % Plt Count (140-440) K/mm3 Lymph % (Auto) (13.4-35.0) % Lymph # (1.2-5.4) K/mm3 [place] # (0.0-0.8) K/mm3 Seg Neutrophils % (40.0-70.0) % Seg Neutrophils # (1.8-7.7) K/mm3 PT (12.2-14.9) Sec. INR (0.87-1.13) Carbon Dioxide (22-30) mmol/L Creatinine (0.7-1.2) mg/dL Phosphorus 4.80 H (2.5-4.5) mg/dL Direct Bilirubin (0-0.2) mg/dL Alkaline Phosphatase (35-129) units/L Troponin T 0.258 H* (0.00-0.029) ng/mL NT-Pro-B Natriuret Pep 38934 H (0-900) pg/mL Total Protein (6.3-8.2) g/dL Albumin (3.9-5) g/dL Triglycerides 353 H (2-149) mg/dL Cholesterol 200 H (50-199) mg/dL HDL Cholesterol 18 L (40-59) mg/dL Assessment and Plan - Patient Problems (1) ESRD (end stage renal disease) on dialysis Current Visit: Yes Status: Chronic (2) Cholecystitis Current Visit: Yes Status: Acute (3) Anemia in chronic kidney disease Current Visit: No Status: Chronic
[2019-07-22] MEDS ORDERED: ASPIRIN 81 MG TAB CHEW PO ONE (14:51)
[2019-07-22] MEDS ORDERED: ALBUTEROL 2.5 MG/3 ML NEBU IH PRN (16:24)
--- NOTE | 2019-07-22 16:44 | Ultrasound Report ---
ULTRASOUND ABDOMEN, LIMITED (RIGHT UPPER QUADRANT) INDICATION: Unspecified abdominal pain. Abnormal gallbladder on previous CT. COMPARISON: CT abdomen and pelvis without contrast from earlier today. FINDINGS: Pancreas: Visualized portion shows no significant abnormality. Liver: No significant abnormality. Gallbladder: The gallbladder is similarly distended and contains a large amount of sludge. Small shad owing stones are seen along the gallbladder fundus the gallbladder wall is not thickened. No pericho lecystic fluid is seen. Sonographic Rosa's sign: Not performed. Bile ducts: No significant abnormality. Common Bile Duct measures 2 mm. Free fluid: None. Additional Findings: None. IMPRESSION: Mild distention of the gallbladder with a large amount of sludge and small stones without sonographic evidence of acute cholecystitis. Signer Name: Chris Sumner MD Signed: 07/22/2019 4:40 PM Workstation Name: [id number]
--- NOTE | 2019-07-22 17:49 | Consultation ---
History of Present Illness Consult date: 07/22/19 Reason for consult: gallstones Chief complaint: abdominal pain - History of present illness History of present illness: 53 year old female with hx of ESRD-DD and CAD presented to ED with a several day hx of generalized abdominal pain, nausea, vomiting, and diarrhea. At this time patient is not very detailed about her symptoms. Per her family member she has had similar symptoms in the past with the last time being when she had missed some dialysis therapies. They deny an disruption of her dialysis treatments at this time. CT and US scan showed gallbladder with small stones, sludge, and no inflammation. Two months ago she had a work up for n/v and abdominal pain that showed biliary dyskinesia. At the time the plan was to optimize her health and if she could be cleared medically she could follow up as an outpatient for elective cholecystectomy. Past History Past Medical History: CAD, diabetes, ESRD Past Surgical History: , Other (AV fistula, permacath, left toe wound care) Medications and Allergies Allergies Allergy/AdvReac Type Severity Reaction Status Date / Time No Known Allergies Allergy Verified 07/22/19 10:08 Home Medications Medication Instructions Recorded Confirmed Last Taken Type Ondansetron [Zofran TAB] 4 mg PO PRN PRN 09/09/14 05/19/19 1 Day Ago History ~04/25/16 Gabapentin 300 mg PO TID 02/25/17 05/19/19 Unknown History hydrOXYzine HCL [Atarax] 25 mg PO Q8H PRN #20 tablet 02/27/17 05/19/19 Unknown Rx Albuterol INH(or & Nicu Only) 2 puff IH QID PRN #8.5 gram 05/06/19 05/19/19 Unknown Rx [ProAir HFA Inhaler] Aspirin [Aspirin BABY CHEW TAB] 81 mg PO QDAY #30 tab.chew 05/06/19 05/19/19 U nknown Rx calcitrioL [Rocaltrol] 0.25 mcg PO QDAY #30 capsule 05/06/19 05/19/19 Unknown Rx Amlodipine Besylate [Norvasc] 5 mg PO QDAY #30 tablet 05/21/19 Unknown Rx Loratadine (Nf) [Claritin (Nf)] 10 mg PO QDAY PRN #30 12/06/19 12/04/19 Unknown Rx Active Meds: Active Medications Acetaminophen (Tylenol) 650 mg PO Q4H PRN PRN Reason: Pain MILD(1-3)/Fever >100.5/SMITH Albuterol (Proventil) 2.5 mg IH Q4HRT PRN PRN Reason: Shortness Of Breath Ondansetron HCl (Zofran) 4 mg IV Q8H PRN PRN Reason: Nausea And Vomiting Sodium Chloride (Sodium Chloride Flush Syringe 10 Ml) 10 ml IV BID LANDON Sodium Chloride (Sodium Chloride Flush Syringe 10 Ml) 10 ml IV PRN PRN PRN Reason: LINE FLUSH Review of Systems - Constitutional anorexia, lethargy - Gastrointestinal abdominal pain, nausea, vomiting, diarrhea, loss of appetite, no melena, no hematochezia Exam Vital Signs Temp Pulse Resp BP Pulse Ox 98.7 F 117 H 16 148/86 100 07/22/19 09:45 07/22/19 09:45 07/22/19 09:45 07/22/19 09:45 07/22/19 09:45 - General physical appearance Positive: well developed, no distress, chronically ill - Respiratory Positive: normal expansion, normal respiratory effort - Abdomen Abdomen: Present: soft, other (mild generalized tenderness to palpation). Absent: distended, rebound, guarding, rigid Results - Labs 07/22/19 10:47 07/22/19 10:47 Abnormal lab results 07/22/19 07/22/19 07/22/19 Range/Units 10:47 10:47 10:53 WBC 12.6 H (4.5-11.0) K/mm3 RBC 2.65 L (3.65-5.03) M/mm3 Hgb 7.7 L (10.1-14.3) gm/dl Hct 24.2 L (30.3-42.9) % RDW 16.7 H (13.2-15.2) % Plt Count 637 H (140-440) K/mm3 Lymph % (Auto) 7.5 L (13.4-35.0) % Lymph # 0.9 L (1.2-5.4) K/mm3 [place] # 0.9 H (0.0-0.8) K/mm3 Seg Neutrophils % 83.5 H (40.0-70.0) % Seg Neutrophils # 10.5 H (1.8-7.7) K/mm3 PT 16.5 H (12.2-14.9) Sec. INR 1.31 H (0.87-1.13) Carbon Dioxide 18 L (22-30) mmol/L Creatinine 6.2 H (0.7-1.2) mg/dL Phosphorus (2.5-4.5) mg/dL Direct Bilirubin 0.3 H (0-0.2) mg/dL Alkaline Phosphatase 144 H (35-129) units/L Troponin T (0.00-0.029) ng/mL NT-Pro-B Natriuret Pep (0-900) pg/mL Total Protein 5.8 L (6.3-8.2) g/dL Albumin 2.8 L (3.9-5) g/dL Triglycerides (2-149) mg/dL Cholesterol (50-199) mg/dL HDL Cholesterol (40-59) mg/dL 07/22/19 Range/Units 10:53 WBC (4.5-11.0) K/mm3 RBC (3.65-5.03) M/mm3 Hgb (10.1-14.3) gm/dl Hct (30.3-42.9) % RDW (13.2-15.2) % Plt Count (140-440) K/mm3 Lymph % (Auto) (13.4-35.0) % Lymph # (1.2-5.4) K/mm3 [place] # (0.0-0.8) K/mm3 Seg Neutrophils % (40.0-70.0) % Seg Neutrophils # (1.8-7.7) K/mm3 PT (12.2-14.9) Sec. INR (0.87-1.13) Carbon Dioxide (22-30) mmol/L Creatinine (0.7-1.2) mg/dL Phosphorus 4.80 H (2.5-4.5) mg/dL Direct Bilirubin (0-0.2) mg/dL Alkaline Phosphatase (35-129) units/L Troponin T 0.258 H* (0.00-0.029) ng/mL NT-Pro-B Natriuret Pep 25637 H (0-900) pg/mL Total Protein (6.3-8.2) g/dL Albumin (3.9-5) g/dL Triglycerides 353 H (2-149) mg/dL Cholesterol 200 H (50-199) mg/dL HDL Cholesterol 18 L (40-59) mg/dL Diabetes panel 07/22/19 07/22/19 07/22/19 Range/Units 10:47 10:47 10:53 Sodium TNR 138 Potassium TNR 4.0 Chloride TNR 98.9 Carbon Dioxide TNR 18 L BUN TNR 7 Creatinine TNR 6.2 H Glucose TNR 99 Calcium TNR 9.5 AST TNR 15 ALT TNR 10 Alkaline Phosphatase TNR 144 H Total Protein TNR 5.8 L Albumin TNR 2.8 L Triglycerides 353 H (2-149) mg/dL HDL Cholesterol 18 L (40-59) mg/dL Thyroid panel 07/22/19 Range/Units 10:47 TSH 0.930 (0.270-4.200) mlU/mL Calcium panel 07/22/19 07/22/19 07/22/19 Range/Units 10:47 10:47 10:53 Calcium TNR 9.5 Phosphorus 4.80 H (2.5-4.5) mg/dL Albumin TNR 2.8 L Pituitary panel 07/22/19 07/22/19 07/22/19 Range/Units 10:47 10:47 10:47 Sodium TNR 138 Potassium TNR 4.0 Chloride TNR 98.9 Carbon Dioxide TNR 18 L BUN TNR 7 Creatinine TNR 6.2 H Glucose TNR 99 Calcium TNR 9.5 TSH 0.930 (0.270-4.200) mlU/mL Adrenal panel 07/22/19 07/22/19 Range/Units 10:47 10:47 Sodium TNR 138 Potassium TNR 4.0 Chloride TNR 98.9 Carbon Dioxide TNR 18 L BUN TNR 7 Creatinine TNR 6.2 H Glucose TNR 99 Calcium TNR 9.5 Total Bilirubin TNR 0.60 AST TNR 15 ALT TNR 10 Alkaline Phosphatase TNR 144 H Total Protein TNR 5.8 L Albumin TNR 2.8 L - Imaging CT scan - abdomen: report reviewed, image reviewed CT scan - pelvis: report reviewed, image reviewed US - abdomen: report reviewed Assessment and Plan 1.Generalized abdominal pain with gallstones and no explicit signs of cholecystitis. (work up two months ago showed biliary dyskinesia)Afebrile, and stable. -due to acute on chronic signs of CHF, and overall complicated medical history, no surgical intervention (lap ciaran) is appropriate at this time. Similar to her previous admission when this was addressed, once she has been cleared from cardiology and medically she can be counseled again about chol ecystectomy if the patient wishes and the benefits outweigh the risks. In the meantime, continue supportive care and treat symptoms, as well as avoid triggers like fatty foods. 2. elevated troponins/ BMP -consult cardiology 3. ESRD-DD - consult renal Will follow peripherally at this time.
[2019-07-22] MEDS: ONDANSETRON 4 MG/2 ML INJ IV PRN ×2 (20:18→23:26)
[2019-07-22] MEDS ORDERED: PIPERACIL-TAZO 2.25 GM/50 ML 2.25 GM/50 ML BAG IV SCH (22:00)
[2019-07-22] MEDS: metroNIDAZOLE/NS 500 MG/100 ML 500 MG/100 ML BAG IV SCH (23:25)
[2019-07-22] MEDS: ACETAMINOPHEN 325 MG TAB PO PRN (23:26)
[2019-07-22] MEDS: PIPERACIL-TAZO 2.25 GM/50 ML 2.25 GM/50 ML BAG IV SCH (23:55)
[2019-07-23] MEDS ORDERED: PIPERACIL/TAZOBACTA 4.5/NS 100 4.5 GM/100 ML VIAL IV SCH
[2019-07-23 04:59] LABS: Hematocrit 23.6 % (30.3-42.9); Hemoglobin 7.5 gm/dl (10.1-14.3); Mean Corpuscular HGB Conc 32 % (30-34); Mean Corpuscular Volume 93 fl (79-97); Platelet Count 582 K/mm3 (140-440); Red Blood Count 2.54 M/mm3 (3.65-5.03); Red Cell Distribution Width 16.9 % (13.2-15.2)
[2019-07-23] MEDS: PIPERACIL-TAZO 2.25 GM/50 ML 2.25 GM/50 ML BAG IV SCH ×3 (05:00→21:26)
[2019-07-23 05:19] LABS: Calcium 9.1 mg/dL (8.4-10.2)
[2019-07-23] MEDS: metroNIDAZOLE/NS 500 MG/100 ML 500 MG/100 ML BAG IV SCH ×3 (06:05→21:26)
[2019-07-23] MEDS: ONDANSETRON 4 MG/2 ML INJ IV PRN (09:49)
[2019-07-23] MEDS: ACETAMINOPHEN 325 MG TAB PO PRN ×2 (09:52→23:59)
[2019-07-23] MEDS ORDERED: SODIUM CHLORIDE 0.9% 100 ML IV PRN (10:00)
[2019-07-23] MEDS ORDERED: EPOETIN ALFA 10,000 UNIT/1 ML INJ SUB-Q PRN (10:00)
--- NOTE | 2019-07-23 10:36 | Consultation ---
History of Present Illness - Reason for Consult Consult date: 07/23/19 end stage renal disease - History of Present Illness This is a 53 year old female with pmh significant for CVA, congestive heart failure, diabetes mellitus, osteoarthritis, asthma, COPD, anemia, and end stage renal disease. She currently has hemodialysis on at [facility]. She states she is compliant with her scheduled HD treatments. She has two left arm AV grafts that are currently unusable but receives dialysis through a right chest permcath. She has chronic history of poor appetite and does not stay well hydrated. She denies alcohol, drug use, and tobacco use. She denies use of NSAIDs. Family history significant for diabetes mellitus and hypertension. She presented to the ED on 07/22 with complaints of abdominal pain, nausea, vomiting, loose stools for approximately 3 days. She was previously admitted on 05/19/19 for similar symptoms which showed biliary dyskinesia and was directed to schedule an outpatient elective cholecystectomy if she could be medically cleared. CT and abdominal US revealed gallbladder sludge with small stones. Chest xray was negative for any acute findings. Labs on admission significant for hemoglobin 7.7, bicarb 18, creatinine 6.2, phosphorus 4.8, BNP 05542, and albumin 2.8. Labs at time of consult significant for hemoglobin 7.5, bicarb 18, creatinine 6.6. Nephrology was consulted for further evaluation and treatment of end stage renal disease requiring HD. Past History Past Medical History: anemia, arthritis, CAD, diabetes, ESRD, other (asthma) Past Surgical History: , Other (AV graft x 2, right chest permacath, left toe (wound care)) Social history: single. denies: smoking, alcohol abuse, prescription drug abuse Family history: diabetes, hypertension Medications and Allergies Allergies Allergy/AdvReac Type Severity Reaction Status Date / Time No Known Allergies Allergy Verified 07/22/19 10:08 Home Medications Medication Instructions Recorded Confirmed Last Taken Type Ondansetron [Zofran TAB] 4 mg PO PRN PRN 09/09/14 07/22/19 1 Day Ago History ~04/25/16 Gabapentin 300 mg PO TID 02/25/17 07/22/19 Unknown History hydrOXYzine HCL [Atarax] 25 mg PO Q8H PRN #20 tablet 09/14/17 02/06/20 Unknown Rx Albuterol INH(or & Nicu Only) 2 puff IH QID PRN #8.5 gram 05/06/19 07/22/19 Unknown Rx [ProAir HFA Inhaler] Aspirin [Aspirin BABY CHEW TAB] 81 mg PO QDAY #30 tab.chew 05/06/19 07/22/19 Unknown Rx calcitrioL [Rocaltrol] 0.25 mcg PO QDAY #30 capsule 05/06/19 07/22/19 Unknown Rx Amlodipine Besylate [Norvasc] 5 mg PO QDAY #30 tablet 05/21/19 07/22/19 Unknown Rx Loratadine (Nf) [Claritin (Nf)] 10 mg PO QDAY PRN #30 05/21/19 07/22/19 Unknown Rx Active Meds: Active Medications Acetaminophen (Tylenol) 650 mg PO Q4H PRN PRN Reason: Pain MILD(1-3)/Fever >100.5/SMITH Last Admin: 07/23/19 09:52 Dose: 650 mg Documented by: Albuterol (Proventil) 2.5 mg IH Q4HRT PRN PRN Reason: Shortness Of Breath Epoetin Sylvain (Procrit) 10,000 unit SUB-Q JAYNE PRN PRN Reason: hemodialysis Metronidazole (Flagyl 500 Mg/100 Ml) 500 mg in 100 mls @ 100 mls/hr IV Q8HR [facility]; Protocol Last Admin: 07/23/19 06:05 Dose: 100 mls/hr Documented by: Piperacillin Sod/Tazobactam Sod (Zosyn/Ns 2.25 Gm/50ml) 2.25 gm in 50 mls @ 100 mls/hr IV Q8HR [facility] Last Admin: 07/23/19 05:00 Dose: 100 mls/hr Documented by: Sodium Chloride (Nacl 0.9%) 100 mls @ 999 mls/hr IV JAYNE PRN PRN Reason: Hypotension Ondansetron HCl (Zofran) 4 mg IV Q8H PRN PRN Reason: Nausea And Vomiting Last Admin: 07/23/19 09:49 Dose: 4 mg Documented by: Sodium Chloride (Sodium Chloride Flush Syringe 10 Ml) 10 ml IV BID [facility] Last Admin: 07/22/19 23:25 Dose: 10 ml Documented by: Sodium Chloride (Sodium Chloride Flush Syringe 10 Ml) 10 ml IV PRN PRN PRN Reason: LINE FLUSH Review of Systems Constitutional: poor appetite, no weight loss, no weight gain, no fever, no chills, no sweats Ears, nose, mouth and throat: no nasal discharge, no epistaxis, no dysphagia Cardiovascular: no chest pain, no edema, no lightheadedness, no shortness of breath Respiratory: no cough, no shortness of breath Gastrointestinal: abdominal pain, nausea, vomiting Integumentary: wounds (right toe-followed by outpatient wound care), no rash, no pruritis Neurological: no weakness, no numbness, no tingling Exam - Vital Signs Vital signs: Vital Signs Temp Pulse Resp BP Pulse Ox 98.7 F 117 H 16 148/86 100 07/22/19 09:45 07/22/19 09:45 07/22/19 09:45 07/22/19 09:45 07/22/19 09:45 - General Appearance General appearance: well-developed, well-nourished, appears stated age EENT: ATNC, PERRL, mucous membranes moist Neck: Present: neck supple, trachea midline Respiratory: Clear to Ascultation Heart: regular, tachycardia, S1S2, no murmurs Gastrointestinal: Present: normoactive bowel sounds, tenderness (to palpation) Integumentary: no rash, warm and dry, other (right toe wound) Neurologic: no focal deficit, alert and oriented x3 Musculoskeletal: Present: other (FROM all extremities) Psychiatric: mood/affect appropriate, cooperative Results - Lab Results 07/23/19 04:24 07/23/19 04:24 Most recent lab results Calcium 9.1 mg/dL (8.4-10.2) 07/23/19 04:24 Phosphorus 4.80 mg/dL (2.5-4.5) H 07/22/19 10:53 Magnesium 2.20 mg/dL (1.7-2.3) 07/22/19 10:47 Magnesium TNR 07/22/19 10:47 Assessment and Plan 1. End Stage Renal Disease: Current creatinine level is 6.6 with a GFR of 8. Avoid nephrotoxic agents. Meds dosage based on GFR. Has HD / at [facility]. Last outpatient HD 07/20. Dialysis ordered for today, 07/23. At this time, refusing due to nausea. Counseled patient on importance of adhering to scheduled HD and the risks assoc iated with missing multiple days of treatment. Advised dialysis unit to try again this afternoon if they are able to fit her in the schedule. If patient unwilling, will attempt HD tomorrow, 07/24. Hemodialysis: 07/23. 2. FEN: Metabolic acidosis, monitor. Monitor lytes. 3. Generalized abdominal pain with gallstones: Gen surgery following. 4. Anemia: Epogen ordered with HD. 5. Type 2 DM:
--- NOTE | 2019-07-23 12:33 | Consultation ---
History of Present Illness Consult date: 07/23/19 Requesting physician: BAM KNOX Consult reason: other (Cardiac Clearance) History of present illness: Pt is 53 y.o. female with a past medical hx of AMI (in 2014 - no cath or other intervention required), CVA, CMP, ESRD on HD (//), HTN, DM, and PAD. Pt is known to our practice. She presented with c/o abdominal pain, nausea, and multiple loose stools lasting approximately [address] and US revealed gallstones. General Surgery is considering cholecystectomy. Cardiology has been consulted to provide pre-op cardiac risk stratification. Pt reports abdominal pain, N/V, orthopnea, and LE swelling upon exam. She denies any other cardiac complaints. Troponin elevated. BNP elevated. Echo completed 02/2017 - showed EF 60-65%; mild to mod LVH; LA mildly dilated; mild MR; mild to mod TR; mild pulm HTN with RVSP 38mmHg. Lexiscan MPI stress test completed 02/2017 - showed moderately sized fixed apical defect; no ischemia; EF 49%. Past History Past Medical History: anemia, arthritis, CAD, diabetes, ESRD, hypertension, PVD, other (asthma) Past Surgical History: , Other (AV graft x 2, R chest Permacath, L toe (wound care)) Social history: single. denies: smoking, alcohol abuse, prescription drug abuse Family history: hypertension Medications and Allergies Allergies Allergy/AdvReac Type Severity Reaction Status Date / Time No Known Allergies Allergy Verified 07/22/19 10:08 Home Medications Medication Instructions Recorded Confirmed Last Taken Type Ondansetron [Zofran TAB] 4 mg PO PRN PRN 09/09/14 07/22/19 1 Day Ago History ~04/25/16 Gabapentin 300 mg PO TID 02/25/17 07/22/19 Unknown History hydrOXYzine HCL [Atarax] 25 mg PO Q8H PRN #20 tablet 02/27/17 07/22/19 Unknown Rx Albuterol INH(or & Nicu Only) 2 puff IH QID PRN #8.5 gram 05/06/19 07/22/19 Unknown Rx [ProAir HFA Inhaler] Aspirin [Aspirin BABY CHEW TAB] 81 mg PO QDAY #30 tab.chew 05/06/19 07/22/19 Unknown Rx calcitrioL [Rocaltrol] 0.25 mcg PO QDAY #30 capsule 05/06/19 07/22/19 Unknown Rx Amlodipine Besylate [Norvasc] 5 mg PO QDAY #30 tablet 05/21/19 07/22/19 Unknown Rx Loratadine (Nf) [Claritin (Nf)] 10 mg PO QDAY PRN #30 05/21/19 07/22/19 Unknown Rx Active Meds: Active Medications Acetaminophen (Tylenol) 650 mg PO Q4H PRN PRN Reason: Pain MILD(1-3)/Fever >100.5/SMITH Last Admin: 07/23/19 09:52 Dose: 650 mg Documented by: Albuterol (Proventil) 2.5 mg IH Q4HRT PRN PRN Reason: Shortness Of Breath Epoetin Sylvain (Procrit) 10,000 unit SUB-Q JAYNE PRN PRN Reason: hemodialysis Metronidazole (Flagyl 500 Mg/100 Ml) 500 mg in 100 mls @ 100 mls/hr IV Q8HR [facility]; Protocol Last Admin: 07/23/19 06:05 Dose: 100 mls/hr Documented by: Piperacillin Sod/Tazobactam Sod (Zosyn/Ns 2.25 Gm/50ml) 2.25 gm in 50 mls @ 100 mls/hr IV Q8HR LANDON Last Admin: 07/23/19 05:00 Dose: 100 mls/hr Documented by: Sodium Chloride (Nacl 0.9%) 100 mls @ 999 mls/hr IV JAYNE PRN PRN Reason: Hypotension Ondansetron HCl (Zofran) 4 mg IV Q8H PRN PRN Reason: Nausea And Vomiting Last Admin: 07/23/19 09:49 Dose: 4 mg Documented by: Sodium Chloride (Sodium Chloride Flush Syringe 10 Ml) 10 ml IV BID [facility] Last Admin: 07/22/19 23:25 Dose: 10 ml Documented by: Sodium Chloride (Sodium Chloride Flush Syringe 10 Ml) 10 ml IV PRN PRN PRN Reason: LINE FLUSH Review of Systems Constitutional: no fever, no chills Ears, nose, mouth and throat: no dysphagia Breasts: normal Cardiovascular: orthopnea, edema, no chest pain, no palpitations, no syncope, no lightheadedness, no shortness of breath, no dyspnea on exertion Respiratory: no cough, no shortness of breath, no dyspnea on exertion Gastrointestinal: abdominal pain, nausea, vomiting Genitourinary Female: no flank pain, no dysuria Musculoskeletal: no muscle weakness, no muscle cramps Integumentary: no rash, no wounds Neurological: no seizures, no syncope, no headaches Endocrine: no cold intolerance, no heat intolerance Hematologic/Lymphatic: no easy bruising, no easy bleeding Allergic/Immunologic: no urticaria Physical Examination Vital Signs Temp Pulse Resp BP Pulse Ox 98.7 F 117 H 16 148/86 100 07/22/19 09:45 07/22/19 09:45 07/22/19 09:45 07/22/19 09:45 07/22/19 09:45 General appearance: no acute distress HEENT: Positive: EOMI, Normocephaly, Mucus Membranes Moist Neck: Positive: neck supple, trachea midline Cardiac: Positive: Reg Rate and Rhythm, S1/S2 Lungs: Positive: clear to auscultation, No Wheeze, Rales, Rhonchi Neuro: Positive: Grossly Intact Abdomen: Positive: Soft, Active Bowel Sounds, Tender Skin: Positive: Clear Musculoskeletal: Normal Range of Motion Extremities: Present: normal, upper extr. pulses, lower extr. pulses, edema Results 07/23/19 04:24 07/23/19 04:24 CBC 07/23/19 Range/Units 04:24 WBC 12.5 H (4.5-11.0) K/mm3 RBC 2.54 L (3.65-5.03) M/mm3 Hgb 7.5 L (10.1-14.3) gm/dl Hct 23.6 L (30.3-42.9) % Plt Count 582 H (140-440) K/mm3 Comprehensive Metabolic Panel 07/23/19 Range/Units 04:24 Sodium 140 (137-145) mmol/L Potassium 3.7 (3.6-5.0) mmol/L Chloride 102.5 (98-107) mmol/L Carbon Dioxide 18 L (22-30) mmol/L BUN 9 (7-17) mg/dL Creatinine 6.6 H (0.7-1.2) mg/dL Glucose 70 (65-100) mg/dL Calcium 9.1 (8.4-10.2) mg/dL - Imaging and Cardiology EKG: report reviewed, image reviewed - EKG Interpretation EKG: no acute changes EKG interpretations - Telemetry EKG Rhythm: Sinus Rhythm - EKG Sinus rhythms and dysrhythmias: sinus rhythm Assessment and Plan The pt's elevated Eddie suggestive of NSTEMI Type 2 raise her cardiac surgical risk; however, she is asymptomatic for ACS. If she requires urgent surgery, it will have to be performed with close perioperative monitoring. At this time, will obtain echo and additional set of Eddie. Optimize Hgb/Hct. Initiate BB therapy as BP permits. Will provide pre-op cardiac risk stratification for cholecystectomy pending Eddie and echo results. The patient has been seen in conjunction with Dr. Martinez, who agrees with the assessment and plan of care. - Patient Problems (1) NSTEMI (non-ST elevated myocardial infarction) Current Visit: Yes Status: Acute Plan to address problem: Type 2 (2) Cholecystitis Current Visit: Yes Status: Acute (3) Anemia Current Visit: Yes Status: Acute Qualifiers: Anemia type: due to chronic kidney disease Chronic kidney disease stage: on chronic dialysis Qualified Code(s): N18.6 - End stage renal disease; D63.1 - Anemia in chronic kidney disease; Z99.2 - Dependence on renal dialysis (4) Chronic heart failure with preserved ejection fraction (HFpEF) Current Visit: Yes Status: Chronic (5) Hypertension Current Visit: Yes Status: Chronic Qualifiers: Hypertension type: essential hypertension Qualified Code(s): I10 - Essential (primary) hypertension (6) ESRD on hemodialysis Current Visit: Yes Status: Chronic (7) History of myocardial infarction Current Visit: Yes Status: Resolved (8) History of CVA (cerebrovascular accident) Current Visit: Yes Status: Chronic (9) Type II diabetes mellitus Current Visit: Yes Status: Chronic
[2019-07-23 13:21] LABS: Hepatitis B Surface Antigen Non-Reactive (Negative); Hepatitis C Virus Antibody Non-Reactive (NonReactive)
--- NOTE | 2019-07-23 13:31 | Progress Note ---
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 Patient states that she has experienced abdominal pain and nausea over the last 3 days with persistent symptoms over the same timeframe. Patient also reports multiple l oose stools. Patient states that she has experienced pain in her abdomen over the past 2 days. Patient states that pain is 9 out of 10, was initially intermittent but now has become constant over the past 1 day, no exacerbating or alleviating factors, nonradiating, diffuse. EMS notified and upon arrival to [facility] patient was found to be in distress and subsequently transported to [facility] for further care and evaluation. Patient seen and evaluated in the emergency department. Lab and imaging studies reviewed. Patient found to have end-stage renal disease in need of dialysis, metabolic acidosis, systemic inflammatory response syndrome, as well as evidence of acute cholecystitis. Patient admitted to medical floor for medical management due to increased risk of decompensation. Nephrology team consulted in ED for dialysis as per renal team. Patient treated with empiric IV antibiotic therapy. Surgery team consulted in ED. Patient denies fever, chills, chest pain, palpitations, bright red blood per rectum, ingestion of food/water from new or different sources, productive cough, skin rash, or recent ill contacts. Prior admission on 05/19/2019 reviewed. All medication listed at time of admission has been reconciled. Persistent Nausea with vomiting- Resolved Generalized abdominal pain with gallstones -No evidence cholecystitis. Type 2 LA ESRD Possible Underlying Fibromyalgia Metabolic Acidosis Type 2 DM Anemia of chronic disease Chronic Opioid dependance Chronic heart failure with preserved ejection fraction (HFpEF) History of CVA (cerebrovascular accident) Plan Continue supportive care Pain control awaiting re-evaluation by Surgery Cardiology input for clearance noted continue to educate patient about Triggers as documented by surgery, fatty foods and etc Nephrology for Dialysis DVT/GI prophy History Interval history: Patient seen and examined, resting but still uncomfortable, states generalized body pain persist and 5/10 in intensity Hospitalist Physical - Physical exam Narrative exam: VITAL SIGNS: Reviewed. GENERAL: The patient appears normally developed, vital signs as documented. HEAD: No signs of head trauma. EYES: Pupils are equal. Extraocular motions intact. EARS: Hearing grossly intact. MOUTH: Oropharynx is normal. NECK: No adenopathy, no JVD. CHEST: Chest with clear breath sounds bilaterally. No wheezes, rales, or rhonchi. CARDIAC: Regular rate and rhythm. S1 and S2, without murmurs, gallops, or rubs. VASCULAR: No Edema. Peripheral pulses normal and equal in all extremities. ABDOMEN: Soft, non tender and non distended. No rebound or guarding, and no masses palpated. Bowel Sounds normal. MUSCULOSKELETAL: Generalized tenderness across chest and abdomen palpable. Good range of motion of all major joints. Extremities without clubbing, cyanosis or edema. NEUROLOGIC EXAM: Alert and oriented x 3 No focal sensory or strength deficits. Speech normal. Follows commands. PSYCHIATRIC: Mood normal. SKIN: detial exam as documented in skin assessment - Constitutional Vitals: Temp Pulse Resp BP Pulse Ox 97.4 F L 117 H 18 163/92 96 07/23/19 11:10 07/23/19 11:25 07/23/19 11:10 07/23/19 11:10 07/23/19 11:25 General appearance: Present: no acute distress Results - Labs CBC & Chem 7: 07/24/19 05:42 07/24/19 05:42 Labs: Laboratory Last Values WBC 12.5 K/mm3 (4.5-11.0) H 07/23/19 04:24 RBC 2.54 M/mm3 (3.65-5.03) L 07/23/19 04:24 Hgb 7.5 gm/dl (10.1-14.3) L 07/23/19 04:24 Hct 23.6 % (30.3-42.9) L 07/23/19 04:24 MCV 93 fl (79-97) 07/23/19 04:24 MCH 30 pg (28-32) 07/23/19 04:24 MCHC 32 % (30-34) 07/23/19 04:24 RDW 16.9 % (13.2-15.2) H 07/23/19 04:24 Plt Count 582 K/mm3 (140-440) H 07/23/19 04:24 Lymph % (Auto) 7.5 % (13.4-35.0) L 07/22/19 10:47 [place] % (Auto) 7.2 % (0.0-7.3) 07/22/19 10:47 Eos % (Auto) 1.0 % (0.0-4.3) 07/22/19 10:47 Baso % (Auto) 0.8 % (0.0-1.8) 07/22/19 10:47 Lymph # 0.9 K/mm3 (1.2-5.4) L 07/22/19 10:47 [place] # 0.9 K/mm3 (0.0-0.8) H 07/22/19 10:47 Eos # 0.1 K/mm3 (0.0-0.4) 07/22/19 10:47 Baso # 0.1 K/mm3 (0.0-0.1) 07/22/19 10:47 Seg Neutrophils % 83.5 % (40.0-70.0) H 07/22/19 10:47 Seg Neutrophils # 10.5 K/mm3 (1.8-7.7) H 07/22/19 10:47 PT 16.5 Sec. (12.2-14.9) H 07/22/19 10:53 INR 1.31 (0.87-1.13) H 07/22/19 10:53 APTT 27.8 Sec. (24.2-36.6) 07/22/19 10:53 Sodium 140 mmol/L (137-145) 07/23/19 04:24 Potassium 3.7 mmol/L (3.6-5.0) 07/23/19 04:24 Chloride 102.5 mmol/L (98-107) 07/23/19 04:24 Carbon Dioxide 18 mmol/L (22-30) L 07/23/19 04:24 Anion Gap 23 mmol/L 07/23/19 04:24 BUN 9 mg/dL (7-17) 07/23/19 04:24 Creatinine 6.6 mg/dL (0.7-1.2) H 07/23/19 04:24 Estimated GFR 8 ml/min 07/23/19 04:24 BUN/Creatinine Ratio 1 % 07/23/19 04:24 Glucose 70 mg/dL (65-100) 07/23/19 04:24 Lactic Acid 1.00 mmol/L (0.7-2.0) 07/22/19 13:10 Calcium 9.1 mg/dL (8.4-10.2) 07/23/19 04:24 Phosphorus 4.80 mg/dL (2.5-4.5) H 07/22/19 10:53 Magnesium 2.20 mg/dL (1.7-2.3) 07/22/19 10:47 Magnesium TNR 07/22/19 10:47 Total Bilirubin 0.60 mg/dL (0.1-1.2) 07/22/19 10:47 Total Bilirubin TNR 07/22/19 10:47 Direct Bilirubin 0.3 mg/dL (0-0.2) H 07/22/19 10:47 Direct Bilirubin TNR 07/22/19 10:47 Indirect Bilirubin 0.3 mg/dL 07/22/19 10:47 AST 15 units/L (5-40) 07/22/19 10:47 AST TNR 07/22/19 10:47 ALT 10 units/L (7-56) 07/22/19 10:47 ALT TNR 07/22/19 10:47 Alkaline Phosphatase 144 units/L (35-129) H 07/22/19 10:47 Alkaline Phosphatase TNR 07/22/19 10:47 Troponin T 0.258 ng/mL (0.00-0.029) H* 07/22/19 10:53 NT-Pro-B Natriuret Pep 62378 pg/mL (0-900) H 07/22/19 10:53 Total Protein 5.8 g/dL (6.3-8.2) L 07/22/19 10:47 Total Protein TNR 07/22/19 10:47 Albumin 2.8 g/dL (3.9-5) L 07/22/19 10:47 Albumin TNR 07/22/19 10:47 Albumin/Globulin Ratio 0.9 % 07/22/19 10:47 Albumin/Globulin Ratio TNR 07/22/19 10:47 Triglycerides 353 mg/dL (2-149) H 07/22/19 10:53 Cholesterol 200 mg/dL (50-199) H 07/22/19 10:53 LDL Cholesterol Direct 87 mg/dL (50-130) 07/22/19 10:53 HDL Cholesterol 18 mg/dL (40-59) L 07/22/19 10:53 Cholesterol/HDL Ratio 11.11 % 07/22/19 10:53 TSH 0.930 mlU/mL (0.270-4.200) 07/22/19 10:47 Free T4 1.02 ng/dL (0.76-1.46) 07/22/19 10:47 Hepatitis A IgM Ab Non-reactive (NonReactive) 07/23/19 09:54 Hep Bs Antigen Non-reactive (Negative) 07/23/19 09:54 Hep B Core IgM Ab Non-reactive (NonReactive) 07/23/19 09:54 Hepatitis C Antibody Non-reactive (NonReactive) 07/23/19 09:54 Blood Type B POSITIVE 07/22/19 14:59 Antibody Screen Negative 07/22/19 14:59 Active Medications - Current Medications Current Medications: Generic Name Dose Route Start Last Admin Trade Name Freq PRN Reason Stop Dose Admin Acetaminophen 650 mg 07/22/19 16:24 07/23/19 09:52 Tylenol PO 650 mg Q4H PRN Administration Pain MILD(1-3)/Fever >100.5/SMITH Albuterol 2.5 mg 07/22/19 16:24 Proventil IH Q4HRT PRN Shortness Of Breath Epoetin Sylvain 10,000 unit 07/23/19 10:00 Procrit SUB-Q JAYNE PRN hemodialysis Metronidazole 500 mg in 100 mls @ 100 mls/hr 07/22/19 22:00 07/23/19 06:05 Flagyl 500 Mg/100 Ml IV 100 mls/hr Q8HR LANDON Administration Protocol Piperacillin Sod/Tazobactam Sod 2.25 gm in 50 mls @ 100 mls/hr 07/22/19 22:00 07/23/19 05:00 Zosyn/Ns 2.25 Gm/50ml IV 100 mls/hr Q8HR LANDON Administration Sodium Chloride 100 mls @ 999 mls/hr 07/23/19 10:00 Nacl 0.9% IV JAYNE PRN Hypotension Ondansetron HCl 4 mg 07/22/19 16:24 07/23/19 09:49 Zofran IV 4 mg Q8H PRN Administration Nausea And Vomiting Sodium Chloride 10 ml 07/22/19 22:00 07/22/19 23:25 Sodium Chloride Flush Syringe 10 Ml IV 10 ml BID LANDON Administration Sodium Chloride 10 ml 07/22/19 16:24 Sodium Chloride Flush Syringe 10 Ml IV PRN PRN LINE FLUSH Nutrition/Malnutrition Assess - Dietary Evaluation Nutrition/Malnutrition Findings: Nutrition Notes Start: 07/23/19 10:36 Freq: Status: Active Protocol: Document 07/23/19 10:36 CC (Rec: 07/23/19 11:03 CC [id number]) Co-Sign 07/23/19 10:36 LP Nutrition Notes Need for Assessment generated from: integrated marketing intern,MST Initial or Follow up Assessment Current Diagnosis CKD (stage V CKD),COPD, Diabetes,Hypertension,Stroke Other Pertinent Diagnosis HD (T,R,Sa),anemia, COPD, gallstones, SIRS Current Diet No diet Labs/Tests Creat 6.6 Trigly 353 Pertinent Medications Reviewed Height 5 ft 2 in Weight 72.3 kg Usual Body Weight 90.9 kg Abie Body Weight (kg) 50.00 BMI 29.1 Intake Prior to Admission Poor Weight change and time frame 20.5%/ 5 months Weight Status Overweight Subjective/Other Information Screen for MST, hx difficulty swallowing and Elmer score < 18. Pt skin risk score greater than 18. Pt reported she has had little appetite for the last 5 months. Pt reported she has had unintentional wt loss during this time. Pt reported her UBW is 200lbs (90.9kg). Pt reported she has difficulty chewing. Pt reported she would like to try ONS Burn Absent Trauma Absent GI Symptoms None Difficulty In Chewing Food Allergy No Current % PO Negligible Minimum of two criteria Yes Energy Intake (non-severe) <75% Estimated Energy Requirement >7 days Interpretation of Weight Loss (severe) >7.5% in 3 months #1 Nutrition Diagnosis Malnutrition Etiology COPD As Evidenced by Signs and Symptoms Meeting <75% of energy needs > 7days, 20.5% wt loss in 5 months Is patient on ventilator? No Is Patient Ambulatory and/or Out of Bed Yes [facility] [ 1652.625 [id number]] Calculation Used for Recommendations [facility] Additional Notes Protein: 87-108g/day (1.2-1.5g /kg) Fluid: per MD Nutrition Intervention Change Diet Order: renal with const CHO Add Supplement/Snack (indicate name/kcal Nepro once daily /protein ) Provides kCal: 425 Provides Protein (gm) 19 Goal #1 Meet at least 80% of energy and PRO needs via PO and ONS intakes Anticipated Discharge Needs: renal with const. CHO Follow-Up By: 07/27/19 Additional Comments F/U for diet advancement, PO and ONS intakes
[2019-07-23] MEDS ORDERED: SODIUM CHLORIDE*PRIMING MACHINE ONLY FOR DIALYSIS MC ONE (17:09)
[2019-07-23] MEDS: METOPROLOL TARTRATE 5 MG/5 ML INJ IV SCH ×2 (18:46→23:47)
[2019-07-24] MEDS: metroNIDAZOLE/NS 500 MG/100 ML 500 MG/100 ML BAG IV SCH ×2 (05:13→14:25)
[2019-07-24] MEDS: PIPERACIL-TAZO 2.25 GM/50 ML 2.25 GM/50 ML BAG IV SCH ×2 (05:13→14:25)
[2019-07-24] MEDS: METOPROLOL TARTRATE 5 MG/5 ML INJ IV SCH ×2 (05:14→13:15)
[2019-07-24 06:17] LABS: Hematocrit 23.5 % (30.3-42.9); Hemoglobin 7.6 gm/dl (10.1-14.3)
[2019-07-24 06:44] LABS: Calcium 9.1 mg/dL (8.4-10.2)
[2019-07-24] MEDS ORDERED: SODIUM CHLORIDE 0.9% 100 ML IV PRN (09:17)
[2019-07-24] MEDS: ONDANSETRON 4 MG/2 ML INJ IV PRN (10:13)
--- NOTE | 2019-07-24 11:42 | Event Note ---
Date: 07/24/19 Pt is currently in dialysis. Chart reviewed, and discussed patient with nurse taking care of her. She denies patient complaining of abdominal pain, but reports nausea with no vomiting. Tropinin levels continue to increase. Pt has symptomatic cholelithiasis which does not require emergent surgical intervention. Continue to treat nausea and avoid trigger foods for supportive care. Ideally would like patient to be stable and cleared by cardiology for an elective general anesthesia procedure before making definitive plans for surgery. If patients condition changes where she develops cholecystitis or intractable abdominal pain that is not amendable to medical therapy, and shows systemic decompensation due to it, then the situation becomes an urgent one, where the benefits may outweigh the risks, even if she is at elevated risk due to her serious co-morbidities.
--- NOTE | 2019-07-24 11:47 | Progress Note ---
Assessment and Plan Patient has normal LV function echocardiogram treat medically for abnormal troponin patient's a moderate to high risk of avascular patient at moderate risk coronary vascular procedure has no cardiac contraindication continue beta kevin therapy discuss with patient and patient's daughter - Patient Problems (1) Anemia Current Visit: Yes Status: Acute Qualifiers: Anemia type: due to chronic kidney disease Chronic kidney disease stage: on chronic dialysis Qualified Code(s): N18.6 - End stage renal disease; D63.1 - Anemia in chronic kidney disease; Z99.2 - Dependence on renal dialysis (2) Cholecystitis Current Visit: Yes Status: Acute (3) NSTEMI (non-ST elevated myocardial infarction) Current Visit: Yes Status: Acute (4) Chronic heart failure with preserved ejection fraction (HFpEF) Current Visit: Yes Status: Chronic (5) ESRD (end stage renal disease) on dialysis Current Visit: Yes Status: Chronic (6) History of CVA (cerebrovascular accident) Current Visit: Yes Status: Chronic (7) Hypertension Current Visit: Yes Status: Chronic Qualifiers: Hypertension type: essential hypertension Qualified Code(s): I10 - Essential (primary) hypertension (8) Type II diabetes mellitus Current Visit: Yes Status: Chronic Subjective Date of service: 07/24/19 Principal diagnosis: pre op Interval history: Patient denies any chest measures breath going for hemodialysis Objective Vital Signs Temp Pulse Pulse Pulse Resp BP Pulse Ox 07/24/19 11:08 98.8 F 110 H 20 155/82 07/24/19 11:00 103 H 140/81 07/24/19 10:45 106 H 149/90 07/24/19 10:30 111 H 150/84 07/24/19 10:23 111 H 152/77 07/24/19 10:00 87 87 19 07/24/19 05:14 111 H 160/75 07/24/19 04:18 98.8 F 111 H 20 160/75 100 07/24/19 01:14 22 07/23/19 23:47 112 H 164/79 07/23/19 23:29 98.0 F 116 H 16 164/79 100 07/23/19 21:33 96 07/23/19 19:35 97.9 F 111 H 16 164/86 99 07/23/19 18:46 117 H 07/23/19 16:42 97.3 F L 113 H 18 154/80 100 07/23/19 15:30 97.4 F L 119 H 18 139/90 07/23/19 15:00 119 H 139/90 07/23/19 14:45 116 H 147/86 07/23/19 14:15 121 H 117/79 07/23/19 14:00 114 H 126/83 07/23/19 13:45 114 H 140/80 07/23/19 13:30 114 H 134/85 07/23/19 13:15 115 H 136/86 07/23/19 13:00 114 H 146/92 07/23/19 12:45 117 H 156/88 07/23/19 12:43 115 H 161/87 07/23/19 12:30 97.4 F L 120 H 18 173/92 - Physical Examination General: No Apparent Distress HEENT: Positive: EOMI, Normocephaly, Mucus Membranes Moist Neck: Positive: neck supple, trachea midline Cardiac: Positive: Reg Rate and Rhythm Lungs: Positive: clear to auscultation Neuro: Positive: Grossly Intact Abdomen: Positive: Soft, Active Bowel Sounds, Tender Skin: Positive: Clear Musculoskeletal: Normal Range of Motion Extremities: Present: normal, upper extr. pulses, lower extr. pulses, edema - Labs and Meds CBC 07/24/19 Range/Units 05:42 Hgb 7.6 L (10.1-14.3) gm/dl Hct 23.5 L (30.3-42.9) % Comprehensive Metabolic Panel 07/24/19 Range/Units 05:42 Sodium 138 (137-145) mmol/L Potassium 3.4 L (3.6-5.0) mmol/L Chloride 98.9 (98-107) mmol/L Carbon Dioxide 18 L (22-30) mmol/L BUN 7 (7-17) mg/dL Creatinine 5.0 H (0.7-1.2) mg/dL Glucose 67 (65-100) mg/dL Calcium 9.1 (8.4-10.2) mg/dL - Imaging and Cardiology EKG: report reviewed, image reviewed Echo: report reviewed (normal LV function and no significant regurgitation) - Telemetry EKG Rhythm: Sinus Rhythm - EKG Sinus rhythms and dysrhythmias: sinus rhythm
--- NOTE | 2019-07-24 12:27 | Progress Note ---
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 Patient states that she has experienced abdominal pain and nausea over the last 3 days with persistent symptoms over the same timeframe. Patient also reports multiple l oose stools. Patient states that she has experienced pain in her abdomen over the past 2 days. Patient states that pain is 9 out of 10, was initially intermittent but now has become constant over the past 1 day, no exacerbating or alleviating factors, nonradiating, diffuse. EMS notified and upon arrival to [facility] patient was found to be in distress and subsequently transported to [facility] for further care and evaluation. Patient seen and evaluated in the emergency department. Lab and imaging studies reviewed. Patient found to have end-stage renal disease in need of dialysis, metabolic acidosis, systemic inflammatory response syndrome, as well as evidence of acute cholecystitis. Patient admitted to medical floor for medical management due to increased risk of decompensation. Nephrology team consulted in ED for dialysis as per renal team. Patient treated with empiric IV antibiotic therapy. Surgery team consulted in ED. Patient denies fever, chills, chest pain, palpitations, bright red blood per rectum, ingestion of food/water from new or different sources, productive cough, skin rash, or recent ill contacts. Prior admission on 05/19/2019 reviewed. All medication listed at time of admission has been reconciled. Persistent Nausea with vomiting- Resolved. ?Diabetic Gastroparesis Generalized abdominal pain with gallstones -No evidence cholecystitis. Type 2 OK ESRD Metabolic Acidosis Type 2 DM Anemia of chronic disease Chronic Opioid dependance Chronic heart failure with preserved ejection fraction (HFpEF) History of CVA (cerebrovascular accident) Plan Continue supportive care Pain control awaiting re-evaluation by Surgery-discussed with surgical team considering patient's markedly lethargic and generalized wellbeing we will not valentin into an Elective surgery at this point Considering patient's current presentation we will start patient on Bentyl to see if this will help with pain. Continue antiemetic medication Cardiology input for clearance noted Continue to educate patient about Triggers as documented by surgery, fatty foods and etc Nephrology for Dialysis Still not appropriate for discharge as severely lethargic DVT/GI prophy History Interval history: Patient seen and examined, resting but still uncomfortable, having dialysis today. Still with nausea but no actual vomiting witnessed Hospitalist Physical - Physical exam Narrative exam: VITAL SIGNS: Reviewed. GENERAL: The patient appears normally developed, appears uncomfortable, in position vital signs as documented. HEAD: No signs of head trauma. EYES: Pupils are equal. Extraocular motions intact. EARS: Hearing grossly intact. MOUTH: Oropharynx is normal. NECK: No adenopathy, no JVD. CHEST: Chest with clear breath sounds bilaterally. No wheezes, rales, or rhonchi. CARDIAC: Regular rate and rhythm. S1 and S2, without murmurs, gallops, or rubs. VASCULAR: No Edema. Peripheral pulses normal and equal in all extremities. ABDOMEN: Soft, non tender and non distended. No rebound or guarding, and no masses palpated. Bowel Sounds normal. MUSCULOSKELETAL: Generalized tenderness across chest and abdomen palpable. Good range of motion of all major joints. Extremities without clubbing, cyanosis or edema. NEUROLOGIC EXAM: Awake but lethargic appearing oriented times 3 No focal sensory or strength deficits. Speech normal. Follows commands. PSYCHIATRIC: Mood normal. SKIN: detail exam as documented in skin assessment - Constitutional Vitals: Temp Pulse Resp BP Pulse Ox 98.8 F 103 H 20 140/81 100 07/24/19 10:20 07/24/19 11:00 07/24/19 10:20 07/24/19 11:00 07/24/19 04:18 General appearance: Present: no acute distress Results - Labs CBC & Chem 7: 07/24/19 05:42 07/24/19 05:42 Labs: Laboratory Last Values WBC 12.5 K/mm3 (4.5-11.0) H 07/23/19 04:24 RBC 2.54 M/mm3 (3.65-5.03) L 07/23/19 04:24 Hgb 7.6 gm/dl (10.1-14.3) L 07/24/19 05:42 Hct 23.5 % (30.3-42.9) L 07/24/19 05:42 MCV 93 fl (79-97) 07/23/19 04:24 MCH 30 pg (28-32) 07/23/19 04:24 MCHC 32 % (30-34) 07/23/19 04:24 RDW 16.9 % (13.2-15.2) H 07/23/19 04:24 Plt Count 582 K/mm3 (140-440) H 07/23/19 04:24 Lymph % (Auto) 7.5 % (13.4-35.0) L 07/22/19 10:47 Jessamine % (Auto) 7.2 % (0.0-7.3) 07/22/19 10:47 Eos % (Auto) 1.0 % (0.0-4.3) 07/22/19 10:47 Baso % (Auto) 0.8 % (0.0-1.8) 07/22/19 10:47 Lymph # 0.9 K/mm3 (1.2-5.4) L 07/22/19 10:47 Jessamine # 0.9 K/mm3 (0.0-0.8) H 07/22/19 10:47 Eos # 0.1 K/mm3 (0.0-0.4) 07/22/19 10:47 Baso # 0.1 K/mm3 (0.0-0.1) 07/22/19 10:47 Seg Neutrophils % 83.5 % (40.0-70.0) H 07/22/19 10:47 Seg Neutrophils # 10.5 K/mm3 (1.8-7.7) H 07/22/19 10:47 PT 16.5 Sec. (12.2-14.9) H 07/22/19 10:53 INR 1.31 (0.87-1.13) H 07/22/19 10:53 APTT 27.8 Sec. (24.2-36.6) 07/22/19 10:53 Sodium 138 mmol/L (137-145) 07/24/19 05:42 Potassium 3.4 mmol/L (3.6-5.0) L 07/24/19 05:42 Chloride 98.9 mmol/L (98-107) 07/24/19 05:42 Carbon Dioxide 18 mmol/L (22-30) L 07/24/19 05:42 Anion Gap 25 mmol/L 07/24/19 05:42 BUN 7 mg/dL (7-17) 07/24/19 05:42 Creatinine 5.0 mg/dL (0.7-1.2) H 07/24/19 05:42 Estimated GFR 11 ml/min 07/24/19 05:42 BUN/Creatinine Ratio 1 % 07/24/19 05:42 Glucose 67 mg/dL (65-100) 07/24/19 05:42 Lactic Acid 1.00 mmol/L (0.7-2.0) 07/22/19 13:10 Calcium 9.1 mg/dL (8.4-10.2) 07/24/19 05:42 Phosphorus 4.80 mg/dL (2.5-4.5) H 07/22/19 10:53 Magnesium 2.20 mg/dL (1.7-2.3) 07/22/19 10:47 Magnesium TNR 07/22/19 10:47 Total Bilirubin 0.60 mg/dL (0.1-1.2) 07/22/19 10:47 Total Bilirubin TNR 07/22/19 10:47 Direct Bilirubin 0.3 mg/dL (0-0.2) H 07/22/19 10:47 Direct Bilirubin TNR 07/22/19 10:47 Indirect Bilirubin 0.3 mg/dL 07/22/19 10:47 AST 15 units/L (5-40) 07/22/19 10:47 AST TNR 07/22/19 10:47 ALT 10 units/L (7-56) 07/22/19 10:47 ALT TNR 07/22/19 10:47 Alkaline Phosphatase 144 units/L (35-129) H 07/22/19 10:47 Alkaline Phosphatase TNR 07/22/19 10:47 Troponin T 0.278 ng/mL (0.00-0.029) H* 07/24/19 05:42 NT-Pro-B Natriuret Pep 45316 pg/mL (0-900) H 07/22/19 10:53 Total Protein 5.8 g/dL (6.3-8.2) L 07/22/19 10:47 Total Protein TNR 07/22/19 10:47 Albumin 2.8 g/dL (3.9-5) L 07/22/19 10:47 Albumin TNR 07/22/19 10:47 Albumin/Globulin Ratio 0.9 % 07/22/19 10:47 Albumin/Globulin Ratio TNR 07/22/19 10:47 Triglycerides 353 mg/dL (2-149) H 07/22/19 10:53 Cholesterol 200 mg/dL (50-199) H 07/22/19 10:53 LDL Cholesterol Direct 87 mg/dL (50-130) 07/22/19 10:53 HDL Cholesterol 18 mg/dL (40-59) L 07/22/19 10:53 Cholesterol/HDL Ratio 11.11 % 07/22/19 10:53 TSH 0.930 mlU/mL (0.270-4.200) 07/22/19 10:47 Free T4 1.02 ng/dL (0.76-1.46) 07/22/19 10:47 Hepatitis A IgM Ab Non-reactive (NonReactive) 07/23/19 09:54 Hep Bs Antigen Non-reactive (Negative) 07/23/19 09:54 Hep B Core IgM Ab Non-reactive (NonReactive) 07/23/19 09:54 Hepatitis C Antibody Non-reactive (NonReactive) 07/23/19 09:54 Blood Type B POSITIVE 07/22/19 14:59 Antibody Screen Negative 07/22/19 14:59 Active Medications - Current Medications Current Medications: Generic Name Dose Route Start Last Admin Trade Name Freq PRN Reason Stop Dose Admin Acetaminophen 650 mg 07/22/19 16:24 07/23/19 23:59 Tylenol PO 650 mg Q4H PRN Administration Pain MILD(1-3)/Fever >100.5/SMITH Albuterol 2.5 mg 07/22/19 16:24 Proventil IH Q4HRT PRN Shortness Of Breath Dicyclomine HCl 10 mg 07/24/19 14:00 Bentyl PO QID LANDON Epoetin Sylvain 10,000 unit 07/23/19 10:00 07/23/19 15:01 Procrit SUB-Q 10,000 unit JAYNE PRN Administration hemodialysis Metronidazole 500 mg in 100 mls @ 100 mls/hr 07/22/19 22:00 07/24/19 05:13 Flagyl 500 Mg/100 Ml IV 07/25/19 14:59 100 mls/hr Q8HR LANDON Administration Protocol Piperacillin Sod/Tazobactam Sod 2.25 gm in 50 mls @ 100 mls/hr 07/22/19 22:00 07/24/19 05:13 Zosyn/Ns 2.25 Gm/50ml IV 100 mls/hr Q8HR LANDON Administration Sodium Chloride 100 mls @ 999 mls/hr 07/23/19 10:00 Nacl 0.9% IV JAYNE PRN Hypotension Sodium Chloride 100 mls @ 999 mls/hr 07/24/19 09:17 Nacl 0.9% IV JAYNE PRN Hypotension Metoprolol Tartrate 2.5 mg 07/23/19 18:00 07/24/19 05:14 Metoprolol IV 2.5 mg Q6HR LANDON Administration Ondansetron HCl 4 mg 07/22/19 16:24 07/24/19 10:13 Zofran IV 4 mg Q8H PRN Administration Nausea And Vomiting Sodium Chloride 10 ml 07/22/19 22:00 07/24/19 10:16 Sodium Chloride Flush Syringe 10 Ml IV Not Given BID LANDON Sodium Chloride 10 ml 07/22/19 16:24 Sodium Chloride Flush Syringe 10 Ml IV PRN PRN LINE FLUSH Nutrition/Malnutrition Assess - Dietary Evaluation Nutrition/Malnutrition Findings: Nutrition Notes Start: 07/23/19 10:36 Freq: Status: Active Protocol: Document 07/23/19 10:36 CC (Rec: 07/23/19 11:03 CC [id number]) Co-Sign 07/23/19 10:36 LP Nutrition Notes Need for Assessment generated from: production technologist,MST Initial or Follow up Assessment Current Diagnosis CKD (stage V CKD),COPD, Diabetes,Hypertension,Stroke Other Pertinent Diagnosis HD (T,R,Sa),anemia, COPD, gallstones, SIRS Current Diet No diet Labs/Tests Creat 6.6 Trigly 353 Pertinent Medications Reviewed Height 5 ft 2 in Weight 72.3 kg Usual Body Weight 90.9 kg [place] Body Weight (kg) 50.00 BMI 29.1 Intake Prior to Admission Poor Weight change and time frame 20.5%/ 5 months Weight Status Overweight Subjective/Other Information Screen for MST, hx difficulty swallowing and Elmer score < 18. Pt skin risk score greater than 18. Pt reported she has had little appetite for the last 5 months. Pt reported she has had unintentional wt loss during this time. Pt reported her UBW is 200lbs (90.9kg). Pt reported she has difficulty chewing. Pt reported she would like to try ONS Burn Absent Trauma Absent GI Symptoms None Difficulty In Chewing Food Allergy No Current % PO Negligible Minimum of two criteria Yes Energy Intake (non-severe) <75% Estimated Energy Requirement >7 days Interpretation of Weight Loss (severe) >7.5% in 3 months #1 Nutrition Diagnosis Malnutrition Etiology COPD As Evidenced by Signs and Symptoms Meeting <75% of energy needs > 7days, 20.5% wt loss in 5 months Is patient on ventilator? No Is Patient Ambulatory and/or Out of Bed Yes REE-([facility]-ambulatory/OOB) [ 1652.625 [id number]] Calculation Used for Recommendations [facility] Additional Notes Protein: 87-108g/day (1.2-1.5g /kg) Fluid: per MD Nutrition Intervention Change Diet Order: renal with const CHO Add Supplement/Snack (indicate name/kcal Nepro once daily /protein ) Provides kCal: 425 Provides Protein (gm) 19 Goal #1 Meet at least 80% of energy and PRO needs via PO and ONS intakes Anticipated Discharge Needs: renal with const. CHO Follow-Up By: 07/27/19 Additional Comments F/U for diet advancement, PO and ONS intakes
[2019-07-24 13:16] VITALS: BP 167/97
--- NOTE | 2019-07-24 13:18 | Progress Note ---
Assessment and Plan 1. End Stage Renal Disease: Patient is on maintenance hemodialysis three times a week, TTS schedule. Last outpatient HD 07/20 and missed HD 07/22. Avoid nephrotoxic agents. Meds dosage based on GFR. Patient has been cutting the treatment time. Hemodialysis: 07/23. 2. FEN: Metabolic acidosis, monitor. Edema, UF with HD Monitor lytes. 3. Generalized abdominal pain with gallstones: Gen surgery following. 4. Anemia: Epogen ordered with HD. 5. Type 2 DM. Examination: General appearance: well-developed, well-nourished, appears stated age HEENT: ATNC, PORFIRIO, mucous membranes moist Neck: neck supple, trachea midline Respiratory: Clear to Ascultation Heart: regular, tachycardia, S1S2, no murmurs Gastrointestinal: Soft, normoactive bowel sounds, NT Integumentary: no rash, warm and dry, other (right toe wound) Neurologic: no focal deficit, alert and oriented x3 Ext: 1+ LE edema noted Hemodialysis access: R IJ tunnel catheter Subjective Date of service: 07/24/19 Principal diagnosis: pre op Interval history: Patient was seen and examined at the bedside. Objective - Vital Signs Vital signs: Vital Signs - 12hr 07/24/19 07/24/19 07/24/19 04:18 05:14 10:00 Temperature 98.8 F Pulse Rate 111 H 111 H Pulse Rate [ 87 Apical] Pulse Rate [ 87 Radial] Respiratory 20 19 Rate Blood Pressure 160/75 160/75 O2 Sat by Pulse 100 Oximetry 07/24/19 07/24/19 07/24/19 10:20 10:23 10:30 Temperature 98.8 F Pulse Rate 110 H 111 H 111 H Pulse Rate [ Apical] Pulse Rate [ Radial] Respiratory 20 Rate Blood Pressure 155/82 152/77 150/84 O2 Sat by Pulse Oximetry 07/24/19 07/24/19 07/24/19 10:45 11:00 11:15 Temperature Pulse Rate 106 H 103 H 103 H Pulse Rate [ Apical] Pulse Rate [ Radial] Respiratory Rate Blood Pressure 149/90 140/81 126/73 O2 Sat by Pulse Oximetry 07/24/19 07/24/19 07/24/19 11:30 11:45 12:00 Temperature Pulse Rate 102 H 116 H 113 H Pulse Rate [ Apical] Pulse Rate [ Radial] Respiratory Rate Blood Pressure 115/77 116/72 109/56 O2 Sat by Pulse Oximetry 07/24/19 07/24/19 12:15 13:15 Temperature Pulse Rate 110 H 117 H Pulse Rate [ Apical] Pulse Rate [ Radial] Respiratory Rate Blood Pressure 133/63 167/97 O2 Sat by Pulse Oximetry - Lab 07/24/19 05:42 07/24/19 05:42 Most recent lab results Calcium 9.1 mg/dL (8.4-10.2) 07/24/19 05:42 Phosphorus 4.80 mg/dL (2.5-4.5) H 07/22/19 10:53 Magnesium 2.20 mg/dL (1.7-2.3) 07/22/19 10:47 Magnesium TNR 07/22/19 10:47 Medications & Allergies - Medications Allergies/Adverse Reactions: Allergies No Known Allergies Allergy (Verified 07/22/19 10:08) Home Medications: Home Medications Medication Instructions Recorded Confirmed Last Taken Type Ondansetron [Zofran TAB] 4 mg PO PRN PRN 09/09/14 07/22/19 1 Day Ago History ~04/25/16 Gabapentin 300 mg PO TID 02/25/17 07/22/19 Unknown History hydrOXYzine HCL [Atarax] 25 mg PO Q8H PRN #20 tablet 02/27/17 07/22/19 Unknown Rx Albuterol INH(or & Nicu Only) 2 puff IH QID PRN #8.5 gram 05/06/19 07/22/19 Unknown Rx [ProAir HFA Inhaler] Aspirin [Aspirin BABY CHEW TAB] 81 mg PO QDAY #30 tab.chew 05/06/19 07/22/19 Unknown Rx calcitrioL [Rocaltrol] 0.25 mcg PO QDAY #30 capsule 05/06/19 07/22/19 Unknown Rx Amlodipine Besylate [Norvasc] 5 mg PO QDAY #30 tablet 05/21/19 07/22/19 Unknown Rx Loratadine (Nf) [Claritin (Nf)] 10 mg PO QDAY PRN #30 05/21/19 07/22/19 Unknown Rx Active Medications: Generic Name Dose Route Start Last Admin Trade Name Freq PRN Reason Stop Dose Admin Acetaminophen 650 mg 07/22/19 16:24 07/23/19 23:59 Tylenol PO 650 mg Q4H PRN Administration Pain MILD(1-3)/Fever >100.5/SMITH Albuterol 2.5 mg 07/22/19 16:24 Proventil IH Q4HRT PRN Shortness Of Breath Dicyclomine HCl 10 mg 07/24/19 14:00 Bentyl PO QID LANDON Epoetin Sylvain 10,000 unit 07/23/19 10:00 07/23/19 15:01 Procrit SUB-Q 10,000 unit JAYNE PRN Administration hemodialysis Metronidazole 500 mg in 100 mls @ 100 mls/hr 07/22/19 22:00 07/24/19 05:13 Flagyl 500 Mg/100 Ml IV 07/25/19 14:59 100 mls/hr Q8HR LANDON Administration Protocol Piperacillin Sod/Tazobactam Sod 2.25 gm in 50 mls @ 100 mls/hr 07/22/19 22:00 07/24/19 05:13 Zosyn/Ns 2.25 Gm/50ml IV 100 mls/hr Q8HR LANDON Administration Sodium Chloride 100 mls @ 999 mls/hr 07/23/19 10:00 Nacl 0.9% IV JAYNE PRN Hypotension Sodium Chloride 100 mls @ 999 mls/hr 07/24/19 09:17 Nacl 0.9% IV JAYNE PRN Hypotension Metoclopramide HCl 5 mg 07/24/19 16:30 Reglan IV 07/25/19 16:31 ACHS LANDON Metoprolol Tartrate 2.5 mg 07/23/19 18:00 07/24/19 13:15 Metoprolol IV 2.5 mg Q6HR LANDON Administration Ondansetron HCl 4 mg 07/22/19 16:24 07/24/19 10:13 Zofran IV 4 mg Q8H PRN Administration Nausea And Vomiting Sodium Chloride 10 ml 07/22/19 22:00 07/24/19 10:16 Sodium Chloride Flush Syringe 10 Ml IV Not Given BID LANDON Sodium Chloride 10 ml 07/22/19 16:24 Sodium Chloride Flush Syringe 10 Ml IV PRN PRN LINE FLUSH
[2019-07-24] MEDS ORDERED: DICYCLOMINE 10 MG/5 ML ORAL LIQD PO SCH (14:00)
[2019-07-24] MEDS ORDERED: SODIUM CHLORIDE*PRIMING MACHINE ONLY FOR DIALYSIS MC ONE (15:37)
[2019-07-24] MEDS ORDERED: METOCLOPRAMIDE 10 MG/2 ML INJ IV SCH (16:30)
--- NOTE | 2019-07-24 21:46 | Event Note ---
Date: 07/24/19 While about to put my bills for today, noted that Ms Bertrand had left the hospital., Called the hospital and spoke to a nurse who is not sure what happened. Log in remotely and noted that the Patient signed out AMA. Inspite of documentation stating I was notified. I was not notified at any time.
--- NOTE | 2019-07-25 07:54 | Discharge Summary ---
Providers - Providers Date of Admission: 07/23/19 10:10 Attending physician: BAM KNOX MD 07/22/19 15:05 Consult to Physician [CONS] Urgent Comment: Consulting Provider: ZACHERY CONNOLLY Physician Instructions: Reason For Exam: cholecystitis 07/22/19 16:26 Consult to Physician [CONS] Routine Comment: Consulting Provider: GUZMAN HAYES Physician Instructions: Reason For Exam: esrd 07/23/19 07:44 Consult to Physician [CONS] Routine Comment: Consulting Provider: TYLER ZAMBRANO Physician Instructions: Reason For Exam: cardaic clearance 07/23/19 08:12 Consult to Wound/ET Nurse [CONS] Routine Reason For Exam: wound eval Primary care physician: RADIO PRESENTER Hospitalization Reason for admission: lethargy Condition: Stable Hospital course: 53-year-old female with CVA complicated by RHP, CHF, DM, OA, COPD, Asthma, Anemia, ESRD on HD(T, R, SA) presents to ED for evaluation. Patient states that she has experienced abdominal pain and nausea over the last 3 days with persistent symptoms over the same timeframe. Patient also reports multiple loose stools. Patient states that she has experienced pain in her abdomen over the past 2 days. Patient states that pain is 9 out of 10, was initially intermittent but now has become constant over the past 1 day, no exacerbating or alleviating factors, nonradiating, diffuse. EMS notified and upon arrival to [facility] patient was found to be in distress and subsequently transported to [facility] for further care and evaluation. Patient seen and evaluated in the emergency department. Lab and imaging studies reviewed. Patient found to have end-stage renal disease in need of dialysis, metabolic acidosis, systemic inflammatory response syndrome, as well as evidence of acute cholecystitis. Patient admitted to medical floor for medical management due to increased risk of decompensation. Nephrology team consulted in ED for dialysis as per renal team. Patient treated with empiric IV antibiotic therapy. Surgery team consulted in ED. Patient denies fever, chills, chest pain, palpitations, bright red blood per rectum, ingestion of food/water from new or different sources, productive cough, skin rash, or recent ill contacts. Prior admission on 05/19/2019 reviewed. All medication listed at time of admission has been reconciled. Persistent Nausea with vomiting- Resolved. ?Diabetic Gastroparesis Generalized abdominal pain with gallstones -No evidence cholecystitis. Type 2 IN ESRD Metabolic Acidosis Type 2 DM Anemia of chronic disease Chronic Opioid dependance Chronic heart failure with preserved ejection fraction (HFpEF) History of CVA (cerebrovascular accident) Plan Continue supportive care Pain control awaiting re-evaluation by Surgery-discussed with surgical team considering patient's markedly lethargic and generalized wellbeing we will not valentin into an Elective surgery at this point Considering patient's current presentation we will start patient on Bentyl to see if this will help with pain. Continue antiemetic medication Cardiology input for clearance noted Continue to educate patient about Triggers as documented by surgery, fatty foods and etc Nephrology for Dialysis Still not appropriate for discharge as severely lethargic above was the ongoing plan of care, but apparently patient and family left against medical advise Disposition: [id number] LEFT AGAINST MED ADVICE Time spent for discharge: 35 mins Core Measure Documentation - Palliative Care Palliative Care/ Comfort Measures: Not Applicable - Core Measures Any of the following diagnoses?: none Exam - Constitutional Vitals: Temp Pulse Resp BP Pulse Ox 98.8 F 117 H 20 167/97 95 07/24/19 12:35 07/24/19 13:15 07/24/19 12:35 07/24/19 13:15 07/24/19 10:00 Plan Follow up with: PRIMARY MD CESAR [Primary Care Provider] - 3-5 Days Forms: AMA Form
[2019-07-26] MEDS ORDERED: REGADENOSON 0.4 MG/5 ML INJ IV ONE (07:40)
== END 2019-07-24 16:17 | disposition left against medical advice (07) | DRG 444 ==
LOC: ED 09:43 → 3A 16:24 → 4A 21:30 → OBSVTOIN 07-23 10:10
PROVIDERS: ADMIT Internal Medicine; ATTEND Internal Medicine
PROC: 5A1D70Z Performance of Urinary Filtration, Intermittent, Less than 6 Hours Per Day (ICD-10-PCS; principal; 2019-07-23)
PROC: 5A1D70Z Performance of Urinary Filtration, Intermittent, Less than 6 Hours Per Day (ICD-10-PCS; 2019-07-24)
DX: K80.80 Other cholelithiasis without obstruction (principal); I21.A1 Myocardial infarction type 2; N18.6 End stage renal disease; I13.2 Hypertensive heart and chronic kidney disease with heart failure and with stage 5 chronic kidney disease, or end stage renal disease; E87.2 Acidosis; R65.10 Systemic inflammatory response syndrome (SIRS) of non-infectious origin without acute organ dysfunction; F11.20 Opioid dependence, uncomplicated; I50.32 Chronic diastolic (congestive) heart failure; I69.351 Hemiplegia and hemiparesis following cerebral infarction affecting right dominant side; R60.9 Edema, unspecified; E11.22 Type 2 diabetes mellitus with diabetic chronic kidney disease; M19.049 Primary osteoarthritis, unspecified hand; J44.9 Chronic obstructive pulmonary disease, unspecified; D63.1 Anemia in chronic kidney disease; I73.9 Peripheral vascular disease, unspecified; R79.89 Other specified abnormal findings of blood chemistry; Z95.1 Presence of aortocoronary bypass graft; Z99.2 Dependence on renal dialysis; Z79.4 Long term (current) use of insulin; Z98.51 Tubal ligation status; Z83.3 Family history of diabetes mellitus; Z82.49 Family history of ischemic heart disease and other diseases of the circulatory system; Z79.899 Other long term (current) drug therapy; I25.2 Old myocardial infarction; Z90.721 Acquired absence of ovaries, unilateral
CPT/HCPCS: 36415; 71045; 74176; 76705; 80048; 80061; 80074; 80076; 82140; 83690; 83735; 83880; 84100; 84439; 84443; 84484; 85014; 85018; 85025; 85027; 85610; 85730; 86850; 86900; 86901; 87040; 93005; 93010; 93306; 96361; 96365; 96366; 96375; G0378; C9113; J0885; J2270; J2405; J2543; J2785; J7030

== ENCOUNTER 2019-08-17 11:52 | Inpatient (IN) | payer MEDICARE ==
--- NOTE | 2019-08-17 12:22 | Emergency Department Report ---
ED General Adult HPI - General Chief complaint: Medical Clearance Stated complaint: REFUSED DIALYSIS Time Seen by Provider: 08/17/19 12:16 Source: patient, EMS, old records reviewed Mode of arrival: Stretcher Limitations: No Limitations - History of Present Illness Initial comments: Mrs. Bertrand is a 53 yo female with hx of CVA, CHF, DM, COPD, ESRD on HD T R sa who presents with refusal to have dialysis. She was rude to dialysis staff. She continues to state that she wants to go home. She denies pain. She states "nothing happened, I just did not want to do it today". Hanna Bertrand daughter provided history by phone. Mrs. Bertrand became co nfused and agitated Since waking up on Friday. She kept yelling out names. She would not eat. She would ask to go to the bathroom and then redirect. This type of behavior is new for patient. -: This morning Severity scale (0 -10): 0 Consistency: constant Improves with: none Worsens with: none Associated Symptoms: denies other symptoms - Related Data Home Medications Medication Instructions Recorded Confirmed Last Taken Ondansetron [Zofran TAB] 4 mg PO PRN PRN 09/09/14 07/22/19 1 Day Ago ~04/25/16 Gabapentin 300 mg PO TID 02/25/17 07/22/19 Unknown Previous Rx's Medication Instructions Recorded Last Taken Type hydrOXYzine HCL [Atarax] 25 mg PO Q8H PRN #20 tablet 02/27/17 Unknown Rx Albuterol INH(or & Nicu Only) 2 puff IH QID PRN #8.5 gram 05/06/19 Unknown Rx [ProAir HFA Inhaler] Aspirin [Aspirin BABY CHEW TAB] 81 mg PO QDAY #30 tab.chew 05/06/19 Unknown Rx calcitrioL [Rocaltrol] 0.25 mcg PO QDAY #30 capsule 05/06/19 Unknown Rx Amlodipine Besylate [Norvasc] 5 mg PO QDAY #30 tablet 05/21/19 Unknown Rx Loratadine (Nf) [Claritin (Nf)] 10 mg PO QDAY PRN #30 05/21/19 Unknown Rx Allergies Allergy/AdvReac Type Severity Reaction Status Date / Time No Known Allergies Allergy Verified 07/22/19 10:08 ED Review of Systems ROS: Stated complaint: REFUSED DIALYSIS Other details as noted in HPI Comment: All other systems reviewed and negative Constitutional: denies: fever, malaise Respiratory: denies: cough, shortness of breath Cardiovascular: denies: chest pain Gastrointestinal: denies: abdominal pain ED Past Medical Hx - Past Medical History Previous Medical History?: Yes Hx Hypertension: Yes Hx CVA: Yes (right weakness) Hx Heart Attack/AMI: No Hx Congestive Heart Failure: Yes (HX CHEST PAIN & SOB) Hx Diabetes: Yes (TYPE 11) Hx Liver Disease: No Hx Renal Disease: Yes (DIALYSIS TU/ THUR/ SAT) Hx Sickle Cell Disease: No Hx Arthritis: Yes (hands) Hx Asthma: Yes Hx COPD: Yes Hx Tuberculosis: (NEG) Additional medical history: ANEMIA - Surgical History Past Surgical History?: No Additional Surgical History: TUBAL LIGATION. LEFT OVARY REMOVED. GRAFT LEFT ARM x 2 (inactive). PERMACATH RIGHT CHEST - Social History Smoking Status: Never Smoker Substance Use Type: None - Medications Home Medications: Home Medications Medication Instructions Recorded Confirmed Last Taken Type Ondansetron [Zofran TAB] 4 mg PO PRN PRN 09/09/14 07/22/19 1 Day Ago History ~04/25/16 Gabapentin 300 mg PO TID 02/25/17 07/22/19 Unknown History hydrOXYzine HCL [Atarax] 25 mg PO Q8H PRN #20 tablet 02/27/17 07/22/19 Unknown Rx Albuterol INH(or & Nicu Only) 2 puff IH QID PRN #8.5 gram 05/06/19 07/22/19 Unknown Rx [ProAir HFA Inhaler] Aspirin [Aspirin BABY CHEW TAB] 81 mg PO QDAY #30 tab.chew 05/06/19 07/22/19 Unknown Rx calcitrioL [Rocaltrol] 0.25 mcg PO QDAY #30 capsule 05/06/19 07/22/19 Unknown Rx Amlodipine Besylate [Norvasc] 5 mg PO QDAY #30 tablet 05/21/19 07/22/19 Unknown Rx Loratadine (Nf) [Claritin (Nf)] 10 mg PO QDAY PRN #30 05/21/19 07/22/19 Unknown Rx ED Physical Exam - General Limitations: No Limitations General appearance: alert, in no apparent distress - Head Head exam: Present: atraumatic, normocephalic - Eye Eye exam: Present: scleral icterus. Absent: conjunctival injection - ENT ENT exam: Present: mucous membranes moist - Neck Neck exam: Present: normal inspection, full ROM, other (supple neck). Absent: tenderness, meningismus - Respiratory Respiratory exam: Present: normal lung sounds bilaterally. Absent: respiratory distress, wheezes, rales, rhonchi - Cardiovascular Cardiovascular Exam: Present: regular rate, normal rhythm, normal heart sounds. Absent: rubs, gallop - GI/Abdominal GI/Abdominal exam: Present: soft, normal bowel sounds. Absent: distended, tenderness, guarding, rebound - Extremities Exam Extremities exam: Present: pedal edema - Neurological Exam Neurological exam: Present: alert, altered, other (oriented to name only) - Psychiatric Psychiatric exam: Present: normal affect, agitated - Skin Skin exam: Present: warm, dry, intact, pallor. Absent: rash ED Course Vital Signs 08/17/19 08/17/19 12:27 15:54 Temperature 98.4 F 97.2 F L Pulse Rate 117 H 120 H Respiratory 11 L 18 Rate Blood Pressure 121/75 113/74 [Right] O2 Sat by Pulse 100 Oximetry ED Medical Decision Making - Lab Data Result diagrams: 08/17/19 12:44 08/17/19 12:44 Laboratory Tests 08/17/19 08/17/19 08/17/19 12:44 12:44 16:57 WBC 7.9 RBC 3.33 L Hgb 10.0 L Hct 32.3 MCV 97 MCH 30 MCHC 31 RDW 17.4 H Plt Count 275 Add Manual Diff Complete Total Counted 100 Seg Neuts % (Manual) 79.0 H Band Neutrophils % 0 Lymphocytes % (Manual) 14.0 Reactive Lymphs % (Man) 0 Monocytes % (Manual) 7.0 Eosinophils % (Manual) 0 Basophils % (Manual) 0 Metamyelocytes % 0 Myelocytes % 0 Promyelocytes % 0 Blast Cells % 0 Nucleated RBC % Not Reportable Seg Neutrophils # Man 6.2 Band Neutrophils # 0.0 Lymphocytes # (Manual) 1.1 L Abs React Lymphs (Man) 0.0 Monocytes # (Manual) 0.6 Eosinophils # (Manual) 0.0 Basophils # (Manual) 0.0 Metamyelocytes # 0.0 Myelocytes # 0.0 Promyelocytes # 0.0 Blast Cells # 0.0 WBC Morphology Not Reportable Hypersegmented Neuts Not Reportable Hyposegmented Neuts Not Reportable Hypogranular Neuts Not Reportable Smudge Cells Not Reportable Toxic Granulation Not Reportable Toxic Vacuolation Not Reportable Dohle Bodies Not Reportable Pelger-Huet Anomaly Not Reportable Toney Rods Not Reportable Platelet Estimate Consistent w auto Clumped Platelets Not Reportable Plt Clumps, EDTA Not Reportable Large Platelets Not Reportable Giant Platelets Not Reportable Platelet Satelliting Not Reportable Plt Morphology Comment Not Reportable RBC Morphology Normal Dimorphic RBCs Not Reportable Polychromasia Not Reportable Hypochromasia Not Reportable Poikilocytosis Not Reportable Anisocytosis Not Reportable Microcytosis Not Reportable Macrocytosis Not Reportable Spherocytes Not Reportable Pappenheimer Bodies Not Reportable Sickle Cells Not Reportable Target Cells Not Reportable Tear Drop Cells Not Reportable Ovalocytes Not Reportable Helmet Cells Not Reportable Blunt-Earl Bodies Not Reportable [place] Rings Not Reportable [place] Cells Not Reportable Bite Cells Not Reportable Crenated Cell Not Reportable Elliptocytes Not Reportable Acanthocytes (Spur) Not Reportable Rouleaux Not Reportable Hemoglobin C Crystals Not Reportable Schistocytes Not Reportable Malaria parasites Not Reportable Obi Bodies Not Reportable Hem Pathologist Commnt No Sodium 138 Potassium 4.3 Chloride 97.6 L Carbon Dioxide 14 L Anion Gap 31 BUN 26 H Creatinine 8.0 H Estimated GFR 6 BUN/Creatinine Ratio 3 Glucose 124 H POC Glucose 140 H Calcium 9.8 - EKG Data 08/17/19 15:00 EKG obtained 1456 sinus tachycardia rate 120 bpm normal axis normal QT interval no ST elevation - Radiology Data Radiology results: report reviewed AP chest: no acute findings according to radiology impression, right vascath in right atrium CT head: no acute intracranial process: diffuse cortical volume loss - Medical Decision Making Mrs. Bertrand presents Altered mental status after conferring with daughter per phone. She did seem agitated according to crisis clinician report from HD staff. She currently appears delirious with repetitive speech. Currently appears to speaking to someone not present in the room. DDX: dementia, stroke, uremic encephalopathy, progressive cognitive impairment due to ESRD Labs notable for metabolic acidosis, normal potassium, normal WBC I have consulted patient's personal club steward Dr. Murphy. Admitted to the hospitalist service for further treatment evaluation. Critical care attestation.: If time is entered above; I have spent that time in minutes in the direct care of this critically ill patient, excluding procedure time. ED Disposition Clinical Impression: Acute encephalopathy, End stage renal disease on dialysis, Metabolic acidosis Disposition: OP ADMIT IP TO THIS HOSP Is pt being admited?: Yes Does the pt Need Aspirin: No Condition: Stable Referrals: PRIMARY CARE,MD [Primary Care Provider] - 3-5 Days
[2019-08-17 12:59] LABS: Hematocrit 32.3 % (30.3-42.9); Mean Corpuscular HGB Conc 31 % (30-34); Mean Corpuscular Volume 97 fl (79-97); Platelet Count 275 K/mm3 (140-440); Red Blood Count 3.33 M/mm3 (3.65-5.03); Red Cell Distribution Width 17.4 % (13.2-15.2)
[2019-08-17 13:15] LABS: Calcium 9.8 mg/dL (8.4-10.2)
[2019-08-17 13:45] LABS: Eosinophils % (Manual) 0 % (0.0-4.3); Total Cells Counted 100
[2019-08-17 13:46] LABS: Basophils % (Manual) 0 % (0.0-1.8); Platelet Estimate Consistent w Auto; RBC Morphology Normal
--- NOTE | 2019-08-17 13:47 | XRay Report ---
CHEST 1 VIEW INDICATION: dialysis patient. COMPARISON: 07/22/2019 FINDINGS: Support devices: A right Vas-Cath tip is in the right atrium and is unchanged compared to the last ex am. Heart: Within normal limits. Pulmonary vasculature: Normal. Lungs/Pleura: The lungs are normally expanded and clear. Additional findings: None. IMPRESSION: 1. No acute findings. Signer Name: Eliezer Hastings MD Signed: 08/17/2019 1:43 PM Workstation Name: [id number]
--- NOTE | 2019-08-17 14:17 | Cat Scan Report ---
CT HEAD WITHOUT CONTRAST INDICATION : altered mental status. TECHNIQUE: Axial imaging performed from the skull apex through the skull base without the use of con trast. Sagittal and coronal reformatted images. All CT scans at this location are performed using C T dose reduction for ALARA by means of automated exposure control. COMPARISON: None FINDINGS: Parenchyma: Mild diffuse cortical volume loss and mild chronic periventricular white matter changes are identified. Chronic infarct in the left subinsular region measures 3.2 x 0.7 cm in axial plane. N o evidence for acute parenchymal abnormality, hemorrhage, mass or extra-axial fluid collection. Ventricles: Ventricles are normal in size and appear symmetric. Bones: No acute osseous abnormality. Sinuses: Sinuses and mastoid air cells are clear. Soft tissues: Soft tissues including the orbits appear normal. IMPRESSION: No acute intracranial process is identified. Chronic findings as outlined above. Signer Name: Jose Manuel Saleem Jr, MD Signed: 08/17/2019 2:13 PM Workstation Name: [id number]
[2019-08-17] MEDS ORDERED: dilTIAZem 25 MG/5 ML INJ IVP ONE (14:59)
--- NOTE | 2019-08-17 17:16 | History and Physical Report ---
History of Present Illness Chief complaint: I did not feel like having dialysis History of present illness: 54-year-old female with CVA complicated by RHP, CHF, DM, OA, COPD, Asthma, Anemia, ESRD on HD(T,R,SA) presents to ED for evaluation. Patient states that she simply did not feel like undergoing dialysis today after presenting to her dialysis center for her routine scheduled dialysis. EMS notified and upon arr ival the patient was found to be in distress and was uncooperative with dialysis center staff and acknowledges noncompliance with dialysis. The patient was subsequently transported to [facility] for further care and evaluation. Patient seen and evaluated in the emergency department. Lab and imaging studies reviewed. Patient found to have end-stage renal disease in need of dialysis, metabolic acidosis. Patient placed in observation status and admitted to medical floor for medical management due to increased risk of decompensation. Nephrology team consulted in ED for dialysis as per renal team. Patient denies fever, chills, chest pain, palpitations, bright red blood per rectum, ingestion of food/water from new or different sources, productive cough, skin rash, or recent ill contacts. Prior admission on 07/23/2019 reviewed. All medication listed at time of admission has been reconciled. No further history obtainable. Patient is uncooperative for further exam and interview. Patient daughter notified and reports that patient has experienced worsening confusion and increased agitation over the past several days. Past History Past Medical History: COPD, diabetes, ESRD, heart failure, hypertension, stroke, other (See HPI) Past Surgical History: Other (Tubal ligation, left ovarian removal) Social history: single. denies: smoking, alcohol abuse, prescription drug abuse Family history: diabetes, hypertension Medications and Allergies Allergies Allergy/AdvReac Type Severity Reaction Status Date / Time No Known Allergies Allergy Verified 07/22/19 10:08 Home Medications Medication Instructions Recorded Confirmed Last Taken Type Ondansetron [Zofran TAB] 4 mg PO PRN PRN 09/09/14 07/22/19 1 Day Ago History ~04/25/16 Gabapentin 300 mg PO TID 02/25/17 07/22/19 Unknown History hydrOXYzine HCL [Atarax] 25 mg PO Q8H PRN #20 tablet 02/27/17 07/22/19 Unknown Rx Albuterol INH(or & Nicu Only) 2 puff IH QID PRN #8.5 gram 05/06/19 07/22/19 Unknown Rx [ProAir HFA Inhaler] Aspirin [Aspirin BABY CHEW TAB] 81 mg PO QDAY #30 tab.chew 05/06/19 07/22/19 Unknown Rx calcitrioL [Rocaltrol] 0.25 mcg PO QDAY #30 capsule 05/06/19 07/22/19 Unknown Rx Amlodipine Besylate [Norvasc] 5 mg PO QDAY #30 tablet 05/21/19 07/22/19 Unknown Rx Loratadine (Nf) [Claritin (Nf)] 10 mg PO QDAY PRN #30 05/21/19 07/22/19 Unknown Rx Review of Systems ROS unobtainable: due to mental status Exam - Constitutional Vitals: Temp Pulse Resp BP Pulse Ox 97.2 F L 120 H 18 113/74 100 08/17/19 15:54 08/17/19 15:54 08/17/19 15:54 08/17/19 15:54 08/17/19 12:27 General appearance: Present: mild distress - EENT Eyes: Present: PERRL ENT: hearing intact, clear oral mucosa - Neck Neck: Present: supple, normal ROM - Respiratory Respiratory effort: normal Respiratory: bilateral: CTA - Cardiovascular Heart Sounds: Present: S1 & S2. Absent: rub, click - Extremities Extremities: pulses symmetrical, No edema Peripheral Pulses: within normal limits - Abdominal General gastrointestinal: Present: soft, non-tender, non-distended, normal bowel sounds Female genitourinary: Present: normal - Integumentary Integumentary: Present: clear, warm, dry - Musculoskeletal Musculoskeletal: right sided weakness - Psychiatric Psychiatric: no appropriate mood/affect, no intact judgment & insight, no memory intact - Neurologic Neurologic: CNII-XII intact, moves all extremities Results - Labs CBC & Chem 7: 08/17/19 12:44 08/17/19 12:44 Labs: Abnormal lab results 08/17/19 08/17/19 08/17/19 Range/Units 12:44 12:44 16:57 RBC 3.33 L (3.65-5.03) M/mm3 Hgb 10.0 L (10.1-14.3) gm/dl RDW 17.4 H (13.2-15.2) % Seg Neuts % (Manual) 79.0 H (40.0-70.0) % Lymphocytes # (Manual) 1.1 L (1.2-5.4) K/mm3 Chloride 97.6 L (98-107) mmol/L Carbon Dioxide 14 L (22-30) mmol/L BUN 26 H (7-17) mg/dL Creatinine 8.0 H (0.7-1.2) mg/dL Glucose 124 H (65-100) mg/dL POC Glucose 140 H (70-105) Assessment and Plan - Patient Problems (1) ESRD (end stage renal disease) Current Visit: No Status: Chronic Plan to address problem: Nephrology consulted in ED, strict I/O, monitor urine output every shift, avoid nephrotoxic agents, dialysis as per renal team. (2) Noncompliance Current Visit: Yes Status: Acute Plan to address problem: Patient counseled regarding this risk of further noncompliance. (3) Metabolic acidosis Current Visit: Yes Status: Acute Plan to address problem: Urgent dialysis, supportive care, BMP, repeat BMP in a.m. IV bicarbonate therapy as clinically indicated. (4) Acute encephalopathy Current Visit: Yes Status: Acute Plan to address problem: CT head, neuro check, thyroid panel, aspiration precautions, fall precautions, urgent dialysis. (5) DVT prophylaxis Current Visit: Yes Status: Acute Plan to address problem: SCD to bilateral lower extremities while in bed, prophylactic heparin
[2019-08-17] MEDS ORDERED: ALBUTEROL 2.5 MG/3 ML NEBU IH PRN (17:19)
[2019-08-17] MEDS ORDERED: ONDANSETRON 4 MG/2 ML INJ IV PRN (17:19)
[2019-08-17] MEDS ORDERED: ACETAMINOPHEN 325 MG TAB PO PRN (17:19)
[2019-08-17 20:29] LABS: Free T4 (Free Thyroxine) 0.7 ng/dL (0.76-1.46)
[2019-08-17] MEDS: HEPARIN 5,000 UNIT/1 ML VIAL SUB-Q SCH (22:36)
[2019-08-18] MEDS ORDERED: LORazepam 2 MG/ML VIAL IM ONE (00:55)
[2019-08-18 05:05] LABS: Hematocrit 34.1 % (30.3-42.9); Hemoglobin 10.5 gm/dl (10.1-14.3); Mean Corpuscular HGB Conc 31 % (30-34); Mean Corpuscular Volume 99 fl (79-97); Platelet Count 294 K/mm3 (140-440); Red Blood Count 3.46 M/mm3 (3.65-5.03); Red Cell Distribution Width 17.8 % (13.2-15.2)
[2019-08-18 05:29] LABS: Calcium 9.6 mg/dL (8.4-10.2)
[2019-08-18 06:07] LABS: Anisocytosis 1+; Basophils % (Manual) 0 % (0.0-1.8); Eosinophils % (Manual) 0 % (0.0-4.3); Platelet Estimate Consistent w Auto; Total Cells Counted 100
--- NOTE | 2019-08-18 09:29 | Consultation ---
History of Present Illness - Reason for Consult Consult date: 08/18/19 end stage renal disease, metabolic acidosis - History of Present Illness This is a 54 year old female well known to our practice with pmh significant for CVA, CHF, diabetes mellitus, osteoarthritis, COPD, asthma, anemia, ESRD on HD (/). She is extremely confused and agitated with no family present so HPI derived from ED notes. She presented to the ED on 08/16 after presenting to her dialysis center for scheduled HD and then stating "she did not feel like it today". EMS reported that patient was in distress upon their arrival and uncooperative with dialysis staff. Patient has long history of noncompliance with scheduled HD. Findings in ED noted need for HD treatment and metabolic acidosis. Patient family expressed concern regarding patient's altered mental status and increased level of agitation. Denies chest pain, fever, chills, shortness of breath, skin rash, cough. She has had multiple admissions related to noncompliance with HD, most recent admission was July 2019. At time of consultation, no family was present at bedside and it was reported by nursing staff that patient had pulled out her HD permcath. Labs significant for bicarb 18, creatinine 8.5. Head CT and chest xray negative for any acute findings. Nephrology was consulted for further evaluation and treatment of end stage renal disease requiring HD. Past History Past Medical History: COPD, diabetes, ESRD, heart failure, hypertension, stroke, other (See HPI) Past Surgical History: Other (Tubal ligation, left ovarian removal) Social history: single. denies: smoking, alcohol abuse, prescription drug abuse Family history: diabetes, hypertension Medications and Allergies Allergies Allergy/AdvReac Type Severity Reaction Status Date / Time No Known Allergies Allergy Verified 07/22/19 10:08 Home Medications Medication Instructions Recorded Confirmed Last Taken Type Ondansetron [Zofran TAB] 4 mg PO PRN PRN 09/09/14 07/22/19 1 Day Ago History ~04/25/16 Gabapentin 300 mg PO TID 02/25/17 07/22/19 Unknown History hydrOXYzine HCL [Atarax] 25 mg PO Q8H PRN #20 tablet 02/27/17 07/22/19 Unknown Rx Albuterol INH(or & Nicu Only) 2 puff IH QID PRN #8.5 gram 05/06/19 07/22/19 Unknown Rx [ProAir HFA Inhaler] Aspirin [Aspirin BABY CHEW TAB] 81 mg PO QDAY #30 tab.chew 05/06/19 07/22/19 Unknown Rx calcitrioL [Rocaltrol] 0.25 mcg PO QDAY #30 capsule 05/06/19 07/22/19 Unknown Rx Amlodipine Besylate [Norvasc] 5 mg PO QDAY #30 tablet 05/21/19 07/22/19 Unknown Rx Loratadine (Nf) [Claritin (Nf)] 10 mg PO QDAY PRN #30 05/21/19 07/22/19 Unknown Rx Active Meds: Active Medications Acetaminophen (Tylenol) 650 mg PO Q4H PRN PRN Reason: Pain MILD(1-3)/Fever >100.5/SMITH Albuterol (Proventil) 2.5 mg IH Q4HRT PRN PRN Reason: Shortness Of Breath Heparin Sodium (Porcine) (Heparin) 5,000 unit SUB-Q Q12HR [facility] Last Admin: 08/17/19 22:36 Dose: 5,000 unit Documented by: Ondansetron HCl (Zofran) 4 mg IV Q8H PRN PRN Reason: Nausea And Vomiting Sodium Chloride (Sodium Chloride Flush Syringe 10 Ml) 10 ml IV BID [facility] Last Admin: 08/17/19 22:36 Dose: 10 ml Documented by: Sodium Chloride (Sodium Chloride Flush Syringe 10 Ml) 10 ml IV PRN PRN PRN Reason: LINE FLUSH Review of Systems ROS unobtainable: due to mental status Exam - Vital Signs Vital signs: Vital Signs Temp Pulse Resp BP Pulse Ox 98.4 F 117 H 11 L 121/75 100 08/17/19 12:27 08/17/19 12:27 08/17/19 12:27 08/17/19 12:27 08/17/19 12:27 - General Appearance General appearance: well-developed, appears stated age, other (agitated, mild distress, mittens in use) EENT: ATNC, PERRL, mucous membranes moist, hearing intact Neck: Present: neck supple, trachea midline Respiratory: Clear to Ascultation, Decreased Breath Sounds (bibasilar) Heart: regular, normal heart rate, S1S2, no murmurs Gastrointestinal: Present: normal, normoactive bowel sounds Integumentary: no rash, warm and dry, other (multiple wounds including: L great toe, sacrum, and abdominal folds) Neurologic: confused, disoriented Musculoskeletal: Present: other (trace BLE edema noted, R hemiparesis) Psychiatric: agitated Results - Lab Results 08/18/19 04:23 08/18/19 04:23 Most recent lab results Calcium 9.6 mg/dL (8.4-10.2) 08/18/19 04:23 Assessment and Plan 1. ESRD requiring HD: Long history of noncompliance with maintenance HD. Received HD M/W/. Patient had right chest permcath but she pulled the HD catheter out. Will discuss with family regarding replacement of catheter and need for compliance with HD. If family would like to pursue, will consult vascular regarding new catheter placement. Resume hemodialysis once catheter placed. 2. FEN: Metabolic acidosis, needs HD, monitor. Monitor lytes. 3. Metabolic encephalopathy: CT head negative. Likely 2/2 need for HD and metabolic acidosis. 4. COPD: Appears compensated. 5. Diabetes: Monitor blood glucose. 6. CHF: EF 60-65%. 7. Pulmonary edema: Likely volume overload 2/2 noncompliance with HD. 8. Hypertension: BP appears controlled. 9. H/o CVA: R hemiparesis. 10. Anemia of chronic disease: Epogen with HD if needed. Monitor.
[2019-08-18] MEDS: HEPARIN 5,000 UNIT/1 ML VIAL SUB-Q SCH ×2 (11:15→21:28)
--- NOTE | 2019-08-18 12:35 | Progress Note ---
Assessment and Plan Assessment and plan: ESRD. Patient with missed hemodialysis/noncompliance. Continue hemodialysis per nephrology recommendations. Patient pulled out her dialysis catheter last evening and we will have vascular surgery reevaluate. Metabolic encephalopathy. Etiology secondary to above. CT scan of the head negative. Continue to treat underlying causes. Metabolic acidosis. Secondary to #1. COPD. Compensated. Diabetes mellitus type 2. Continue Accu-Cheks and sliding scale insulin. Chronic diastolic heart failure. Echocardiogram from July 2019 revealed EF of 60 to 65% with left ventricular systolic function normal. Pulmonary edema. Etiology secondary to volume overload from medical noncompliance from his hemodialysis. Patient does not appear to be in acute heart failure. Hypertension. Continue antihypertensive medications. History of CVA. Patient with history of right hemiparesis. PT/OT. Anemia of chronic disease. Continue to monitor H&H and transfuse for hemoglobin less than 7. History Interval history: No new issues overnight. Hospitalist Physical - Constitutional Vitals: Temp Pulse Resp BP Pulse Ox 98.9 F 121 H 16 114/46 99 08/18/19 06:00 08/18/19 06:00 08/18/19 06:00 08/18/19 06:00 08/18/19 06:00 General appearance: Present: mild distress - EENT Eyes: Present: PERRL, EOM intact ENT: hearing intact, clear oral mucosa, dentition normal - Neck Neck: Present: supple, normal ROM - Respiratory Respiratory effort: normal Respiratory: bilateral: CTA - Cardiovascular Rhythm: regular Heart Sounds: Present: S1 & S2. Absent: gallop, rub - Extremities Extremities: no ischemia, No edema, Full ROM - Abdominal General gastrointestinal: soft, non-tender, non-distended, normal bowel sounds - Integumentary Integumentary: Present: clear, warm, dry - Neurologic Neurologic: CNII-XII intact, moves all extremities Results - Labs CBC & Chem 7: 08/18/19 04:23 08/18/19 04:23 Labs: Laboratory Last Values WBC 8.0 K/mm3 (4.5-11.0) 08/18/19 04:23 RBC 3.46 M/mm3 (3.65-5.03) L 08/18/19 04:23 Hgb 10.5 gm/dl (10.1-14.3) 08/18/19 04:23 Hct 34.1 % (30.3-42.9) 08/18/19 04:23 MCV 99 fl (79-97) H 08/18/19 04:23 MCH 30 pg (28-32) 08/18/19 04:23 MCHC 31 % (30-34) 08/18/19 04:23 RDW 17.8 % (13.2-15.2) H 08/18/19 04:23 Plt Count 294 K/mm3 (140-440) 08/18/19 04:23 Add Manual Diff Complete 08/18/19 04:23 Total Counted 100 08/18/19 04:23 Seg Neuts % (Manual) 87.0 % (40.0-70.0) H 08/18/19 04:23 Band Neutrophils % 0 % 08/18/19 04:23 Lymphocytes % (Manual) 4.0 % (13.4-35.0) L 08/18/19 04:23 Reactive Lymphs % (Man) 0 % 08/18/19 04:23 Monocytes % (Manual) 9.0 % (0.0-7.3) H 08/18/19 04:23 Eosinophils % (Manual) 0 % (0.0-4.3) 08/18/19 04:23 Basophils % (Manual) 0 % (0.0-1.8) 08/18/19 04:23 Metamyelocytes % 0 % 08/18/19 04:23 Myelocytes % 0 % 08/18/19 04:23 Promyelocytes % 0 % 08/18/19 04:23 Blast Cells % 0 % 08/18/19 04:23 Nucleated RBC % Not Reportable 08/18/19 04:23 Seg Neutrophils # Man 7.0 K/mm3 (1.8-7.7) 08/18/19 04:23 Band Neutrophils # 0.0 K/mm3 08/18/19 04:23 Lymphocytes # (Manual) 0.3 K/mm3 (1.2-5.4) L 08/18/19 04:23 Abs React Lymphs (Man) 0.0 K/mm3 08/18/19 04:23 Monocytes # (Manual) 0.7 K/mm3 (0.0-0.8) 08/18/19 04:23 Eosinophils # (Manual) 0.0 K/mm3 (0.0-0.4) 08/18/19 04:23 Basophils # (Manual) 0.0 K/mm3 (0.0-0.1) 08/18/19 04:23 Metamyelocytes # 0.0 K/mm3 08/18/19 04:23 Myelocytes # 0.0 K/mm3 08/18/19 04:23 Promyelocytes # 0.0 K/mm3 08/18/19 04:23 Blast Cells # 0.0 K/mm3 08/18/19 04:23 WBC Morphology Not Reportable 08/18/19 04:23 Hypersegmented Neuts Not Reportable 08/18/19 04:23 Hyposegmented Neuts Not Reportable 08/18/19 04:23 Hypogranular Neuts Not Reportable 08/18/19 04:23 Smudge Cells Not Reportable 08/18/19 04:23 Toxic Granulation Not Reportable 08/18/19 04:23 Toxic Vacuolation Not Reportable 08/18/19 04:23 Dohle Bodies Not Reportable 08/18/19 04:23 Pelger-Huet Anomaly Not Reportable 08/18/19 04:23 Toney Rods Not Reportable 08/18/19 04:23 Platelet Estimate Consistent w auto 08/18/19 04:23 Clumped Platelets Not Reportable 08/18/19 04:23 Plt Clumps, EDTA Not Reportable 08/18/19 04:23 Large Platelets Not Reportable 08/18/19 04:23 Giant Platelets Not Reportable 08/18/19 04:23 Platelet Satelliting Not Reportable 08/18/19 04:23 Plt Morphology Comment Not Reportable 08/18/19 04:23 RBC Morphology Not Reportable 08/18/19 04:23 Dimorphic RBCs Not Reportable 08/18/19 04:23 Polychromasia Not Reportable 08/18/19 04:23 Hypochromasia Not Reportable 08/18/19 04:23 Poikilocytosis Not Reportable 08/18/19 04:23 Anisocytosis 1+ 08/18/19 04:23 Microcytosis Not Reportable 08/18/19 04:23 Macrocytosis Not Reportable 08/18/19 04:23 Spherocytes Not Reportable 08/18/19 04:23 Pappenheimer Bodies Not Reportable 08/18/19 04:23 Sickle Cells Not Reportable 08/18/19 04:23 Target Cells Not Reportable 08/18/19 04:23 Tear Drop Cells Not Reportable 08/18/19 04:23 Ovalocytes Not Reportable 08/18/19 04:23 Helmet Cells Not Reportable 08/18/19 04:23 Blunt-[place] Bodies Not Reportable 08/18/19 04:23 [place] Rings Not Reportable 08/18/19 04:23 [place] Cells Not Reportable 08/18/19 04:23 Bite Cells Not Reportable 08/18/19 04:23 Crenated Cell Not Reportable 08/18/19 04:23 Elliptocytes Not Reportable 08/18/19 04:23 Acanthocytes (Spur) Not Reportable 08/18/19 04:23 Rouleaux Not Reportable 08/18/19 04:23 Hemoglobin C Crystals Not Reportable 08/18/19 04:23 Schistocytes Not Reportable 08/18/19 04:23 Malaria parasites Not Reportable 08/18/19 04:23 Obi Bodies Not Reportable 08/18/19 04:23 Hem Pathologist Commnt No 08/18/19 04:23 Sodium 141 mmol/L (137-145) 08/18/19 04:23 Potassium 3.8 mmol/L (3.6-5.0) 08/18/19 04:23 Chloride 99.6 mmol/L (98-107) 08/18/19 04:23 Carbon Dioxide 18 mmol/L (22-30) L 08/18/19 04:23 Anion Gap 27 mmol/L 08/18/19 04:23 BUN 29 mg/dL (7-17) H 08/18/19 04:23 Creatinine 8.5 mg/dL (0.7-1.2) H 08/18/19 04:23 Estimated GFR 6 ml/min 08/18/19 04:23 BUN/Creatinine Ratio 3 % 08/18/19 04:23 Glucose 107 mg/dL (65-100) H 08/18/19 04:23 POC Glucose 92 (70-105) 08/18/19 11:22 Calcium 9.6 mg/dL (8.4-10.2) 08/18/19 04:23 TSH 0.809 mlU/mL (0.270-4.200) 08/17/19 19:42 Free T4 0.70 ng/dL (0.76-1.46) L 08/17/19 19:42 Active Medications - Current Medications Current Medications: Generic Name Dose Route Start Last Admin Trade Name Freq PRN Reason Stop Dose Admin Acetaminophen 650 mg 08/17/19 17:19 Tylenol PO Q4H PRN Pain MILD(1-3)/Fever >100.5/SMITH Albuterol 2.5 mg 08/17/19 17:19 Proventil IH Q4HRT PRN Shortness Of Breath Heparin Sodium (Porcine) 5,000 unit 08/17/19 22:00 08/18/19 11:15 Heparin SUB-Q 5,000 unit Q12HR LANDON Administration Ondansetron HCl 4 mg 08/17/19 17:19 Zofran IV Q8H PRN Nausea And Vomiting Sodium Chloride 10 ml 08/17/19 22:00 08/18/19 11:16 Sodium Chloride Flush Syringe 10 Ml IV 10 ml BID LANDON Administration Sodium Chloride 10 ml 08/17/19 17:19 Sodium Chloride Flush Syringe 10 Ml IV PRN PRN LINE FLUSH
[2019-08-18] MEDS ORDERED: DEXTROSE 50% IN WATER (25GM) 50 ML SYRINGE IV PRN ×2 (16:49→18:14)
[2019-08-19 07:36] LABS: Hematocrit 32.5 % (30.3-42.9)
[2019-08-19 08:06] LABS: Calcium 8.9 mg/dL (8.4-10.2)
--- NOTE | 2019-08-19 08:19 | Event Note ---
Date: 08/19/19 plan to replace permcath today. phone consent obtained from daughter.
[2019-08-19] MEDS ORDERED: HEPARIN/NS 5000 UNIT/500ML 500 ML IR ONE (08:24)
[2019-08-19] MEDS ORDERED: LIDOCAINE (2%) 20 MG/1 ML VIAL 20 ML MDV INFILTRATI ONE (08:25)
[2019-08-19] MEDS ORDERED: HEPARIN 10,000 UNITS/10 ML VIAL ONE (08:25)
[2019-08-19] MEDS ORDERED: MIDAZOLAM 2 MG/2 ML INJ ONE (08:25)
[2019-08-19] MEDS ORDERED: fentaNYL 100 MCG/2 ML INJ ONE (08:25)
--- NOTE | 2019-08-19 08:37 | Progress Note ---
Assessment and Plan 1. ESRD requiring HD: Long history of noncompliance with maintenance HD. Received HD M/W/. Patient had right chest permcath but she pulled the HD catheter out 08/17. Discussed with daughter regarding replacement of catheter and need for compliance with HD. Explained risk of bleeding if patient pulls catheter out. Suggested comfort/hospice care. Daughter elected to reinsert HD catheter and continue dialysis treatments. Vascular inserted permcath on 08/18. Hemodialysis: 08/18. 2. FEN: Metabolic acidosis, needs HD, monitor. Monitor lytes. 3. Metabolic encephalopathy: CT head negative. Likely 2/2 need for HD and metabolic acidosis. 4. COPD: Appears compensated. 5. Diabetes: Monitor blood glucose. 6. CHF: EF 60-65%. 7. Pulmonary edema: Likely volume overload 2/2 noncompliance with HD. 8. Hypertension: BP appears controlled. 9. H/o CVA: R hemiparesis. 10. Anemia of chronic disease: Epogen with HD if needed. Monitor. 11. Medical noncompliance: Family counseled on importance of compliance with HD treatments. Subjective Date of service: 08/19/19 Interval history: Patient was seen and examined at the bedside. She had just returned from permcath placement. No other acute events. Objective - Exam Narrative Exam: General appearance: well-developed, appears stated age, other (mittens in use), drowsy EENT: ATNC, PERRL, mucous membranes moist, hearing intact Neck: Present: neck supple, trachea midline Respiratory: Clear to Ascultation, Decreased Breath Sounds (bibasilar) Heart: regular, normal heart rate, S1S2, no murmurs Gastrointestinal: Present: normal, normoactive bowel sounds Integumentary: no rash, warm and dry, other (multiple wounds including: L great toe, sacrum, and abdominal folds), L chest permcath Neurologic: confused, disoriented Musculoskeletal: Present: other (trace BLE edema noted, R hemiparesis) Psychiatric: sleeping - Vital Signs Vital signs: Vital Signs - 12hr 08/18/19 08/19/19 08/19/19 23:30 02:10 05:50 Temperature 98.2 F 98.5 F Pulse Rate 119 H 116 H Pulse Rate [ 121 H Right Brachial] Respiratory 17 18 17 Rate Blood Pressure 135/77 140/78 O2 Sat by Pulse 95 100 97 Oximetry - Lab 08/19/19 07:15 08/19/19 07:15 Most recent lab results Calcium 8.9 mg/dL (8.4-10.2) 08/19/19 07:15 Medications & Allergies - Medications Allergies/Adverse Reactions: Allergies No Known Allergies Allergy (Verified 07/22/19 10:08) Home Medications: Home Medications Medication Instructions Recorded Confirmed Last Taken Type Ondansetron [Zofran TAB] 4 mg PO PRN PRN 09/09/14 08/19/19 1 Day Ago History ~04/25/16 Gabapentin 300 mg PO TID 02/25/17 08/19/19 Unknown History hydrOXYzine HCL [Atarax] 25 mg PO Q8H PRN #20 tablet 02/27/17 08/19/19 Unknown Rx Albuterol INH(or & Nicu Only) 2 puff IH QID PRN #8.5 gram 05/06/19 08/19/19 Unknown Rx [ProAir HFA Inhaler] Aspirin [Aspirin BABY CHEW TAB] 81 mg PO QDAY #30 tab.chew 05/06/19 08/19/19 Unknown Rx calcitrioL [Rocaltrol] 0.25 mcg PO QDAY #30 capsule 05/06/19 08/19/19 Unknown Rx Amlodipine Besylate [Norvasc] 5 mg PO QDAY #30 tablet 05/21/19 08/19/19 Unknown Rx Loratadine (Nf) [Claritin (Nf)] 10 mg PO QDAY PRN #30 05/21/19 08/19/19 Unknown Rx Active Medications: Generic Name Dose Route Start Last Admin Trade Name Ktq PRN Reason Stop Dose Admin Acetaminophen 650 mg 08/17/19 17:19 Tylenol PO Q4H PRN Pain MILD(1-3)/Fever >100.5/SMITH Albuterol 2.5 mg 08/17/19 17:19 Proventil IH Q4HRT PRN Shortness Of Breath Dextrose 50 ml 08/18/19 18:14 D50w (25gm) Syringe IV Q30MIN PRN Hypoglycemia Protocol Heparin Sodium (Porcine) 5,000 unit 08/17/19 22:00 08/18/19 21:28 Heparin SUB-Q 5,000 unit Q12HR LANDON Administration Ondansetron HCl 4 mg 08/17/19 17:19 Zofran IV Q8H PRN Nausea And Vomiting Sodium Chloride 10 ml 08/17/19 22:00 08/18/19 21:28 Sodium Chloride Flush Syringe 10 Ml IV 10 ml BID LANDON Administration Sodium Chloride 10 ml 08/17/19 17:19 Sodium Chloride Flush Syringe 10 Ml IV PRN PRN LINE FLUSH
--- NOTE | 2019-08-19 09:15 | Post Operative Note ---
Pre-op diagnosis: ESRD Post-op diagnosis: same Procedure: 1. Left IJ Permcath Insertion 2. Monitored Conscious Sedation for 15 minutes Anesthesia: MAC, local Surgeon: BAM BELTRÁN Estimated blood loss: minimal Pathology: none Condition: stable Disposition: floor
[2019-08-19] MEDS ORDERED: SODIUM CHLORIDE 0.9% 100 ML IV PRN (09:44)
--- NOTE | 2019-08-19 09:45 | Operative Report ---
STAFF SURGEON: Dr. Blaine Lang. PREOPERATIVE DIAGNOSIS: End-stage renal disease. POSTOPERATIVE DIAGNOSIS: End-stage renal disease. PROCEDURE PERFORMED: 1. Left IJ PermCath insertion. 2. Monitored conscious sedation for 15 minutes. COMPLICATIONS: None. ESTIMATED BLOOD LOSS: Less than 10 mL. ANESTHESIA: Local MAC. INDICATIONS FOR PROCEDURE: This is a 54-year-old female with end-stage renal disease, on hemodialysis, who is hospitalized for altered mental status and during her hospitalization, told her PermCath. Therefore, vascular consultation was obtained for PermCath insertion. The patient's family was explained the risks, benefits and alternatives of procedure, expressed understanding and wished to proceed. DESCRIPTION OF PROCEDURE: After appropriate consent was obtained, the patient was brought back to the poultry hatchery laborer, placed on table in supine position. Left neck and chest were prepped and draped in the usual sterile fashion with ChloraPrep. Appropriate timeout was performed indicating correct patient, procedure and site of procedure. I then began the intervention by obtaining a percutaneous access of the left internal jugular vein using micropuncture technique under ultrasound guidance, was to obtain access, needle was exchanged for a micropuncture sheath using Seldinger technique. We then proceeded to place a stiff J wire through the catheter into the IVC. The catheter was removed. A stab incision was made on the anterior chest wall. Then, a subcutaneous tunnel was made, bringing through a 27 cm straight PermCath. The access site was thoroughly dilated appropriately. Sheath and dilator was placed over the wire into the SVC. Dilator and wire were removed. The catheter was placed through the peel-away sheath. The peel-away sheath was removed. Both lumens sohail blood appropriately, were flushed with heparinized saline. Appropriate amount of heparin was placed in each port. Tip of the catheter was at the level of the SVC right atrial junction. We then proceeded to close the access site with a deep subcutaneous layer with 3-0 Vicryl and skin was approximated with 3-0 nylon. The catheter exit site was sutured in place with a 3-0 nylon. Appropriate dressing was placed. The patient tolerated the procedure well, emerged from the conscious sedation and was sent to recovery in stable condition. JOB# [id number] N/NTS
[2019-08-19] MEDS: HEPARIN 5,000 UNIT/1 ML VIAL SUB-Q SCH ×2 (10:21→22:19)
[2019-08-19] MEDS ORDERED: SODIUM CHLORIDE*PRIMING MACHINE ONLY FOR DIALYSIS MC ONE (20:10)
--- NOTE | 2019-08-19 20:17 | Progress Note ---
Assessment and Plan - Patient Problems (1) Acute encephalopathy Current Visit: Yes Status: Acute Plan to address problem: At present appears to have metabolic encephalopathy. Patient not a sharp global. Is able to answer questions. Most likely secondary to uremia. (2) Noncompliance Current Visit: Yes Status: Acute Plan to address problem: Medicinal noncompliance given nephrology note. Also history of pulling out permacath. Patient was given option of hospice and palliative care. Daughter wanted to reinsert catheter. (3) ESRD (end stage renal disease) on dialysis Current Visit: Yes Status: Chronic Plan to address problem: Patient to receive permacath today via vascular and then start hemodialysis at some time after. Patient may need an additional dialysis to correct metabolic encephalopathy. (4) Anemia Current Visit: No Status: Acute Qualifiers: Anemia type: due to chronic kidney disease Chronic kidney disease stage: on chronic dialysis Qualified Code(s): N18.6 - End stage renal disease; D63.1 - Anemia in chronic kidney disease; Z99.2 - Dependence on renal dialysis Plan to address problem: Secondary to chronic disease. History Interval history: No new events overnight. Patient scheduled to have permacath placed today. Patient has long history of noncompliance with hemodialysis. Patient pulled right permacath out having left permacath placed today will receive dialysis after permacath. Hospitalist Physical - Constitutional Vitals: Temp Pulse Resp BP Pulse Ox 98.4 F 98 H 18 90/56 95 08/19/19 17:15 08/19/19 15:40 08/19/19 17:15 08/19/19 17:15 08/19/19 11:38 General appearance: Present: no acute distress, other (Resting comfortably appears to be somewhat encephalopathic not sure baseline.) - EENT Eyes: Present: PERRL, EOM intact ENT: hearing intact, clear oral mucosa, dentition normal - Neck Neck: Present: supple, normal ROM - Respiratory Respiratory: bilateral: rhonchi (Few) - Cardiovascular Rhythm: regular - Extremities Extremities: no ischemia, pulses intact, pulses symmetrical, No edema, normal temperature, normal color Peripheral Pulses: within normal limits - Abdominal General gastrointestinal: soft, non-tender, non-distended, normal bowel sounds - Psychiatric Psychiatric: cooperative, other (Patient with mittens) - Neurologic Neurologic: focal deficits, moves all extremities, other (Somewhat encephalop athic) Results - Labs CBC & Chem 7: 08/19/19 07:15 08/19/19 07:15 Labs: Laboratory Last Values WBC 8.0 K/mm3 (4.5-11.0) 08/18/19 04:23 RBC 3.46 M/mm3 (3.65-5.03) L 08/18/19 04:23 Hgb 10.0 gm/dl (10.1-14.3) L 08/19/19 07:15 Hct 32.5 % (30.3-42.9) 08/19/19 07:15 MCV 99 fl (79-97) H 08/18/19 04:23 MCH 30 pg (28-32) 08/18/19 04:23 MCHC 31 % (30-34) 08/18/19 04:23 RDW 17.8 % (13.2-15.2) H 08/18/19 04:23 Plt Count 294 K/mm3 (140-440) 08/18/19 04:23 Add Manual Diff Complete 08/18/19 04:23 Total Counted 100 08/18/19 04:23 Seg Neuts % (Manual) 87.0 % (40.0-70.0) H 08/18/19 04:23 Band Neutrophils % 0 % 08/18/19 04:23 Lymphocytes % (Manual) 4.0 % (13.4-35.0) L 08/18/19 04:23 Reactive Lymphs % (Man) 0 % 08/18/19 04:23 Monocytes % (Manual) 9.0 % (0.0-7.3) H 08/18/19 04:23 Eosinophils % (Manual) 0 % (0.0-4.3) 08/18/19 04:23 Basophils % (Manual) 0 % (0.0-1.8) 08/18/19 04:23 Metamyelocytes % 0 % 08/18/19 04:23 Myelocytes % 0 % 08/18/19 04:23 Promyelocytes % 0 % 08/18/19 04:23 Blast Cells % 0 % 08/18/19 04:23 Nucleated RBC % Not Reportable 08/18/19 04:23 Seg Neutrophils # Man 7.0 K/mm3 (1.8-7.7) 08/18/19 04:23 Band Neutrophils # 0.0 K/mm3 08/18/19 04:23 Lymphocytes # (Manual) 0.3 K/mm3 (1.2-5.4) L 08/18/19 04:23 Abs React Lymphs (Man) 0.0 K/mm3 08/18/19 04:23 Monocytes # (Manual) 0.7 K/mm3 (0.0-0.8) 08/18/19 04:23 Eosinophils # (Manual) 0.0 K/mm3 (0.0-0.4) 08/18/19 04:23 Basophils # (Manual) 0.0 K/mm3 (0.0-0.1) 08/18/19 04:23 Metamyelocytes # 0.0 K/mm3 08/18/19 04:23 Myelocytes # 0.0 K/mm3 08/18/19 04:23 Promyelocytes # 0.0 K/mm3 08/18/19 04:23 Blast Cells # 0.0 K/mm3 08/18/19 04:23 WBC Morphology Not Reportable 08/18/19 04:23 Hypersegmented Neuts Not Reportable 08/18/19 04:23 Hyposegmented Neuts Not Reportable 08/18/19 04:23 Hypogranular Neuts Not Reportable 08/18/19 04:23 Smudge Cells Not Reportable 08/18/19 04:23 Toxic Granulation Not Reportable 08/18/19 04:23 Toxic Vacuolation Not Reportable 08/18/19 04:23 Dohle Bodies Not Reportable 08/18/19 04:23 Pelger-Huet Anomaly Not Reportable 08/18/19 04:23 Toney Rods Not Reportable 08/18/19 04:23 Platelet Estimate Consistent w auto 08/18/19 04:23 Clumped Platelets Not Reportable 08/18/19 04:23 Plt Clumps, EDTA Not Reportable 08/18/19 04:23 Large Platelets Not Reportable 08/18/19 04:23 Giant Platelets Not Reportable 08/18/19 04:23 Platelet Satelliting Not Reportable 08/18/19 04:23 Plt Morphology Comment Not Reportable 08/18/19 04:23 RBC Morphology Not Reportable 08/18/19 04:23 Dimorphic RBCs Not Reportable 08/18/19 04:23 Polychromasia Not Reportable 08/18/19 04:23 Hypochromasia Not Reportable 08/18/19 04:23 Poikilocytosis Not Reportable 08/18/19 04:23 Anisocytosis 1+ 08/18/19 04:23 Microcytosis Not Reportable 08/18/19 04:23 Macrocytosis Not Reportable 08/18/19 04:23 Spherocytes Not Reportable 08/18/19 04:23 Pappenheimer Bodies Not Reportable 08/18/19 04:23 Sickle Cells Not Reportable 08/18/19 04:23 Target Cells Not Reportable 08/18/19 04:23 Tear Drop Cells Not Reportable 08/18/19 04:23 Ovalocytes Not Reportable 08/18/19 04:23 Helmet Cells Not Reportable 08/18/19 04:23 Blunt-[place] Bodies Not Reportable 08/18/19 04:23 [place] Rings Not Reportable 08/18/19 04:23 [place] Cells Not Reportable 08/18/19 04:23 Bite Cells Not Reportable 08/18/19 04:23 Crenated Cell Not Reportable 08/18/19 04:23 Elliptocytes Not Reportable 08/18/19 04:23 Acanthocytes (Spur) Not Reportable 08/18/19 04:23 Rouleaux Not Reportable 08/18/19 04:23 Hemoglobin C Crystals Not Reportable 08/18/19 04:23 Schistocytes Not Reportable 08/18/19 04:23 Malaria parasites Not Reportable 08/18/19 04:23 Obi Bodies Not Reportable 08/18/19 04:23 Hem Pathologist Commnt No 08/18/19 04:23 Sodium 142 mmol/L (137-145) 08/19/19 07:15 Potassium 4.1 mmol/L (3.6-5.0) 08/19/19 07:15 Chloride 101.2 mmol/L (98-107) 08/19/19 07:15 Carbon Dioxide 17 mmol/L (22-30) L 08/19/19 07:15 Anion Gap 28 mmol/L 08/19/19 07:15 BUN 37 mg/dL (7-17) H 08/19/19 07:15 Creatinine 9.8 mg/dL (0.7-1.2) H 08/19/19 07:15 Estimated GFR 5 ml/min 08/19/19 07:15 BUN/Creatinine Ratio 4 % 08/19/19 07:15 Glucose 95 mg/dL (65-100) 08/19/19 07:15 POC Glucose 85 (70-105) 08/19/19 17:28 Calcium 8.9 mg/dL (8.4-10.2) 08/19/19 07:15 TSH 0.809 mlU/mL (0.270-4.200) 08/17/19 19:42 Free T4 0.70 ng/dL (0.76-1.46) L 08/17/19 19:42 - Imaging and Cardiology EKG: image reviewed CT Scan - head: report reviewed, image reviewed Active Medications - Current Medications Current Medications: Generic Name Dose Route Start Last Admin Trade Name Freq PRN Reason Stop Dose Admin Acetaminophen 650 mg 08/17/19 17:19 Tylenol PO Q4H PRN Pain MILD(1-3)/Fever >100.5/SMITH Albuterol 2.5 mg 08/17/19 17:19 Proventil IH Q4HRT PRN Shortness Of Breath Dextrose 50 ml 08/18/19 18:14 D50w (25gm) Syringe IV Q30MIN PRN Hypoglycemia Protocol Heparin Sodium (Porcine) 5,000 unit 08/17/19 22:00 08/19/19 10:21 Heparin SUB-Q 5,000 unit Q12HR LANDON Administration Sodium Chloride 100 mls @ 999 mls/hr 08/19/19 09:44 Nacl 0.9% IV JAYNE PRN Hypotension Ondansetron HCl 4 mg 08/17/19 17:19 Zofran IV Q8H PRN Nausea And Vomiting Sodium Chloride 10 ml 08/17/19 22:00 08/19/19 10:22 Sodium Chloride Flush Syringe 10 Ml IV 10 ml BID LANDON Administration Sodium Chloride 10 ml 08/17/19 17:19 Sodium Chloride Flush Syringe 10 Ml IV PRN PRN LINE FLUSH Nutrition/Malnutrition Assess - Dietary Evaluation Nutrition/Malnutrition Findings: Nutrition Notes Start: 08/18/19 14:01 Freq: Status: Active Protocol: Document 08/18/19 14:01 LM (Rec: 08/18/19 14:21 LM [id number]) Nutrition Notes Need for Assessment generated from: pit inspector,MST Initial or Follow up Assessment Current Diagnosis CKD (stage V CKD),COPD,Heart Failure,Stroke Other Pertinent Diagnosis on HD, metabolic acidosis, L toe wound /sacral ulcers, abd skin damage Current Diet Renal Labs/Tests BUN 29 Cr 8.5 Pertinent Medications Reviewed Height 5 ft 3 in Weight 63.1 kg [place] Body Weight (kg) 52.27 BMI 24.6 Weight Status Appropriate Subjective/Other Information RN screen for MST and skin risk. Pt with multiple wounds. Pt asleep at both visits. Per chart, pt on renal diet but tech infromed me that pt is NPO. Burn Absent Trauma Absent Current % PO Negligible Minimum of two criteria No physical signs of malnutrition #2 Nutrition Diagnosis Inadequate oral intake Etiology unknown As Evidenced by Signs and Symptoms pt did not get breakfast or lunch tray #1 Nutrition Diagnosis Increased nutrient needs ( specify in comment below) Comments: Protein Etiology wound healing and HD As Evidenced by Signs and Symptoms L toe wound, sacral ulcers, abdominal skin damage Is patient on ventilator? No Is Patient Ambulatory and/or Out of Bed No REE-([facility]-confined to bed) [phone] Calculation Used for Recommendations [facility] Additional Notes Protein: >76g (>1.2g/kg) Fluid: 1-1.5 ml/day Nutrition Intervention Change Diet Order: Renal diet Goal #1 Meet at least 80% of energy and protein needs Anticipated Discharge Needs: Renal diet Follow-Up By: 08/20/19 Additional Comments F/U for intakes, full assessment - Malnutrition Assessment Minimum of two criteria: Yes - Attestation Statement I have reviewed and agreed w/ Malnutrition eval & tx plan: Yes
[2019-08-19] MEDS ORDERED: diphenhydrAMINE 25 MG CAP PO PRN (22:48)
[2019-08-20 07:17] LABS: Hematocrit 32.2 % (30.3-42.9); Hemoglobin 9.9 gm/dl (10.1-14.3); Mean Corpuscular HGB Conc 31 % (30-34); Mean Corpuscular Volume 98 fl (79-97); Platelet Count 235 K/mm3 (140-440); Red Blood Count 3.29 M/mm3 (3.65-5.03); Red Cell Distribution Width 17.2 % (13.2-15.2)
[2019-08-20 07:37] LABS: Calcium 8.6 mg/dL (8.4-10.2)
[2019-08-20 08:56] LABS: Anisocytosis 1+; Basophils % (Manual) 0 % (0.0-1.8); Total Cells Counted 100
[2019-08-20 08:57] LABS: Stomatocytes 2+
[2019-08-20 08:58] LABS: Platelet Estimate Consistent w Auto
[2019-08-20] MEDS: HEPARIN 5,000 UNIT/1 ML VIAL SUB-Q SCH (09:53)
--- NOTE | 2019-08-20 11:05 | Progress Note ---
Assessment and Plan 1. ESRD requiring HD: Long history of noncompliance with maintenance HD. Received HD M/W/. Patient had right chest permcath but she pulled the HD catheter out 08/17. Discussed with daughter regarding replacement of catheter and need for compliance with HD. Explained risk of bleeding if patient pulls catheter out. Suggested comfort/hospice care. Daughter elected to reinsert HD catheter and continue dialysis treatments. Vascular inserted permcath on 08/18. Hemodialysis: 08/18. 2. FEN: Metabolic acidosis, improving, monitor. Monitor lytes. 3. Metabolic encephalopathy: CT head negative. Likely 2/2 need for HD and metabolic acidosis. 4. COPD: Appears compensated. 5. Diabetes: Monitor blood glucose. 6. CHF: EF 60-65%. 7. Pulmonary edema: Likely volume overload 2/2 noncompliance with HD. 8. Hypertension: BP appears controlled. 9. H/o CVA: R hemiparesis. 10. Anemia of chronic disease: Epogen with HD if needed. Monitor. 11. Medical noncompliance: Family counseled on importance of compliance with HD treatments. Per notes, patient to d/c home today. Outpatient chair is secured and family aware of importance of pt adhering to scheduled HD treatments as well as the risks of missing treatments. Subjective Date of service: 08/20/19 Interval history: Patient was seen and examined at the bedside. No family present at time of exam. No other acute events. Objective - Exam Narrative Exam: General appearance: well-developed, appears stated age, other (mittens in use), drowsy EENT: ATNC, PERRL, mucous membranes moist, hearing intact Neck: Present: neck supple, trachea midline Respiratory: Clear to Ascultation, Decreased Breath Sounds (bibasilar) Heart: regular, normal heart rate, S1S2, no murmurs Gastrointestinal: Present: normal, normoactive bowel sounds Integumentary: no rash, warm and dry, other (multiple wounds including: L great toe, sacrum, and abdominal folds), L chest permcath Neurologic: confused, disoriented Musculoskeletal: Present: other (trace BLE edema noted, R hemiparesis) Psychiatric: sleeping - Vital Signs Vital signs: Vital Signs - 12hr 08/20/19 08:06 O2 Sat by Pulse 100 Oximetry - Lab 08/20/19 06:55 08/20/19 06:55 Most recent lab results Calcium 8.6 mg/dL (8.4-10.2) 08/20/19 06:55 Medications & Allergies - Medications Allergies/Adverse Reactions: Allergies No Known Allergies Allergy (Verified 07/22/19 10:08) Home Medications: Home Medications Medication Instructions Recorded Confirmed Last Taken Type Ondansetron [Zofran TAB] 4 mg PO PRN PRN 09/09/14 08/19/19 1 Day Ago History ~04/25/16 Gabapentin 300 mg PO TID 02/25/17 08/19/19 Unknown History hydrOXYzine HCL [Atarax] 25 mg PO Q8H PRN #20 tablet 02/27/17 08/19/19 Unknown Rx Albuterol INH(or & Nicu Only) 2 puff IH QID PRN #8.5 gram 05/06/19 08/19/19 Unknown Rx [ProAir HFA Inhaler] Aspirin [Aspirin BABY CHEW TAB] 81 mg PO QDAY #30 tab.chew 05/06/19 08/19/19 Unknown Rx calcitrioL [Rocaltrol] 0.25 mcg PO QDAY #30 capsule 05/06/19 08/19/19 Unknown Rx Amlodipine Besylate [Norvasc] 5 mg PO QDAY #30 tablet 05/21/19 08/19/19 Unknown Rx Loratadine (Nf) [Claritin (Nf)] 10 mg PO QDAY PRN #30 05/21/19 08/19/19 Unknown Rx Acetaminophen [Acetaminophen TAB] 650 mg PO Q4H PRN tablet 08/20/19 Unknown Rx diphenhydrAMINE [Benadryl CAP] 25 mg PO QHS PRN capsule 08/20/19 Unknown Rx Active Medications: Generic Name Dose Route Start Last Admin Trade Name Freq PRN Reason Stop Dose Admin Acetaminophen 650 mg 08/17/19 17:19 08/19/19 22:20 Tylenol PO 650 mg Q4H PRN Administration Pain MILD(1-3)/Fever >100.5/SMITH Albuterol 2.5 mg 08/17/19 17:19 Proventil IH Q4HRT PRN Shortness Of Breath Dextrose 50 ml 08/18/19 18:14 08/20/19 09:53 D50w (25gm) Syringe IV 50 ml Q30MIN PRN Administration Hypoglycemia Protocol Diphenhydramine HCl 25 mg 08/19/19 22:48 08/19/19 23:29 Benadryl PO 25 mg QHS PRN Administration Sleep Heparin Sodium (Porcine) 5,000 unit 08/17/19 22:00 08/20/19 09:53 Heparin SUB-Q 5,000 unit Q12HR LANDON Administration Sodium Chloride 100 mls @ 999 mls/hr 08/19/19 09:44 Nacl 0.9% IV JAYNE PRN Hypotension Ondansetron HCl 4 mg 08/17/19 17:19 Zofran IV Q8H PRN Nausea And Vomiting Sodium Chloride 10 ml 08/17/19 22:00 08/20/19 10:00 Sodium Chloride Flush Syringe 10 Ml IV 10 ml BID LANDON Administration Sodium Chloride 10 ml 08/17/19 17:19 Sodium Chloride Flush Syringe 10 Ml IV PRN PRN LINE FLUSH
--- NOTE | 2019-08-20 12:42 | Discharge Summary ---
Providers - Providers Date of Admission: 08/18/19 17:33 Date of discharge: 08/20/19 Attending physician: RAJI VIRK 08/17/19 15:50 Consult to Physician [CONS] Stat Comment: DR Quinton CANO W/DR HAYES @1530 Consulting Provider: GUZMAN HAYES Physician Instructions: Reason For Exam: esrd, AMS 08/18/19 04:39 Consult to Wound/ET Nurse [CONS] Routine Reason For Exam: wound eval 08/18/19 18:01 Consult to Interventional Radiology [CONS] Routine Consulting Provider: MELISSA SAGASTUME Reason For Exam: Hemodialysis catheter placement. Place consult to:: dr. sagastume Notified:: office Phone number called:: [phone] Was contact made?: Yes If yes, spoke with:: rosalind Time called:: 18:35 Primary care physician: HANS ROCHA Hospitalization Reason for admission: Missed hemodialysis Condition: Stable Hospital course: 54-year-old female with CVA complicated by RHP, CHF, DM, OA, COPD, Asthma, Anemia, ESRD on HD(T,Thur,SA) presented to ED after refusing hemodialysis. Patient was noted to be in distress and uncooperative at the dialysis center per staff. Patient reportedly has been noncompliant with hemodialysis in the past. he patient was subsequently transported to [facility] for further care and evaluation. Patient seen and evaluated in the emergency department. Lab and imaging studies reviewed. Patient found to have end-stage renal disease in need of dialysis, metabolic acidosis. Patient placed in observation status and admitted to medical floor for medical management due to increased risk of decompensation. Nephrology team consulted in ED for dialysis as per renal team. After arrival to the floor. Patient was noted to have pulled out a permacath later that evening. Vascular surgery was consulted and a left IJ permacath was placed. Patient had dialysis resume without complications. Case management consulted on the patient and reportedly the daughter would like the patient to return home. The patient stabilized and thus is felt to have received maximal hospital benefit and will be discharged home. Dedicated discharge time 35 minutes. Disposition: DC-01 TO HOME OR SELFCARE Time spent for discharge: 35 - Discharge Diagnoses (1) Metabolic acidosis Status: Acute (2) Noncompliance Status: Acute (3) ESRD (end stage renal disease) on dialysis Status: Chronic (4) CALLIE (acute kidney injury) Status: Acute (5) Anemia Status: Acute Qualifiers: Anemia type: due to chronic kidney disease Chronic kidney disease stage: on chronic dialysis Qualified Code(s): N18.6 - End stage renal disease; D63.1 - Anemia in chronic kidney disease; Z99.2 - Dependence on renal dialysis Core Measure Documentation - Palliative Care Palliative Care/ Comfort Measures: Not Applicable - Core Measures Any of the following diagnoses?: none Exam - Constitutional Vitals: Temp Pulse Resp BP Pulse Ox 97.5 F L 103 H 24 108/75 100 08/19/19 22:49 08/19/19 22:49 08/19/19 22:49 08/19/19 22:49 08/20/19 08:06 General appearance: Present: no acute distress, well-nourished - EENT Eyes: Present: PERRL ENT: hearing intact, clear oral mucosa - Neck Neck: Present: supple, normal ROM - Respiratory Respiratory effort: normal Respiratory: bilateral: CTA - Cardiovascular Heart Sounds: Present: S1 & S2. Absent: rub, click - Extremities Extremities: pulses symmetrical, No edema Peripheral Pulses: within normal limits - Abdominal General gastrointestinal: Present: soft, non-tender, non-distended, normal bowel sounds Female genitourinary: Present: normal - Integumentary Integumentary: Present: clear, warm, dry - Musculoskeletal Musculoskeletal: gait normal, strength equal bilaterally - Psychiatric Psychiatric: appropriate mood/affect, intact judgment & insight - Neurologic Neurologic: CNII-XII intact, moves all extremities Plan Activity: advance as tolerated Weight Bearing Status: Weight Bear as Tolerated Diet: renal Special Instructions: home health RN Follow up with: PRIMARY MD CESAR [Referring] - 3-5 Days HENRY STEARNS NP [Advanced Practice Nurse] - 7 Days
[2019-08-20 16:40] VITALS: BP 123/74
== END 2019-08-20 21:35 | disposition home health service (06) | DRG 682 ==
LOC: ED 11:52 → 3A 17:19 → OBSVTOIN 08-18 17:33
PROVIDERS: ADMIT Internal Medicine; ATTEND Hospitalist
PROC: 5A1D70Z Performance of Urinary Filtration, Intermittent, Less than 6 Hours Per Day (ICD-10-PCS; principal; 2019-08-19)
PROC: 02HV33Z Insertion of Infusion Device into Superior Vena Cava, Percutaneous Approach (ICD-10-PCS; 2019-08-19)
PROC: B548ZZA Ultrasonography of Superior Vena Cava, Guidance (ICD-10-PCS; 2019-08-19)
DX: N17.9 Acute kidney failure, unspecified (principal); G93.41 Metabolic encephalopathy; E87.2 Acidosis; I13.2 Hypertensive heart and chronic kidney disease with heart failure and with stage 5 chronic kidney disease, or end stage renal disease; J81.1 Chronic pulmonary edema; I50.32 Chronic diastolic (congestive) heart failure; I69.351 Hemiplegia and hemiparesis following cerebral infarction affecting right dominant side; N18.6 End stage renal disease; J44.9 Chronic obstructive pulmonary disease, unspecified; M19.049 Primary osteoarthritis, unspecified hand; E11.22 Type 2 diabetes mellitus with diabetic chronic kidney disease; D63.1 Anemia in chronic kidney disease; Z91.15 Patient's noncompliance with renal dialysis; Z98.51 Tubal ligation status; Z83.3 Family history of diabetes mellitus; Z82.49 Family history of ischemic heart disease and other diseases of the circulatory system; Z99.2 Dependence on renal dialysis; Z79.4 Long term (current) use of insulin
CPT/HCPCS: 36415; 36558; 70450; 71045; 76937; 77001; 80048; 82962; 84439; 84443; 85007; 85014; 85018; 85025; 87040; 93005; 93010; 94640; G0378; C1750; J1644; J2060; J2250; J3010; J7030

== ENCOUNTER → 2019-08-23 | Emergency (ER) | payer MEDICARE ==
--- NOTE | 2019-08-23 04:59 | Emergency Department Report ---
ED CPR HPI - General Chief Complaint: Cardiac Arrest/CPR Stated Complaint: CARDIAC ARREST Time Seen by Provider: 08/23/19 04:03 Source: family, EMS (Verbal report received from emergency medical services. EMS documentation not available at time of chart dictation ), RN notes reviewed, old records reviewed Mode of arrival: Stretcher Limitations: Altered Mental Status, Physical Limitation - History of Present Illness Initial Comments: Patient is a 54-year-old female with an extensive past medical history, who was brought to the hospital by emergency medical services as out of hospital nontraumatic cardiac arrest. Patient found down at home by family, for uncertain duration of time and uncertain mechanism. Uncertain if family initiated CPR. Emergency medical services were activated. Upon arrival, the patient is pulseless, not breathing, and does not have a shockable rhythm. EMS estimates at least 25 minutes from their initial arrival to arrival to this emergency room. The entire time, the patient is not having a pulse, does not have a shockable rhythm, and does not have signs of life. Upon arrival to the emergency room, the patient is in persistent PEA, pupils fixed and dilated, and do not react to light. She receives aggressive high- quality CPR, and standard ACLS medications. Unfortunately, return of spontaneous circulation could not be obtained. Bedside ultrasound shows cardiac standstill, with no recorded ventricular activity. No pulses are appreciated on physical exam, or through Doppler interrogation of her femoral arteries. Unfortunately, resuscitation efforts were terminated secondary to the aforementioned. Her family/daughter was subsequently informed. Complaint: found unresponsive -: unknown Initial Findings in the Field: no pulse, PEA Treatments Prior to Arrival: intubation, chest compressions, epinephrine mgs # - Related Data Home Medications Medication Instructions Recorded Confirmed Last Taken Ondansetron [Zofran TAB] 4 mg PO PRN PRN 09/09/14 08/19/19 1 Day Ago ~04/25/16 Gabapentin 300 mg PO TID 02/25/17 08/19/19 Unknown Previous Rx's Medication Instructions Recorded Last Taken Type hydrOXYzine HCL [Atarax] 25 mg PO Q8H PRN #20 tablet 02/27/17 Unknown Rx Albuterol INH(or & Nicu Only) 2 puff IH QID PRN #8.5 gram 05/06/19 Unknown Rx [ProAir HFA Inhaler] Aspirin [Aspirin BABY CHEW TAB] 81 mg PO QDAY #30 tab.chew 05/06/19 Unknown Rx calcitrioL [Rocaltrol] 0.25 mcg PO QDAY #30 capsule 05/06/19 Unknown Rx Amlodipine Besylate [Norvasc] 5 mg PO QDAY #30 tablet 05/21/19 Unknown Rx Loratadine (Nf) [Claritin (Nf)] 10 mg PO QDAY PRN #30 05/21/19 Unknown Rx Acetaminophen [Acetaminophen TAB] 650 mg PO Q4H PRN tablet 08/20/19 Unknown Rx diphenhydrAMINE [Benadryl CAP] 25 mg PO QHS PRN capsule 08/20/19 Unknown Rx Allergies Allergy/AdvReac Type Severity Reaction Status Date / Time No Known Allergies Allergy Verified 07/22/19 10:08 ED Review of Systems ROS: Stated complaint: CARDIAC ARREST Other details as noted in HPI Comment: Unobtainable due to pts medical conditions ED Past Medical Hx - Past Medical History Hx Hypertension: Yes Hx CVA: Yes (right weakness) Hx Heart Attack/AMI: No Hx Congestive Heart Failure: Yes (HX CHEST PAIN & SOB) Hx Diabetes: Yes (TYPE 11) Hx Liver Disease: No Hx Renal Disease: Yes (DIALYSIS / / FRI) Hx Sickle Cell Disease: No Hx Arthritis: Yes (hands) Hx Asthma: Yes Hx COPD: Yes Hx Tuberculosis: (NEG) Additional medical history: ANEMIA - Surgical History Additional Surgical History: TUBAL LIGATION. LEFT OVARY REMOVED. GRAFT LEFT ARM x 2 (inactive). PERMACATH RIGHT CHEST - Social History Smoking Status: Never Smoker - Medications Home Medications: Home Medications Medication Instructions Recorded Confirmed Last Taken Type Ondansetron [Zofran TAB] 4 mg PO PRN PRN 09/09/14 08/19/19 1 Day Ago History ~04/25/16 Gabapentin 300 mg PO TID 02/25/17 08/19/19 Unknown History hydrOXYzine HCL [Atarax] 25 mg PO Q8H PRN #20 tablet 02/27/17 08/19/19 Unknown Rx Albuterol INH(or & Nicu Only) 2 puff IH QID PRN #8.5 gram 05/06/19 08/19/19 Unknown Rx [ProAir HFA Inhaler] Aspirin [Aspirin BABY CHEW TAB] 81 mg PO QDAY #30 tab.chew 05/06/19 08/19/19 Unknown Rx calcitrioL [Rocaltrol] 0.25 mcg PO QDAY #30 capsule 05/06/19 08/19/19 Unknown Rx Amlodipine Besylate [Norvasc] 5 mg PO QDAY #30 tablet 05/21/19 08/19/19 Unknown Rx Loratadine (Nf) [Claritin (Nf)] 10 mg PO QDAY PRN #30 05/21/19 08/19/19 Unknown Rx Acetaminophen [Acetaminophen TAB] 650 mg PO Q4H PRN tablet 08/20/19 Unknown Rx diphenhydrAMINE [Benadryl CAP] 25 mg PO QHS PRN capsule 08/20/19 Unknown Rx ED Physical Exam - General Limitations: Physical Limitation, Other (Intubated, GCS of 3T) General appearance: other (Patient is nonverbal) - Head Head exam: Present: atraumatic, normocephalic - Eye Eye exam: Absent: normal appearance (Pupils dilated and do not react to light) - ENT ENT exam: Present: other (Endotracheal tube noted in the oropharynx) - Neck Neck exam: Present: normal inspection - Respiratory Respiratory exam: Absent: normal lung sounds bilaterally (No breath sounds), respiratory distress - Cardiovascular Cardiovascular Exam: Absent: regular rate (Patient is pulseless), normal rhythm, systolic murmur, diastolic murmur, rubs, gallop - GI/Abdominal GI/Abdominal exam: Present: soft, other (Chronic appearing wound noted in the left lower quadrant) - Extremities Exam Extremities exam: Present: normal inspection, other (There is an intraosseous line noted in the left lower) - Neurological Exam Neurological exam: Present: other (The patient is nonverbal with a GCS of 3) - Psychiatric Psychiatric exam: Present: other (Patient is nonverbal) - Skin Skin exam: Present: warm ED Medical Decision Making - Medical Decision Making Differential diagnosis, including but not limited to: Hyperkalemia, hypoglycemia, acute coronary syndrome, sepsis, bacteremia, pulmonary embolism Critical care attestation.: If time is entered above; I have spent that time in minutes in the direct care of this critically ill patient, excluding procedure time. ED Disposition Clinical Impression: Cardiac arrest Disposition: DC-20 Is pt being admited?: No Does the pt Need Aspirin: No Condition: Undetermined Referrals: PRIMARY CARE,MD [Primary Care Provider] - 3-5 Days
== END ==
LOC: ED 03:46
DX: I46.9 Cardiac arrest, cause unspecified (principal); I50.9 Heart failure, unspecified; N18.6 End stage renal disease; E11.22 Type 2 diabetes mellitus with diabetic chronic kidney disease; M19.042 Primary osteoarthritis, left hand; M19.041 Primary osteoarthritis, right hand; J44.9 Chronic obstructive pulmonary disease, unspecified; D64.9 Anemia, unspecified; Z99.2 Dependence on renal dialysis; Z98.51 Tubal ligation status; Z79.899 Other long term (current) drug therapy; Z86.73 Personal history of transient ischemic attack (TIA), and cerebral infarction without residual deficits; Z98.890 Other specified postprocedural states
CPT/HCPCS: 92950